=== PATIENT | female | born 1940 | race American Indian/Alaskan Native ===

== ENCOUNTER 2019-02-09 16:54 | Emergency (ER) | payer MEDICAID ==
--- NOTE | 2019-02-09 17:59 | Emergency Department Report ---
Blank Doc - Documentation Documentation: 78-year-old female that presents with SOB and vaginal bleeding. This initial assessment/diagnostic orders/clinical plan/treatment(s) is/are subject to change based on patient's health status, clinical progression and re- assessment by fellow clinical providers in the ED. Further treatment and workup at subsequent clinical providers discretion. Patient/guardians urged not to elope from the ED as their condition may be serious if not clinically assessed and managed. Initial orders include: 1- Patient sent to [facility] for further evaluation and treatment 2- labs 3- EKG 4- CXR
--- NOTE | 2019-02-09 18:27 | XRay Report ---
CHEST 2 VIEWS INDICATION / CLINICAL INFORMATION: Chest Pain. COMPARISON: None available. FINDINGS: SUPPORT DEVICES: None. HEART / MEDIASTINUM: No significant abnormality. LUNGS / PLEURA: No significant pulmonary or pleural abnormality. No pneumothorax. ADDITIONAL FINDINGS: No significant additional findings. IMPRESSION: 1. No acute findings. Signer Name: Julio Cesar Yuan MD Signed: 02/09/2019 6:23 PM Workstation Name: [id number]
[2019-02-09 19:01] LABS: Bilirubin,Urine NEG (Negative); Blood,Urine NEG (Negative); Color,Urine Straw (Yellow); Protein,Urine <15 mg/dL mg/dL (Negative); Urobilinogen,Urine < 2.0 mg/dL (<2.0)
[2019-02-09 19:26] LABS: Basophils % (Auto) 0.6 % (0.0-1.8); Eosinophils # (Auto) 0.2 K/mm3 (0.0-0.4); Eosinophils % (Auto) 3.2 % (0.0-4.3); Hematocrit 39.1 % (30.3-42.9); Hemoglobin 13.5 gm/dl (10.1-14.3); Lymphocytes % (Auto) 31.2 % (13.4-35.0); Mean Corpuscular HGB Conc 34 % (30-34); Mean Corpuscular Volume 92 fl (79-97); Monocytes # (Auto) 0.4 K/mm3 (0.0-0.8); Monocytes % (Auto) 7.1 % (0.0-7.3); Platelet Count 182 K/mm3 (140-440); Red Blood Count 4.25 M/mm3 (3.65-5.03); Red Cell Distribution Width 14.6 % (13.2-15.2)
[2019-02-09 19:40] LABS: INR 0.9 (0.87-1.13)
[2019-02-09 19:41] LABS: Partial Thromboplastin Time 34.3 Sec. (24.2-36.6)
[2019-02-09 19:47] LABS: BUN/Creatinine Ratio 23; Blood Urea Nitrogen 14 mg/dL (7-17); Calcium 9.7 mg/dL (8.4-10.2); Hemolysis Index 19
[2019-02-09] MEDS ORDERED: DUONEB *Not for PRN Use IH ONE (21:56)
--- NOTE | 2019-02-09 22:22 | Emergency Department Report ---
HPI - General Chief Complaint: Vaginal Bleeding Time Seen by Provider: 02/09/19 17:58 - HPI HPI: 78-year-old female presents to the emergency department with 2 complaints. First, the patient has been having some shortness of breath and c oughing going on for the past few weeks but worsened recently. The patient has some tenants who are smokers and initially they followed her rules aboutindoors but more recently they have been smoking inside of the house and she feels there is not much that she is able to do at this time regarding any infection. She thinks this is the reason for the shortness of breath. She has not a smoker herself. She denies any chest pain, fever and the cough is dry. Secondly, the patient complains of some vaginal bleeding over the past 2 days. Yesterday it was spotting but today it is a moderate amount of bright red vaginal bleeding. She denies any abdominal or pelvic pain. ED Past Medical Hx - Past Medical History Previous Medical History?: No Hx Hypertension: No Hx CVA: No Hx Heart Attack/AMI: No Hx Congestive Heart Failure: No Hx Diabetes: No Hx Deep Vein Thrombosis: No Hx Pulmonary Embolism: No Hx GERD: No Hx Liver Disease: No Hx Renal Disease: No Hx of Cancer: No Hx Sickle Cell Disease: No Hx Arthritis: No Hx Headaches / Migraines: No Hx Seizures: No Hx Kidney Stones: No Hx Psychiatric Treatment: No Hx Asthma: No Hx COPD: No Hx Tuberculosis: No Hx Dementia: No Hx HIV: No Additional medical history: myomectomy - Surgical History Past Surgical History?: No Hx Coronary Stent: No Hx Open Heart Surgery: No Hx Pacemaker: No Hx Internal Defibrillator: No Hx Cholecystectomy: No Hx Appendectomy: No Hx Breast Surgery: No - Social History Smoking Status: Never Smoker Substance Use Type: None ED Review of Systems ROS: Stated complaint: VAGINAL BLEEDING/SOB Other details as noted in HPI Comment: All other systems reviewed and negative Constitutional: denies: chills, fever Eyes: denies: eye pain, vision change ENT: denies: ear pain, throat pain Respiratory: cough, shortness of breath Cardiovascular: denies: chest pain, palpitations Gastrointestinal: denies: abdominal pain, nausea, vomiting Genitourinary: other (abnormal vaginal bleeding). denies: dysuria, discharge Musculoskeletal: denies: back pain, arthralgia Skin: denies: rash, lesions Neurological: denies: headache, weakness Physical Exam - Physical Exam Vital Signs: Vital Signs 02/09/19 17:57 Temperature 98.0 F Pulse Rate 78 Respiratory 16 Rate Blood Pressure 183/93 Blood Pressure 183/93 [Right] O2 Sat by Pulse 100 Oximetry Physical Exam: GENERAL: The patient is well-developed well-nourished. HENT: Normocephalic. Atraumatic. Patient has moist mucous membranes. EYES: Extraocular motions are intact. Pupils equal reactive to light bilate rally. NECK: Supple. Trachea is midline. CHEST/LUNGS: Clear to auscultation. No tachypnea or accessory muscle use. There is no respiratory distress noted. HEART/CARDIOVASCULAR: Regular. There is no tachycardia. There is no murmur. ABDOMEN: Abdomen is soft, nontender. Patient has normal bowel sounds. There is no abdominal distention. SKIN: Skin is warm and dry. NEURO: The patient is awake, alert, and oriented. The patient is cooperative. The patient has no focal neurologic deficits. Normal speech. Cranial nerves II through XII grossly intact. MUSCULOSKELETAL: There is no tenderness or deformity. There is no evidence of acute injury. +2 over 4 dorsalis pedis pulses bilaterally. Capillary refill less than 2 seconds. ED Course Vital Signs 02/09/19 17:57 Temperature 98.0 F Pulse Rate 78 Respiratory 16 Rate Blood Pressure 183/93 Blood Pressure 183/93 [Right] O2 Sat by Pulse 100 Oximetry ED Medical Decision Making - Lab Data Result diagrams: 02/09/19 19:15 02/09/19 19:15 - Radiology Data Radiology results: report reviewed, image reviewed interpreted by me: Chest x-ray does not show any acute process. There are no pleural effusions, obvious pneumonia and there is no pneumothorax. Transvaginal ultrasound. 02/09/2019. HISTORY: Vaginal bleeding. FINDINGS: The uterus measures 4.9 x 2 x 4.6 cm. The appearance is mildly heterogeneous. Endometrial stripe measures 1.4 mm. The ovaries cannot be identified. IMPRESSION: 1. Mild uterine heterogeneity without suspicious 2 ovaries nonvisualized. Negative for adnexal mass or fluid. - Medical Decision Making This patient presents with 2 complaints. Regarding her shortness of breath, chest x-ray does not show any pneumonia, pleural effusions, pneumothorax or focal consolidation, or any other acute process. Lungs are clear to auscultation. She does not have any signs of any respiratory distress including any tachypnea, accessory muscle use. Patient may have some irritation to her lungs secondary to the recent smoking that is going on inside of her home. I discussed with her that she needs to try and remove herself from the smoke. The patient barely had the DuoNeb treatment started and she says that she could not tolerate it. There is no significant bronchospasm or signs of respiratory distress, it will be discontinued. Regarding the patient's abnormal vaginal bleeding, she has a stable hemoglobin. Ultrasound shows a slightly heterogenous uterus but otherwise no mass, or signs of any acute process. Patient has been instructed to follow-up with her primary care physician and an [facility]ANT. She will return to the ER with any worsening of her symptoms or any acute distress. - Differential Diagnosis pneumonia, asthma, bronchitis, uterine fibroids, malignancy Critical Care Time: No Critical care attestation.: If time is entered above; I have spent that time in minutes in the direct care of this critically ill patient, excluding procedure time. ED Disposition Clinical Impression: Vaginal bleeding, Post-menopause bleeding, Exposure to tobacco smoke, Shortness of breath Hypertension Qualifiers: Hypertension type: essential hypertension Qualified Code(s): I10 - Essential (primary) hypertension Disposition: - TO HOME OR SELFCARE Is pt being admited?: No Condition: Stable Instructions: Dyspnea (ED), Hypertension (ED) Additional Instructions: Please follow-up with your primary care physician in the next few days. Return to the emergency Department with any worsening of your symptoms or any acute distress. Try and stay away from foods that are high in salt and caffeinated products to help with your blood pressure. Keep a blood pressure log. Referrals: Primary Care Provider, Your [Other] - 2-3 Days Time of Disposition: 01:18
--- NOTE | 2019-02-09 23:07 | Ultrasound Report ---
Transvaginal ultrasound. 02/09/2019. HISTORY: Vaginal bleeding. FINDINGS: The uterus measures 4.9 x 2 x 4.6 cm. The appearance is mildly heterogeneous. Endometrial s tripe measures 1.4 mm. The ovaries cannot be identified. IMPRESSION: 1. Mild uterine heterogeneity without suspicious 2 ovaries nonvisualized. Negative for adnexal mass o r fluid. Signer Name: Juan Diaz MD Signed: 02/09/2019 11:02 PM Workstation Name: [id number]
[2019-02-09 23:32] VITALS: BP 181/90
== END 2019-02-10 01:22 | disposition home or self-care (01) ==
LOC: ED 16:54
DX: N95.0 Postmenopausal bleeding (principal); R06.02 Shortness of breath; Z88.5 Allergy status to narcotic agent
CPT/HCPCS: 36415; 71046; 76830; 80048; 81001; 84484; 85025; 85610; 85730; 93005; 93010

== ENCOUNTER 2020-01-22 12:20 | Emergency (ER) | payer MEDICARE ==
[2020-01-22 12:25] VITALS: BP 181/101
[2020-01-22 13:40] LABS: Basophils # (Auto) 0.1 K/mm3 (0.0-0.1); Basophils % (Auto) 0.8 % (0.0-1.8); Eosinophils # (Auto) 0.3 K/mm3 (0.0-0.4); Eosinophils % (Auto) 4.3 % (0.0-4.3); Hematocrit 38.6 % (30.3-42.9); Hemoglobin 13.2 gm/dl (10.1-14.3); Lymphocytes # (Auto) 2.1 K/mm3 (1.2-5.4); Lymphocytes % (Auto) 32.1 % (13.4-35.0); Mean Corpuscular HGB Conc 34 % (30-34); Mean Corpuscular Volume 92 fl (79-97); Monocytes # (Auto) 0.5 K/mm3 (0.0-0.8); Monocytes % (Auto) 8.2 % (0.0-7.3); Platelet Count 217 K/mm3 (140-440); Red Blood Count 4.21 M/mm3 (3.65-5.03); Red Cell Distribution Width 14.7 % (13.2-15.2)
[2020-01-22 14:39] LABS: BUN/Creatinine Ratio 19; Blood Urea Nitrogen 13 mg/dL (7-17); Calcium 10.2 mg/dL (8.4-10.2); Hemolysis Index 9
--- NOTE | 2020-01-22 15:22 | Emergency Department Report ---
ED General Adult HPI - General Chief complaint: Altered Mental Status Stated complaint: DIZZY Time Seen by Provider: 01/22/20 15:05 Source: patient Mode of arrival: Ambulatory Limitations: Altered Mental Status - History of Present Illness Initial comments: The patient presents to the emergency department via uber in attempt to get directions to her doctor's office. The patient states she is getting frustrated because she has been here all morning and she had a doctor's appointment this morning was trying to get there. Patient is able to tell me her name, date of , the last 3 presidents, her address, and her doctors address. The patient is well-groomed and is very patient when answering questions. Discussed with the patient she had dementia and she states that she is heard that term before and she states earlier today she might of been slightly confused but now she feels completely better. -: unknown Severity scale (0 -10): 0 Improves with: none Worsens with: none Associated Symptoms: denies other symptoms Treatments Prior to Arrival: none - Related Data Previous Rx's Medication Instructions Recorded Last Taken Type Aspirin EC [Halfprin EC] 81 mg PO QDAY #30 tablet. 10/20/19 Unknown Rx AtorvaSTATin [Lipitor] 40 mg PO QHS #30 tablet 10/20/19 Unknown Rx Calcium Carbonate/Vitamin D3 1 each PO DAILY #30 tablet 10/20/19 Unknown Rx [Calcium 500 mg-Vit D3 600 Unit] amLODIPine 10 mg PO QDAY #30 tablet 10/20/19 Unknown Rx Allergies Allergy/AdvReac Type Severity Reaction Status Date / Time codeine AdvReac Intermediate Swelling Unverified 05/24/15 09:09 ED Review of Systems ROS: Stated complaint: DIZZY Other details as noted in HPI Comment: All other systems reviewed and negative Constitutional: denies: chills, fever Eyes: denies: eye pain, eye discharge, vision change ENT: denies: ear pain, throat pain Respiratory: denies: cough, shortness of breath, wheezing Cardiovascular: denies: chest pain, palpitations Endocrine: no symptoms reported Gastrointestinal: denies: abdominal pain, nausea, diarrhea Genitourinary: denies: urgency, dysuria, discharge Musculoskeletal: denies: back pain, joint swelling, arthralgia Skin: denies: rash, lesions Neurological: denies: headache, weakness, paresthesias Psychiatric: denies: anxiety, depression Hematological/Lymphatic: denies: easy bleeding, easy bruising ED Past Medical Hx - Past Medical History Previous Medical History?: Yes Hx Hypertension: No Hx CVA: No Hx Heart Attack/AMI: No Hx Congestive Heart Failure: No Hx Diabetes: Yes Hx Deep Vein Thrombosis: No Hx Pulmonary Embolism: No Hx GERD: No Hx Liver Disease: No Hx Renal Disease: No Hx Sickle Cell Disease: No Hx Arthritis: No Hx Headaches / Migraines: No Hx Seizures: No Hx Kidney Stones: No Hx Psychiatric Treatment: No Hx Asthma: No Hx COPD: No Hx Tuberculosis: No Hx Dementia: No Hx HIV: No Additional medical history: myomectomy - Surgical History Hx Coronary Stent: No Hx Open Heart Surgery: No Hx Pacemaker: No Hx Internal Defibrillator: No Hx Cholecystectomy: No Hx Appendectomy: No Hx Breast Surgery: No - Social History Smoking Status: Never Smoker Substance Use Type: None - Medications Home Medications: Home Medications Medication Instructions Recorded Confirmed Last Taken Type Aspirin EC [Halfprin EC] 81 mg PO QDAY #30 tablet. 10/20/19 Unknown Rx AtorvaSTATin [Lipitor] 40 mg PO QHS #30 tablet 10/20/19 Unknown Rx Calcium Carbonate/Vitamin D3 1 each PO DAILY #30 tablet 10/20/19 Unknown Rx [Calcium 500 mg-Vit D3 600 Unit] amLODIPine 10 mg PO QDAY #30 tablet 10/20/19 Unknown Rx ED Physical Exam - General Limitations: Altered Mental Status General appearance: alert, in no apparent distress - Head Head exam: Present: atraumatic, normocephalic - Eye Eye exam: Present: normal appearance, PERRL, EOMI - ENT ENT exam: Present: mucous membranes moist - Neck Neck exam: Present: normal inspection - Respiratory Respiratory exam: Present: normal lung sounds bilaterally. Absent: respiratory distress - Cardiovascular Cardiovascular Exam: Present: regular rate, normal rhythm. Absent: systolic murmur, diastolic murmur, rubs, gallop - GI/Abdominal GI/Abdominal exam: Present: soft, normal bowel sounds. Absent: distended, tenderness - Extremities Exam Extremities exam: Present: normal inspection - Back Exam Back exam: Present: normal inspection - Neurological Exam Neurological exam: Present: alert, oriented X3, CN II-XII intact. Absent: motor sensory deficit - Psychiatric Psychiatric exam: Present: normal affect, normal mood - Skin Skin exam: Present: warm, dry, intact, normal color. Absent: rash ED Course Vital Signs 01/22/20 12:23 Temperature 97.6 F Pulse Rate 79 Respiratory 16 Rate Blood Pressure 181/101 O2 Sat by Pulse 100 Oximetry ED Medical Decision Making - Lab Data Result diagrams: 01/22/20 12:37 01/22/20 12:37 Lab Results 01/22/20 01/22/20 01/22/20 Range/Units 12:37 12:37 12:44 WBC 6.4 (4.5-11.0) K/mm3 RBC 4.21 (3.65-5.03) M/mm3 Hgb 13.2 (10.1-14.3) gm/dl Hct 38.6 (30.3-42.9) % MCV 92 (79-97) fl MCH 31 (28-32) pg MCHC 34 (30-34) % RDW 14.7 (13.2-15.2) % Plt Count 217 (140-440) K/mm3 Lymph % (Auto) 32.1 (13.4-35.0) % Barron % (Auto) 8.2 H (0.0-7.3) % Eos % (Auto) 4.3 (0.0-4.3) % Baso % (Auto) 0.8 (0.0-1.8) % Lymph # 2.1 (1.2-5.4) K/mm3 Barron # 0.5 (0.0-0.8) K/mm3 Eos # 0.3 (0.0-0.4) K/mm3 Baso # 0.1 (0.0-0.1) K/mm3 Seg Neutrophils % 54.6 (40.0-70.0) % Seg Neutrophils # 3.5 (1.8-7.7) K/mm3 Sodium 138 (137-145) mmol/L Potassium 4.2 (3.6-5.0) mmol/L Chloride 98.9 (98-107) mmol/L Carbon Dioxide 25 (22-30) mmol/L Anion Gap 18 mmol/L BUN 13 (7-17) mg/dL Creatinine 0.7 (0.6-1.2) mg/dL Estimated GFR > 60 ml/min BUN/Creatinine Ratio 19 % Glucose 109 H (65-100) mg/dL POC Glucose 128 H (70-105) Calcium 10.2 (8.4-10.2) mg/dL - Medical Decision Making Mini MSE exam was done and the patient passed Critical care attestation.: If time is entered above; I have spent that time in minutes in the direct care of this critically ill patient, excluding procedure time. ED Disposition Clinical Impression: Well adult exam Disposition: DC-01 TO HOME OR SELFCARE Is pt being admited?: No Does the pt Need Aspirin: No Condition: Stable Additional Instructions: Return if you have any chest pain, shortness breath, or headache. Referrals: PRIMARY CARE, [Primary Care Provider] - 3-5 Days LUCY MORA MD [Referring] - 3-5 Days Forms: AMA Form Time of Disposition: 15:23
== END 2020-01-22 16:00 | disposition home or self-care (01) ==
LOC: ED 12:20
DX: R42 Dizziness and giddiness (principal); E11.9 Type 2 diabetes mellitus without complications; Z79.82 Long term (current) use of aspirin; Z79.899 Other long term (current) drug therapy; Z88.6 Allergy status to analgesic agent; Z00.00 Encounter for general adult medical examination without abnormal findings
CPT/HCPCS: 36415; 80048; 82962; 85025

== ENCOUNTER 2021-08-04 18:20 | Emergency (ER) | payer MEDICARE ==
[2021-08-04 19:46] LABS: Basophils % (Auto) 0.6 % (0.0-1.8); Eosinophils # (Auto) 0.2 K/mm3 (0.0-0.4); Eosinophils % (Auto) 3.4 % (0.0-4.3); Hematocrit 36.9 % (30.3-42.9); Lymphocytes # (Auto) 1.9 K/mm3 (1.2-5.4); Lymphocytes % (Auto) 33.1 % (13.4-35.0); Mean Corpuscular HGB Conc 32 % (30-34); Mean Corpuscular Volume 92 fl (79-97); Monocytes # (Auto) 0.5 K/mm3 (0.0-0.8); Monocytes % (Auto) 8.3 % (0.0-7.3); Platelet Count 176 K/mm3 (140-440); Red Blood Count 4.03 M/mm3 (3.65-5.03); Red Cell Distribution Width 15.3 % (13.2-15.2)
[2021-08-04 19:59] LABS: Alanine Aminotransferase 15 units/L (7-56); Albumin 4.5 g/dL (3.9-5); Blood Urea Nitrogen 27 mg/dL (7-17); Calcium 9.7 mg/dL (8.4-10.2); Hemolysis Index 5
[2021-08-04 20:14] LABS: BUN/Creatinine Ratio 45; Bilirubin,Direct < 0.2 mg/dL (0-0.2)
[2021-08-04 20:17] LABS: INR 0.85 (0.87-1.13)
[2021-08-04 21:54] LABS: Bilirubin,Urine NEG (Negative); Blood,Urine SM (Negative); Color,Urine Yellow (Yellow); Mucus,Urine 1+ /HPF; Protein,Urine <15 mg/dL mg/dL (Negative); Urobilinogen,Urine < 2.0 mg/dL (<2.0); WBC,Urine < 1.0 /HPF (0.0-6.0)
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
[2021-08-05] MEDS ORDERED: amLODIPine 10 MG TAB PO SCH (10:00)
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
[2021-08-05] MEDS ORDERED: ARIPiprazole 5 MG TAB PO SCH (12:00)
[2021-08-05 20:13] VITALS: BP 140/84
[2021-08-05] MEDS ORDERED: traZODone 50 MG TAB PO SCH (22:00)
== END 2021-08-05 21:41 ==
LOC: ED 18:20
DX: R42 Dizziness and giddiness (principal); E11.9 Type 2 diabetes mellitus without complications; R79.1 Abnormal coagulation profile; Z20.822 Contact with and (suspected) exposure to COVID-19; Z88.5 Allergy status to narcotic agent; Z79.899 Other long term (current) drug therapy
CPT/HCPCS: 36415; 80048; 80076; 81001; 82150; 82962; 83690; 84443; 85025; 85610; 99284; U0003; 80320; G0480

== ENCOUNTER 2021-08-05 18:56 | Inpatient (IN) | payer MEDICARE ==
[2021-08-05] MEDS: traZODone 50 MG TAB PO SCH (23:50)
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
[2021-08-06] MEDS ORDERED: [UNRECOGNIZED DRUG - OTHER] PO SCH (10:00)
[2021-08-06] MEDS ORDERED: ARIPiprazole 5 MG TAB PO SCH (10:00)
[2021-08-06] MEDS ORDERED: VITAMIN D3 PO SCH (10:00)
[2021-08-06] MEDS ORDERED: CALCIUM CARBONATE PO SCH (10:00)
--- NOTE | 2021-08-06 10:49 | Consultation ---
History of Present Illness - Reason for Consult Consult date: 08/06/21 Medical Management Requesting physician: MORIAH SANCHEZ - History of Present Illness 81 YO Female with Vascular Dementia with Behavioral Disturbance, Cerebral Atherosclerosis, HTN, DM, Malnitrition, MDD, EDWIN admitted to [facility] for psychiatric stabilization. Consult placed by Dr. Sanchez for medical management. Pt seen and evaluated in her room. Pt resting comfortably in bed. Pt has dimi nished cognition and is unable to provide detailed history at the time of my evaluation. Patient appears to be at baseline level of cognition and function. No reports of fever, chills, chest pain, palpitation or productive cough, skin rash, recent contact, known exposure to COVID-19. Past History Past Medical History: diabetes, hypertension Past Surgical History: Other (Myomectomy) Social history: , Lives alone Family history: diabetes, hypertension Medications and Allergies Allergies Allergy/AdvReac Type Severity Reaction Status Date / Time codeine AdvReac Intermediate Swelling Verified 08/04/21 18:27 Home Medications Medication Instructions Recorded Confirmed Last Taken Type Aspirin EC [Halfprin EC] 81 mg PO QDAY #30 tablet. 10/20/19 08/06/21 Unknown Rx AtorvaSTATin [Lipitor] 40 mg PO QHS #30 tablet 10/20/19 08/06/21 Unknown Rx Calcium Carbonate/Vitamin D3 1 each PO DAILY #30 tablet 10/20/19 08/06/21 Unknown Rx [Calcium 500 mg-Vit D3 600 Unit] amLODIPine 10 mg PO QDAY #30 tablet 10/20/19 08/06/21 Unknown Rx Active Meds: Active Medications Amlodipine Besylate (Amlodipine 10 Mg Tab) 10 mg PO QDAY [facility] Aripiprazole (Aripiprazole 5 Mg Tab) 5 mg PO QDAY [facility] Aspirin (Aspirin Ec 81 Mg Tab) 81 mg PO QDAY [facility] Atorvastatin Calcium (Atorvastatin 40 Mg Tab) 40 mg PO QHS [facility] Multivitamins/Minerals (Calcium Carb/Vit D3/Minerals 600 Mg/800 Units Tab) 1 each PO DAILY [facility] Trazodone HCl (Trazodone 50 Mg Tab) 50 mg PO QHS [facility] Last Admin: 08/05/21 23:50 Dose: Not Given Review of Systems ROS unobtainable: due to mental status Exam - Constitutional Vitals: Temp Pulse Resp BP Pulse Ox 98.4 F 79 18 116/59 97 08/06/21 09:05 08/06/21 09:05 08/06/21 09:05 08/06/21 09:05 08/06/21 09:05 General appearance: Present: no acute distress, cachectic - EENT Eyes: Present: PERRL ENT: clear oral mucosa, hearing decreased - Respiratory Respiratory effort: normal Respiratory: bilateral: CTA - Cardiovascular Rhythm: regular Heart Sounds: Present: S1 & S2 - Extremities Extremities: pulses symmetrical, No edema Peripheral Pulses: within normal limits - Abdominal General gastrointestinal: Present: soft, non-tender, non-distended, normal bowel sounds Female genitourinary: Present: normal - Integumentary Integumentary: Present: clear, warm, dry - Musculoskeletal Musculoskeletal: generalized weakness - Psychiatric Psychiatric: no appropriate mood/affect, no intact judgment & insight, no memory intact - Neurologic Neurologic: CNII-XII intact, no focal deficits, moves all extremities Assessment and Plan - Patient Problems (1) Vascular dementia with behavioral disturbance Current Visit: Yes Status: Acute Plan to address problem: Verbal prompting, verbal redirection, benzodiazepine therapy as clinically indicated (2) Cerebral atherosclerosis Current Visit: Yes Status: Acute Plan to address problem: Risk factor reduction, antiplatelet therapy as clinically indicated. (3) Hypertension Current Visit: Yes Status: Acute Qualifiers: Hypertension type: primary hypertension Qualified Code(s): I10 - Essential (primary) hypertension Plan to address problem: Monitor blood pressure every shift, continue medical management. (4) Hyperlipidemia Current Visit: Yes Status: Acute Plan to address problem: Low-cholesterol diet, statin therapy, supportive care. (5) Diabetes Current Visit: Yes Status: Acute Plan to address problem: Consistent carbohydrate diet, Accu-Chek, insulin protocol, hypoglycemia protocol. (6) Malnutrition Current Visit: Yes Status: Acute Qualifiers: Protein-calorie malnutrition severity: moderate Plan to address problem: Dietary intake varies based on cognition. Dietary supplementation when awake and alert only, increase protein intake. (7) Psychosis Current Visit: Yes Status: Acute Qualifiers: Schizophrenia type: unspecified Plan to address problem: Continue medical management as per mental health team (8) Debility Current Visit: Yes Status: Acute Plan to address problem: Bed alarm, fall precautions. (9) Advance care planning Current Visit: Yes Status: Acute Plan to address problem: Disease education conducted, care plan discussed, diagnoses discussed, prognosis discussed, patient is full code. Discussed patient diagnoses, prognosis and care plan with patient granddaughter Felicia Nuñez [phone]. Patient is currently unable to live independently and will require placement. Discussed all likely options. Recommend discharge with hospice care to care home facility, personal-jail, or assisted living facility depending on availability and acceptance. 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 +30 minutes.
[2021-08-06] MEDS: ASPIRIN EC 81 MG TAB PO SCH (11:09)
[2021-08-06] MEDS: amLODIPine 10 MG TAB PO SCH (11:10)
[2021-08-06] MEDS: CALCIUM CARB/VIT D3/MINERALS 600 MG/800 UNITS TAB PO SCH (11:10)
[2021-08-06] MEDS: traZODone 50 MG TAB PO SCH (21:25)
--- NOTE | 2021-08-07 08:46 | Progress Note ---
Subjective Date of service: 08/07/21 Subjective Comment: The patient was seen this morning. She is calm. When asking how she is doing, she states " I don't know yet." She reports sleep as restful. She denies depression and denies any current suicidal/homicidal ideation and denies hallucinations. REVIEW OF SYSTEMS Constitutional: Negative for weight loss ENT: Negative for stridor Respiratory: Negative for cough or hemoptysis All other systems reviewed and are negative MENTAL STATUS EXAMINATION General Appearance and Behavior: Age appropriate, good hygiene, wearing appropriate clothes, good eye contact, calm, cooperative Cooperation: Participating/engaged, but Guarded Psychomotor Behavior: Psychomotor normal Mood: calm Affect and affective range: congruent with stated mood Thought Process: Goal directed Thought Content: Reality oriented Speech: normal tone and pace Suicidal Ideation: Denies Homicidal Ideation: Denies Hallucinations: Denies Delusions: None Impulse Control: Limited Insight and Judgment: Poor insight and judgment Memory: Poor Attention: Divided Orientation: Alert, oriented Assessment and Plan Delusional Disorder Treatment Plan Patient admitted for inpatient psychiatric evaluation, medication adjustment and close monitoring The patient's behavior, mood, sleep and appetite will be closely monitored. Patient enrolled in individual and group therapeutic sessions and encouraged to attend. Patient provided with a safe and structured environment. Patient's physical health needs will be addressed by the Hospitalist. Hospitalist Consulted Labs including CBC, CMP, Lipid profile and Hemoglobin A1C levels ordered for baseline reference Social Assessment will be completed and the Therapeutic Recreation Specialist will work with patient and family to ensure a suitable and safe disposition Medication adjustment will be made as clinically indicated Start Abilify 5mg po daily Usual Wellness Anabaptism/Preservation: - Start Trazodone 50 mg po QHS & 50 mg po QHS PRN between 10 PM & 2 AM for insomnia - Start Melatonin 5 mg po QHS to promote circadian rhythm The patient agreed on the treatment plan, understood the risk, benefit, alternative treatment, potential consequence of no treatment, and gave informed consent. Estimated days: Post hospital care: primary care provider, psychiatric provider Case staffed with Dr. Fuentes Legal Status: Voluntary Reaction to Hospitalization: Accepting Medications and Allergies Medications and Allergies Allergies Allergy/AdvReac Type Severity Reaction Status Date / Time codeine AdvReac Intermediate Swelling Verified 08/04/21 18:27 Home Medications Medication Instructions Recorded Confirmed Last Taken Type Aspirin EC [Halfprin EC] 81 mg PO QDAY #30 tablet. 10/20/19 08/06/21 Unknown Rx AtorvaSTATin [Lipitor] 40 mg PO QHS #30 tablet 10/20/19 08/06/21 Unknown Rx Calcium Carbonate/Vitamin D3 1 each PO DAILY #30 tablet 10/20/19 08/06/21 Unknown Rx [Calcium 500 mg-Vit D3 600 Unit] amLODIPine 10 mg PO QDAY #30 tablet 10/20/19 08/06/21 Unknown Rx Active Meds: Active Medications Amlodipine Besylate (Amlodipine 10 Mg Tab) 10 mg PO QDAY [facility] Last Admin: 08/06/21 11:10 Dose: Not Given Aripiprazole (Aripiprazole 5 Mg Tab) 5 mg PO QDAY [facility] Last Admin: 08/06/21 11:09 Dose: 5 mg Aspirin (Aspirin Ec 81 Mg Tab) 81 mg PO QDAY [facility] Last Admin: 08/06/21 11:09 Dose: 81 mg Atorvastatin Calcium (Atorvastatin 40 Mg Tab) 40 mg PO QHS [facility] Last Admin: 08/06/21 21:25 Dose: 40 mg Multivitamins/Minerals (Calcium Carb/Vit D3/Minerals 600 Mg/800 Units Tab) 1 each PO DAILY [facility] Last Admin: 08/06/21 11:10 Dose: 1 each Trazodone HCl (Trazodone 50 Mg Tab) 50 mg PO QHS [facility] Last Admin: 08/06/21 21:25 Dose: 50 mg Results - Results Labs/Vitals: Laboratory Last Values POC Glucose 142 mg/dL (70-105) H 08/06/21 19:45 Last Vital Signs Temp 98.8 F 08/06/21 19:24 Pulse 84 08/06/21 19:24 Resp 18 08/06/21 19:24 BP 96/49 08/06/21 19:24 Pulse Ox 99 08/06/21 19:24
[2021-08-07] MEDS ORDERED: ZIPRASIDONE MESYLATE 20 MG VIAL IM PRN (10:00)
[2021-08-07] MEDS: CALCIUM CARB/VIT D3/MINERALS 600 MG/800 UNITS TAB PO SCH (11:34)
[2021-08-07] MEDS: ASPIRIN EC 81 MG TAB PO SCH (11:35)
[2021-08-07] MEDS: amLODIPine 10 MG TAB PO SCH (11:37)
[2021-08-07] MEDS: ARIPiprazole 10 MG TAB PO SCH (11:50)
[2021-08-07] MEDS: traZODone 50 MG TAB PO SCH (21:01)
[2021-08-08] MEDS: ARIPiprazole 10 MG TAB PO SCH (09:03)
[2021-08-08] MEDS: amLODIPine 10 MG TAB PO SCH (09:03)
[2021-08-08] MEDS: CALCIUM CARB/VIT D3/MINERALS 600 MG/800 UNITS TAB PO SCH (09:03)
[2021-08-08] MEDS: ASPIRIN EC 81 MG TAB PO SCH (09:03)
--- NOTE | 2021-08-08 09:27 | Progress Note ---
Subjective Date of service: 08/08/21 Subjective Comment: 08/08/21: The patient was seen eating breakfast. she reports doing well " I would have liked to sleep better, so much interruptions." She denies depression and denies any current suicidal/homicidal ideation and denies hallucinations. 08/07/21:The patient was seen this morning. She is calm. When asking how she is doing, she states " I don't know yet." She reports sleep as restful. She denies depression and denies any current suicidal/homicidal ideation and denies hallucinations. REVIEW OF SYSTEMS Constitutional: Negative for weight loss ENT: Negative for stridor Respiratory: Negative for cough or hemoptysis All other systems reviewed and are negative MENTAL STATUS EXAMINATION General Appearance and Behavior: Age appropriate, good hygiene, wearing appropriate clothes, good eye contact, calm, cooperative Cooperation: Participating/engaged, but Guarded Psychomotor Behavior: Psychomotor normal Mood: calm Affect and affective range: congruent with stated mood Thought Process: Goal directed Thought Content: Reality oriented Speech: normal tone and pace Suicidal Ideation: Denies Homicidal Ideation: Denies Hallucinations: Denies Delusions: None Impulse Control: Limited Insight and Judgment: Poor insight and judgment Memory: Poor Attention: Divided Orientation: Alert, oriented Assessment and Plan Delusional Disorder Treatment Plan Patient admitted for inpatient psychiatric evaluation, medication adjustment and close monitoring The patient's behavior, mood, sleep and appetite will be closely monitored. Patient enrolled in individual and group therapeutic sessions and encouraged to attend. Patient provided with a safe and structured environment. Patient's physical health needs will be addressed by the Hospitalist. Hospitalist Consulted Labs including CBC, CMP, Lipid profile and Hemoglobin A1C levels ordered for baseline reference Social Assessment will be completed and the Magnetic Locater will work with patient and family to ensure a suitable and safe disposition Medication adjustment will be made as clinically indicated Continue Abilify 5mg po daily Usual Wellness Advent/Preservation: - Start Trazodone 50 mg po QHS & 50 mg po QHS PRN between 10 PM & 2 AM for insomnia - Start Melatonin 5 mg po QHS to promote circadian rhythm The patient agreed on the treatment plan, understood the risk, benefit, alternative treatment, potential consequence of no treatment, and gave informed consent. Estimated days: Post hospital care: primary care provider, psychiatric provider Case staffed with Dr. Fuentes Legal Status: Voluntary Reaction to Hospitalization: Accepting Medications and Allergies Medications and Allergies Allergies Allergy/AdvReac Type Severity Reaction Status Date / Time codeine AdvReac Intermediate Swelling Verified 08/04/21 18:27 Home Medications Medication Instructions Recorded Confirmed Last Taken Type Aspirin EC [Halfprin EC] 81 mg PO QDAY #30 tablet.dr 10/20/19 08/06/21 Unknown Rx AtorvaSTATin [Lipitor] 40 mg PO QHS #30 tablet 10/20/19 08/06/21 Unknown Rx Calcium Carbonate/Vitamin D3 1 each PO DAILY #30 tablet 10/20/19 08/06/21 Unknown Rx [Calcium 500 mg-Vit D3 600 Unit] amLODIPine 10 mg PO QDAY #30 tablet 10/20/19 08/06/21 Unknown Rx Active Meds: Active Medications Amlodipine Besylate (Amlodipine 10 Mg Tab) 10 mg PO QDAY [facility] Last Admin: 08/08/21 09:03 Dose: 10 mg Aripiprazole (Aripiprazole 10 Mg Tab) 10 mg PO QDAY [facility] Last Admin: 08/08/21 09:03 Dose: 10 mg Aspirin (Aspirin Ec 81 Mg Tab) 81 mg PO QDAY [facility] Last Admin: 08/08/21 09:03 Dose: 81 mg Atorvastatin Calcium (Atorvastatin 40 Mg Tab) 40 mg PO QHS [facility] Last Admin: 08/07/21 21:01 Dose: 40 mg Multivitamins/Minerals (Calcium Carb/Vit D3/Minerals 600 Mg/800 Units Tab) 1 each PO DAILY [facility] Last Admin: 08/08/21 09:03 Dose: 1 each Trazodone HCl (Trazodone 50 Mg Tab) 50 mg PO QHS [facility] Last Admin: 08/07/21 21:01 Dose: 50 mg Results - Results Labs/Vitals: Laboratory Last Values POC Glucose 72 mg/dL (70-105) 08/08/21 06:04 Last Vital Signs Temp 98.5 F 08/08/21 07:55 Pulse 79 08/08/21 07:55 Resp 18 08/08/21 07:55 BP 150/125 08/08/21 07:55 Pulse Ox 95 08/08/21 07:55
[2021-08-08 22:00] LABS: Basophils % (Auto) 0.5 % (0.0-1.8); Eosinophils # (Auto) 0.2 K/mm3 (0.0-0.4); Eosinophils % (Auto) 3.3 % (0.0-4.3); Hematocrit 36.3 % (30.3-42.9); Hemoglobin 11.8 gm/dl (10.1-14.3); Lymphocytes % (Auto) 32.9 % (13.4-35.0); Mean Corpuscular HGB Conc 33 % (30-34); Mean Corpuscular Volume 92 fl (79-97); Monocytes # (Auto) 0.5 K/mm3 (0.0-0.8); Monocytes % (Auto) 8.7 % (0.0-7.3); Platelet Count 181 K/mm3 (140-440); Red Blood Count 3.97 M/mm3 (3.65-5.03); Red Cell Distribution Width 15.2 % (13.2-15.2)
[2021-08-08] MEDS: traZODone 50 MG TAB PO SCH (22:00)
[2021-08-08 22:19] LABS: Alanine Aminotransferase 17 units/L (7-56); Albumin 4.3 g/dL (3.9-5); BUN/Creatinine Ratio 33; Blood Urea Nitrogen 26 mg/dL (7-17); Calcium 9.7 mg/dL (8.4-10.2); Chol/HDL Ratio 3.44 %; HDL Cholesterol 81 mg/dL (40-59); Hemolysis Index 25; LDL Cholesterol,Direct 180 mg/dL (50-130)
--- NOTE | 2021-08-09 09:31 | Progress Note ---
Subjective Date of service: 08/09/21 Subjective Comment: 08/09/21: The patient was seen at breakfast. She presents in good spirits and reports doing well. She reports sleep as fair. She denies depression and denies any current suicidal/homicidal ideation and denies hallucinations. 08/08/21: The patient was seen eating breakfast. she reports doing well " I would have liked to sleep better, so much interruptions." She denies depression and denies any current suicidal/homicidal ideation and denies hallucinations. 08/07/21:The patient was seen this morning. She is calm. When asking how she is doing, she states " I don't know yet." She reports sleep as restful. She denies depression and denies any current suicidal/homicidal ideation and denies hallucinations. REVIEW OF SYSTEMS Constitutional: Negative for weight loss ENT: Negative for stridor Respiratory: Negative for cough or hemoptysis All other systems reviewed and are negative MENTAL STATUS EXAMINATION General Appearance and Behavior: Age appropriate, good hygiene, wearing appropriate clothes, good eye contact, calm, cooperative Cooperation: Participating/engaged, but Guarded Psychomotor Behavior: Psychomotor normal Mood: "good" Affect and affective range: congruent with stated mood Thought Process: Goal directed Thought Content: Reality oriented Speech: normal tone and pace Suicidal Ideation: Denies Homicidal Ideation: Denies Hallucinations: Denies Delusions: None Impulse Control: Limited Insight and Judgment: Poor insight and judgment Memory: Poor Attention: Divided Orientation: Alert, oriented Assessment and Plan Delusional Disorder Treatment Plan Patient admitted for inpatient psychiatric evaluation, medication adjustment and close monitoring The patient's behavior, mood, sleep and appetite will be closely monitored. Patient enrolled in individual and group therapeutic sessions and encouraged to attend. Patient provided with a safe and structured environment. Patient's physical health needs will be addressed by the Hospitalist. Hospitalist Consulted Labs including CBC, CMP, Lipid profile and Hemoglobin A1C levels ordered for baseline reference Social Assessment will be completed and the [employer]ch will work with patient and family to ensure a suitable and safe disposition Medication adjustment will be made as clinically indicated Continue Abilify 5mg po daily Usual Wellness Rastafarian/Preservation: - Start Trazodone 50 mg po QHS & 50 mg po QHS PRN between 10 PM & 2 AM for insomnia - Start Melatonin 5 mg po QHS to promote circadian rhythm The patient agreed on the treatment plan, understood the risk, benefit, alternative treatment, potential consequence of no treatment, and gave informed consent. Estimated days: 4 Post hospital care: primary care provider, psychiatric provider Case staffed with Dr. Fuentes Legal Status: Voluntary Reaction to Hospitalization: Accepting Medications and Allergies Medications and Allergies Allergies Allergy/AdvReac Type Severity Reaction Status Date / Time codeine AdvReac Intermediate Swelling Verified 08/04/21 18:27 Home Medications Medication Instructions Recorded Confirmed Last Taken Type Aspirin EC [Halfprin EC] 81 mg PO QDAY #30 tablet. 10/20/19 08/06/21 Unknown Rx AtorvaSTATin [Lipitor] 40 mg PO QHS #30 tablet 10/20/19 08/06/21 Unknown Rx Calcium Carbonate/Vitamin D3 1 each PO DAILY #30 tablet 10/20/19 08/06/21 Unknown Rx [Calcium 500 mg-Vit D3 600 Unit] amLODIPine 10 mg PO QDAY #30 tablet 10/20/19 08/06/21 Unknown Rx Active Meds: Active Medications Amlodipine Besylate (Amlodipine 10 Mg Tab) 10 mg PO QDAY [facility] Last Admin: 08/08/21 09:03 Dose: 10 mg Aripiprazole (Aripiprazole 10 Mg Tab) 10 mg PO QDAY [facility] Last Admin: 08/08/21 09:03 Dose: 10 mg Aspirin (Aspirin Ec 81 Mg Tab) 81 mg PO QDAY [facility] Last Admin: 08/08/21 09:03 Dose: 81 mg Atorvastatin Calcium (Atorvastatin 40 Mg Tab) 40 mg PO QHS [facility] Last Admin: 08/08/21 22:00 Dose: 40 mg Multivitamins/Minerals (Calcium Carb/Vit D3/Minerals 600 Mg/800 Units Tab) 1 each PO DAILY [facility] Last Admin: 08/08/21 09:03 Dose: 1 each Trazodone HCl (Trazodone 50 Mg Tab) 50 mg PO QHS [facility] Last Admin: 08/08/21 22:00 Dose: 50 mg Results - Results Labs/Vitals: Laboratory Last Values WBC 6.0 K/mm3 (4.5-11.0) 08/08/21 21:18 RBC 3.97 M/mm3 (3.65-5.03) 08/08/21 21:18 Hgb 11.8 gm/dl (10.1-14.3) 08/08/21 21:18 Hct 36.3 % (30.3-42.9) 08/08/21 21:18 MCV 92 fl (79-97) 08/08/21 21:18 MCH 30 pg (28-32) 08/08/21 21:18 MCHC 33 % (30-34) 08/08/21 21:18 RDW 15.2 % (13.2-15.2) 08/08/21 21:18 Plt Count 181 K/mm3 (140-440) 08/08/21 21:18 Lymph % (Auto) 32.9 % (13.4-35.0) 08/08/21 21:18 [place] % (Auto) 8.7 % (0.0-7.3) H 08/08/21 21:18 Eos % (Auto) 3.3 % (0.0-4.3) 08/08/21 21:18 Baso % (Auto) 0.5 % (0.0-1.8) 08/08/21 21:18 Lymph # (Auto) 2.0 K/mm3 (1.2-5.4) 08/08/21 21:18 [place] # (Auto) 0.5 K/mm3 (0.0-0.8) 08/08/21 21:18 Eos # (Auto) 0.2 K/mm3 (0.0-0.4) 08/08/21 21:18 Baso # (Auto) 0.0 K/mm3 (0.0-0.1) 08/08/21 21:18 Seg Neutrophils % 54.6 % (40.0-70.0) 08/08/21 21:18 Seg Neutrophils # 3.3 K/mm3 (1.8-7.7) 08/08/21 21:18 Sodium 140 mmol/L (137-145) 08/08/21 21:18 Potassium 3.8 mmol/L (3.6-5.0) 08/08/21 21:18 Chloride 101.9 mmol/L (98-107) 08/08/21 21:18 Carbon Dioxide 27 mmol/L (22-30) 08/08/21 21:18 Anion Gap 15 mmol/L 08/08/21 21:18 BUN 26 mg/dL (7-17) H 08/08/21 21:18 Creatinine 0.8 mg/dL (0.6-1.2) 08/08/21 21:18 Estimated GFR > 60 ml/min 08/08/21 21:18 BUN/Creatinine Ratio 33 % 08/08/21 21:18 Glucose 115 mg/dL (65-100) H 08/08/21 21:18 POC Glucose 87 mg/dL (70-105) 08/09/21 07:50 Hemoglobin A1c 5.9 % (4-6) 08/08/21 21:18 Calcium 9.7 mg/dL (8.4-10.2) 08/08/21 21:18 Total Bilirubin 0.20 mg/dL (0.1-1.2) 08/08/21 21:18 AST 22 units/L (5-40) 08/08/21 21:18 ALT 17 units/L (7-56) 08/08/21 21:18 Alkaline Phosphatase 70 units/L (35-129) 08/08/21 21:18 Total Protein 6.9 g/dL (6.3-8.2) 08/08/21 21:18 Albumin 4.3 g/dL (3.9-5) 08/08/21 21:18 Albumin/Globulin Ratio 1.7 % 08/08/21 21:18 Triglycerides 126 mg/dL (2-149) 08/08/21 21:18 Cholesterol 279 mg/dL (50-199) H 08/08/21 21:18 LDL Cholesterol Direct 180 mg/dL (50-130) H 08/08/21 21:18 HDL Cholesterol 81 mg/dL (40-59) H 08/08/21 21:18 Cholesterol/HDL Ratio 3.44 % 08/08/21 21:18 TSH 1.720 mlU/mL (0.270-4.200) 08/08/21 21:18 Last Vital Signs Temp 98.5 F 08/08/21 07:55 Pulse 79 08/08/21 07:55 Resp 18 08/08/21 07:55 BP 150/125 08/08/21 07:55 Pulse Ox 95 08/08/21 07:55
[2021-08-09] MEDS: ASPIRIN EC 81 MG TAB PO SCH (10:03)
[2021-08-09] MEDS: amLODIPine 10 MG TAB PO SCH (10:03)
[2021-08-09] MEDS: ARIPiprazole 10 MG TAB PO SCH (10:03)
[2021-08-09] MEDS: CALCIUM CARB/VIT D3/MINERALS 600 MG/800 UNITS TAB PO SCH (10:03)
[2021-08-09] MEDS: traZODone 50 MG TAB PO SCH (21:14)
[2021-08-10] MEDS: ASPIRIN EC 81 MG TAB PO SCH (09:24)
[2021-08-10] MEDS: amLODIPine 10 MG TAB PO SCH (09:24)
[2021-08-10] MEDS: CALCIUM CARB/VIT D3/MINERALS 600 MG/800 UNITS TAB PO SCH (09:26)
--- NOTE | 2021-08-10 09:34 | Progress Note ---
Subjective Date of service: 08/10/21 Subjective Comment: 08/10/21: The patient was seen this morning. She states she is doing well. She denies being depressed and no delusions noted. The patient denies any current suicidal/homicidal ideation and denies hallucinations. 08/09/21: The patient was seen at breakfast. She presents in good spirits and reports doing well. She reports sleep as fair. She denies depression and denies any current suicidal/homicidal ideation and denies hallucinations. 08/08/21: The patient was seen eating breakfast. she reports doing well " I would have liked to sleep better, so much interruptions." She denies depression and denies any current suicidal/homicidal ideation and denies hallucinations. 08/07/21:The patient was seen this morning. She is calm. When asking how she is doing, she states " I don't know yet." She reports sleep as restful. She denies depression and denies any current suicidal/homicidal ideation and denies hallucinations. REVIEW OF SYSTEMS Constitutional: Negative for weight loss ENT: Negative for stridor Respiratory: Negative for cough or hemoptysis All other systems reviewed and are negative MENTAL STATUS EXAMINATION General Appearance and Behavior: Age appropriate, good hygiene, wearing appropriate clothes, good eye contact, calm, cooperative Cooperation: Participating/engaged, but Guarded Psychomotor Behavior: Psychomotor normal Mood: "good" Affect and affective range: congruent with stated mood Thought Process: Goal directed Thought Content: Reality oriented Speech: normal tone and pace Suicidal Ideation: Denies Homicidal Ideation: Denies Hallucinations: Denies Delusions: None Impulse Control: Limited Insight and Judgment: Poor insight and judgment Memory: Poor Attention: Divided Orientation: Alert, oriented Assessment and Plan Delusional Disorder Treatment Plan Patient admitted for inpatient psychiatric evaluation, medication adjustment and close monitoring The patient's behavior, mood, sleep and appetite will be closely monitored. Patient enrolled in individual and group therapeutic sessions and encouraged to attend. Patient provided with a safe and structured environment. Patient's physical health needs will be addressed by the Hospitalist. Hospitalist Consulted Labs including CBC, CMP, Lipid profile and Hemoglobin A1C levels ordered for baseline reference Social Assessment will be completed and the Repairer will work with patient and family to ensure a suitable and safe disposition Medication adjustment will be made as clinically indicated Continue home meds Usual Wellness Holiness/Preservation: - Start Trazodone 50 mg po QHS & 50 mg po QHS PRN between 10 PM & 2 AM for insomnia - Start Melatonin 5 mg po QHS to promote circadian rhythm The patient agreed on the treatment plan, understood the risk, benefit, alternative treatment, potential consequence of no treatment, and gave informed consent. Estimated days: 4 Post hospital care: primary care provider, psychiatric provider Case staffed with Dr. Fuentes Legal Status: Voluntary Reaction to Hospitalization: Accepting Medications and Allergies Medications and Allergies Allergies Allergy/AdvReac Type Severity Reaction Status Date / Time codeine AdvReac Intermediate Swelling Verified 08/04/21 18:27 Home Medications Medication Instructions Recorded Confirmed Last Taken Type Aspirin EC [Halfprin EC] 81 mg PO QDAY #30 tablet. 10/20/19 08/06/21 Unknown Rx AtorvaSTATin [Lipitor] 40 mg PO QHS #30 tablet 10/20/19 08/06/21 Unknown Rx Calcium Carbonate/Vitamin D3 1 each PO DAILY #30 tablet 10/20/19 08/06/21 Unknown Rx [Calcium 500 mg-Vit D3 600 Unit] amLODIPine 10 mg PO QDAY #30 tablet 10/20/19 08/06/21 Unknown Rx Active Meds: Active Medications Amlodipine Besylate (Amlodipine 10 Mg Tab) 10 mg PO QDAY [facility] Last Admin: 08/10/21 09:24 Dose: Not Given Aspirin (Aspirin Ec 81 Mg Tab) 81 mg PO QDAY [facility] Last Admin: 08/10/21 09:24 Dose: 81 mg Atorvastatin Calcium (Atorvastatin 40 Mg Tab) 40 mg PO QHS [facility] Last Admin: 08/09/21 21:17 Dose: Not Given Multivitamins/Minerals (Calcium Carb/Vit D3/Minerals 600 Mg/800 Units Tab) 1 each PO DAILY [facility] Last Admin: 08/10/21 09:26 Dose: Not Given Trazodone HCl (Trazodone 50 Mg Tab) 50 mg PO QHS [facility] Last Admin: 08/09/21 21:14 Dose: 50 mg Results - Results Labs/Vitals: Laboratory Last Values WBC 6.0 K/mm3 (4.5-11.0) 08/08/21 21:18 RBC 3.97 M/mm3 (3.65-5.03) 08/08/21 21:18 Hgb 11.8 gm/dl (10.1-14.3) 08/08/21 21:18 Hct 36.3 % (30.3-42.9) 08/08/21 21:18 MCV 92 fl (79-97) 08/08/21 21:18 MCH 30 pg (28-32) 08/08/21 21:18 MCHC 33 % (30-34) 08/08/21 21:18 RDW 15.2 % (13.2-15.2) 08/08/21 21:18 Plt Count 181 K/mm3 (140-440) 08/08/21 21:18 Lymph % (Auto) 32.9 % (13.4-35.0) 08/08/21 21:18 [place] % (Auto) 8.7 % (0.0-7.3) H 08/08/21 21:18 Eos % (Auto) 3.3 % (0.0-4.3) 08/08/21 21:18 Baso % (Auto) 0.5 % (0.0-1.8) 08/08/21 21:18 Lymph # (Auto) 2.0 K/mm3 (1.2-5.4) 08/08/21 21:18 [place] # (Auto) 0.5 K/mm3 (0.0-0.8) 08/08/21 21:18 Eos # (Auto) 0.2 K/mm3 (0.0-0.4) 08/08/21 21:18 Baso # (Auto) 0.0 K/mm3 (0.0-0.1) 08/08/21 21:18 Seg Neutrophils % 54.6 % (40.0-70.0) 08/08/21 21:18 Seg Neutrophils # 3.3 K/mm3 (1.8-7.7) 08/08/21 21:18 Sodium 140 mmol/L (137-145) 08/08/21 21:18 Potassium 3.8 mmol/L (3.6-5.0) 08/08/21 21:18 Chloride 101.9 mmol/L (98-107) 08/08/21 21:18 Carbon Dioxide 27 mmol/L (22-30) 08/08/21 21:18 Anion Gap 15 mmol/L 08/08/21 21:18 BUN 26 mg/dL (7-17) H 08/08/21 21:18 Creatinine 0.8 mg/dL (0.6-1.2) 08/08/21 21:18 Estimated GFR > 60 ml/min 08/08/21 21:18 BUN/Creatinine Ratio 33 % 08/08/21 21:18 Glucose 115 mg/dL (65-100) H 08/08/21 21:18 POC Glucose 87 mg/dL (70-105) 08/09/21 07:50 Hemoglobin A1c 5.9 % (4-6) 08/08/21 21:18 Calcium 9.7 mg/dL (8.4-10.2) 08/08/21 21:18 Total Bilirubin 0.20 mg/dL (0.1-1.2) 08/08/21 21:18 AST 22 units/L (5-40) 08/08/21 21:18 ALT 17 units/L (7-56) 08/08/21 21:18 Alkaline Phosphatase 70 units/L (35-129) 08/08/21 21:18 Total Protein 6.9 g/dL (6.3-8.2) 08/08/21 21:18 Albumin 4.3 g/dL (3.9-5) 08/08/21 21:18 Albumin/Globulin Ratio 1.7 % 08/08/21 21:18 Triglycerides 126 mg/dL (2-149) 08/08/21 21:18 Cholesterol 279 mg/dL (50-199) H 08/08/21 21:18 LDL Cholesterol Direct 180 mg/dL (50-130) H 08/08/21 21:18 HDL Cholesterol 81 mg/dL (40-59) H 08/08/21 21:18 Cholesterol/HDL Ratio 3.44 % 08/08/21 21:18 TSH 1.720 mlU/mL (0.270-4.200) 08/08/21 21:18 Last Vital Signs Temp 98.3 F 08/10/21 08:20 Pulse 90 08/10/21 08:20 Resp 16 08/10/21 08:20 BP 110/52 08/10/21 09:24 Pulse Ox 97 08/10/21 08:20
[2021-08-10] MEDS: traZODone 50 MG TAB PO SCH (21:14)
[2021-08-11] MEDS: ASPIRIN EC 81 MG TAB PO SCH (09:23)
[2021-08-11] MEDS: amLODIPine 10 MG TAB PO SCH (09:24)
[2021-08-11] MEDS: CALCIUM CARB/VIT D3/MINERALS 600 MG/800 UNITS TAB PO SCH (09:24)
--- NOTE | 2021-08-11 10:37 | Progress Note ---
Subjective Date of service: 08/11/21 Principal diagnosis: Delusional Disorder Subjective Comment: The patient was seen today. She is calm, cooperative and pleasant. She says she feels okay. She denies SI/HI. She also denies hallucinations. She says she did not sleep well. The patient says she kept waking up throughout the night. 08/10/21: The patient was seen this morning. She states she is doing well. She denies being depressed and no delusions noted. The patient denies any current suicidal/homicidal ideation and denies hallucinations. 08/09/21: The patient was seen at breakfast. She presents in good spirits and reports doing well. She reports sleep as fair. She denies depression and denies any current suicidal/homicidal ideation and denies hallucinations. 08/08/21: The patient was seen eating breakfast. she reports doing well " I would have liked to sleep better, so much interruptions." She denies depression and denies any current suicidal/homicidal ideation and denies hallucinations. 08/07/21:The patient was seen this morning. She is calm. When asking how she is doing, she states " I don't know yet." She reports sleep as restful. She denies depression and denies any current suicidal/homicidal ideation and denies hallucinations. REVIEW OF SYSTEMS Constitutional: Negative for weight loss ENT: Negative for stridor Respiratory: Negative for cough or hemoptysis All other systems reviewed and are negative MENTAL STATUS EXAMINATION General Appearance and Behavior: Age appropriate, good hygiene, wearing appropriate clothes, good eye contact, calm, cooperative Cooperation: Participating/engaged, but Guarded Psychomotor Behavior: Psychomotor normal Mood: "okay" Affect and affective range: congruent with stated mood Thought Process: Goal directed Thought Content: Reality oriented Speech: normal tone and pace Suicidal Ideation: Denies Homicidal Ideation: Denies Hallucinations: Denies Delusions: None Impulse Control: Limited Insight and Judgment: Poor insight and judgment Memory: Poor Attention: Divided Orientation: Alert, oriented Assessment and Plan Delusional Disorder Treatment Plan Patient admitted for inpatient psychiatric evaluation, medication adjustment and close monitoring The patient's behavior, mood, sleep and appetite will be closely monitored. Patient enrolled in individual and group therapeutic sessions and encouraged to attend. Patient provided with a safe and structured environment. Patient's physical health needs will be addressed by the Hospitalist. Hospitalist Consulted Labs including CBC, CMP, Lipid profile and Hemoglobin A1C levels ordered for baseline reference Social Assessment will be completed and the Career And Transition Teacher will work with patient and family to ensure a suitable and safe disposition Medication adjustment will be made as clinically indicated Increase Trazodone 75mg po qhs Start Melatonin 5mg po qhs prn Usual Wellness [employer]/Preservation: - Start Trazodone 50 mg po QHS & 50 mg po QHS PRN between 10 PM & 2 AM for insomnia - Start Melatonin 5 mg po QHS to promote circadian rhythm The patient agreed on the treatment plan, understood the risk, benefit, alternative treatment, potential consequence of no treatment, and gave informed consent. Estimated days: 4 Post hospital care: primary care provider, psychiatric provider Case staffed with Dr. Fuentes Medications and Allergies Allergies Allergy/AdvReac Type Severity Reaction Status Date / Time codeine AdvReac Intermediate Swelling Verified 08/04/21 18:27 Home Medications Medication Instructions Recorded Confirmed Last Taken Type Aspirin EC [Halfprin EC] 81 mg PO QDAY #30 tablet. 10/20/19 08/06/21 Unknown Rx AtorvaSTATin [Lipitor] 40 mg PO QHS #30 tablet 10/20/19 08/06/21 Unknown Rx Calcium Carbonate/Vitamin D3 1 each PO DAILY #30 tablet 10/20/19 08/06/21 Unknown Rx [Calcium 500 mg-Vit D3 600 Unit] amLODIPine 10 mg PO QDAY #30 tablet 10/20/19 08/06/21 Unknown Rx Active Meds: Active Medications Amlodipine Besylate (Amlodipine 10 Mg Tab) 10 mg PO QDAY [facility] Last Admin: 08/11/21 09:24 Dose: Not Given Aspirin (Aspirin Ec 81 Mg Tab) 81 mg PO QDAY [facility] Last Admin: 08/11/21 09:23 Dose: 81 mg Atorvastatin Calcium (Atorvastatin 40 Mg Tab) 40 mg PO QHS [facility] Last Admin: 08/10/21 21:14 Dose: 40 mg Multivitamins/Minerals (Calcium Carb/Vit D3/Minerals 600 Mg/800 Units Tab) 1 each PO DAILY [facility] Last Admin: 08/11/21 09:24 Dose: Not Given Trazodone HCl (Trazodone 50 Mg Tab) 50 mg PO QHS [facility] Last Admin: 08/10/21 21:14 Dose: 50 mg Results - Results Labs/Vitals: Laboratory Last Values WBC 6.0 K/mm3 (4.5-11.0) 08/08/21 21:18 RBC 3.97 M/mm3 (3.65-5.03) 08/08/21 21:18 Hgb 11.8 gm/dl (10.1-14.3) 08/08/21 21:18 Hct 36.3 % (30.3-42.9) 08/08/21 21:18 MCV 92 fl (79-97) 08/08/21 21:18 MCH 30 pg (28-32) 08/08/21 21:18 MCHC 33 % (30-34) 08/08/21 21:18 RDW 15.2 % (13.2-15.2) 08/08/21:18 Plt Count 181 K/mm3 (140-440) 08/08/21 21:18 Lymph % (Auto) 32.9 % (13.4-35.0) 08/08/21 21:18 [place] % (Auto) 8.7 % (0.0-7.3) H 08/08/21 21:18 Eos % (Auto) 3.3 % (0.0-4.3) 08/08/21 21:18 Baso % (Auto) 0.5 % (0.0-1.8) 08/08/21 21:18 Lymph # (Auto) 2.0 K/mm3 (1.2-5.4) 08/08/21 21:18 [place] # (Auto) 0.5 K/mm3 (0.0-0.8) 08/08/21:18 Eos # (Auto) 0.2 K/mm3 (0.0-0.4) 08/08/21 21:18 Baso # (Auto) 0.0 K/mm3 (0.0-0.1) 08/08/21 21:18 Seg Neutrophils % 54.6 % (40.0-70.0) 08/08/21: Seg Neutrophils # 3.3 K/mm3 (1.8-7.7) 08/08/21 21:18 Sodium 140 mmol/L (137-145) 08/08/21 21:18 Potassium 3.8 mmol/L (3.6-5.0) 08/08/21:18 Chloride 101.9 mmol/L (98-107) 08/08/21 21:18 Carbon Dioxide 27 mmol/L (22-30) 08/08/21 21:18 Anion Gap 15 mmol/L 08/08/21 21:18 BUN 26 mg/dL (7-17) H 08/08/21 21:18 Creatinine 0.8 mg/dL (0.6-1.2) 08/08/21 21:18 Estimated GFR > 60 ml/min 08/08/21 21:18 BUN/Creatinine Ratio 33 % 08/08/21 21:18 Glucose 115 mg/dL (65-100) H 08/08/21 21:18 POC Glucose 86 mg/dL (70-105) 08/11/21 06:38 Hemoglobin A1c 5.9 % (4-6) 08/08/21 21:18 Calcium 9.7 mg/dL (8.4-10.2) 08/08/21 21:18 Total Bilirubin 0.20 mg/dL (0.1-1.2) 08/08/21 21:18 AST 22 units/L (5-40) 08/08/21 21:18 ALT 17 units/L (7-56) 08/08/21 21:18 Alkaline Phosphatase 70 units/L (35-129) 08/08/21 21:18 Total Protein 6.9 g/dL (6.3-8.2) 08/08/21 21:18 Albumin 4.3 g/dL (3.9-5) 08/08/21 21:18 Albumin/Globulin Ratio 1.7 % 08/08/21 21:18 Triglycerides 126 mg/dL (2-149) 08/08/21 21:18 Cholesterol 279 mg/dL (50-199) H 08/08/21 21:18 LDL Cholesterol Direct 180 mg/dL (50-130) H 08/08/21 21:18 HDL Cholesterol 81 mg/dL (40-59) H 08/08/21 21:18 Cholesterol/HDL Ratio 3.44 % 08/08/21 21:18 TSH 1.720 mlU/mL (0.270-4.200) 08/08/21 21:18 Last Vital Signs Temp 98.6 F 08/11/21 09:02 Pulse 85 08/11/21 09:02 Resp 16 08/11/21 09:02 BP 101/52 08/11/21 09:24 Pulse Ox 96 08/11/21 09:02
[2021-08-11] MEDS: traZODone 50 MG TAB PO SCH (21:26)
[2021-08-11] MEDS ORDERED: MELATONIN 5 MG TAB PO PRN (22:00)
--- NOTE | 2021-08-12 08:58 | Progress Note ---
Subjective Date of service: 08/12/21 Principal diagnosis: Delusional Disorder Subjective Comment: The patient was seen today. She is calm, and cooperative. She is pleasant. The patient says she slept a little better but didn't feel like she rested well. She denies SI/HI or hallucinations of any kind. The patient says she doesn't know if she wants to take any meds because they make her feel sluggish. I advised the patient that if she wanted to continue to progress and go home, she had to comp ly with the treatment. She was in agreement, and states she would continue to take them. . 08/11 The patient was seen today. She is calm, cooperative and pleasant. She says she feels okay. She denies SI/HI. She also denies hallucinations. She says she did not sleep well. The patient says she kept waking up throughout the night. 08/10/21: The patient was seen this morning. She states she is doing well. She denies being depressed and no delusions noted. The patient denies any current suicidal/homicidal ideation and denies hallucinations. 08/09/21: The patient was seen at breakfast. She presents in good spirits and reports doing well. She reports sleep as fair. She denies depression and denies any current suicidal/homicidal ideation and denies hallucinations. 08/08/21: The patient was seen eating breakfast. she reports doing well " I would have liked to sleep better, so much interruptions." She denies depression and denies any current suicidal/homicidal ideation and denies hallucinations. 08/07/21:The patient was seen this morning. She is calm. When asking how she is doing, she states " I don't know yet." She reports sleep as restful. She denies depression and denies any current suicidal/homicidal ideation and denies hallu cinations. REVIEW OF SYSTEMS Constitutional: Negative for weight loss ENT: Negative for stridor Respiratory: Negative for cough or hemoptysis All other systems reviewed and are negative MENTAL STATUS EXAMINATION General Appearance and Behavior: Age appropriate, good hygiene, wearing appropriate clothes, good eye contact, calm, cooperative Cooperation: Participating/engaged, but Guarded Psychomotor Behavior: Psychomotor normal Mood: "okay" Affect and affective range: congruent with stated mood Thought Process: Goal directed Thought Content: Reality oriented Speech: normal tone and pace Suicidal Ideation: Denies Homicidal Ideation: Denies Hallucinations: Denies Delusions: None Impulse Control: Limited Insight and Judgment: Poor insight and judgment Memory: Poor Attention: Divided Orientation: Alert, oriented Assessment and Plan Delusional Disorder Treatment Plan Patient admitted for inpatient psychiatric evaluation, medication adjustment and close monitoring The patient's behavior, mood, sleep and appetite will be closely monitored. Patient enrolled in individual and group therapeutic sessions and encouraged to attend. Patient provided with a safe and structured environment. Patient's physical health needs will be addressed by the Hospitalist. Hospitalist Consulted Labs including CBC, CMP, Lipid profile and Hemoglobin A1C levels ordered for baseline reference Social Assessment will be completed and the Solar Project Coordination Specialist will work with patient and family to ensure a suitable and safe disposition Medication adjustment will be made as clinically indicated Increase Trazodone 75mg po qhs yesterday Start Melatonin 5mg po qhs prn yesterday No changes made today Usual Wellness L[employer]/Preservation: - Start Trazodone 50 mg po QHS & 50 mg po QHS PRN between 10 PM & 2 AM for insomnia - Start Melatonin 5 mg po QHS to promote circadian rhythm The patient agreed on the treatment plan, understood the risk, benefit, alternative treatment, potential consequence of no treatment, and gave informed consent. Estimated days: 4 Post hospital care: primary care provider, psychiatric provider Case staffed with Dr. Fuentes Medications and Allergies Allergies Allergy/AdvReac Type Severity Reaction Status Date / Time codeine AdvReac Intermediate Swelling Verified 08/04/21 18:27 Home Medications Medication Instructions Recorded Confirmed Last Taken Type Aspirin EC [Halfprin EC] 81 mg PO QDAY #30 tablet. 10/20/19 08/06/21 Unknown Rx AtorvaSTATin [Lipitor] 40 mg PO QHS #30 tablet 10/20/19 08/06/21 Unknown Rx Calcium Carbonate/Vitamin D3 1 each PO DAILY #30 tablet 10/20/19 08/06/21 Unknown Rx [Calcium 500 mg-Vit D3 600 Unit] amLODIPine 10 mg PO QDAY #30 tablet 10/20/19 08/06/21 Unknown Rx Active Meds: Active Medications Amlodipine Besylate (Amlodipine 10 Mg Tab) 10 mg PO QDAY [facility] BEDS AT [facility] Last Admin: 08/11/21 09:24 Dose: Not Given Aspirin (Aspirin Ec 81 Mg Tab) 81 mg PO QDAY [facility]S [facility]CLUDE 234 BEDS AT [facility] Last Admin: 08/11/21 09:23 Dose: 81 mg Atorvastatin Calcium (Atorvastatin 40 Mg Tab) 40 mg PO QHS [facility]S [facility]CLUDE 234 BEDS AT [facility] Last Admin: 08/11/21 21:26 Dose: 40 mg Melatonin (Melatonin 5 Mg Tab) 5 mg PO QHS PRN PRN Reason: Sleep Multivitamins/Minerals (Calcium Carb/Vit D3/Minerals 600 Mg/800 Units Tab) 1 each PO DAILY [facility] 234 BEDS AT [facility] Last Admin: 08/11/21 09:24 Dose: Not Given Trazodone HCl (Trazodone 50 Mg Tab) 75 mg PO QHS [facility]CLUDE 234 BEDS AT [facility] Last Admin: 08/11/21 21:26 Dose: 75 mg Results - Results Labs/Vitals: Laboratory Last Values WBC 6.0 K/mm3 (4.5-11.0) 08/08/21 21:18 RBC 3.97 M/mm3 (3.65-5.03) 08/08/21 21:18 Hgb 11.8 gm/dl (10.1-14.3) 08/08/21 21:18 Hct 36.3 % (30.3-42.9) 08/08/21 21:18 MCV 92 fl (79-97) 08/08/21 21:18 MCH 30 pg (28-32) 08/08/21 21:18 MCHC 33 % (30-34) 08/08/21 21:18 RDW 15.2 % (13.2-15.2) 08/08/21 21:18 Plt Count 181 K/mm3 (140-440) 08/08/21 21:18 Lymph % (Auto) 32.9 % (13.4-35.0) 08/08/21 21:18 [place] % (Auto) 8.7 % (0.0-7.3) H 08/08/21 21:18 Eos % (Auto) 3.3 % (0.0-4.3) 08/08/21 21:18 Baso % (Auto) 0.5 % (0.0-1.8) 08/08/21 21:18 Lymph # (Auto) 2.0 K/mm3 (1.2-5.4) 08/08/21 21:18 [place] # (Auto) 0.5 K/mm3 (0.0-0.8) 08/08/21 21:18 Eos # (Auto) 0.2 K/mm3 (0.0-0.4) 08/08/21 21:18 Baso # (Auto) 0.0 K/mm3 (0.0-0.1) 08/08/21 21:18 Seg Neutrophils % 54.6 % (40.0-70.0) 08/08/21 21:18 Seg Neutrophils # 3.3 K/mm3 (1.8-7.7) 08/08/21 21:18 Sodium 140 mmol/L (137-145) 08/08/21 21:18 Potassium 3.8 mmol/L (3.6-5.0) 08/08/21 21:18 Chloride 101.9 mmol/L (98-107) 08/08/21 21:18 Carbon Dioxide 27 mmol/L (22-30) 08/08/21 21:18 Anion Gap 15 mmol/L 08/08/21 21:18 BUN 26 mg/dL (7-17) H 08/08/21 21:18 Creatinine 0.8 mg/dL (0.6-1.2) 08/08/21 21:18 Estimated GFR > 60 ml/min 08/08/21 21:18 BUN/Creatinine Ratio 33 % 08/08/21 21:18 Glucose 115 mg/dL (65-100) H 08/08/21 21:18 POC Glucose 78 mg/dL (70-105) 08/12/21 07:57 Hemoglobin A1c 5.9 % (4-6) 08/08/21 21:18 Calcium 9.7 mg/dL (8.4-10.2) 08/08/21 21:18 Total Bilirubin 0.20 mg/dL (0.1-1.2) 08/08/21 21:18 AST 22 units/L (5-40) 08/08/21 21:18 ALT 17 units/L (7-56) 08/08/21 21:18 Alkaline Phosphatase 70 units/L (35-129) 08/08/21 21:18 Total Protein 6.9 g/dL (6.3-8.2) 08/08/21 21:18 Albumin 4.3 g/dL (3.9-5) 08/08/21 21:18 Albumin/Globulin Ratio 1.7 % 08/08/21 21:18 Triglycerides 126 mg/dL (2-149) 08/08/21 21:18 Cholesterol 279 mg/dL (50-199) H 08/08/21 21:18 LDL Cholesterol Direct 180 mg/dL (50-130) H 08/08/21 21:18 HDL Cholesterol 81 mg/dL (40-59) H 08/08/21 21:18 Cholesterol/HDL Ratio 3.44 % 08/08/21 21:18 TSH 1.720 mlU/mL (0.270-4.200) 08/08/21 21:18 Last Vital Signs Temp 98.6 F 08/11/21 19:07 Pulse 86 08/11/21 19:07 Resp 18 08/11/21 19:07 BP 129/63 08/11/21 19:07 Pulse Ox 97 08/11/21 19:07
[2021-08-12] MEDS: amLODIPine 10 MG TAB PO SCH (09:18)
[2021-08-12] MEDS: ASPIRIN EC 81 MG TAB PO SCH (09:19)
[2021-08-12] MEDS: CALCIUM CARB/VIT D3/MINERALS 600 MG/800 UNITS TAB PO SCH (09:19)
[2021-08-12] MEDS: traZODone 50 MG TAB PO SCH (21:49)
[2021-08-13] MEDS: amLODIPine 10 MG TAB PO SCH (10:00)
[2021-08-13] MEDS: ASPIRIN EC 81 MG TAB PO SCH (10:00)
[2021-08-13] MEDS: CALCIUM CARB/VIT D3/MINERALS 600 MG/800 UNITS TAB PO SCH (10:00)
--- NOTE | 2021-08-13 10:14 | Progress Note ---
Subjective Date of service: 08/13/21 Principal diagnosis: Delusional Disorder Subjective Comment: The patient was seen today. She is calm and cooperative. She denies SI/HI or hallucinations of any kind. She says she slept much better last night. 08/12 The patient was seen today. She is calm, and cooperative. She is pleasant. The patient says she slept a little better but didn't feel like she rested well. She denies SI/HI or hallucinations of any kind. The patient says she doesn't know if she wants to take any meds because they make her feel sluggish. I advised the patient that if she wanted to continue to progress and go home, she had to comply with the treatment. She was in agreement, and states she would continue to take them. . 08/11 The patient was seen today. She is calm, cooperative and pleasant. She says she feels okay. She denies SI/HI. She also denies hallucinations. She says she did not sleep well. The patient says she kept waking up throughout the night. 08/10/21: The patient was seen this morning. She states she is doing well. She denies being depressed and no delusions noted. The patient denies any current suicidal/homicidal ideation and denies hallucinations. 08/09/21: The patient was seen at breakfast. She presents in good spirits and reports doing well. She reports sleep as fair. She denies depression and denies any current suicidal/homicidal ideation and denies hallucinations. 08/08/21: The patient was seen eating breakfast. she reports doing well " I would have liked to sleep better, so much interruptions." She denies depression and denies any current suicidal/homicidal ideation and denies hallucinations. 08/07/21:The patient was seen this morning. She is calm. When asking how she is doing, she states " I don't know yet." She reports sleep as restful. She denies depression and denies any current suicidal/homicidal ideation and denies hallucinations. REVIEW OF SYSTEMS Constitutional: Negative for weight loss ENT: Negative for stridor Respiratory: Negative for cough or hemoptysis All other systems reviewed and are negative MENTAL STATUS EXAMINATION General Appearance and Behavior: Age appropriate, good hygiene, wearing appropriate clothes, good eye contact, calm, cooperative Cooperation: Participating/engaged, but Guarded Psychomotor Behavior: Psychomotor normal Mood: "okay" Affect and affective range: congruent with stated mood Thought Process: Goal directed Thought Content: Reality oriented Speech: normal tone and pace Suicidal Ideation: Denies Homicidal Ideation: Denies Hallucinations: Denies Delusions: None Impulse Control: Limited Insight and Judgment: Poor insight and judgment Memory: Poor Attention: Divided Orientation: Alert, oriented Assessment and Plan Delusional Disorder Treatment Plan Patient admitted for inpatient psychiatric evaluation, medication adjustment and close monitoring The patient's behavior, mood, sleep and appetite will be closely monitored. Patient enrolled in individual and group therapeutic sessions and encouraged to attend. Patient provided with a safe and structured environment. Patient's physical health needs will be addressed by the Hospitalist. Hospitalist Consulted Labs including CBC, CMP, Lipid profile and Hemoglobin A1C levels ordered for baseline reference Social Assessment will be completed and the Disbursing Agent will work with patient and family to ensure a suitable and safe disposition Medication adjustment will be made as clinically indicated No changes made today Usual Wellness [employer]/Preservation: - Start Trazodone 50 mg po QHS & 50 mg po QHS PRN between 10 PM & 2 AM for insomnia - Start Melatonin 5 mg po QHS to promote circadian rhythm The patient agreed on the treatment plan, understood the risk, benefit, alternative treatment, potential consequence of no treatment, and gave informed consent. Estimated days: 4 Post hospital care: primary care provider, psychiatric provider Case staffed with Dr. Fuentes Medications and Allergies Allergies Allergy/AdvReac Type Severity Reaction Status Date / Time codeine AdvReac Intermediate Swelling Verified 08/04/21 18:27 Home Medications Medication Instructions Recorded Confirmed Last Taken Type Aspirin EC [Halfprin EC] 81 mg PO QDAY #30 tablet. 10/20/19 08/06/21 Unknown Rx AtorvaSTATin [Lipitor] 40 mg PO QHS #30 tablet 10/20/19 08/06/21 Unknown Rx Calcium Carbonate/Vitamin D3 1 each PO DAILY #30 tablet 10/20/19 08/06/21 Unknown Rx [Calcium 500 mg-Vit D3 600 Unit] amLODIPine 10 mg PO QDAY #30 tablet 10/20/19 08/06/21 Unknown Rx Active Meds: Active Medications Amlodipine Besylate (Amlodipine 10 Mg Tab) 10 mg PO QDAY [facility] Last Admin: 08/12/21 09:18 Dose: 10 mg Aspirin (Aspirin Ec 81 Mg Tab) 81 mg PO QDAY [facility] Last Admin: 08/13/21 10:00 Dose: 81 mg Atorvastatin Calcium (Atorvastatin 40 Mg Tab) 40 mg PO QHS [facility] [place] Last Admin: 08/12/21 21:49 Dose: 40 mg Melatonin (Melatonin 5 Mg Tab) 5 mg PO QHS PRN PRN Reason: Sleep Multivitamins/Minerals (Calcium Carb/Vit D3/Minerals 600 Mg/800 Units Tab) 1 each PO DAILY [facility] [place] Last Admin: 08/13/21 10:00 Dose: 1 each Trazodone HCl (Trazodone 50 Mg Tab) 75 mg PO QHS [facility] [place] Last Admin: 08/12/21 21:49 Dose: 75 mg Results - Results Labs/Vitals: Laboratory Last Values WBC 6.0 K/mm3 (4.5-11.0) 08/08/21 21:18 RBC 3.97 M/mm3 (3.65-5.03) 08/08/21 21:18 Hgb 11.8 gm/dl (10.1-14.3) 08/08/21 21:18 Hct 36.3 % (30.3-42.9) 08/08/21 21:18 MCV 92 fl (79-97) 08/08/21 21:18 MCH 30 pg (28-32) 08/08/21 21:18 MCHC 33 % (30-34) 08/08/21 21:18 RDW 15.2 % (13.2-15.2) 08/08/21 21:18 Plt Count 181 K/mm3 (140-440) 08/08/21 21:18 Lymph % (Auto) 32.9 % (13.4-35.0) 08/08/21 21:18 [place] % (Auto) 8.7 % (0.0-7.3) H 08/08/21 21:18 Eos % (Auto) 3.3 % (0.0-4.3) 08/08/21 21:18 Baso % (Auto) 0.5 % (0.0-1.8) 08/08/21 21:18 Lymph # (Auto) 2.0 K/mm3 (1.2-5.4) 08/08/21 21:18 [place] # (Auto) 0.5 K/mm3 (0.0-0.8) 08/08/21 21:18 Eos # (Auto) 0.2 K/mm3 (0.0-0.4) 08/08/21 21:18 Baso # (Auto) 0.0 K/mm3 (0.0-0.1) 08/08/21 21:18 Seg Neutrophils % 54.6 % (40.0-70.0) 08/08/21 21:18 Seg Neutrophils # 3.3 K/mm3 (1.8-7.7) 08/08/21 21:18 Sodium 140 mmol/L (137-145) 08/08/21 21:18 Potassium 3.8 mmol/L (3.6-5.0) 08/08/21 21:18 Chloride 101.9 mmol/L (98-107) 08/08/21 21:18 Carbon Dioxide 27 mmol/L (22-30) 08/08/21 21:18 Anion Gap 15 mmol/L 08/08/21 21:18 BUN 26 mg/dL (7-17) H 08/08/21 21:18 Creatinine 0.8 mg/dL (0.6-1.2) 08/08/21 21:18 Estimated GFR > 60 ml/min 08/08/21 21:18 BUN/Creatinine Ratio 33 % 08/08/21 21:18 Glucose 115 mg/dL (65-100) H 08/08/21 21:18 POC Glucose 72 mg/dL (70-105) 08/13/21 07:14 Hemoglobin A1c 5.9 % (4-6) 08/08/21 21:18 Calcium 9.7 mg/dL (8.4-10.2) 08/08/21 21:18 Total Bilirubin 0.20 mg/dL (0.1-1.2) 08/08/21 21:18 AST 22 units/L (5-40) 08/08/21 21:18 ALT 17 units/L (7-56) 08/08/21 21:18 Alkaline Phosphatase 70 units/L (35-129) 08/08/21 21:18 Total Protein 6.9 g/dL (6.3-8.2) 08/08/21 21:18 Albumin 4.3 g/dL (3.9-5) 08/08/21 21:18 Albumin/Globulin Ratio 1.7 % 08/08/21 21:18 Triglycerides 126 mg/dL (2-149) 08/08/21 21:18 Cholesterol 279 mg/dL (50-199) H 08/08/21 21:18 LDL Cholesterol Direct 180 mg/dL (50-130) H 08/08/21 21:18 HDL Cholesterol 81 mg/dL (40-59) H 08/08/21 21:18 Cholesterol/HDL Ratio 3.44 % 08/08/21 21:18 TSH 1.720 mlU/mL (0.270-4.200) 08/08/21 21:18 Last Vital Signs Temp 98.7 F 08/12/21 19:13 Pulse 79 08/12/21 19:13 Resp 17 08/12/21 19:13 BP 146/75 08/12/21 19:13 Pulse Ox 97 08/12/21 19:13
[2021-08-13] MEDS: traZODone 50 MG TAB PO SCH (21:01)
[2021-08-14] MEDS: amLODIPine 10 MG TAB PO SCH (09:52)
[2021-08-14] MEDS: CALCIUM CARB/VIT D3/MINERALS 600 MG/800 UNITS TAB PO SCH (09:52)
[2021-08-14] MEDS: ASPIRIN EC 81 MG TAB PO SCH (09:52)
--- NOTE | 2021-08-14 11:26 | Progress Note ---
Subjective Date of service: 08/14/21 Principal diagnosis: Delusional Disorder Subjective Comment: The patient was seen today. She is lying in bed. She is awake, and pleasant. She is calm and cooperative. She denies SI/HI or hallucinations of any kind. She is awaiting placement. 08/13 The patient was seen today. She is calm and cooperative. She denies SI/HI or hallucinations of any kind. She says she slept much better last night. 08/12 The patient was seen today. She is calm, and cooperative. She is pleasant. The patient says she slept a little better but didn't feel like she rested well. She denies SI/HI or hallucinations of any kind. The patient says she doesn't know if she wants to take any meds because they make her feel sluggish. I advised the patient that if she wanted to continue to progress and go home, she had to comply with the treatment. She was in agreement, and states she would continue to take them. . 08/11 The patient was seen today. She is calm, cooperative and pleasant. She says she feels okay. She denies SI/HI. She also denies hallucinations. She says she did not sleep well. The patient says she kept waking up throughout the night. 08/10/21: The patient was seen this morning. She states she is doing well. She denies being depressed and no delusions noted. The patient denies any current suicidal/homicidal ideation and denies hallucinations. 08/09/21: The patient was seen at breakfast. She presents in good spirits and reports doing well. She reports sleep as fair. She denies depression and denies any current suicidal/homicidal ideation and denies hallucinations. 08/08/21: The patient was seen eating breakfast. she reports doing well " I would have liked to sleep better, so much interruptions." She denies depression and denies any current suicidal/homicidal ideation and denies hallucinations. 08/07/21:The patient was seen this morning. She is calm. When asking how she is doing, she states " I don't know yet." She reports sleep as restful. She denies depression and denies any current suicidal/homicidal ideation and denies hallucinations. REVIEW OF SYSTEMS Constitutional: Negative for weight loss ENT: Negative for stridor Respiratory: Negative for cough or hemoptysis All other systems reviewed and are negative MENTAL STATUS EXAMINATION General Appearance and Behavior: Age appropriate, good hygiene, wearing appropriate clothes, good eye contact, calm, cooperative Cooperation: Participating/engaged, but Guarded Psychomotor Behavior: Psychomotor normal Mood: "okay" Affect and affective range: congruent with stated mood Thought Process: Goal directed Thought Content: Reality oriented Speech: normal tone and pace Suicidal Ideation: Denies Homicidal Ideation: Denies Hallucinations: Denies Delusions: None Impulse Control: Limited Insight and Judgment: Poor insight and judgment Memory: Poor Attention: Divided Orientation: Alert, oriented Assessment and Plan Delusional Disorder Treatment Plan Patient admitted for inpatient psychiatric evaluation, medication adjustment and close monitoring The patient's behavior, mood, sleep and appetite will be closely monitored. Patient enrolled in individual and group therapeutic sessions and encouraged to attend. Patient provided with a safe and structured environment. Patient's physical health needs will be addressed by the Hospitalist. Hospitalist Consulted Labs including CBC, CMP, Lipid profile and Hemoglobin A1C levels ordered for baseline reference Social Assessment will be completed and the Universal Banker will work with patient and family to ensure a suitable and safe disposition Medication adjustment will be made as clinically indicated No changes made today Usual Wellness Baptism/Preservation: - Start Trazodone 50 mg po QHS & 50 mg po QHS PRN between 10 PM & 2 AM for insomnia - Start Melatonin 5 mg po QHS to promote circadian rhythm The patient agreed on the treatment plan, understood the risk, benefit, alterna tive treatment, potential consequence of no treatment, and gave informed consent. Estimated days: 4 Post hospital care: primary care provider, psychiatric provider Case staffed with Dr. Fuentes Medications and Allergies Allergies Allergy/AdvReac Type Severity Reaction Status Date / Time codeine AdvReac Intermediate Swelling Verified 08/04/21 18:27 Home Medications Medication Instructions Recorded Confirmed Last Taken Type Aspirin EC [Halfprin EC] 81 mg PO QDAY #30 tablet. 10/20/19 08/06/21 Unknown Rx AtorvaSTATin [Lipitor] 40 mg PO QHS #30 tablet 10/20/19 08/06/21 Unknown Rx Calcium Carbonate/Vitamin D3 1 each PO DAILY #30 tablet 10/20/19 08/06/21 Unknown Rx [Calcium 500 mg-Vit D3 600 Unit] amLODIPine 10 mg PO QDAY #30 tablet 10/20/19 08/06/21 Unknown Rx Active Meds: Active Medications Amlodipine Besylate (Amlodipine 10 Mg Tab) 10 mg PO QDAY [facility] Last Admin: 08/14/21 09:52 Dose: Not Given Aspirin (Aspirin Ec 81 Mg Tab) 81 mg PO QDAY [facility] Last Admin: 08/14/21 09:52 Dose: Not Given Atorvastatin Calcium (Atorvastatin 40 Mg Tab) 40 mg PO QHS [facility] Last Admin: 08/13/21 21:01 Dose: 40 mg Melatonin (Melatonin 5 Mg Tab) 5 mg PO QHS PRN PRN Reason: Sleep Multivitamins/Minerals (Calcium Carb/Vit D3/Minerals 600 Mg/800 Units Tab) 1 each PO DAILY [facility] Last Admin: 08/14/21 09:52 Dose: Not Given Trazodone HCl (Trazodone 50 Mg Tab) 75 mg PO QHS [facility] Last Admin: 08/13/21 21:01 Dose: 75 mg Results - Results Labs/Vitals: Laboratory Last Values WBC 6.0 K/mm3 (4.5-11.0) 08/08/21 21:18 RBC 3.97 M/mm3 (3.65-5.03) 08/08/21 21:18 Hgb 11.8 gm/dl (10.1-14.3) 08/08/21 21:18 Hct 36.3 % (30.3-42.9) 08/08/21 21:18 MCV 92 fl (79-97) 08/08/21 21:18 MCH 30 pg (28-32) 08/08/21 21:18 MCHC 33 % (30-34) 08/08/21 21:18 RDW 15.2 % (13.2-15.2) 08/08/21 21:18 Plt Count 181 K/mm3 (140-440) 08/08/21 21:18 Lymph % (Auto) 32.9 % (13.4-35.0) 08/08/21 21:18 [place] % (Auto) 8.7 % (0.0-7.3) H 08/08/21 21:18 Eos % (Auto) 3.3 % (0.0-4.3) 08/08/21 21:18 Baso % (Auto) 0.5 % (0.0-1.8) 08/08/21 21:18 Lymph # (Auto) 2.0 K/mm3 (1.2-5.4) 08/08/21 21:18 [place] # (Auto) 0.5 K/mm3 (0.0-0.8) 08/08/21 21:18 Eos # (Auto) 0.2 K/mm3 (0.0-0.4) 08/08/21 21:18 Baso # (Auto) 0.0 K/mm3 (0.0-0.1) 08/08/21 21:18 Seg Neutrophils % 54.6 % (40.0-70.0) 08/08/21 21:18 Seg Neutrophils # 3.3 K/mm3 (1.8-7.7) 08/08/21 21:18 Sodium 140 mmol/L (137-145) 08/08/21 21:18 Potassium 3.8 mmol/L (3.6-5.0) 08/08/21 21:18 Chloride 101.9 mmol/L (98-107) 08/08/21 21:18 Carbon Dioxide 27 mmol/L (22-30) 08/08/21 21:18 Anion Gap 15 mmol/L 08/08/21 21:18 BUN 26 mg/dL (7-17) H 08/08/21 21:18 Creatinine 0.8 mg/dL (0.6-1.2) 08/08/21 21:18 Estimated GFR > 60 ml/min 08/08/21 21:18 BUN/Creatinine Ratio 33 % 08/08/21 21:18 Glucose 115 mg/dL (65-100) H 08/08/21 21:18 POC Glucose 72 mg/dL (70-105) 08/13/21 07:14 Hemoglobin A1c 5.9 % (4-6) 08/08/21 21:18 Calcium 9.7 mg/dL (8.4-10.2) 08/08/21 21:18 Total Bilirubin 0.20 mg/dL (0.1-1.2) 08/08/21 21:18 AST 22 units/L (5-40) 08/08/21 21:18 ALT 17 units/L (7-56) 08/08/21 21:18 Alkaline Phosphatase 70 units/L (35-129) 08/08/21 21:18 Total Protein 6.9 g/dL (6.3-8.2) 08/08/21 21:18 Albumin 4.3 g/dL (3.9-5) 08/08/21 21:18 Albumin/Globulin Ratio 1.7 % 08/08/21 21:18 Triglycerides 126 mg/dL (2-149) 08/08/21 21:18 Cholesterol 279 mg/dL (50-199) H 08/08/21 21:18 LDL Cholesterol Direct 180 mg/dL (50-130) H 08/08/21 21:18 HDL Cholesterol 81 mg/dL (40-59) H 08/08/21 21:18 Cholesterol/HDL Ratio 3.44 % 08/08/21 21:18 TSH 1.720 mlU/mL (0.270-4.200) 08/08/21 21:18 Last Vital Signs Temp 98.5 F 08/14/21 09:34 Pulse 82 08/14/21 09:52 Resp 18 08/14/21 09:34 BP 117/67 08/14/21 09:52 Pulse Ox 97 08/14/21 09:34
--- NOTE | 2021-08-14 13:22 | Progress Note ---
Assessment and Plan - Patient Problems (1) Vascular dementia with behavioral disturbance Current Visit: Yes Status: Acute Plan to address problem: Verbal prompting, verbal redirection, benzodiazepine therapy as clinically indicated (2) Cerebral atherosclerosis Current Visit: Yes Status: Acute Plan to address problem: Risk factor reduction, antiplatelet therapy as clinically indicated. (3) Hypertension Current Visit: Yes Status: Acute Qualifiers: Hypertension type: primary hypertension Qualified Code(s): I10 - Essential (primary) hypertension Plan to address problem: Monitor blood pressure every shift, continue medical management. (4) Hyperlipidemia Current Visit: Yes Status: Acute Plan to address problem: Low-cholesterol diet, statin therapy, supportive care. (5) Diabetes Current Visit: Yes Status: Acute Plan to address problem: Consistent carbohydrate diet, Accu-Chek, insulin protocol, hypoglycemia protocol. (6) Malnutrition Current Visit: Yes Status: Acute Qualifiers: Protein-calorie malnutrition severity: moderate Plan to address problem: Dietary intake varies based on cognition. Dietary supplementation when awake and alert only, increase protein intake. (7) Psychosis Current Visit: Yes Status: Acute Qualifiers: Schizophrenia type: unspecified Plan to address problem: Continue medical management as per mental health team (8) Debility Current Visit: Yes Status: Acute Plan to address problem: Bed alarm, fall precautions. (9) Advance care planning Current Visit: Yes Status: Acute Plan to address problem: Disease education conducted, care plan discussed, diagnoses discussed, prognosis discussed, patient is full code. Discussed patient diagnoses, prognosis and care plan with patient granddaughter Felicia Nuñez [phone]. Patient is currently unable to live independently and will require placement. Discussed all likely options. Recommend discharge with hospice care to halfway facility, [facility] [facility], or assisted living facility depending on availability and acceptance. 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 +30 minutes. History Interval history: 81 YO Female with Vascular Dementia with Behavioral Disturbance, Cerebral Atherosclerosis, HTN, DM, Malnitrition, MDD, EDWIN admitted to [facility] for psychiatric stabilization. Consult placed by Dr. Hernandez for medical management. Pt seen and evaluated in the recreation room. Pt has diminished cognition and is unable to provide detailed history at the time of my evaluation but appears to be at baseline level of cognition and function. No reported nursing events. Hospitalist Physical - Constitutional Vitals: Temp Pulse Resp BP Pulse Ox 98.5 F 82 18 117/67 97 08/14/21 09:34 08/14/21 09:52 08/14/21 09:34 08/14/21 09:52 08/14/21 09:34 General appearance: Present: no acute distress, cachectic - EENT Eyes: Present: PERRL ENT: hearing decreased - Neck Neck: Present: supple - Respiratory Respiratory effort: normal Respiratory: bilateral: CTA - Cardiovascular Rhythm: regular Heart Sounds: Present: S1 & S2 - Extremities Extremities: no ischemia Peripheral Pulses: within normal limits - Abdominal General gastrointestinal: soft, non-tender, non-distended - Integumentary Integumentary: Present: clear, dry - Psychiatric Psychiatric: cooperative - Neurologic Neurologic: CNII-XII intact Results - Labs CBC & Chem 7: 08/08/21 21:18 08/08/21 21:18 Labs: Laboratory Last Values WBC 6.0 K/mm3 (4.5-11.0) 08/08/21 21:18 RBC 3.97 M/mm3 (3.65-5.03) 08/08/21 21:18 Hgb 11.8 gm/dl (10.1-14.3) 08/08/21 21:18 Hct 36.3 % (30.3-42.9) 08/08/21 21:18 MCV 92 fl (79-97) 08/08/21 21:18 MCH 30 pg (28-32) 08/08/21 21:18 MCHC 33 % (30-34) 08/08/21 21:18 RDW 15.2 % (13.2-15.2) 08/08/21 21:18 Plt Count 181 K/mm3 (140-440) 08/08/21 21:18 Lymph % (Auto) 32.9 % (13.4-35.0) 08/08/21 21:18 [place] % (Auto) 8.7 % (0.0-7.3) H 08/08/21 21:18 Eos % (Auto) 3.3 % (0.0-4.3) 08/08/21 21:18 Baso % (Auto) 0.5 % (0.0-1.8) 08/08/21 21:18 Lymph # (Auto) 2.0 K/mm3 (1.2-5.4) 08/08/21 21:18 [place] # (Auto) 0.5 K/mm3 (0.0-0.8) 08/08/21 21:18 Eos # (Auto) 0.2 K/mm3 (0.0-0.4) 08/08/21 21:18 Baso # (Auto) 0.0 K/mm3 (0.0-0.1) 08/08/21 21:18 Seg Neutrophils % 54.6 % (40.0-70.0) 08/08/21 21:18 Seg Neutrophils # 3.3 K/mm3 (1.8-7.7) 08/08/21 21:18 Sodium 140 mmol/L (137-145) 08/08/21 21:18 Potassium 3.8 mmol/L (3.6-5.0) 08/08/21 21:18 Chloride 101.9 mmol/L (98-107) 08/08/21 21:18 Carbon Dioxide 27 mmol/L (22-30) 08/08/21 21:18 Anion Gap 15 mmol/L 08/08/21 21:18 BUN 26 mg/dL (7-17) H 08/08/21 21:18 Creatinine 0.8 mg/dL (0.6-1.2) 08/08/21 21:18 Estimated GFR > 60 ml/min 08/08/21 21:18 BUN/Creatinine Ratio 33 % 08/08/21 21:18 Glucose 115 mg/dL (65-100) H 08/08/21 21:18 POC Glucose 72 mg/dL (70-105) 08/13/21 07:14 Hemoglobin A1c 5.9 % (4-6) 08/08/21 21:18 Calcium 9.7 mg/dL (8.4-10.2) 08/08/21 21:18 Total Bilirubin 0.20 mg/dL (0.1-1.2) 08/08/21 21:18 AST 22 units/L (5-40) 08/08/21 21:18 ALT 17 units/L (7-56) 08/08/21 21:18 Alkaline Phosphatase 70 units/L (35-129) 08/08/21 21:18 Total Protein 6.9 g/dL (6.3-8.2) 08/08/21 21:18 Albumin 4.3 g/dL (3.9-5) 08/08/21 21:18 Albumin/Globulin Ratio 1.7 % 08/08/21 21:18 Triglycerides 126 mg/dL (2-149) 08/08/21 21:18 Cholesterol 279 mg/dL (50-199) H 08/08/21 21:18 LDL Cholesterol Direct 180 mg/dL (50-130) H 08/08/21 21:18 HDL Cholesterol 81 mg/dL (40-59) H 08/08/21 21:18 Cholesterol/HDL Ratio 3.44 % 08/08/21 21:18 TSH 1.720 mlU/mL (0.270-4.200) 08/08/21 21:18 [place]/IV: Voiding Method Incontinent Active Medications - Current Medications Current Medications: Generic Name Dose Route Start Last Admin Trade Name Freq PRN Reason Stop Dose Admin Amlodipine Besylate 10 mg 08/06/21 10:00 08/14/21 09:52 Amlodipine 10 Mg Tab PO Not Given QDAY [facility] Aspirin 81 mg 08/06/21 10:00 08/14/21 09:52 Aspirin Ec 81 Mg Tab PO Not Given QDAY [facility] Atorvastatin Calcium 40 mg 08/06/21 22:00 08/13/21 21:01 Atorvastatin 40 Mg Tab PO 40 mg QHS [facility] Administration Melatonin 5 mg 08/11/21 22:00 Melatonin 5 Mg Tab PO QHS PRN Sleep Multivitamins/Minerals 1 each 08/06/21 10:00 08/14/21 09:52 Calcium Carb/Vit D3/Minerals 600 Mg/800 Units Tab PO Not Given DAILY [facility] Trazodone HCl 75 mg 08/11/21 22:00 08/13/21 21:01 Trazodone 50 Mg Tab PO 75 mg QHS N[facility] Administration Nutrition/Malnutrition Assess - Dietary Evaluation Nutrition/Malnutrition Findings: Nutrition Notes Start: 08/11/21 12:38 Freq: Status: Active Protocol: Document 08/11/21 12:38 CADENCE (Rec: 08/11/21 12:40 CADENCE [email or web address]) Nutrition Notes Need for Assessment generated from: LOS Initial or Follow up Brief Note Current Diet Consistent CHO Height 5 ft 2 in Weight 52 kg [employer] Body Weight (kg) 50.00 BMI 20.9 Weight Status Underweight Subjective/Other Information Pt screened for LOS. She has consumed 83% of meals since admission. Percent of energy/protein needs met: 100% energy and pro Burn Absent Trauma Absent Current % PO Good (75-100%) Minimum of two criteria No Is patient on ventilator? No Is Patient Ambulatory and/or Out of Bed Yes REE-(Ruffin-St. Jeor-ambulatory/OOB) [ 1219.725 NUTR.[id number]] Kcal/Kg value to use for calculation 30 Approximate Energy Requirements Using 1560 kcal/Kg Calculation Used for Recommendations Kcal/kg Additional Notes Pro needs 1.2-1.5g/k-78g/ day Fluid needs 1ml/kcal Nutrition Intervention Revisit per MD consult or patient Sign Off request:
[2021-08-14] MEDS: traZODone 50 MG TAB PO SCH (21:51)
[2021-08-15] MEDS: amLODIPine 10 MG TAB PO SCH (09:21)
[2021-08-15] MEDS: ASPIRIN EC 81 MG TAB PO SCH (09:21)
[2021-08-15] MEDS: CALCIUM CARB/VIT D3/MINERALS 600 MG/800 UNITS TAB PO SCH (09:21)
--- NOTE | 2021-08-15 09:40 | Progress Note ---
Subjective Date of service: 08/15/21 Principal diagnosis: Delusional Disorder Subjective Comment: The patient was seem today. She is calm and cooperative. She denies SI/HI. She also denies hallucinations. The patient does appear to be a little delusional. She tells me something is going on with her eyes. I ask her what was going on. She says "I don't know. Look at them." There is nothing obviously wrong with her eyes. 08/14 The patient was seen today. She is lying in bed. She is awake, and pleasant. She is calm and cooperative. She denies SI/HI or hallucinations of any kind. She is awaiting placement. 08/13 The patient was seen today. She is calm and cooperative. She denies SI/HI or hallucinations of any kind. She says she slept much better last night. 08/12 The patient was seen today. She is calm, and cooperative. She is pleasant. The patient says she slept a little better but didn't feel like she rested well. She denies SI/HI or hallucinations of any kind. The patient says she doesn't know if she wants to take any meds because they make her feel sluggish. I advised the patient that if she wanted to continue to progress and go home, she had to comply with the treatment. She was in agreement, and states she would continue to take them. . 08/11 The patient was seen today. She is calm, cooperative and pleasant. She says she feels okay. She denies SI/HI. She also denies hallucinations. She says she did not sleep well. The patient says she kept waking up throughout the night. 08/10/21: The patient was seen this morning. She states she is doing well. She denies being depressed and no delusions noted. The patient denies any current suicidal/homicidal ideation and denies hallucinations. 08/09/21: The patient was seen at breakfast. She presents in good spirits and reports doing well. She reports sleep as fair. She denies depression and denies any current suicidal/homicidal ideation and denies hallucinations. 08/08/21: The patient was seen eating breakfast. she reports doing well " I would have liked to sleep better, so much interruptions." She denies depression and denies any current suicidal/homicidal ideation and denies hallucinations. 08/07/21:The patient was seen this morning. She is calm. When asking how she is doing, she states " I don't know yet." She reports sleep as restful. She denies depression and denies any current suicidal/homicidal ideation and denies hallucinations. REVIEW OF SYSTEMS Constitutional: Negative for weight loss ENT: Negative for stridor Respiratory: Negative for cough or hemoptysis All other systems reviewed and are negative MENTAL STATUS EXAMINATION General Appearance and Behavior: Age appropriate, good hygiene, wearing appropriate clothes, good eye contact, calm, cooperative Cooperation: Participating/engaged, but Guarded Psychomotor Behavior: Psychomotor normal Mood: "okay" Affect and affective range: congruent with stated mood Thought Process: Goal directed Thought Content: Reality oriented Speech: normal tone and pace Suicidal Ideation: Denies Homicidal Ideation: Denies Hallucinations: Denies Delusions: None Impulse Control: Limited Insight and Judgment: Poor insight and judgment Memory: Poor Attention: Divided Orientation: Alert, oriented Assessment and Plan Delusional Disorder Treatment Plan Patient admitted for inpatient psychiatric evaluation, medication adjustment and close monitoring The patient's behavior, mood, sleep and appetite will be closely monitored. Patient enrolled in individual and group therapeutic sessions and encouraged to attend. Patient provided with a safe and structured environment. Patient's physical health needs will be addressed by the Hospitalist. Hospitalist Consulted Labs including CBC, CMP, Lipid profile and Hemoglobin A1C levels ordered for baseline reference Social Assessment will be completed and the Regional Commercial Sales Manager will work with patient and family to ensure a suitable and safe disposition Medication adjustment will be made as clinically indicated No changes made today Usual Wellness Hindu/Preservation: - Start Trazodone 50 mg po QHS & 50 mg po QHS PRN between 10 PM & 2 AM for insomnia - Start Melatonin 5 mg po QHS to promote circadian rhythm The patient agreed on the treatment plan, understood the risk, benefit, alternative treatment, potential consequence of no treatment, and gave informed consent. Estimated days: 4 Post hospital care: primary care provider, psychiatric provider Case staffed with Dr. Fuentes Medications and Allergies Allergies Allergy/AdvReac Type Severity Reaction Status Date / Time codeine AdvReac Intermediate Swelling Verified 08/04/21 18:27 Home Medications Medication Instructions Recorded Confirmed Last Taken Type Aspirin EC [Halfprin EC] 81 mg PO QDAY #30 tablet. 10/20/19 08/06/21 Unknown Rx AtorvaSTATin [Lipitor] 40 mg PO QHS #30 tablet 10/20/19 08/06/21 Unknown Rx Calcium Carbonate/Vitamin D3 1 each PO DAILY #30 tablet 10/20/19 08/06/21 Unknown Rx [Calcium 500 mg-Vit D3 600 Unit] amLODIPine 10 mg PO QDAY #30 tablet 10/20/19 08/06/21 Unknown Rx Active Meds: Active Medications Amlodipine Besylate (Amlodipine 10 Mg Tab) 10 mg PO QDAY [facility] Last Admin: 08/15/21 09:21 Dose: Not Given Aspirin (Aspirin Ec 81 Mg Tab) 81 mg PO QDAY [facility] Last Admin: 08/15/21 09:21 Dose: Not Given Atorvastatin Calcium (Atorvastatin 40 Mg Tab) 40 mg PO QHS [facility] Last Admin: 08/14/21 21:51 Dose: 40 mg Melatonin (Melatonin 5 Mg Tab) 5 mg PO QHS PRN PRN Reason: Sleep Multivitamins/Minerals (Calcium Carb/Vit D3/Minerals 600 Mg/800 Units Tab) 1 each PO DAILY [facility] Last Admin: 08/15/21 09:21 Dose: Not Given Trazodone HCl (Trazodone 50 Mg Tab) 75 mg PO QHS [facility] Last Admin: 08/14/21 21:51 Dose: 75 mg Results - Results Labs/Vitals: Laboratory Last Values WBC 6.0 K/mm3 (4.5-11.0) 08/08/21 21:18 RBC 3.97 M/mm3 (3.65-5.03) 08/08/21 21:18 Hgb 11.8 gm/dl (10.1-14.3) 08/08/21 21:18 Hct 36.3 % (30.3-42.9) 08/08/21 21:18 MCV 92 fl (79-97) 08/08/21 21:18 MCH 30 pg (28-32) 08/08/21 21:18 MCHC 33 % (30-34) 08/08/21 21:18 RDW 15.2 % (13.2-15.2) 08/08/21 21:18 Plt Count 181 K/mm3 (140-440) 08/08/21 21:18 Lymph % (Auto) 32.9 % (13.4-35.0) 08/08/21 21:18 [place] % (Auto) 8.7 % (0.0-7.3) H 08/08/21 21:18 Eos % (Auto) 3.3 % (0.0-4.3) 08/08/21 21:18 Baso % (Auto) 0.5 % (0.0-1.8) 08/08/21 21:18 Lymph # (Auto) 2.0 K/mm3 (1.2-5.4) 08/08/21 21:18 [place] # (Auto) 0.5 K/mm3 (0.0-0.8) 08/08/21 21:18 Eos # (Auto) 0.2 K/mm3 (0.0-0.4) 08/08/21 21:18 Baso # (Auto) 0.0 K/mm3 (0.0-0.1) 08/08/21 21:18 Seg Neutrophils % 54.6 % (40.0-70.0) 08/08/21 21:18 Seg Neutrophils # 3.3 K/mm3 (1.8-7.7) 08/08/21 21:18 Sodium 140 mmol/L (137-145) 08/08/21 21:18 Potassium 3.8 mmol/L (3.6-5.0) 08/08/21 21:18 Chloride 101.9 mmol/L (98-107) 08/08/21 21:18 Carbon Dioxide 27 mmol/L (22-30) 08/08/21 21:18 Anion Gap 15 mmol/L 08/08/21 21:18 BUN 26 mg/dL (7-17) H 08/08/21 21:18 Creatinine 0.8 mg/dL (0.6-1.2) 08/08/21 21:18 Estimated GFR > 60 ml/min 08/08/21 21:18 BUN/Creatinine Ratio 33 % 08/08/21 21:18 Glucose 115 mg/dL (65-100) H 08/08/21 21:18 POC Glucose 83 mg/dL (70-105) 08/15/21 07:38 Hemoglobin A1c 5.9 % (4-6) 08/08/21 21:18 Calcium 9.7 mg/dL (8.4-10.2) 08/08/21 21:18 Total Bilirubin 0.20 mg/dL (0.1-1.2) 08/08/21 21:18 AST 22 units/L (5-40) 08/08/21 21:18 ALT 17 units/L (7-56) 08/08/21 21:18 Alkaline Phosphatase 70 units/L (35-129) 08/08/21 21:18 Total Protein 6.9 g/dL (6.3-8.2) 08/08/21 21:18 Albumin 4.3 g/dL (3.9-5) 08/08/21 21:18 Albumin/Globulin Ratio 1.7 % 08/08/21 21:18 Triglycerides 126 mg/dL (2-149) 08/08/21 21:18 Cholesterol 279 mg/dL (50-199) H 08/08/21 21:18 LDL Cholesterol Direct 180 mg/dL (50-130) H 08/08/21 21:18 HDL Cholesterol 81 mg/dL (40-59) H 08/08/21 21:18 Cholesterol/HDL Ratio 3.44 % 08/08/21 21:18 TSH 1.720 mlU/mL (0.270-4.200) 08/08/21 21:18 Last Vital Signs Temp 98.8 F 08/14/21 18:53 Pulse 81 08/14/21 18:53 Resp 18 08/14/21 18:53 BP 125/61 08/14/21 18:53 Pulse Ox 96 08/14/21 18:53
[2021-08-15] MEDS: traZODone 50 MG TAB PO SCH (21:13)
--- NOTE | 2021-08-16 09:03 | Progress Note ---
Subjective Date of service: 08/16/21 Principal diagnosis: Delusional Disorder Subjective Comment: The patient was seen today. She is calm, and cooperative. She denies hallucinations of any kind. She also denies SI/HI. The patient appears to be at her baseline. Will plan with the delinquency prevention social worker to discharge the patient to a safe place. 08/15 The patient was seem today. She is calm and cooperative. She denies SI/HI. She also denies hallucinations. The patient does appear to be a little delusional. She tells me something is going on with her eyes. I ask her what was going on. She says "I don't know. Look at them." There is nothing obviously wrong with her eyes. 08/14 The patient was seen today. She is lying in bed. She is awake, and pleasant. She is calm and cooperative. She denies SI/HI or hallucinations of any kind. She is awaiting placement. 08/13 The patient was seen today. She is calm and cooperative. She denies SI/HI or hallucinations of any kind. She says she slept much better last night. 08/12 The patient was seen today. She is calm, and cooperative. She is pleasant. The patient says she slept a little better but didn't feel like she rested well. She denies SI/HI or hallucinations of any kind. The patient says she doesn't know if she wants to take any meds because they make her feel sluggish. I advised the patient that if she wanted to continue to progress and go home, she had to comply with the treatment. She was in agreement, and states she would continue to take them. . 08/11 The patient was seen today. She is calm, cooperative and pleasant. She says she feels okay. She denies SI/HI. She also denies hallucinations. She says she did not sleep well. The patient says she kept waking up throughout the night. 08/10/21: The patient was seen this morning. She states she is doing well. She denies being depressed and no delusions noted. The patient denies any current suicidal/homicidal ideation and denies hallucinations. 08/09/21: The patient was seen at breakfast. She presents in good spirits and reports doing well. She reports sleep as fair. She denies depression and denies any current suicidal/homicidal ideation and denies hallucinations. 08/08/21: The patient was seen eating breakfast. she reports doing well " I w ould have liked to sleep better, so much interruptions." She denies depression and denies any current suicidal/homicidal ideation and denies hallucinations. 08/07/21:The patient was seen this morning. She is calm. When asking how she is doing, she states " I don't know yet." She reports sleep as restful. She denies depression and denies any current suicidal/homicidal ideation and denies hallucinations. REVIEW OF SYSTEMS Constitutional: Negative for weight loss ENT: Negative for stridor Respiratory: Negative for cough or hemoptysis All other systems reviewed and are negative MENTAL STATUS EXAMINATION General Appearance and Behavior: Age appropriate, good hygiene, wearing appropriate clothes, good eye contact, calm, cooperative Cooperation: Participating/engaged, but Guarded Psychomotor Behavior: Psychomotor normal Mood: "okay" Affect and affective range: congruent with stated mood Thought Process: Goal directed Thought Content: Reality oriented Speech: normal tone and pace Suicidal Ideation: Denies Homicidal Ideation: Denies Hallucinations: Denies Delusions: None Impulse Control: Limited Insight and Judgment: Poor insight and judgment Memory: Poor Attention: Divided Orientation: Alert, oriented Assessment and Plan Delusional Disorder Treatment Plan Patient admitted for inpatient psychiatric evaluation, medication adjustment and close monitoring The patient's behavior, mood, sleep and appetite will be closely monitored. Patient enrolled in individual and group therapeutic sessions and encouraged to attend. Patient provided with a safe and structured environment. Patient's physical health needs will be addressed by the Hospitalist. H ospitalist Consulted Labs including CBC, CMP, Lipid profile and Hemoglobin A1C levels ordered for baseline reference Social Assessment will be completed and the Airbrush Artist Photography will work with patient and family to ensure a suitable and safe disposition Medication adjustment will be made as clinically indicated No changes made today Usual Wellness Quaker/Preservation: - Start Trazodone 50 mg po QHS & 50 mg po QHS PRN between 10 PM & 2 AM for insomnia - Start Melatonin 5 mg po QHS to promote circadian rhythm The patient agreed on the treatment plan, understood the risk, benefit, alternative treatment, potential consequence of no treatment, and gave informed consent. Estimated days: 4 Post hospital care: primary care provider, psychiatric provider Case staffed with Dr. Alfredo Medications and Allergies Allergies Allergy/AdvReac Type Severity Reaction Status Date / Time codeine AdvReac Intermediate Swelling Verified 08/04/21 18:27 Home Medications Medication Instructions Recorded Confirmed Last Taken Type Aspirin EC [Halfprin EC] 81 mg PO QDAY #30 tablet. 10/20/19 08/06/21 Unknown Rx AtorvaSTATin [Lipitor] 40 mg PO QHS #30 tablet 10/20/19 08/06/21 Unknown Rx Calcium Carbonate/Vitamin D3 1 each PO DAILY #30 tablet 10/20/19 08/06/21 Unknown Rx [Calcium 500 mg-Vit D3 600 Unit] amLODIPine 10 mg PO QDAY #30 tablet 10/20/19 08/06/21 Unknown Rx Active Meds: Active Medications Amlodipine Besylate (Amlodipine 10 Mg Tab) 10 mg PO QDAY [facility] Last Admin: 08/15/21 09:21 Dose: Not Given Aspirin (Aspirin Ec 81 Mg Tab) 81 mg PO QDAY [facility] Last Admin: 08/15/21 09:21 Dose: Not Given Atorvastatin Calcium (Atorvastatin 40 Mg Tab) 40 mg PO QHS [facility] Last Admin: 08/15/21 21:13 Dose: 40 mg Melatonin (Melatonin 5 Mg Tab) 5 mg PO QHS PRN PRN Reason: Sleep Multivitamins/Minerals (Calcium Carb/Vit D3/Minerals 600 Mg/800 Units Tab) 1 each PO DAILY [facility] Last Admin: 08/15/21 09:21 Dose: Not Given Trazodone HCl (Trazodone 50 Mg Tab) 75 mg PO QHS [facility] Last Admin: 08/15/21 21:13 Dose: 75 mg Results - Results Labs/Vitals: Laboratory Last Values WBC 6.0 K/mm3 (4.5-11.0) 08/08/21 21:18 RBC 3.97 M/mm3 (3.65-5.03) 08/08/21 21:18 Hgb 11.8 gm/dl (10.1-14.3) 08/08/21 21:18 Hct 36.3 % (30.3-42.9) 08/08/21 21:18 MCV 92 fl (79-97) 08/08/21 21:18 MCH 30 pg (28-32) 08/08/21 21:18 MCHC 33 % (30-34) 08/08/21 21:18 RDW 15.2 % (13.2-15.2) 08/08/21 21:18 Plt Count 181 K/mm3 (140-440) 08/08/21 21:18 Lymph % (Auto) 32.9 % (13.4-35.0) 08/08/21 21:18 [place] % (Auto) 8.7 % (0.0-7.3) H 08/08/21 21:18 Eos % (Auto) 3.3 % (0.0-4.3) 08/08/21 21:18 Baso % (Auto) 0.5 % (0.0-1.8) 08/08/21 21:18 Lymph # (Auto) 2.0 K/mm3 (1.2-5.4) 08/08/21 21:18 [place] # (Auto) 0.5 K/mm3 (0.0-0.8) 08/08/21 21:18 Eos # (Auto) 0.2 K/mm3 (0.0-0.4) 08/08/21 21:18 Baso # (Auto) 0.0 K/mm3 (0.0-0.1) 08/08/21 21:18 Seg Neutrophils % 54.6 % (40.0-70.0) 08/08/21 21:18 Seg Neutrophils # 3.3 K/mm3 (1.8-7.7) 08/08/21 21:18 Sodium 140 mmol/L (137-145) 08/08/21 21:18 Potassium 3.8 mmol/L (3.6-5.0) 08/08/21 21:18 Chloride 101.9 mmol/L (98-107) 08/08/21 21:18 Carbon Dioxide 27 mmol/L (22-30) 08/08/21 21:18 Anion Gap 15 mmol/L 08/08/21 21:18 BUN 26 mg/dL (7-17) H 08/08/21 21:18 Creatinine 0.8 mg/dL (0.6-1.2) 08/08/21 21:18 Estimated GFR > 60 ml/min 08/08/21 21:18 BUN/Creatinine Ratio 33 % 08/08/21 21:18 Glucose 115 mg/dL (65-100) H 08/08/21 21:18 POC Glucose 83 mg/dL (70-105) 08/15/21 07:38 Hemoglobin A1c 5.9 % (4-6) 08/08/21 21:18 Calcium 9.7 mg/dL (8.4-10.2) 08/08/21 21:18 Total Bilirubin 0.20 mg/dL (0.1-1.2) 08/08/21 21:18 AST 22 units/L (5-40) 08/08/21 21:18 ALT 17 units/L (7-56) 08/08/21 21:18 Alkaline Phosphatase 70 units/L (35-129) 08/08/21 21:18 Total Protein 6.9 g/dL (6.3-8.2) 08/08/21 21:18 Albumin 4.3 g/dL (3.9-5) 08/08/21 21:18 Albumin/Globulin Ratio 1.7 % 08/08/21 21:18 Triglycerides 126 mg/dL (2-149) 08/08/21 21:18 Cholesterol 279 mg/dL (50-199) H 08/08/21 21:18 LDL Cholesterol Direct 180 mg/dL (50-130) H 08/08/21 21:18 HDL Cholesterol 81 mg/dL (40-59) H 08/08/21 21:18 Cholesterol/HDL Ratio 3.44 % 08/08/21 21:18 TSH 1.720 mlU/mL (0.270-4.200) 08/08/21 21:18 Last Vital Signs Temp 98.7 F 08/15/21 21:38 Pulse 83 08/15/21 21:38 Resp 16 08/15/21 21:38 BP 106/64 08/15/21 21:38 Pulse Ox 95 08/15/21 21:38
[2021-08-16] MEDS: ASPIRIN EC 81 MG TAB PO SCH (10:28)
[2021-08-16] MEDS: amLODIPine 10 MG TAB PO SCH (10:28)
[2021-08-16] MEDS: CALCIUM CARB/VIT D3/MINERALS 600 MG/800 UNITS TAB PO SCH (10:28)
[2021-08-16] MEDS: risperiDONE 0.25 MG TAB PO SCH ×2 (16:10→22:24)
[2021-08-16] MEDS: traZODone 50 MG TAB PO SCH (22:24)
[2021-08-17] MEDS: risperiDONE 0.25 MG TAB PO SCH ×3 (05:06→21:01)
[2021-08-17] MEDS: traZODone 50 MG TAB PO SCH ×2 (05:07→21:00)
[2021-08-17] MEDS: CALCIUM CARB/VIT D3/MINERALS 600 MG/800 UNITS TAB PO SCH (09:41)
[2021-08-17] MEDS: amLODIPine 10 MG TAB PO SCH (09:42)
[2021-08-17] MEDS: ASPIRIN EC 81 MG TAB PO SCH (12:42)
--- NOTE | 2021-08-17 13:10 | Progress Note ---
Subjective Date of service: 08/17/21 Principal diagnosis: Delusional Disorder Subjective Comment: The patient was seen today. She is calm, and cooperative. Her daughter is on the phone. The patient's progress and treatment plan were explained. The patient was explained the importance of complying with her medical regimen. She agrees to take the medication. The SW and nurse are involved as well. The patient denies SI/HI or hallucinations of any kind. 08/16 The patient was seen today. She is calm, and cooperative. She denies hallucinations of any kind. She also denies SI/HI. The patient appears to be at her baseline. Will plan with the social services technician to discharge the patient to a safe place. 08/15 The patient was seem today. She is calm and cooperative. She denies SI/HI. She also denies hallucinations. The patient does appear to be a little delusional. She tells me something is going on with her eyes. I ask her what was going on. She says "I don't know. Look at them." There is nothing obviously wrong with her eyes. 08/14 The patient was seen today. She is lying in bed. She is awake, and pleasant. She is calm and cooperative. She denies SI/HI or hallucinations of any kind. She is awaiting placement. 08/13 The patient was seen today. She is calm and cooperative. She denies SI/HI or hallucinations of any kind. She says she slept much better last night. 08/12 The patient was seen today. She is calm, and cooperative. She is pleasant. The patient says she slept a little better but didn't feel like she rested well. She denies SI/HI or hallucinations of any kind. The patient says she doesn't know if she wants to take any meds because they make her feel sluggish. I advised the patient that if she wanted to continue to progress and go home, she had to comply with the treatment. She was in agreement, and states she would continue to take them. . 08/11 The patient was seen today. She is calm, cooperative and pleasant. She says she feels okay. She denies SI/HI. She also denies hallucinations. She says she did not sleep well. The patient says she kept waking up throughout the night. 08/10/21: The patient was seen this morning. She states she is doing well. She denies being depressed and no delusions noted. The patient denies any current suicidal/homicidal ideation and denies hallucinations. 08/09/21: The patient was seen at breakfast. She presents in good spirits and reports doing well. She reports sleep as fair. She denies depression and denies any current suicidal/homicidal ideation and denies hallucinations. 08/08/21: The patient was seen eating breakfast. she reports doing well " I would have liked to sleep better, so much interruptions." She denies depression and denies any current suicidal/homicidal ideation and denies hallucinations. 08/07/21:The patient was seen this morning. She is calm. When asking how she is doing, she states " I don't know yet." She reports sleep as restful. She denies depression and denies any current suicidal/homicidal ideation and denies hallucinations. REVIEW OF SYSTEMS Constitutional: Negative for weight loss ENT: Negative for stridor Respiratory: Negative for cough or hemoptysis All other systems reviewed and are negative MENTAL STATUS EXAMINATION General Appearance and Behavior: Age appropriate, good hygiene, wearing appropriate clothes, good eye contact, calm, cooperative Cooperation: Participating/engaged, but Guarded Psychomotor Behavior: Psychomotor normal Mood: good Affect and affective range: congruent with stated mood Thought Process: Goal directed Thought Content: Reality oriented Speech: normal tone and pace Suicidal Ideation: Denies Homicidal Ideation: Denies Hallucinations: Denies Delusions: None Impulse Control: Limited Insight and Judgment: Poor insight and judgment Memory: Poor Attention: Divided Orientation: Alert, oriented Assessment and Plan Delusional Disorder Treatment Plan Patient admitted for inpatient psychiatric evaluation, medication adjustment and close monitoring The patient's behavior, mood, sleep and appetite will be closely monitored. Patient enrolled in individual and group therapeutic sessions and encouraged to attend. Patient provided with a safe and structured environment. Patient's physical health needs will be addressed by the Hospitalist. Hospitalist Consulted Labs including CBC, CMP, Lipid profile and Hemoglobin A1C levels ordered for baseline reference Social Assessment will be completed and the Net Programmer Analyst will work with patient and family to ensure a suitable and safe disposition Medication adjustment will be made as clinically indicated No changes made today Usual Wellness Hinduism/Preservation: - Start Trazodone 50 mg po QHS & 50 mg po QHS PRN between 10 PM & 2 AM for insomnia - Start Melatonin 5 mg po QHS to promote circadian rhythm The patient agreed on the treatment plan, understood the risk, benefit, alternative treatment, potential consequence of no treatment, and gave informed consent. Estimated days: 4 Post hospital care: primary care provider, psychiatric provider Case staffed with Dr. Fuentes Medications and Allergies Allergies Allergy/AdvReac Type Severity Reaction Status Date / Time codeine AdvReac Intermediate Swelling Verified 08/04/21 18:27 Home Medications Medication Instructions Recorded Confirmed Last Taken Type Aspirin EC [Halfprin EC] 81 mg PO QDAY #30 tablet. 10/20/19 08/06/21 Unknown Rx AtorvaSTATin [Lipitor] 40 mg PO QHS #30 tablet 10/20/19 08/06/21 Unknown Rx Calcium Carbonate/Vitamin D3 1 each PO DAILY #30 tablet 10/20/19 08/06/21 Unknown Rx [Calcium 500 mg-Vit D3 600 Unit] amLODIPine 10 mg PO QDAY #30 tablet 10/20/19 08/06/21 Unknown Rx Active Meds: Active Medications Amlodipine Besylate (Amlodipine 10 Mg Tab) 10 mg PO QDAY [facility] Last Admin: 08/17/21 09:42 Dose: Not Given Aspirin (Aspirin Ec 81 Mg Tab) 81 mg PO QDAY [facility] Stop: 08/17/21 18:00 Last Admin: 08/17/21 12:42 Dose: 81 mg Aspirin (Aspirin 81 Mg Tab Chew) 81 mg PO QDAY [facility] Atorvastatin Calcium (Atorvastatin 40 Mg Tab) 40 mg PO QHS [facility] Last Admin: 08/17/21 05:08 Dose: Not Given Melatonin (Melatonin 5 Mg Tab) 5 mg PO QHS PRN PRN Reason: Sleep Multivitamins/Minerals (Calcium Carb/Vit D3/Minerals 600 Mg/800 Units Tab) 1 each PO DAILY [facility] Last Admin: 08/17/21 09:41 Dose: 1 each Risperidone (Risperidone 0.25 Mg Tab) 0.25 mg PO BID [facility] Last Admin: 08/17/21 09:42 Dose: 0.25 mg Trazodone HCl (Trazodone 50 Mg Tab) 75 mg PO QHS [facility] Last Admin: 08/17/21 05:07 Dose: Not Given Results - Results Labs/Vitals: Laboratory Last Values WBC 6.0 K/mm3 (4.5-11.0) 08/08/21 21:18 RBC 3.97 M/mm3 (3.65-5.03) 08/08/21 21:18 Hgb 11.8 gm/dl (10.1-14.3) 08/08/21 21:18 Hct 36.3 % (30.3-42.9) 08/08/21 21:18 MCV 92 fl (79-97) 08/08/21 21:18 MCH 30 pg (28-32) 08/08/21 21:18 MCHC 33 % (30-34) 08/08/21 21:18 RDW 15.2 % (13.2-15.2) 08/08/21 21:18 Plt Count 181 K/mm3 (140-440) 08/08/21 21:18 Lymph % (Auto) 32.9 % (13.4-35.0) 08/08/21 21:18 [place] % (Auto) 8.7 % (0.0-7.3) H 08/08/21 21:18 Eos % (Auto) 3.3 % (0.0-4.3) 08/08/21 21:18 Baso % (Auto) 0.5 % (0.0-1.8) 08/08/21 21:18 Lymph # (Auto) 2.0 K/mm3 (1.2-5.4) 08/08/21 21:18 [place] # (Auto) 0.5 K/mm3 (0.0-0.8) 08/08/21 21:18 Eos # (Auto) 0.2 K/mm3 (0.0-0.4) 08/08/21 21:18 Baso # (Auto) 0.0 K/mm3 (0.0-0.1) 08/08/21 21:18 Seg Neutrophils % 54.6 % (40.0-70.0) 08/08/21 21:18 Seg Neutrophils # 3.3 K/mm3 (1.8-7.7) 08/08/21 21:18 Sodium 140 mmol/L (137-145) 08/08/21 21:18 Potassium 3.8 mmol/L (3.6-5.0) 08/08/21 21:18 Chloride 101.9 mmol/L (98-107) 08/08/21 21:18 Carbon Dioxide 27 mmol/L (22-30) 08/08/21 21:18 Anion Gap 15 mmol/L 08/08/21 21:18 BUN 26 mg/dL (7-17) H 08/08/21 21:18 Creatinine 0.8 mg/dL (0.6-1.2) 08/08/21 21:18 Estimated GFR > 60 ml/min 08/08/21 21:18 BUN/Creatinine Ratio 33 % 08/08/21 21:18 Glucose 115 mg/dL (65-100) H 08/08/21 21:18 POC Glucose 74 mg/dL (70-105) 08/17/21 11:10 Hemoglobin A1c 5.9 % (4-6) 08/08/21 21:18 Calcium 9.7 mg/dL (8.4-10.2) 08/08/21 21:18 Total Bilirubin 0.20 mg/dL (0.1-1.2) 08/08/21 21:18 AST 22 units/L (5-40) 08/08/21 21:18 ALT 17 units/L (7-56) 08/08/21 21:18 Alkaline Phosphatase 70 units/L (35-129) 08/08/21 21:18 Total Protein 6.9 g/dL (6.3-8.2) 08/08/21 21:18 Albumin 4.3 g/dL (3.9-5) 08/08/21 21:18 Albumin/Globulin Ratio 1.7 % 08/08/21 21:18 Triglycerides 126 mg/dL (2-149) 08/08/21 21:18 Cholesterol 279 mg/dL (50-199) H 08/08/21 21:18 LDL Cholesterol Direct 180 mg/dL (50-130) H 08/08/21 21:18 HDL Cholesterol 81 mg/dL (40-59) H 08/08/21 21:18 Cholesterol/HDL Ratio 3.44 % 08/08/21 21:18 TSH 1.720 mlU/mL (0.270-4.200) 08/08/21 21:18 Last Vital Signs Temp 97.5 F L 08/17/21 08:30 Pulse 81 08/17/21 08:30 Resp 16 08/17/21 08:30 BP 117/39 08/17/21 09:42 Pulse Ox 97 08/17/21 08:30
[2021-08-18] MEDS: amLODIPine 10 MG TAB PO SCH (09:22)
[2021-08-18] MEDS: CALCIUM CARB/VIT D3/MINERALS 600 MG/800 UNITS TAB PO SCH (09:22)
[2021-08-18] MEDS: ASPIRIN 81 MG TAB CHEW PO SCH (09:22)
[2021-08-18] MEDS: risperiDONE 0.25 MG TAB PO SCH ×2 (09:22→22:01)
--- NOTE | 2021-08-18 10:30 | Progress Note ---
Subjective Date of service: 08/18/21 Principal diagnosis: Delusional Disorder Subjective Comment: 08/18/21: The patient was seen at breakfast. She is calm, cooperative and reports doing well. She states sleep and appetite as good. The patient denies suicidal/homicidal ideation and denies hallucinations. 08/17/21:The patient was seen today. She is calm, and cooperative. Her daughter is on the phone. The patient's progress and treatment plan were explained. The patient was explained the importance of complying with her medical regimen. She agrees to take the medication. The SW and nurse are involved as well. The patient denies SI/HI or hallucinations of any kind. 08/16 The patient was seen today. She is calm, and cooperative. She denies hallucinations of any kind. She also denies SI/HI. The patient appears to be at her baseline. Will plan with the social insurance analyst to discharge the patient to a safe place. 08/15 The patient was seem today. She is calm and cooperative. She denies SI/HI. She also denies hallucinations. The patient does appear to be a little delusional. She tells me something is going on with her eyes. I ask her what was going on. She says "I don't know. Look at them." There is nothing obviously wrong with her eyes. 08/14 The patient was seen today. She is lying in bed. She is awake, and pleasant. She is calm and cooperative. She denies SI/HI or hallucinations of any kind. She is awaiting placement. 08/13 The patient was seen today. She is calm and cooperative. She denies SI/HI or hallucinations of any kind. She says she slept much better last night. 08/12 The patient was seen today. She is calm, and cooperative. She is pleasant. The patient says she slept a little better but didn't feel like she rested well. She denies SI/HI or hallucinations of any kind. The patient says she doesn't know if she wants to take any meds because they make her feel sluggish. I advised the patient that if she wanted to continue to progress and go home, she had to comply with the treatment. She was in agreement, and states she would continue to take them. . 08/11 The patient was seen today. She is calm, cooperative and pleasant. She says she feels okay. She denies SI/HI. She also denies hallucinations. She says she did not sleep well. The patient says she kept waking up throughout the night. 08/10/21: The patient was seen this morning. She states she is doing well. She denies being depressed and no delusions noted. The patient denies any current suicidal/homicidal ideation and denies hallucinations. 08/09/21: The patient was seen at breakfast. She presents in good spirits and reports doing well. She reports sleep as fair. She denies depression and denies any current suicidal/homicidal ideation and denies hallucinations. 08/08/21: The patient was seen eating breakfast. she reports doing well " I would have liked to sleep better, so much interruptions." She denies depression and denies any current suicidal/homicidal ideation and denies hallucinations. 08/07/21:The patient was seen this morning. She is calm. When asking how she is doing, she states " I don't know yet." She reports sleep as restful. She denies depression and denies any current suicidal/homicidal ideation and denies hallucinations. REVIEW OF SYSTEMS Constitutional: Negative for weight loss ENT: Negative for stridor Respiratory: Negative for cough or hemoptysis All other systems reviewed and are negative MENTAL STATUS EXAMINATION General Appearance and Behavior: Age appropriate, good hygiene, wearing appropri ate clothes, good eye contact, calm, cooperative Cooperation: Participating/engaged, but Guarded Psychomotor Behavior: Psychomotor normal Mood: good Affect and affective range: congruent with stated mood Thought Process: Goal directed Thought Content: Reality oriented Speech: normal tone and pace Suicidal Ideation: Denies Homicidal Ideation: Denies Hallucinations: Denies Delusions: None Impulse Control: Limited Insight and Judgment: Poor insight and judgment Memory: Poor Attention: Divided Orientation: Alert, oriented Assessment and Plan Delusional Disorder Treatment Plan Patient admitted for inpatient psychiatric evaluation, medication adjustment and close monitoring The patient's behavior, mood, sleep and appetite will be closely monitored. Patient enrolled in individual and group therapeutic sessions and encouraged to attend. Patient provided with a safe and structured environment. Patient's physical health needs will be addressed by the Hospitalist. Hospitalist Consulted Labs including CBC, CMP, Lipid profile and Hemoglobin A1C levels ordered for baseline reference Social Assessment will be completed and the Application Support Engineer will work with patient and family to ensure a suitable and safe disposition Medication adjustment will be made as clinically indicated No changes made today Usual Wellness Gnosticist/Preservation: - Start Trazodone 50 mg po QHS & 50 mg po QHS PRN between 10 PM & 2 AM for insomnia - Start Melatonin 5 mg po QHS to promote circadian rhythm The patient agreed on the treatment plan, understood the risk, benefit, alternative treatment, potential consequence of no treatment, and gave informed consent. Estimated days: 4 Post hospital care: primary care provider, psychiatric provider Case staffed with Dr. Fuentes Medications and Allergies Allergies Allergy/AdvReac Type Severity Reaction Status Date / Time codeine AdvReac Intermediate Swelling Verified 08/04/21 18:27 Home Medications Medication Instructions Recorded Confirmed Last Taken Type Aspirin EC [Halfprin EC] 81 mg PO QDAY #30 tablet. 10/20/19 08/06/21 Unknown Rx AtorvaSTATin [Lipitor] 40 mg PO QHS #30 tablet 10/20/19 08/06/21 Unknown Rx Calcium Carbonate/Vitamin D3 1 each PO DAILY #30 tablet 10/20/19 08/06/21 Unknown Rx [Calcium 500 mg-Vit D3 600 Unit] amLODIPine 10 mg PO QDAY #30 tablet 10/20/19 08/06/21 Unknown Rx Active Meds: Active Medications Amlodipine Besylate (Amlodipine 10 Mg Tab) 10 mg PO QDAY [facility] Last Admin: 08/18/21 09:22 Dose: 10 mg Aspirin (Aspirin 81 Mg Tab Chew) 81 mg PO QDAY [facility] Last Admin: 08/18/21 09:22 Dose: 81 mg Atorvastatin Calcium (Atorvastatin 40 Mg Tab) 40 mg PO QHS [facility] Last Admin: 08/17/21 21:01 Dose: 40 mg Melatonin (Melatonin 5 Mg Tab) 5 mg PO QHS PRN PRN Reason: Sleep Multivitamins/Minerals (Calcium Carb/Vit D3/Minerals 600 Mg/800 Units Tab) 1 each PO DAILY [facility] Last Admin: 08/18/21 09:22 Dose: 1 each Risperidone (Risperidone 0.25 Mg Tab) 0.25 mg PO BID [facility] Last Admin: 08/18/21 09:22 Dose: 0.25 mg Trazodone HCl (Trazodone 50 Mg Tab) 75 mg PO QHS [facility] Last Admin: 08/17/21 21:00 Dose: 75 mg Results - Results Labs/Vitals: Laboratory Last Values WBC 6.0 K/mm3 (4.5-11.0) 08/08/21 21:18 RBC 3.97 M/mm3 (3.65-5.03) 08/08/21 21:18 Hgb 11.8 gm/dl (10.1-14.3) 08/08/21 21:18 Hct 36.3 % (30.3-42.9) 08/08/21 21:18 MCV 92 fl (79-97) 08/08/21 21:18 MCH 30 pg (28-32) 08/08/21 21:18 MCHC 33 % (30-34) 08/08/21 21:18 RDW 15.2 % (13.2-15.2) 08/08/21 21:18 Plt Count 181 K/mm3 (140-440) 08/08/21 21:18 Lymph % (Auto) 32.9 % (13.4-35.0) 08/08/21 21:18 [place] % (Auto) 8.7 % (0.0-7.3) H 08/08/21 21:18 Eos % (Auto) 3.3 % (0.0-4.3) 08/08/21 21:18 Baso % (Auto) 0.5 % (0.0-1.8) 08/08/21 21:18 Lymph # (Auto) 2.0 K/mm3 (1.2-5.4) 08/08/21 21:18 [place] # (Auto) 0.5 K/mm3 (0.0-0.8) 08/08/21 21:18 Eos # (Auto) 0.2 K/mm3 (0.0-0.4) 08/08/21 21:18 Baso # (Auto) 0.0 K/mm3 (0.0-0.1) 08/08/21 21:18 Seg Neutrophils % 54.6 % (40.0-70.0) 08/08/21 21:18 Seg Neutrophils # 3.3 K/mm3 (1.8-7.7) 08/08/21 21:18 Sodium 140 mmol/L (137-145) 08/08/21 21:18 Potassium 3.8 mmol/L (3.6-5.0) 08/08/21 21:18 Chloride 101.9 mmol/L (98-107) 08/08/21 21:18 Carbon Dioxide 27 mmol/L (22-30) 08/08/21 21:18 Anion Gap 15 mmol/L 08/08/21 21:18 BUN 26 mg/dL (7-17) H 08/08/21 21:18 Creatinine 0.8 mg/dL (0.6-1.2) 08/08/21 21:18 Estimated GFR > 60 ml/min 08/08/21 21:18 BUN/Creatinine Ratio 33 % 08/08/21 21:18 Glucose 115 mg/dL (65-100) H 08/08/21 21:18 POC Glucose 74 mg/dL (70-105) 08/17/21 11:10 Hemoglobin A1c 5.9 % (4-6) 08/08/21 21:18 Calcium 9.7 mg/dL (8.4-10.2) 08/08/21 21:18 Total Bilirubin 0.20 mg/dL (0.1-1.2) 08/08/21 21:18 AST 22 units/L (5-40) 08/08/21 21:18 ALT 17 units/L (7-56) 08/08/21 21:18 Alkaline Phosphatase 70 units/L (35-129) 08/08/21 21:18 Total Protein 6.9 g/dL (6.3-8.2) 08/08/21 21:18 Albumin 4.3 g/dL (3.9-5) 08/08/21 21:18 Albumin/Globulin Ratio 1.7 % 08/08/21 21:18 Triglycerides 126 mg/dL (2-149) 08/08/21 21:18 Cholesterol 279 mg/dL (50-199) H 08/08/21 21:18 LDL Cholesterol Direct 180 mg/dL (50-130) H 08/08/21 21:18 HDL Cholesterol 81 mg/dL (40-59) H 08/08/21 21:18 Cholesterol/HDL Ratio 3.44 % 08/08/21 21:18 TSH 1.720 mlU/mL (0.270-4.200) 08/08/21 21:18 Last Vital Signs Temp 98.4 F 08/17/21 19:33 Pulse 80 08/17/21 19:33 Resp 18 08/17/21 19:33 BP 129/69 08/17/21 19:33 Pulse Ox 95 08/17/21 19:33
--- NOTE | 2021-08-18 20:18 | Progress Note ---
Assessment and Plan - Patient Problems (1) Vascular dementia with behavioral disturbance Current Visit: Yes Status: Acute Plan to address problem: Verbal prompting, verbal redirection, benzodiazepine therapy as clinically indicated (2) Cerebral atherosclerosis Current Visit: Yes Status: Acute Plan to address problem: Risk factor reduction, antiplatelet therapy as clinically indicated. (3) Hypertension Current Visit: Yes Status: Acute Qualifiers: Hypertension type: primary hypertension Qualified Code(s): I10 - Essential (primary) hypertension Plan to address problem: Monitor blood pressure every shift, continue medical management. (4) Hyperlipidemia Current Visit: Yes Status: Acute Plan to address problem: Low-cholesterol diet, statin therapy, supportive care. (5) Diabetes Current Visit: Yes Status: Acute Plan to address problem: Consistent carbohydrate diet, Accu-Chek, insulin protocol, hypoglycemia protocol. (6) Malnutrition Current Visit: Yes Status: Acute Qualifiers: Protein-calorie malnutrition severity: moderate Plan to address problem: Dietary intake varies based on cognition. Dietary supplementation when awake and alert only, increase protein intake. (7) Psychosis Current Visit: Yes Status: Acute Qualifiers: Schizophrenia type: unspecified Plan to address problem: Continue medical management as per mental health team (8) Debility Current Visit: Yes Status: Acute Plan to address problem: Bed alarm, fall precautions. (9) Advance care planning Current Visit: Yes Status: Acute Plan to address problem: Disease education conducted, care plan discussed, diagnoses discussed, prognosis discussed, patient is full code. Discussed patient diagnoses, prognosis and care plan with patient granddaughter Felicia Nuñez [phone]. Patient is currently unable to live independently and will require placement. Discussed all likely options. Recommend discharge with hospice care to [facility], [facility], or assisted living facility depending on availability and acceptance. 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 +30 minutes. History Interval history: 81 YO Female with Vascular Dementia with Behavioral Disturbance, Cerebral Atherosclerosis, HTN, DM, Malnitrition, MDD, EDWIN admitted to [facility] for psychiatric stabilization. Consult placed by Dr. Hernandez for medical management. Pt seen and evaluated in the recreation room. Pt has diminished cognition and is unable to provide detailed history at the time of my evaluation but appears to be at baseline level of cognition and function. No reported nursing events. Hospitalist Physical - Constitutional Vitals: Temp Pulse Resp BP Pulse Ox 98.3 F 79 16 122/52 97 08/18/21 09:00 08/18/21 09:00 08/18/21 09:00 08/18/21 09:00 08/18/21 09:00 General appearance: Present: no acute distress, cachectic - EENT Eyes: Present: PERRL ENT: hearing intact - Neck Neck: Present: supple - Respiratory Respiratory effort: normal Respiratory: bilateral: CTA - Cardiovascular Rhythm: regular Heart Sounds: Present: S1 & S2 - Extremities Extremities: no ischemia Peripheral Pulses: within normal limits - Abdominal General gastrointestinal: soft, non-tender, non-distended - Integumentary Integumentary: Present: clear, dry - Psychiatric Psychiatric: cooperative - Neurologic Neurologic: CNII-XII intact Results - Labs CBC & Chem 7: 08/08/21 21:18 08/08/21 21:18 Labs: Laboratory Last Values WBC 6.0 K/mm3 (4.5-11.0) 08/08/21 21:18 RBC 3.97 M/mm3 (3.65-5.03) 08/08/21 21:18 Hgb 11.8 gm/dl (10.1-14.3) 08/08/21 21:18 Hct 36.3 % (30.3-42.9) 08/08/21 21:18 MCV 92 fl (79-97) 08/08/21 21:18 MCH 30 pg (28-32) 08/08/21 21:18 MCHC 33 % (30-34) 08/08/21 21:18 RDW 15.2 % (13.2-15.2) 08/08/21 21:18 Plt Count 181 K/mm3 (140-440) 08/08/21 21:18 Lymph % (Auto) 32.9 % (13.4-35.0) 08/08/21 21:18 [place] % (Auto) 8.7 % (0.0-7.3) H 08/08/21 21:18 Eos % (Auto) 3.3 % (0.0-4.3) 08/08/21 21:18 Baso % (Auto) 0.5 % (0.0-1.8) 08/08/21 21:18 Lymph # (Auto) 2.0 K/mm3 (1.2-5.4) 08/08/21 21:18 [place] # (Auto) 0.5 K/mm3 (0.0-0.8) 08/08/21 21:18 Eos # (Auto) 0.2 K/mm3 (0.0-0.4) 08/08/21 21:18 Baso # (Auto) 0.0 K/mm3 (0.0-0.1) 08/08/21 21:18 Seg Neutrophils % 54.6 % (40.0-70.0) 08/08/21 21:18 Seg Neutrophils # 3.3 K/mm3 (1.8-7.7) 08/08/21 21:18 Sodium 140 mmol/L (137-145) 08/08/21 21:18 Potassium 3.8 mmol/L (3.6-5.0) 08/08/21 21:18 Chloride 101.9 mmol/L (98-107) 08/08/21 21:18 Carbon Dioxide 27 mmol/L (22-30) 08/08/21 21:18 Anion Gap 15 mmol/L 08/08/21 21:18 BUN 26 mg/dL (7-17) H 08/08/21 21:18 Creatinine 0.8 mg/dL (0.6-1.2) 08/08/21 21:18 Estimated GFR > 60 ml/min 08/08/21 21:18 BUN/Creatinine Ratio 33 % 08/08/21 21:18 Glucose 115 mg/dL (65-100) H 08/08/21 21:18 POC Glucose 74 mg/dL (70-105) 08/17/21 11:10 Hemoglobin A1c 5.9 % (4-6) 08/08/21 21:18 Calcium 9.7 mg/dL (8.4-10.2) 08/08/21 21:18 Total Bilirubin 0.20 mg/dL (0.1-1.2) 08/08/21 21:18 AST 22 units/L (5-40) 08/08/21 21:18 ALT 17 units/L (7-56) 08/08/21 21:18 Alkaline Phosphatase 70 units/L (35-129) 08/08/21 21:18 Total Protein 6.9 g/dL (6.3-8.2) 03/08/22 21:18 Albumin 4.3 g/dL (3.9-5) 08/08/21 21:18 Albumin/Globulin Ratio 1.7 % 08/08/21 21:18 Triglycerides 126 mg/dL (2-149) 08/08/21 21:18 Cholesterol 279 mg/dL (50-199) H 08/08/21 21:18 LDL Cholesterol Direct 180 mg/dL (50-130) H 08/08/21 21:18 HDL Cholesterol 81 mg/dL (40-59) H 08/08/21 21:18 Cholesterol/HDL Ratio 3.44 % 08/08/21 21:18 TSH 1.720 mlU/mL (0.270-4.200) 08/08/21 21:18 [place]/IV: Voiding Method Diaper Active Medications - Current Medications Current Medications: Generic Name Dose Route Start Last Admin Trade Name Freq PRN Reason Stop Dose Admin Amlodipine Besylate 10 mg 08/06/21 10:00 08/18/21 09:22 Amlodipine 10 Mg Tab PO 10 mg QDAY NISH Administration Aspirin 81 mg 08/18/21 10:00 08/18/21 09:22 Aspirin 81 Mg Tab Chew PO 81 mg QDAY NISH Administration Atorvastatin Calcium 40 mg 08/06/21 22:00 08/17/21 21:01 Atorvastatin 40 Mg Tab PO 40 mg QHS NISH Administration Melatonin 5 mg 08/11/21 22:00 Melatonin 5 Mg Tab PO QHS PRN Sleep Multivitamins/Minerals 1 each 08/06/21 10:00 08/18/21 09:22 Calcium Carb/Vit D3/Minerals 600 Mg/800 Units Tab PO 1 each DAILY NISH Administration Risperidone 0.25 mg 08/16/21 10:00 08/18/21 09:22 Risperidone 0.25 Mg Tab PO 0.25 mg BID NISH Administration Trazodone HCl 75 mg 08/11/21 22:00 08/17/21 21:00 Trazodone 50 Mg Tab PO 75 mg QHS NISH Administration Nutrition/Malnutrition Assess - Dietary Evaluation Nutrition/Malnutrition Findings: Nutrition Notes Start: 08/11/21 12:38 Freq: Status: Active Protocol: Document 08/11/21 12:38 NHALL (Rec: 08/11/21 12:40 NHALL [id number]) Nutrition Notes Need for Assessment generated from: LOS Initial or Follow up Brief Note Current Diet Consistent CHO Height 5 ft 2 in Weight 52 kg [place] Body Weight (kg) 50.00 BMI 20.9 Weight Status Underweight Subjective/Other Information Pt screened for LOS. She has consumed 83% of meals since admission. Percent of energy/protein needs met: 100% energy and pro Burn Absent Trauma Absent Current % PO Good (75-100%) Minimum of two criteria No Is patient on ventilator? No Is Patient Ambulatory and/or Out of Bed Yes REE-([place]-St. Jeor-ambulatory/OOB) [ 1219.725 NUTR.MSJOOB] Kcal/Kg value to use for calculation 30 Approximate Energy Requirements Using 1560 kcal/Kg Calculation Used for Recommendations Kcal/kg Additional Notes Pro needs 1.2-1.5g/k-78g/ day Fluid needs 1ml/kcal Nutrition Intervention Revisit per MD consult or patient Sign Off request:
--- NOTE | 2021-08-18 20:18 | Progress Note ---
Assessment and Plan - Patient Problems (1) Vascular dementia with behavioral disturbance Current Visit: Yes Status: Acute Plan to address problem: Verbal prompting, verbal redirection, benzodiazepine therapy as clinically indicated (2) Cerebral atherosclerosis Current Visit: Yes Status: Acute Plan to address problem: Risk factor reduction, antiplatelet therapy as clinically indicated. (3) Hypertension Current Visit: Yes Status: Acute Qualifiers: Hypertension type: primary hypertension Qualified Code(s): I10 - Essential (primary) hypertension Plan to address problem: Monitor blood pressure every shift, continue medical management. (4) Hyperlipidemia Current Visit: Yes Status: Acute Plan to address problem: Low-cholesterol diet, statin therapy, supportive care. (5) Diabetes Current Visit: Yes Status: Acute Plan to address problem: Consistent carbohydrate diet, Accu-Chek, insulin protocol, hypoglycemia protocol. (6) Malnutrition Current Visit: Yes Status: Acute Qualifiers: Protein-calorie malnutrition severity: moderate Plan to address problem: Dietary intake varies based on cognition. Dietary supplementation when awake and alert only, increase protein intake. (7) Psychosis Current Visit: Yes Status: Acute Qualifiers: Schizophrenia type: unspecified Plan to address problem: Continue medical management as per mental health team (8) Debility Current Visit: Yes Status: Acute Plan to address problem: Bed alarm, fall precautions. (9) Advance care planning Current Visit: Yes Status: Acute Plan to address problem: Disease education conducted, care plan discussed, diagnoses discussed, prognosis discussed, patient is full code. Discussed patient diagnoses, prognosis and care plan with patient granddaughter Felicia Nuñez [phone]. Patient is currently unable to live independently and will require placement. Discussed all likely options. Recommend discharge with hospice care to retirement facility, personal-senior living, or assisted living facility depending on availability and acceptance. 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 +30 minutes. History Interval history: 81 YO Female with Vascular Dementia with Behavioral Disturbance, Cerebral Atherosclerosis, HTN, DM, Malnitrition, MDD, EDWIN admitted to [facility] for psychiatric stabilization. Consult placed by Dr. Hernandez for medical management. Pt seen and evaluated in the recreation room. Pt has diminished cognition and is unable to provide detailed history at the time of my evaluation but appears to be at baseline level of cognition and function. No reported nursing events. Hospitalist Physical - Constitutional Vitals: Temp Pulse Resp BP Pulse Ox 98.3 F 79 16 122/52 97 08/18/21 09:00 08/18/21 09:00 08/18/21 09:00 08/18/21 09:00 08/18/21 09:00 General appearance: Present: no acute distress, cachectic - EENT Eyes: Present: PERRL ENT: hearing decreased - Neck Neck: Present: supple - Respiratory Respiratory effort: normal Respiratory: bilateral: CTA - Cardiovascular Rhythm: regular Heart Sounds: Present: S1 & S2 - Extremities Extremities: no ischemia Peripheral Pulses: within normal limits - Abdominal General gastrointestinal: soft, non-tender, non-distended - Integumentary Integumentary: Present: clear, dry - Psychiatric Psychiatric: cooperative - Neurologic Neurologic: CNII-XII intact Results - Labs CBC & Chem 7: 08/08/21 21:18 08/08/21 21:18 Labs: Laboratory Last Values WBC 6.0 K/mm3 (4.5-11.0) 08/08/21 21:18 RBC 3.97 M/mm3 (3.65-5.03) 08/08/21 21:18 Hgb 11.8 gm/dl (10.1-14.3) 08/08/21 21:18 Hct 36.3 % (30.3-42.9) 08/08/21 21:18 MCV 92 fl (79-97) 08/08/21 21:18 MCH 30 pg (28-32) 08/08/21 21:18 MCHC 33 % (30-34) 08/08/21 21:18 RDW 15.2 % (13.2-15.2) 08/08/21 21:18 Plt Count 181 K/mm3 (140-440) 08/08/21 21:18 Lymph % (Auto) 32.9 % (13.4-35.0) 08/08/21 21:18 [place] % (Auto) 8.7 % (0.0-7.3) H 08/08/21 21:18 Eos % (Auto) 3.3 % (0.0-4.3) 08/08/21 21:18 Baso % (Auto) 0.5 % (0.0-1.8) 08/08/21 21:18 Lymph # (Auto) 2.0 K/mm3 (1.2-5.4) 08/08/21 21:18 [place] # (Auto) 0.5 K/mm3 (0.0-0.8) 08/08/21 21:18 Eos # (Auto) 0.2 K/mm3 (0.0-0.4) 08/08/21 21:18 Baso # (Auto) 0.0 K/mm3 (0.0-0.1) 08/08/21 21:18 Seg Neutrophils % 54.6 % (40.0-70.0) 08/08/21 21:18 Seg Neutrophils # 3.3 K/mm3 (1.8-7.7) 08/08/21 21:18 Sodium 140 mmol/L (137-145) 08/08/21 21:18 Potassium 3.8 mmol/L (3.6-5.0) 08/08/21 21:18 Chloride 101.9 mmol/L (98-107) 08/08/21 21:18 Carbon Dioxide 27 mmol/L (22-30) 08/08/21 21:18 Anion Gap 15 mmol/L 08/08/21 21:18 BUN 26 mg/dL (7-17) H 08/08/21 21:18 Creatinine 0.8 mg/dL (0.6-1.2) 08/08/21 21:18 Estimated GFR > 60 ml/min 08/08/21 21:18 BUN/Creatinine Ratio 33 % 08/08/21 21:18 Glucose 115 mg/dL (65-100) H 08/08/21 21:18 POC Glucose 74 mg/dL (70-105) 08/17/21 11:10 Hemoglobin A1c 5.9 % (4-6) 08/08/21 21:18 Calcium 9.7 mg/dL (8.4-10.2) 08/08/21 21:18 Total Bilirubin 0.20 mg/dL (0.1-1.2) 08/08/21 21:18 AST 22 units/L (5-40) 08/08/21 21:18 ALT 17 units/L (7-56) 08/08/21 21:18 Alkaline Phosphatase 70 units/L (35-129) 08/08/21 21:18 Total Protein 6.9 g/dL (6.3-8.2) 03/08/22 21:18 Albumin 4.3 g/dL (3.9-5) 08/08/21 21:18 Albumin/Globulin Ratio 1.7 % 08/08/21 21:18 Triglycerides 126 mg/dL (2-149) 08/08/21 21:18 Cholesterol 279 mg/dL (50-199) H 08/08/21 21:18 LDL Cholesterol Direct 180 mg/dL (50-130) H 08/08/21 21:18 HDL Cholesterol 81 mg/dL (40-59) H 08/08/21 21:18 Cholesterol/HDL Ratio 3.44 % 08/08/21 21:18 TSH 1.720 mlU/mL (0.270-4.200) 08/08/21 21:18 [place]/IV: Voiding Method Diaper Active Medications - Current Medications Current Medications: Generic Name Dose Route Start Last Admin Trade Name Freq PRN Reason Stop Dose Admin Amlodipine Besylate 10 mg 08/06/21 10:00 08/18/21 09:22 Amlodipine 10 Mg Tab PO 10 mg QDAY NISH Administration Aspirin 81 mg 08/18/21 10:00 08/18/21 09:22 Aspirin 81 Mg Tab Chew PO 81 mg QDAY NISH Administration Atorvastatin Calcium 40 mg 08/06/21 22:00 08/17/21 21:01 Atorvastatin 40 Mg Tab PO 40 mg QHS NISH Administration Melatonin 5 mg 08/11/21 22:00 Melatonin 5 Mg Tab PO QHS PRN Sleep Multivitamins/Minerals 1 each 08/06/21 10:00 08/18/21 09:22 Calcium Carb/Vit D3/Minerals 600 Mg/800 Units Tab PO 1 each DAILY NISH Administration Risperidone 0.25 mg 08/16/21 10:00 08/18/21 09:22 Risperidone 0.25 Mg Tab PO 0.25 mg BID NISH Administration Trazodone HCl 75 mg 08/11/21 22:00 08/17/21 21:00 Trazodone 50 Mg Tab PO 75 mg QHS NISH Administration Nutrition/Malnutrition Assess - Dietary Evaluation Nutrition/Malnutrition Findings: Nutrition Notes Start: 08/11/21 12:38 Freq: Status: Active Protocol: Document 08/11/21 12:38 NHALL (Rec: 08/11/21 12:40 NHALL [email or web address]) Nutrition Notes Need for Assessment generated from: LOS Initial or Follow up Brief Note Current Diet Consistent CHO Height 5 ft 2 in Weight 52 kg [place] Body Weight (kg) 50.00 BMI 20.9 Weight Status Underweight Subjective/Other Information Pt screened for LOS. She has consumed 83% of meals since admission. Percent of energy/protein needs met: 100% energy and pro Burn Absent Trauma Absent Current % PO Good (75-100%) Minimum of two criteria No Is patient on ventilator? No Is Patient Ambulatory and/or Out of Bed Yes REE-([place]-St. Jeor-ambulatory/OOB) [ 1219.725 NUTR.MSJOOB] Kcal/Kg value to use for calculation 30 Approximate Energy Requirements Using 1560 kcal/Kg Calculation Used for Recommendations Kcal/kg Additional Notes Pro needs 1.2-1.5g/k-78g/ day Fluid needs 1ml/kcal Nutrition Intervention Revisit per MD consult or patient Sign Off request:
--- NOTE | 2021-08-18 20:21 | Progress Note ---
Assessment and Plan - Patient Problems (1) Vascular dementia with behavioral disturbance Current Visit: Yes Status: Acute Plan to address problem: Verbal prompting, verbal redirection, benzodiazepine therapy as clinically indicated (2) Cerebral atherosclerosis Current Visit: Yes Status: Acute Plan to address problem: Risk factor reduction, antiplatelet therapy as clinically indicated. (3) Hypertension Current Visit: Yes Status: Acute Qualifiers: Hypertension type: primary hypertension Qualified Code(s): I10 - Essential (primary) hypertension Plan to address problem: Monitor blood pressure every shift, continue medical management. (4) Hyperlipidemia Current Visit: Yes Status: Acute Plan to address problem: Low-cholesterol diet, statin therapy, supportive care. (5) Diabetes Current Visit: Yes Status: Acute Plan to address problem: Consistent carbohydrate diet, Accu-Chek, insulin protocol, hypoglycemia protocol. (6) Malnutrition Current Visit: Yes Status: Acute Qualifiers: Protein-calorie malnutrition severity: moderate Plan to address problem: Dietary intake varies based on cognition. Dietary supplementation when awake and alert only, increase protein intake. (7) Psychosis Current Visit: Yes Status: Acute Qualifiers: Schizophrenia type: unspecified Plan to address problem: Continue medical management as per mental health team (8) Debility Current Visit: Yes Status: Acute Plan to address problem: Bed alarm, fall precautions. (9) Advance care planning Current Visit: Yes Status: Acute Plan to address problem: Disease education conducted, care plan discussed, diagnoses discussed, prognosis discussed, patient is full code. Discussed patient diagnoses, prognosis and care plan with patient granddaughter Felicia Nuñez [phone]. Patient is currently unable to live independently and will require placement. Discussed all likely options. Recommend discharge with hosp[facility] care to [facility], personal-correction, or assisted living facility depending on availability and acceptance. 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 +30 minutes. History Interval history: 81 YO Female with Vascular Dementia with Behavioral Disturbance, Cerebral Atherosclerosis, HTN, DM, Malnitrition, MDD, EDWIN admitted to [facility] for psychiatric stabilization. Consult placed by Dr. Hernandez for medical management. Pt seen and evaluated in the recreation room. Pt has diminished cognition and is unable to provide detailed history. Pt is at baseline level of cognition and function. No reported nursing events. Hospitalist Physical - Constitutional Vitals: Temp Pulse Resp BP Pulse Ox 98.3 F 79 16 122/52 97 08/18/21 09:00 08/18/21 09:00 08/18/21 09:00 08/18/21 09:00 08/18/21 09:00 General appearance: Present: no acute distress, cachectic - EENT Eyes: Present: PERRL ENT: hearing decreased - Neck Neck: Present: supple - Respiratory Respiratory effort: normal Respiratory: bilateral: CTA - Cardiovascular Rhythm: regular Heart Sounds: Present: S1 & S2 - Extremities Extremities: no ischemia Peripheral Pulses: within normal limits - Abdominal General gastrointestinal: soft, non-tender, non-distended - Integumentary Integumentary: Present: clear, dry - Psychiatric Psychiatric: cooperative - Neurologic Neurologic: CNII-XII intact Results - Labs CBC & Chem 7: 08/08/21 21:18 08/08/21 21:18 Labs: Laboratory Last Values WBC 6.0 K/mm3 (4.5-11.0) 08/08/21 21:18 RBC 3.97 M/mm3 (3.65-5.03) 08/08/21 21:18 Hgb 11.8 gm/dl (10.1-14.3) 08/08/21 21:18 Hct 36.3 % (30.3-42.9) 08/08/21 21:18 MCV 92 fl (79-97) 08/08/21 21:18 MCH 30 pg (28-32) 08/08/21 21:18 MCHC 33 % (30-34) 08/08/21 21:18 RDW 15.2 % (13.2-15.2) 08/08/21 21:18 Plt Count 181 K/mm3 (140-440) 08/08/21 21:18 Lymph % (Auto) 32.9 % (13.4-35.0) 08/08/21 21:18 [place] % (Auto) 8.7 % (0.0-7.3) H 08/08/21 21:18 Eos % (Auto) 3.3 % (0.0-4.3) 08/08/21 21:18 Baso % (Auto) 0.5 % (0.0-1.8) 08/08/21 21:18 Lymph # (Auto) 2.0 K/mm3 (1.2-5.4) 08/08/21 21:18 [place] # (Auto) 0.5 K/mm3 (0.0-0.8) 08/08/21 21:18 Eos # (Auto) 0.2 K/mm3 (0.0-0.4) 08/08/21 21:18 Baso # (Auto) 0.0 K/mm3 (0.0-0.1) 08/08/21 21:18 Seg Neutrophils % 54.6 % (40.0-70.0) 08/08/21 21:18 Seg Neutrophils # 3.3 K/mm3 (1.8-7.7) 08/08/21 21:18 Sodium 140 mmol/L (137-145) 08/08/21 21:18 Potassium 3.8 mmol/L (3.6-5.0) 08/08/21 21:18 Chloride 101.9 mmol/L (98-107) 08/08/21 21:18 Carbon Dioxide 27 mmol/L (22-30) 08/08/21 21:18 Anion Gap 15 mmol/L 08/08/21 21:18 BUN 26 mg/dL (7-17) H 08/08/21 21:18 Creatinine 0.8 mg/dL (0.6-1.2) 08/08/21 21:18 Estimated GFR > 60 ml/min 08/08/21 21:18 BUN/Creatinine Ratio 33 % 08/08/21 21:18 Glucose 115 mg/dL (65-100) H 08/08/21 21:18 POC Glucose 74 mg/dL (70-105) 08/17/21 11:10 Hemoglobin A1c 5.9 % (4-6) 08/08/21 21:18 Calcium 9.7 mg/dL (8.4-10.2) 08/08/21 21:18 Total Bilirubin 0.20 mg/dL (0.1-1.2) 08/08/21 21:18 AST 22 units/L (5-40) 08/08/21 21:18 ALT 17 units/L (7-56) 08/08/21 21:18 Alkaline Phosphatase 70 units/L (35-129) 08/08/21 21:18 Total Protein 6.9 g/dL (6.3-8.2) 08/08/21 21:18 Albumin 4.3 g/dL (3.9-5) 08/08/21 21:18 Albumin/Globulin Ratio 1.7 % 08/08/21 21:18 Triglycerides 126 mg/dL (2-149) 08/08/21 21:18 Cholesterol 279 mg/dL (50-199) H 08/08/21 21:18 LDL Cholesterol Direct 180 mg/dL (50-130) H 08/08/21 21:18 HDL Cholesterol 81 mg/dL (40-59) H 08/08/21 21:18 Cholesterol/HDL Ratio 3.44 % 08/08/21 21:18 TSH 1.720 mlU/mL (0.270-4.200) 08/08/21 21:18 Olea/IV: Voiding Method Diaper Active Medications - Current Medications Current Medications: Generic Name Dose Route Start Last Admin Trade Name Freq PRN Reason Stop Dose Admin Amlodipine Besylate 10 mg 08/06/21 10:00 08/18/21 09:22 Amlodipine 10 Mg Tab PO 10 mg QDAY NISH Administration Aspirin 81 mg 08/18/21 10:00 08/18/21 09:22 Aspirin 81 Mg Tab Chew PO 81 mg QDAY NISH Administration Atorvastatin Calcium 40 mg 08/06/21 22:00 08/17/21 21:01 Atorvastatin 40 Mg Tab PO 40 mg QHS NISH Administration Melatonin 5 mg 08/11/21 22:00 Melatonin 5 Mg Tab PO QHS PRN Sleep Multivitamins/Minerals 1 each 08/06/21 10:00 08/18/21 09:22 Calcium Carb/Vit D3/Minerals 600 Mg/800 Units Tab PO 1 each DAILY NISH Administration Risperidone 0.25 mg 08/16/21 10:00 08/18/21 09:22 Risperidone 0.25 Mg Tab PO 0.25 mg BID NISH Administration Trazodone HCl 75 mg 08/11/21 22:00 08/17/21 21:00 Trazodone 50 Mg Tab PO 75 mg QHS NISH Administration Nutrition/Malnutrition Assess - Dietary Evaluation Nutrition/Malnutrition Findings: Nutrition Notes Start: 08/11/21 12:38 Freq: Status: Active Protocol: Document 08/11/21 12:38 NHALL (Rec: 08/11/21 12:40 NHALL [id number]) Nutrition Notes Need for Assessment generated from: LOS Initial or Follow up Brief Note Current Diet Consistent CHO Height 5 ft 2 in Weight 52 kg [place] Body Weight (kg) 50.00 BMI 20.9 Weight Status Underweight Subjective/Other Information Pt screened for LOS. She has consumed 83% of meals since admission. Percent of energy/protein needs met: 100% energy and pro Burn Absent Trauma Absent Current % PO Good (75-100%) Minimum of two criteria No Is patient on ventilator? No Is Patient Ambulatory and/or Out of Bed Yes REE-([place]-St. Jeor-ambulatory/OOB) [ 1219.725 NUTR.[id number]] Kcal/Kg value to use for calculation 30 Approximate Energy Requirements Using 1560 kcal/Kg Calculation Used for Recommendations Kcal/kg Additional Notes Pro needs 1.2-1.5g/k-78g/ day Fluid needs 1ml/kcal Nutrition Intervention Revisit per MD consult or patient Sign Off request:
[2021-08-18] MEDS: traZODone 50 MG TAB PO SCH (22:00)
--- NOTE | 2021-08-19 08:49 | Progress Note ---
Subjective Date of service: 08/19/21 Principal diagnosis: Delusional Disorder Subjective Comment: 08/19/21: The patient was seen this morning. She is calm, cooperative and reports doing well. She states sleep and appetite as good. The patient denies suicidal/homicidal ideation and denies hallucinations. 08/18/21: The patient was seen at breakfast. She is calm, cooperative and reports doing well. She states sleep and appetite as good. The patient denies suicidal/homicidal ideation and denies hallucinations. 08/17/21:The patient was seen today. She is calm, and cooperative. Her daughter is on the phone. The patient's progress and treatment plan were explained. The patient was explained the importance of complying with her medical regimen. She agrees to take the medication. The SW and nurse are involved as well. The patient denies SI/HI or hallucinations of any kind. 08/16 The patient was seen today. She is calm, and cooperative. She denies hallucinations of any kind. She also denies SI/HI. The patient appears to be at her baseline. Will plan with the community mental health social worker to discharge the patient to a safe place. 08/15 The patient was seem today. She is calm and cooperative. She denies SI/HI. She also denies hallucinations. The patient does appear to be a little delusional. She tells me something is going on with her eyes. I ask her what was going on. She says "I don't know. Look at them." There is nothing obviously wrong with her eyes. 08/14 The patient was seen today. She is lying in bed. She is awake, and pleasant. She is calm and cooperative. She denies SI/HI or hallucinations of any kind. She is awaiting placement. 08/13 The patient was seen today. She is calm and cooperative. She denies SI/HI or hallucinations of any kind. She says she slept much better last night. 08/12 The patient was seen today. She is calm, and cooperative. She is pleasant. The patient says she slept a little better but didn't feel like she rested well. She denies SI/HI or hallucinations of any kind. The patient says she doesn't know if she wants to take any meds because they make her feel sluggish. I advised the patient that if she wanted to continue to progress and go home, she had to comply with the treatment. She was in agreement, and states she would continue to take them. . 08/11 The patient was seen today. She is calm, cooperative and pleasant. She says she feels okay. She denies SI/HI. She also denies hallucinations. She says she did not sleep well. The patient says she kept waking up throughout the night. 08/10/21: The patient was seen this morning. She states she is doing well. She denies being depressed and no delusions noted. The patient denies any current suicidal/homicidal ideation and denies hallucinations. 08/09/21: The patient was seen at breakfast. She presents in good spirits and reports doing well. She reports sleep as fair. She denies depression and denies any current suicidal/homicidal ideation and denies hallucinations. 08/08/21: The patient was seen eating breakfast. she reports doing well " I would have liked to sleep better, so much interruptions." She denies depression and denies any current suicidal/homicidal ideation and denies hallucinations. 08/07/21:The patient was seen this morning. She is calm. When asking how she is doing, she states " I don't know yet." She reports sleep as restful. She denies depression and denies any current suicidal/homicidal ideation and denies hallucinations. REVIEW OF SYSTEMS Constitutional: Negative for weight loss ENT: Negative for stridor Respiratory: Negative for cough or hemoptysis All other systems reviewed and are negative MENTAL STATUS EXAMINATION General Appearance and Behavior: Age appropriate, good hygiene, wearing appropriate clothes, good eye contact, calm, cooperative Cooperation: Participating/engaged, but Guarded Psychomotor Behavior: Psychomotor normal Mood: good Affect and affective range: congruent with stated mood Thought Process: Goal directed Thought Content: Reality oriented Speech: normal tone and pace Suicidal Ideation: Denies Homicidal Ideation: Denies Hallucinations: Denies Delusions: None Impulse Control: Limited Insight and Judgment: Poor insight and judgment Memory: Poor Attention: Divided Orientation: Alert, oriented Assessment and Plan Delusional Disorder Treatment Plan Patient admitted for inpatient psychiatric evaluation, medication adjustment and close monitoring The patient's behavior, mood, sleep and appetite will be closely monitored. Patient enrolled in individual and group therapeutic sessions and encouraged to attend. Patient provided with a safe and structured environment. Patient's physical health needs will be addressed by the Hospitalist. Hospitalist Consulted Labs including CBC, CMP, Lipid profile and Hemoglobin A1C levels ordered for baseline reference Social Assessment will be completed and the Child Caregiver will work with patient and family to ensure a suitable and safe disposition Medication adjustment will be made as clinically indicated No changes made today Usual Wellness Baptism/Preservation: - Start Trazodone 50 mg po QHS & 50 mg po QHS PRN between 10 PM & 2 AM for insomnia - Start Melatonin 5 mg po QHS to promote circadian rhythm The patient agreed on the treatment plan, understood the risk, benefit, alternative treatment, potential consequence of no treatment, and gave informed consent. Estimated days: 4 Post hospital care: primary care provider, psychiatric provider Case staffed with Dr. Fuentes Medications and Allergies Medications and Allergies Allergies Allergy/AdvReac Type Severity Reaction Status Date / Time codeine AdvReac Intermediate Swelling Verified 08/04/21 18:27 Home Medications Medication Instructions Recorded Confirmed Last Taken Type Aspirin EC [Halfprin EC] 81 mg PO QDAY #30 tablet. 10/20/19 08/06/21 Unknown Rx AtorvaSTATin [Lipitor] 40 mg PO QHS #30 tablet 10/20/19 08/06/21 Unknown Rx Calcium Carbonate/Vitamin D3 1 each PO DAILY #30 tablet 10/20/19 08/06/21 Unknown Rx [Calcium 500 mg-Vit D3 600 Unit] amLODIPine 10 mg PO QDAY #30 tablet 10/20/19 08/06/21 Unknown Rx Active Meds: Active Medications Amlodipine Besylate (Amlodipine 10 Mg Tab) 10 mg PO QDAY COUNTS INCLUDE 234 BEDS AT THE [facility] Last Admin: 08/18/21 09:22 Dose: 10 mg Aspirin (Aspirin 81 Mg Tab Chew) 81 mg PO QDAY COUNTS INCLUDE 234 BEDS AT THE [facility] Last Admin: 08/18/21 09:22 Dose: 81 mg Atorvastatin Calcium (Atorvastatin 40 Mg Tab) 40 mg PO QHS COUNTS INCLUDE 234 BEDS AT THE [facility] Last Admin: 08/18/21 22:00 Dose: 40 mg Melatonin (Melatonin 5 Mg Tab) 5 mg PO QHS PRN PRN Reason: Sleep Multivitamins/Minerals (Calcium Carb/Vit D3/Minerals 600 Mg/800 Units Tab) 1 each PO DAILY COUNTS INCLUDE 234 BEDS AT THE [facility] Last Admin: 08/18/21 09:22 Dose: 1 each Risperidone (Risperidone 0.25 Mg Tab) 0.25 mg PO BID COUNTS INCLUDE 234 BEDS AT THE [facility] Last Admin: 08/18/21 22:01 Dose: 0.25 mg Trazodone HCl (Trazodone 50 Mg Tab) 75 mg PO QHS NISH Last Admin: 08/18/21 22:00 Dose: 75 mg Results - Results Labs/Vitals: Laboratory Last Values WBC 6.0 K/mm3 (4.5-11.0) 08/08/21 21:18 RBC 3.97 M/mm3 (3.65-5.03) 08/08/21 21:18 Hgb 11.8 gm/dl (10.1-14.3) 08/08/21 21:18 Hct 36.3 % (30.3-42.9) 08/08/21 21:18 MCV 92 fl (79-97) 08/08/21 21:18 MCH 30 pg (28-32) 08/08/21 21:18 MCHC 33 % (30-34) 08/08/21 21:18 RDW 15.2 % (13.2-15.2) 08/08/21 21:18 Plt Count 181 K/mm3 (140-440) 08/08/21 21:18 Lymph % (Auto) 32.9 % (13.4-35.0) 08/08/21 21:18 [place] % (Auto) 8.7 % (0.0-7.3) H 08/08/21 21:18 Eos % (Auto) 3.3 % (0.0-4.3) 08/08/21 21:18 Baso % (Auto) 0.5 % (0.0-1.8) 08/08/21 21:18 Lymph # (Auto) 2.0 K/mm3 (1.2-5.4) 08/08/21 21:18 [place] # (Auto) 0.5 K/mm3 (0.0-0.8) 08/08/21 21:18 Eos # (Auto) 0.2 K/mm3 (0.0-0.4) 08/08/21 21:18 Baso # (Auto) 0.0 K/mm3 (0.0-0.1) 08/08/21 21:18 Seg Neutrophils % 54.6 % (40.0-70.0) 08/08/21 21:18 Seg Neutrophils # 3.3 K/mm3 (1.8-7.7) 08/08/21 21:18 Sodium 140 mmol/L (137-145) 08/08/21 21:18 Potassium 3.8 mmol/L (3.6-5.0) 08/08/21 21:18 Chloride 101.9 mmol/L (98-107) 08/08/21 21:18 Carbon Dioxide 27 mmol/L (22-30) 08/08/21 21:18 Anion Gap 15 mmol/L 08/08/21 21:18 BUN 26 mg/dL (7-17) H 08/08/21 21:18 Creatinine 0.8 mg/dL (0.6-1.2) 08/08/21 21:18 Estimated GFR > 60 ml/min 08/08/21 21:18 BUN/Creatinine Ratio 33 % 08/08/21 21:18 Glucose 115 mg/dL (65-100) H 08/08/21 21:18 POC Glucose 74 mg/dL (70-105) 08/17/21 11:10 Hemoglobin A1c 5.9 % (4-6) 08/08/21 21:18 Calcium 9.7 mg/dL (8.4-10.2) 08/08/21 21:18 Total Bilirubin 0.20 mg/dL (0.1-1.2) 08/08/21 21:18 AST 22 units/L (5-40) 08/08/21 21:18 ALT 17 units/L (7-56) 08/08/21 21:18 Alkaline Phosphatase 70 units/L (35-129) 08/08/21 21:18 Total Protein 6.9 g/dL (6.3-8.2) 08/08/21 21:18 Albumin 4.3 g/dL (3.9-5) 08/08/21 21:18 Albumin/Globulin Ratio 1.7 % 08/08/21 21:18 Triglycerides 126 mg/dL (2-149) 08/08/21 21:18 Cholesterol 279 mg/dL (50-199) H 08/08/21 21:18 LDL Cholesterol Direct 180 mg/dL (50-130) H 08/08/21 21:18 HDL Cholesterol 81 mg/dL (40-59) H 08/08/21 21:18 Cholesterol/HDL Ratio 3.44 % 08/08/21 21:18 TSH 1.720 mlU/mL (0.270-4.200) 08/08/21 21:18 Last Vital Signs Temp 98.6 F 08/18/21 19:35 Pulse 87 08/18/21 19:35 Resp 17 08/18/21 19:35 BP 114/58 08/18/21 19:35 Pulse Ox 95 08/18/21 19:35
[2021-08-19] MEDS: amLODIPine 10 MG TAB PO SCH (09:20)
[2021-08-19] MEDS: ASPIRIN 81 MG TAB CHEW PO SCH (09:20)
[2021-08-19] MEDS: CALCIUM CARB/VIT D3/MINERALS 600 MG/800 UNITS TAB PO SCH (09:21)
[2021-08-19] MEDS: risperiDONE 0.25 MG TAB PO SCH ×2 (09:21→21:20)
--- NOTE | 2021-08-19 20:46 | Progress Note ---
Assessment and Plan - Patient Problems (1) Vascular dementia with behavioral disturbance Current Visit: Yes Status: Acute Plan to address problem: Verbal prompting, verbal redirection, benzodiazepine therapy as clinically indicated (2) Cerebral atherosclerosis Current Visit: Yes Status: Acute Plan to address problem: Risk factor reduction, antiplatelet therapy as clinically indicated. (3) Hypertension Current Visit: Yes Status: Acute Qualifiers: Hypertension type: primary hypertension Qualified Code(s): I10 - Essential (primary) hypertension Plan to address problem: Monitor blood pressure every shift, continue medical management. (4) Hyperlipidemia Current Visit: Yes Status: Acute Plan to address problem: Low-cholesterol diet, statin therapy, supportive care. (5) Diabetes Current Visit: Yes Status: Acute Plan to address problem: Consistent carbohydrate diet, Accu-Chek, insulin protocol, hypoglycemia protocol. (6) Malnutrition Current Visit: Yes Status: Acute Qualifiers: Protein-calorie malnutrition severity: moderate Plan to address problem: Dietary intake varies based on cognition. Dietary supplementation when awake and alert only, increase protein intake. (7) Psychosis Current Visit: Yes Status: Acute Qualifiers: Schizophrenia type: unspecified Plan to address problem: Continue medical management as per mental health team (8) Debility Current Visit: Yes Status: Acute Plan to address problem: Bed alarm, fall precautions. (9) Advance care planning Current Visit: Yes Status: Acute Plan to address problem: Disease education conducted, care plan discussed, diagnoses discussed, prognosis discussed, patient is full code. Discussed patient diagnoses, prognosis and care plan with patient granddaughter Felicia Nuñez [phone]. Patient is currently unable to live independently and will require placement. Discussed all likely options. Recommend discharge with hospice care to long-term facility, personal-long term, or assisted living facility depending on availability and acceptance. 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 +30 minutes. History Interval history: 81 YO Female with Vascular Dementia with Behavioral Disturbance, Cerebral Atherosclerosis, HTN, DM, Malnitrition, MDD, EDWIN admitted to [facility] for psychiatric stabilization. Consult placed by Dr. Hernandez for medical management. Pt seen and evaluated in the recreation room. Pt has diminished cognition and is unable to provide detailed history. Pt is at baseline level of cognition and function. No reported nursing events. Hospitalist Physical - Constitutional Vitals: Temp Pulse Resp BP Pulse Ox 98.3 F 80 16 119/63 96 08/19/21 20:01 08/19/21 20:01 08/19/21 20:01 08/19/21 20:01 08/19/21 20:01 General appearance: Present: no acute distress, cachectic - EENT Eyes: Present: PERRL ENT: hearing decreased - Neck Neck: Present: supple - Respiratory Respiratory effort: normal Respiratory: bilateral: diminished - Cardiovascular Rhythm: regular Heart Sounds: Present: S1 & S2 - Extremities Extremities: no ischemia Peripheral Pulses: within normal limits - Abdominal General gastrointestinal: soft, non-tender, non-distended - Integumentary Integumentary: Present: dry - Psychiatric Psychiatric: cooperative - Neurologic Neurologic: CNII-XII intact, no focal deficits, moves all extremities Results - Labs CBC & Chem 7: 08/08/21 21:18 08/08/21 21:18 Labs: Laboratory Last Values WBC 6.0 K/mm3 (4.5-11.0) 08/08/21 21:18 RBC 3.97 M/mm3 (3.65-5.03) 08/08/21 21:18 Hgb 11.8 gm/dl (10.1-14.3) 08/08/21 21:18 Hct 36.3 % (30.3-42.9) 08/08/21 21:18 MCV 92 fl (79-97) 08/08/21 21:18 MCH 30 pg (28-32) 08/08/21 21:18 MCHC 33 % (30-34) 08/08/21 21:18 RDW 15.2 % (13.2-15.2) 08/08/21 21:18 Plt Count 181 K/mm3 (140-440) 08/08/21 21:18 Lymph % (Auto) 32.9 % (13.4-35.0) 08/08/21 21:18 [place] % (Auto) 8.7 % (0.0-7.3) H 08/08/21 21:18 Eos % (Auto) 3.3 % (0.0-4.3) 08/08/21 21:18 Baso % (Auto) 0.5 % (0.0-1.8) 08/08/21 21:18 Lymph # (Auto) 2.0 K/mm3 (1.2-5.4) 08/08/21 21:18 [place] # (Auto) 0.5 K/mm3 (0.0-0.8) 08/08/21 21:18 Eos # (Auto) 0.2 K/mm3 (0.0-0.4) 08/08/21 21:18 Baso # (Auto) 0.0 K/mm3 (0.0-0.1) 08/08/21 21:18 Seg Neutrophils % 54.6 % (40.0-70.0) 08/08/21 21:18 Seg Neutrophils # 3.3 K/mm3 (1.8-7.7) 08/08/21 21:18 Sodium 140 mmol/L (137-145) 08/08/21 21:18 Potassium 3.8 mmol/L (3.6-5.0) 08/08/21 21:18 Chloride 101.9 mmol/L (98-107) 08/08/21 21:18 Carbon Dioxide 27 mmol/L (22-30) 08/08/21 21:18 Anion Gap 15 mmol/L 08/08/21 21:18 BUN 26 mg/dL (7-17) H 08/08/21 21:18 Creatinine 0.8 mg/dL (0.6-1.2) 08/08/21 21:18 Estimated GFR > 60 ml/min 08/08/21 21:18 BUN/Creatinine Ratio 33 % 08/08/21 21:18 Glucose 115 mg/dL (65-100) H 08/08/21 21:18 POC Glucose 74 mg/dL (70-105) 08/17/21 11:10 Hemoglobin A1c 5.9 % (4-6) 08/08/21 21:18 Calcium 9.7 mg/dL (8.4-10.2) 08/08/21 21:18 Total Bilirubin 0.20 mg/dL (0.1-1.2) 08/08/21 21:18 AST 22 units/L (5-40) 08/08/21 21:18 ALT 17 units/L (7-56) 08/08/21 21:18 Alkaline Phosphatase 70 units/L (35-129) 08/08/21 21:18 Total Protein 6.9 g/dL (6.3-8.2) 08/08/21 21:18 Albumin 4.3 g/dL (3.9-5) 08/08/21 21:18 Albumin/Globulin Ratio 1.7 % 08/08/21 21:18 Triglycerides 126 mg/dL (2-149) 08/08/21 21:18 Cholesterol 279 mg/dL (50-199) H 08/08/21 21:18 LDL Cholesterol Direct 180 mg/dL (50-130) H 08/08/21 21:18 HDL Cholesterol 81 mg/dL (40-59) H 08/08/21 21:18 Cholesterol/HDL Ratio 3.44 % 08/08/21 21:18 TSH 1.720 mlU/mL (0.270-4.200) 08/08/21 21:18 [place]/IV: Voiding Method Toilet Active Medications - Current Medications Current Medications: Generic Name Dose Route Start Last Admin Trade Name Freq PRN Reason Stop Dose Admin Amlodipine Besylate 10 mg 08/06/21 10:00 08/19/21 09:20 Amlodipine 10 Mg Tab PO Not Given QDAY NISH Aspirin 81 mg 08/18/21 10:00 08/19/21 09:20 Aspirin 81 Mg Tab Chew PO 81 mg QDAY NISH Administration Atorvastatin Calcium 40 mg 08/06/21 22:00 08/18/21 22:00 Atorvastatin 40 Mg Tab PO 40 mg QHS NISH Administration Melatonin 5 mg 08/11/21 22:00 Melatonin 5 Mg Tab PO QHS PRN Sleep Multivitamins/Minerals 1 each 08/06/21 10:00 08/19/21 09:21 Calcium Carb/Vit D3/Minerals 600 Mg/800 Units Tab PO 1 each DAILY NISH Administration Risperidone 0.25 mg 08/16/21 10:00 08/19/21 09:21 Risperidone 0.25 Mg Tab PO 0.25 mg BID NISH Administration Trazodone HCl 75 mg 08/11/21 22:00 08/18/21 22:00 Trazodone 50 Mg Tab PO 75 mg QHS NISH Administration Nutrition/Malnutrition Assess - Dietary Evaluation Nutrition/Malnutrition Findings: Nutrition Notes Start: 08/11/21 12:38 Freq: Status: Active Protocol: Document 08/11/21 12:38 NHALL (Rec: 08/11/21 12:40 NHALL [id number]) Nutrition Notes Need for Assessment generated from: LOS Initial or Follow up Brief Note Current Diet Consistent CHO Height 5 ft 2 in Weight 52 kg [place] Body Weight (kg) 50.00 BMI 20.9 Weight Status Underweight Subjective/Other Information Pt screened for LOS. She has consumed 83% of meals since admission. Percent of energy/protein needs met: 100% energy and pro Burn Absent Trauma Absent Current % PO Good (75-100%) Minimum of two criteria No Is patient on ventilator? No Is Patient Ambulatory and/or Out of Bed Yes REE-([place]-St. Jeor-ambulatory/OOB) [ 1219.725 NUTR.MSJOOB] Kcal/Kg value to use for calculation 30 Approximate Energy Requirements Using 1560 kcal/Kg Calculation Used for Recommendations Kcal/kg Additional Notes Pro needs 1.2-1.5g/k-78g/ day Fluid needs 1ml/kcal Nutrition Intervention Revisit per MD consult or patient Sign Off request:
[2021-08-19] MEDS: traZODone 50 MG TAB PO SCH (21:20)
--- NOTE | 2021-08-20 09:16 | Progress Note ---
Subjective Date of service: 08/20/21 Principal diagnosis: Delusional Disorder Subjective Comment: 08/20/21: The patient was seen in her room this morning. She reports doing well. She states sleep and appetite as good. The patient denies suicidal/homicidal ideation and denies hallucinations. The patient is clear from psych point of view. 08/19/21: The patient was seen this morning. She is calm, cooperative and reports doing well. She states sleep and appetite as good. The patient denies suicidal/homicidal ideation and denies hallucinations. 08/18/21: The patient was seen at breakfast. She is calm, cooperative and reports doing well. She states sleep and appetite as good. The patient denies suicidal/homicidal ideation and denies hallucinations. 08/17/21:The patient was seen today. She is calm, and cooperative. Her daughter is on the phone. The patient's progress and treatment plan were explained. The patient was explained the importance of complying with her medical regimen. She agrees to take the medication. The SW and nurse are involved as well. The patient denies SI/HI or hallucinations of any kind. 08/16 The patient was seen today. She is calm, and cooperative. She denies hallucinations of any kind. She also denies SI/HI. The patient appears to be at her baseline. Will plan with the social media analyst to discharge the patient to a safe place. 08/15 The patient was seem today. She is calm and cooperative. She denies SI/HI. She also denies hallucinations. The patient does appear to be a little delusional. She tells me something is going on with her eyes. I ask her what was going on. She says "I don't know. Look at them." There is nothing obviously wrong with her eyes. 08/14 The patient was seen today. She is lying in bed. She is awake, and pleasant. She is calm and cooperative. She denies SI/HI or hallucinations of any kind. She is awaiting placement. 08/13 The patient was seen today. She is calm and cooperative. She denies SI/HI or hallucinations of any kind. She says she slept much better last night. 08/12 The patient was seen today. She is calm, and cooperative. She is pleasant. The patient says she slept a little better but didn't feel like she rested well. She denies SI/HI or hallucinations of any kind. The patient says she doesn't know if she wants to take any meds because they make her feel sluggish. I advised the patient that if she wanted to continue to progress and go home, she had to comply with the treatment. She was in agreement, and states she would continue to take them. . 08/11 The patient was seen today. She is calm, cooperative and pleasant. She says she feels okay. She denies SI/HI. She also denies hallucinations. She says she did not sleep well. The patient says she kept waking up throughout the night. 08/10/21: The patient was seen this morning. She states she is doing well. She denies being depressed and no delusions noted. The patient denies any current suicidal/homicidal ideation and denies hallucinations. 08/09/21: The patient was seen at breakfast. She presents in good spirits and reports doing well. She reports sleep as fair. She denies depression and denies any current suicidal/homicidal ideation and denies hallucinations. 08/08/21: The patient was seen eating breakfast. she reports doing well " I would have liked to sleep better, so much interruptions." She denies depression and denies any current suicidal/homicidal ideation and denies hallucinations. 08/07/21:The patient was seen this morning. She is calm. When asking how she is doing, she states " I don't know yet." She reports sleep as restful. She denies depression and denies any current suicidal/homicidal ideation and denies hallucinations. REVIEW OF SYSTEMS Constitutional: Negative for weight loss ENT: Negative for stridor Respiratory: Negative for cough or hemoptysis All other systems reviewed and are negative MENTAL STATUS EXAMINATION General Appearance and Behavior: Age appropriate, good hygiene, wearing appropriate clothes, good eye contact, calm, cooperative Cooperation: Participating/engaged, but Guarded Psychomotor Behavior: Psychomotor normal Mood: good Affect and affective range: congruent with stated mood Thought Process: Goal directed Thought Content: Reality oriented Speech: normal tone and pace Suicidal Ideation: Denies Homicidal Ideation: Denies Hallucinations: Denies Delusions: None Impulse Control: Limited Insight and Judgment: Poor insight and judgment Memory: Poor Attention: Divided Orientation: Alert, oriented Assessment and Plan Delusional Disorder Treatment Plan Patient admitted for inpatient psychiatric evaluation, medication adjustment and close monitoring The patient's behavior, mood, sleep and appetite will be closely monitored. Patient enrolled in individual and group therapeutic sessions and encouraged to attend. Patient provided with a safe and structured environment. Patient's physical health needs will be addressed by the Hospitalist. Hospitalist Consulted Labs including CBC, CMP, Lipid profile and Hemoglobin A1C levels ordered for baseline reference Social Assessment will be completed and the Diesel Plant Operator will work with patient and family to ensure a suitable and safe disposition Medication adjustment will be made as clinically indicated No changes made today Usual Wellness Scientology/Preservation: - Start Trazodone 50 mg po QHS & 50 mg po QHS PRN between 10 PM & 2 AM for insomnia - Start Melatonin 5 mg po QHS to promote circadian rhythm The patient agreed on the treatment plan, understood the risk, benefit, alternative treatment, potential consequence of no treatment, and gave informed consent. Estimated days: 4 Post hospital care: primary care provider, psychiatric provider Case staffed with Dr. Fuentes Medications and Allergies Medications and Allergies Allergies Allergy/AdvReac Type Severity Reaction Status Date / Time codeine AdvReac Intermediate Swelling Verified 08/04/21 18:27 Home Medications Medication Instructions Recorded Confirmed Last Taken Type Aspirin EC [Halfprin EC] 81 mg PO QDAY #30 tablet. 10/20/19 08/06/21 Unknown Rx AtorvaSTATin [Lipitor] 40 mg PO QHS #30 tablet 10/20/19 08/06/21 Unknown Rx Calcium Carbonate/Vitamin D3 1 each PO DAILY #30 tablet 10/20/19 08/06/21 Unknown Rx [Calcium 500 mg-Vit D3 600 Unit] amLODIPine 10 mg PO QDAY #30 tablet 10/20/19 08/06/21 Unknown Rx Active Meds: Active Medications Amlodipine Besylate (Amlodipine 10 Mg Tab) 10 mg PO QDAY [facility] Last Admin: 08/19/21 09:20 Dose: Not Given Aspirin (Aspirin 81 Mg Tab Chew) 81 mg PO QDAY [facility] Last Admin: 08/19/21 09:20 Dose: 81 mg Atorvastatin Calcium (Atorvastatin 40 Mg Tab) 40 mg PO QHS [facility] Last Admin: 08/19/21 21:20 Dose: 40 mg Melatonin (Melatonin 5 Mg Tab) 5 mg PO QHS PRN PRN Reason: Sleep Multivitamins/Minerals (Calcium Carb/Vit D3/Minerals 600 Mg/800 Units Tab) 1 each PO DAILY [facility] Last Admin: 08/19/21 09:21 Dose: 1 each Risperidone (Risperidone 0.25 Mg Tab) 0.25 mg PO BID [facility] Last Admin: 08/19/21 21:20 Dose: 0.25 mg Trazodone HCl (Trazodone 50 Mg Tab) 75 mg PO QHS [facility] Last Admin: 08/19/21 21:20 Dose: 75 mg Results - Results Labs/Vitals: Laboratory Last Values WBC 6.0 K/mm3 (4.5-11.0) 08/08/21 21:18 RBC 3.97 M/mm3 (3.65-5.03) 08/08/21 21:18 Hgb 11.8 gm/dl (10.1-14.3) 08/08/21 21:18 Hct 36.3 % (30.3-42.9) 08/08/21 21:18 MCV 92 fl (79-97) 08/08/21 21:18 MCH 30 pg (28-32) 08/08/21 21:18 MCHC 33 % (30-34) 08/08/21 21:18 RDW 15.2 % (13.2-15.2) 08/08/21 21:18 Plt Count 181 K/mm3 (140-440) 08/08/21 21:18 Lymph % (Auto) 32.9 % (13.4-35.0) 08/08/21 21:18 [place] % (Auto) 8.7 % (0.0-7.3) H 08/08/21 21:18 Eos % (Auto) 3.3 % (0.0-4.3) 08/08/21 21:18 Baso % (Auto) 0.5 % (0.0-1.8) 08/08/21 21:18 Lymph # (Auto) 2.0 K/mm3 (1.2-5.4) 08/08/21 21:18 [place] # (Auto) 0.5 K/mm3 (0.0-0.8) 08/08/21 21:18 Eos # (Auto) 0.2 K/mm3 (0.0-0.4) 08/08/21 21:18 Baso # (Auto) 0.0 K/mm3 (0.0-0.1) 03/08/22 21:18 Seg Neutrophils % 54.6 % (40.0-70.0) 08/08/21 21:18 Seg Neutrophils # 3.3 K/mm3 (1.8-7.7) 08/08/21 21:18 Sodium 140 mmol/L (137-145) 08/08/21 21:18 Potassium 3.8 mmol/L (3.6-5.0) 08/08/21 21:18 Chloride 101.9 mmol/L (98-107) 08/08/21 21:18 Carbon Dioxide 27 mmol/L (22-30) 08/08/21 21:18 Anion Gap 15 mmol/L 08/08/21 21:18 BUN 26 mg/dL (7-17) H 08/08/21 21:18 Creatinine 0.8 mg/dL (0.6-1.2) 08/08/21 21:18 Estimated GFR > 60 ml/min 08/08/21 21:18 BUN/Creatinine Ratio 33 % 08/08/21 21:18 Glucose 115 mg/dL (65-100) H 08/08/21 21:18 POC Glucose 74 mg/dL (70-105) 08/17/21 11:10 Hemoglobin A1c 5.9 % (4-6) 08/08/21 21:18 Calcium 9.7 mg/dL (8.4-10.2) 08/08/21 21:18 Total Bilirubin 0.20 mg/dL (0.1-1.2) 08/08/21 21:18 AST 22 units/L (5-40) 08/08/21 21:18 ALT 17 units/L (7-56) 08/08/21 21:18 Alkaline Phosphatase 70 units/L (35-129) 08/08/21 21:18 Total Protein 6.9 g/dL (6.3-8.2) 08/08/21 21:18 Albumin 4.3 g/dL (3.9-5) 08/08/21 21:18 Albumin/Globulin Ratio 1.7 % 08/08/21 21:18 Triglycerides 126 mg/dL (2-149) 08/08/21 21:18 Cholesterol 279 mg/dL (50-199) H 08/08/21 21:18 LDL Cholesterol Direct 180 mg/dL (50-130) H 08/08/21 21:18 HDL Cholesterol 81 mg/dL (40-59) H 08/08/21 21:18 Cholesterol/HDL Ratio 3.44 % 08/08/21 21:18 TSH 1.720 mlU/mL (0.270-4.200) 08/08/21 21:18 Last Vital Signs Temp 98.3 F 08/19/21 20:01 Pulse 80 08/19/21 20:01 Resp 16 08/19/21 20:01 BP 119/63 08/19/21 20:01 Pulse Ox 96 08/19/21 20:01
[2021-08-20] MEDS: ASPIRIN 81 MG TAB CHEW PO SCH (09:58)
[2021-08-20] MEDS: risperiDONE 0.25 MG TAB PO SCH ×2 (09:58→21:12)
[2021-08-20] MEDS: CALCIUM CARB/VIT D3/MINERALS 600 MG/800 UNITS TAB PO SCH (09:59)
[2021-08-20] MEDS: amLODIPine 10 MG TAB PO SCH (10:53)
--- NOTE | 2021-08-20 15:07 | Progress Note ---
Assessment and Plan - Patient Problems (1) Vascular dementia with behavioral disturbance Current Visit: Yes Status: Acute Plan to address problem: Verbal prompting, verbal redirection, benzodiazepine therapy as clinically indicated (2) Cerebral atherosclerosis Current Visit: Yes Status: Acute Plan to address problem: Risk factor reduction, antiplatelet therapy as clinically indicated. (3) Hypertension Current Visit: Yes Status: Acute Qualifiers: Hypertension type: primary hypertension Qualified Code(s): I10 - Essential (primary) hypertension Plan to address problem: Monitor blood pressure every shift, continue medical management. (4) Hyperlipidemia Current Visit: Yes Status: Acute Plan to address problem: Low-cholesterol diet, statin therapy, supportive care. (5) Diabetes Current Visit: Yes Status: Acute Plan to address problem: Consistent carbohydrate diet, Accu-Chek, insulin protocol, hypoglycemia protocol. (6) Malnutrition Current Visit: Yes Status: Acute Qualifiers: Protein-calorie malnutrition severity: moderate Plan to address problem: Dietary intake varies based on cognition. Dietary supplementation when awake and alert only, increase protein intake. (7) Psychosis Current Visit: Yes Status: Acute Qualifiers: Schizophrenia type: unspecified Plan to address problem: Continue medical management as per mental health team (8) Debility Current Visit: Yes Status: Acute Plan to address problem: Bed alarm, fall precautions. (9) Advance care planning Current Visit: Yes Status: Acute Plan to address problem: Disease education conducted, care plan discussed, diagnoses discussed, prognosis discussed, patient is full code. Discussed patient diagnoses, prognosis and care plan with patient granddaughter Felicia Nuñez [phone]. Patient is currently unable to live independently and will require placement. Discussed all likely options. Recommend discharge with hospice care to longterm facility, personal-correction, or assisted living facility depending on availability and acceptance. 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 +30 minutes. History Interval history: 81 YO Female with Vascular Dementia with Behavioral Disturbance, Cerebral Atherosclerosis, HTN, DM, Malnitrition, MDD, EDWIN admitted to [facility] for psychiatric stabilization. Consult placed by Dr. Hernandez for medical management. Pt seen and evaluated in the recreation room. Pt has diminished cognition and is unable to provide detailed history. Pt is at baseline level of cognition and function. No reported nursing events. Hospitalist Physical - Constitutional Vitals: Temp Pulse Resp BP Pulse Ox 99.0 F 83 18 128/58 98 08/20/21 10:37 08/20/21 10:53 08/20/21 10:37 08/20/21 10:53 08/20/21 10:37 General appearance: Present: no acute distress, cachectic - EENT Eyes: Present: PERRL ENT: hearing decreased - Neck Neck: Present: supple - Respiratory Respiratory effort: normal Respiratory: bilateral: diminished - Cardiovascular Rhythm: regular Heart Sounds: Present: S1 & S2 - Extremities Extremities: no ischemia Peripheral Pulses: within normal limits - Abdominal General gastrointestinal: soft, non-tender, non-distended - Integumentary Integumentary: Present: clear, dry - Psychiatric Psychiatric: cooperative - Neurologic Neurologic: CNII-XII intact, no focal deficits, moves all extremities Results - Labs CBC & Chem 7: 08/08/21 21:18 08/08/21 21:18 Labs: Laboratory Last Values WBC 6.0 K/mm3 (4.5-11.0) 08/08/21 21:18 RBC 3.97 M/mm3 (3.65-5.03) 08/08/21 21:18 Hgb 11.8 gm/dl (10.1-14.3) 08/08/21 21:18 Hct 36.3 % (30.3-42.9) 08/08/21 21:18 MCV 92 fl (79-97) 08/08/21 21:18 MCH 30 pg (28-32) 08/08/21 21:18 MCHC 33 % (30-34) 08/08/21 21:18 RDW 15.2 % (13.2-15.2) 08/08/21 21:18 Plt Count 181 K/mm3 (140-440) 08/08/21 21:18 Lymph % (Auto) 32.9 % (13.4-35.0) 08/08/21 21:18 [place] % (Auto) 8.7 % (0.0-7.3) H 08/08/21 21:18 Eos % (Auto) 3.3 % (0.0-4.3) 08/08/21 21:18 Baso % (Auto) 0.5 % (0.0-1.8) 08/08/21 21:18 Lymph # (Auto) 2.0 K/mm3 (1.2-5.4) 08/08/21 21:18 [place] # (Auto) 0.5 K/mm3 (0.0-0.8) 08/08/21 21:18 Eos # (Auto) 0.2 K/mm3 (0.0-0.4) 08/08/21 21:18 Baso # (Auto) 0.0 K/mm3 (0.0-0.1) 08/08/21 21:18 Seg Neutrophils % 54.6 % (40.0-70.0) 08/08/21 21:18 Seg Neutrophils # 3.3 K/mm3 (1.8-7.7) 08/08/21 21:18 Sodium 140 mmol/L (137-145) 08/08/21 21:18 Potassium 3.8 mmol/L (3.6-5.0) 08/08/21 21:18 Chloride 101.9 mmol/L (98-107) 08/08/21 21:18 Carbon Dioxide 27 mmol/L (22-30) 08/08/21 21:18 Anion Gap 15 mmol/L 08/08/21 21:18 BUN 26 mg/dL (7-17) H 08/08/21 21:18 Creatinine 0.8 mg/dL (0.6-1.2) 08/08/21 21:18 Estimated GFR > 60 ml/min 08/08/21 21:18 BUN/Creatinine Ratio 33 % 08/08/21 21:18 Glucose 115 mg/dL (65-100) H 08/08/21 21:18 POC Glucose 74 mg/dL (70-105) 08/17/21 11:10 Hemoglobin A1c 5.9 % (4-6) 08/08/21 21:18 Calcium 9.7 mg/dL (8.4-10.2) 08/08/21 21:18 Total Bilirubin 0.20 mg/dL (0.1-1.2) 08/08/21 21:18 AST 22 units/L (5-40) 08/08/21 21:18 ALT 17 units/L (7-56) 08/08/21 21:18 Alkaline Phosphatase 70 units/L (35-129) 08/08/21 21:18 Total Protein 6.9 g/dL (6.3-8.2) 08/08/21 21:18 Albumin 4.3 g/dL (3.9-5) 08/08/21 21:18 Albumin/Globulin Ratio 1.7 % 08/08/21 21:18 Triglycerides 126 mg/dL (2-149) 08/08/21 21:18 Cholesterol 279 mg/dL (50-199) H 08/08/21 21:18 LDL Cholesterol Direct 180 mg/dL (50-130) H 08/08/21 21:18 HDL Cholesterol 81 mg/dL (40-59) H 08/08/21 21:18 Cholesterol/HDL Ratio 3.44 % 08/08/21 21:18 TSH 1.720 mlU/mL (0.270-4.200) 08/08/21 21:18 [place]a/IV: Voiding Method Diaper Active Medications - Current Medications Current Medications: Generic Name Dose Route Start Last Admin Trade Name Freq PRN Reason Stop Dose Admin Amlodipine Besylate 10 mg 08/06/21 10:00 08/20/21 10:53 Amlodipine 10 Mg Tab PO 10 mg QDAY NISH Administration Aspirin 81 mg 08/18/21 10:00 08/20/21 09:58 Aspirin 81 Mg Tab Chew PO 81 mg QDAY NISH Administration Atorvastatin Calcium 40 mg 08/06/21 22:00 08/19/21 21:20 Atorvastatin 40 Mg Tab PO 40 mg QHS NISH Administration Melatonin 5 mg 08/11/21 22:00 Melatonin 5 Mg Tab PO QHS PRN Sleep Multivitamins/Minerals 1 each 08/06/21 10:00 08/20/21 09:59 Calcium Carb/Vit D3/Minerals 600 Mg/800 Units Tab PO 1 each DAILY NISH Administration Risperidone 0.25 mg 08/16/21 10:00 08/20/21 09:58 Risperidone 0.25 Mg Tab PO 0.25 mg BID NISH Administration Trazodone HCl 75 mg 08/11/21 22:00 08/19/21 21:20 Trazodone 50 Mg Tab PO 75 mg QHS NISH Administration Nutrition/Malnutrition Assess - Dietary Evaluation Nutrition/Malnutrition Findings: Nutrition Notes Start: 08/11/21 12:38 Freq: Status: Active Protocol: Document 08/11/21 12:38 NHALL (Rec: 08/11/21 12:40 NHALL [id number]) Nutrition Notes Need for Assessment generated from: LOS Initial or Follow up Brief Note Current Diet Consistent CHO Height 5 ft 2 in Weight 52 kg [place] Body Weight (kg) 50.00 BMI 20.9 Weight Status Underweight Subjective/Other Information Pt screened for LOS. She has consumed 83% of meals since admission. Percent of energy/protein needs met: 100% energy and pro Burn Absent Trauma Absent Current % PO Good (75-100%) Minimum of two criteria No Is patient on ventilator? No Is Patient Ambulatory and/or Out of Bed Yes REE-(Fletcher-St. Jeor-ambulatory/OOB) [ 1219.725 NUTR.MSJOOB] Kcal/Kg value to use for calculation 30 Approximate Energy Requirements Using 1560 kcal/Kg Calculation Used for Recommendations Kcal/kg Additional Notes Pro needs 1.2-1.5g/k-78g/ day Fluid needs 1ml/kcal Nutrition Intervention Revisit per MD consult or patient Sign Off request:
[2021-08-20] MEDS: traZODone 50 MG TAB PO SCH (21:12)
--- NOTE | 2021-08-21 08:38 | Progress Note ---
Subjective Date of service: 08/21/21 Principal diagnosis: Delusional Disorder Subjective Comment: 08/21/21: The patient was seen at breakfast. She reports doing well. She states sleep and appetite as good. The patient denies suicidal/homicidal ideation and denies hallucinations. The patient is clear from psych point of view. 08/20/21: The patient was seen in her room this morning. She reports doing well. She states sleep and appetite as good. The patient denies suicidal/homicidal ideation and denies hallucinations. The patient is clear from psych point of view. 08/19/21: The patient was seen this morning. She is calm, cooperative and reports doing well. She states sleep and appetite as good. The patient denies suicidal/homicidal ideation and denies hallucinations. 08/18/21: The patient was seen at breakfast. She is calm, cooperative and reports doing well. She states sleep and appetite as good. The patient denies suicidal/homicidal ideation and denies hallucinations. 08/17/21:The patient was seen today. She is calm, and cooperative. Her daughter is on the phone. The patient's progress and treatment plan were explained. The patient was explained the importance of complying with her medical regimen. She agrees to take the medication. The SW and nurse are involved as well. The patient denies SI/HI or hallucinations of any kind. 08/16 The patient was seen today. She is calm, and cooperative. She denies hallucinations of any kind. She also denies SI/HI. The patient appears to be at her baseline. Will plan with the vp digital marketing social media and crm to discharge the patient to a safe place. 08/15 The patient was seem today. She is calm and cooperative. She denies SI/HI. She also denies hallucinations. The patient does appear to be a little delusional. She tells me something is going on with her eyes. I ask her what was going on. She says "I don't know. Look at them." There is nothing obviously wrong with her eyes. 08/14 The patient was seen today. She is lying in bed. She is awake, and pleasant. She is calm and cooperative. She denies SI/HI or hallucinations of any kind. She is awaiting placement. 08/13 The patient was seen today. She is calm and cooperative. She denies SI/HI or hallucinations of any kind. She says she slept much better last night. 08/12 The patient was seen today. She is calm, and cooperative. She is pleasant. The patient says she slept a little better but didn't feel like she rested well. She denies SI/HI or hallucinations of any kind. The patient says she doesn't know if she wants to take any meds because they make her feel sluggish. I advised the patient that if she wanted to continue to progress and go home, she had to comply with the treatment. She was in agreement, and states she would continue to take them. . 08/11 The patient was seen today. She is calm, cooperative and pleasant. She says she feels okay. She denies SI/HI. She also denies hallucinations. She says she did not sleep well. The patient says she kept waking up throughout the night. 08/10/21: The patient was seen this morning. She states she is doing well. She denies being depressed and no delusions noted. The patient denies any current suicidal/homicidal ideation and denies hallucinations. 08/09/21: The patient was seen at breakfast. She presents in good spirits and reports doing well. She reports sleep as fair. She denies depression and denies any current suicidal/homicidal ideation and denies hallucinations. 08/08/21: The patient was seen eating breakfast. she reports doing well " I would have liked to sleep better, so much interruptions." She denies depression and denies any current suicidal/homicidal ideation and denies hallucinations. 08/07/21:The patient was seen this morning. She is calm. When asking how she is doing, she states " I don't know yet." She reports sleep as restful. She denies depression and denies any current suicidal/homicidal ideation and denies hallucinations. REVIEW OF SYSTEMS Constitutional: Negative for weight loss ENT: Negative for stridor Respiratory: Negative for cough or hemoptysis All other systems reviewed and are negative MENTAL STATUS EXAMINATION General Appearance and Behavior: Age appropriate, good hygiene, wearing appropriate clothes, good eye contact, calm, cooperative Cooperation: Participating/engaged, but Guarded Psychomotor Behavior: Psychomotor normal Mood: good Affect and affective range: congruent with stated mood Thought Process: Goal directed Thought Content: Reality oriented Speech: normal tone and pace Suicidal Ideation: Denies Homicidal Ideation: Denies Hallucinations: Denies Delusions: None Impulse Control: Limited Insight and Judgment: Poor insight and judgment Memory: Poor Attention: Divided Orientation: Alert, oriented Assessment and Plan Delusional Disorder Treatment Plan Patient admitted for inpatient psychiatric evaluation, medication adjustment and close monitoring The patient's behavior, mood, sleep and appetite will be closely monitored. Patient enrolled in individual and group therapeutic sessions and encouraged to attend. Patient provided with a safe and structured environment. Patient's physical health needs will be addressed by the Hospitalist. Hospitalist Consulted Labs including CBC, CMP, Lipid profile and Hemoglobin A1C levels ordered for baseline reference Social Assessment will be completed and the Print Developer will work with patient and family to ensure a suitable and safe disposition Medication adjustment will be made as clinically indicated No changes made today Usual Wellness Sikh/Preservation: - Start Trazodone 50 mg po QHS & 50 mg po QHS PRN between 10 PM & 2 AM for insomnia - Start Melatonin 5 mg po QHS to promote circadian rhythm The patient agreed on the treatment plan, understood the risk, benefit, alternative treatment, potential consequence of no treatment, and gave informed consent. Estimated days: 4 Post hospital care: primary care provider, psychiatric provider Case staffed with Dr. Fuentes Medications and Allergies Medications and Allergies Allergies Allergy/AdvReac Type Severity Reaction Status Date / Time codeine AdvReac Intermediate Swelling Verified 08/04/21 18:27 Home Medications Medication Instructions Recorded Confirmed Last Taken Type Aspirin EC [Halfprin EC] 81 mg PO QDAY #30 tablet. 10/20/19 08/06/21 Unknown Rx AtorvaSTATin [Lipitor] 40 mg PO QHS #30 tablet 10/20/19 08/06/21 Unknown Rx Calcium Carbonate/Vitamin D3 1 each PO DAILY #30 tablet 10/20/19 08/06/21 Unknown Rx [Calcium 500 mg-Vit D3 600 Unit] amLODIPine 10 mg PO QDAY #30 tablet 10/20/19 08/06/21 Unknown Rx Active Meds: Active Medications Amlodipine Besylate (Amlodipine 10 Mg Tab) 10 mg PO QDAY [facility] Last Admin: 08/20/21 10:53 Dose: 10 mg Aspirin (Aspirin 81 Mg Tab Chew) 81 mg PO QDAY [facility] Last Admin: 08/20/21 09:58 Dose: 81 mg Atorvastatin Calcium (Atorvastatin 40 Mg Tab) 40 mg PO QHS [facility] Last Admin: 08/20/21 21:12 Dose: 40 mg Melatonin (Melatonin 5 Mg Tab) 5 mg PO QHS PRN PRN Reason: Sleep Multivitamins/Minerals (Calcium Carb/Vit D3/Minerals 600 Mg/800 Units Tab) 1 each PO DAILY [facility] Last Admin: 08/20/21 09:59 Dose: 1 each Risperidone (Risperidone 0.25 Mg Tab) 0.25 mg PO BID [facility] Last Admin: 08/20/21 21:12 Dose: 0.25 mg Trazodone HCl (Trazodone 50 Mg Tab) 75 mg PO QHS [facility] Last Admin: 08/20/21 21:12 Dose: 75 mg Results - Results Labs/Vitals: Laboratory Last Values WBC 6.0 K/mm3 (4.5-11.0) 08/08/21 21:18 RBC 3.97 M/mm3 (3.65-5.03) 08/08/21 21:18 Hgb 11.8 gm/dl (10.1-14.3) 08/08/21 21:18 Hct 36.3 % (30.3-42.9) 08/08/21 21:18 MCV 92 fl (79-97) 08/08/21 21:18 MCH 30 pg (28-32) 08/08/21 21:18 MCHC 33 % (30-34) 08/08/21 21:18 RDW 15.2 % (13.2-15.2) 08/08/21 21:18 Plt Count 181 K/mm3 (140-440) 08/08/21 21:18 Lymph % (Auto) 32.9 % (13.4-35.0) 08/08/21 21:18 [place] % (Auto) 8.7 % (0.0-7.3) H 08/08/21 21:18 Eos % (Auto) 3.3 % (0.0-4.3) 08/08/21 21:18 Baso % (Auto) 0.5 % (0.0-1.8) 08/08/21 21:18 Lymph # (Auto) 2.0 K/mm3 (1.2-5.4) 08/08/21 21:18 [place] # (Auto) 0.5 K/mm3 (0.0-0.8) 08/08/21 21:18 Eos # (Auto) 0.2 K/mm3 (0.0-0.4) 08/08/21 21:18 Baso # (Auto) 0.0 K/mm3 (0.0-0.1) 08/08/21 21:18 Seg Neutrophils % 54.6 % (40.0-70.0) 08/08/21 21:18 Seg Neutrophils # 3.3 K/mm3 (1.8-7.7) 08/08/21 21:18 Sodium 140 mmol/L (137-145) 08/08/21 21:18 Potassium 3.8 mmol/L (3.6-5.0) 08/08/21 21:18 Chloride 101.9 mmol/L (98-107) 08/08/21 21:18 Carbon Dioxide 27 mmol/L (22-30) 08/08/21 21:18 Anion Gap 15 mmol/L 08/08/21 21:18 BUN 26 mg/dL (7-17) H 08/08/21 21:18 Creatinine 0.8 mg/dL (0.6-1.2) 08/08/21 21:18 Estimated GFR > 60 ml/min 08/08/21 21:18 BUN/Creatinine Ratio 33 % 08/08/21 21:18 Glucose 115 mg/dL (65-100) H 08/08/21 21:18 POC Glucose 74 mg/dL (70-105) 08/17/21 11:10 Hemoglobin A1c 5.9 % (4-6) 08/08/21 21:18 Calcium 9.7 mg/dL (8.4-10.2) 08/08/21 21:18 Total Bilirubin 0.20 mg/dL (0.1-1.2) 08/08/21 21:18 AST 22 units/L (5-40) 08/08/21 21:18 ALT 17 units/L (7-56) 08/08/21 21:18 Alkaline Phosphatase 70 units/L (35-129) 08/08/21 21:18 Total Protein 6.9 g/dL (6.3-8.2) 08/08/21 21:18 Albumin 4.3 g/dL (3.9-5) 08/08/21 21:18 Albumin/Globulin Ratio 1.7 % 08/08/21 21:18 Triglycerides 126 mg/dL (2-149) 08/08/21 21:18 Cholesterol 279 mg/dL (50-199) H 08/08/21 21:18 LDL Cholesterol Direct 180 mg/dL (50-130) H 08/08/21 21:18 HDL Cholesterol 81 mg/dL (40-59) H 08/08/21 21:18 Cholesterol/HDL Ratio 3.44 % 08/08/21 21:18 TSH 1.720 mlU/mL (0.270-4.200) 08/08/21 21:18 Last Vital Signs Temp 98.1 F 08/20/21 19:35 Pulse 85 08/20/21 19:35 Resp 16 08/20/21 19:35 BP 121/59 08/20/21 19:35 Pulse Ox 99 08/20/21 19:35
[2021-08-21] MEDS: CALCIUM CARB/VIT D3/MINERALS 600 MG/800 UNITS TAB PO SCH (09:24)
[2021-08-21] MEDS: risperiDONE 0.25 MG TAB PO SCH ×2 (09:24→22:25)
[2021-08-21] MEDS: ASPIRIN 81 MG TAB CHEW PO SCH (09:24)
[2021-08-21] MEDS: amLODIPine 10 MG TAB PO SCH (09:27)
[2021-08-21] MEDS: traZODone 50 MG TAB PO SCH (22:26)
--- NOTE | 2021-08-22 08:38 | Progress Note ---
Subjective Date of service: 08/22/21 Principal diagnosis: Delusional Disorder Subjective Comment: 08/22/21: The patient was seen at breakfast. She reports doing well. She states sleep and appetite as good. The patient was heard calling a peer disgusting stating he pulls his pants when he walked behind him. She patient denies suicidal/homicidal ideation and denies hallucinations. The patient is clear from psych point of view. 08/21/21: The patient was seen at breakfast. She reports doing well. She states sleep and appetite as good. The patient denies suicidal/homicidal ideation and denies hallucinations. The patient is clear from psych point of view. 08/20/21: The patient was seen in her room this morning. She reports doing well. She states sleep and appetite as good. The patient denies suicidal/homicidal ideation and denies hallucinations. The patient is clear from psych point of view. 08/19/21: The patient was seen this morning. She is calm, cooperative and reports doing well. She states sleep and appetite as good. The patient denies suicidal/homicidal ideation and denies hallucinations. 08/18/21: The patient was seen at breakfast. She is calm, cooperative and reports doing well. She states sleep and appetite as good. The patient denies suicidal/homicidal ideation and denies hallucinations. 08/17/21:The patient was seen today. She is calm, and cooperative. Her daughter is on the phone. The patient's progress and treatment plan were explained. The patient was explained the importance of complying with her medical regimen. She agrees to take the medication. The SW and nurse are involved as well. The patient denies SI/HI or hallucinations of any kind. 08/16 The patient was seen today. She is calm, and cooperative. She denies hallucinations of any kind. She also denies SI/HI. The patient appears to be at her baseline. Will plan with the social work assistant to discharge the patient to a safe place. 08/15 The patient was seem today. She is calm and cooperative. She denies SI/HI. She also denies hallucinations. The patient does appear to be a little delusional. She tells me something is going on with her eyes. I ask her what was going on. She says "I don't know. Look at them." There is nothing obviously wrong with her eyes. 08/14 The patient was seen today. She is lying in bed. She is awake, and pleasant. She is calm and cooperative. She denies SI/HI or hallucinations of any kind. She is awaiting placement. 08/13 The patient was seen today. She is calm and cooperative. She denies SI/HI or hallucinations of any kind. She says she slept much better last night. 08/12 The patient was seen today. She is calm, and cooperative. She is pleasant. The patient says she slept a little better but didn't feel like she rested well. She denies SI/HI or hallucinations of any kind. The patient says she doesn't know if she wants to take any meds because they make her feel sluggish. I advised the patient that if she wanted to continue to progress and go home, she had to comply with the treatment. She was in agreement, and states she would continue to take them. . 08/11 The patient was seen today. She is calm, cooperative and pleasant. She says she feels okay. She denies SI/HI. She also denies hallucinations. She says she did not sleep well. The patient says she kept waking up throughout the night. 08/10/21: The patient was seen this morning. She states she is doing well. She denies being depressed and no delusions noted. The patient denies any current suicidal/homicidal ideation and denies hallucinations. 08/09/21: The patient was seen at breakfast. She presents in good spirits and reports doing well. She reports sleep as fair. She denies depression and denies any current suicidal/homicidal ideation and denies hallucinations. 08/08/21: The patient was seen eating breakfast. she reports doing well " I would have liked to sleep better, so much interruptions." She denies depression and denies any current suicidal/homicidal ideation and denies hallucinations. 08/07/21:The patient was seen this morning. She is calm. When asking how she is doing, she states " I don't know yet." She reports sleep as restful. She denies depression and denies any current suicidal/homicidal ideation and denies hallucinations. REVIEW OF SYSTEMS Constitutional: Negative for weight loss ENT: Negative for stridor Respiratory: Negative for cough or hemoptysis All other systems reviewed and are negative MENTAL STATUS EXAMINATION General Appearance and Behavior: Age appropriate, good hygiene, wearing appropriate clothes, good eye contact, calm, cooperative Cooperation: Participating/engaged, but Guarded Psychomotor Behavior: Psychomotor normal Mood: good Affect and affective range: congruent with stated mood Thought Process: Goal directed Thought Content: Reality oriented Speech: normal tone and pace Suicidal Ideation: Denies Homicidal Ideation: Denies Hallucinations: Denies Delusions: None Impulse Control: Limited Insight and Judgment: Poor insight and judgment Memory: Poor Attention: Divided Orientation: Alert, oriented Assessment and Plan Delusional Disorder Treatment Plan Patient admitted for inpatient psychiatric evaluation, medication adjustment and close monitoring The patient's behavior, mood, sleep and appetite will be closely monitored. Patient enrolled in individual and group therapeutic sessions and encouraged to attend. Patient provided with a safe and structured environment. Patient's physical health needs will be addressed by the Hospitalist. Hospitalist Consulted Labs including CBC, CMP, Lipid profile and Hemoglobin A1C levels ordered for baseline reference Social Assessment will be completed and the Lieutenant Shift Supervisor will work with patient and family to ensure a suitable and safe disposition Medication adjustment will be made as clinically indicated No changes made today Usual Wellness Judaism/Preservation: - Start Trazodone 50 mg po QHS & 50 mg po QHS PRN between 10 PM & 2 AM for insomnia - Start Melatonin 5 mg po QHS to promote circadian rhythm The patient agreed on the treatment plan, understood the risk, benefit, alternative treatment, potential consequence of no treatment, and gave informed consent. Estimated days: 4 Post hospital care: primary care provider, psychiatric provider Case staffed with Dr. Fuentes Medications and Allergies Medications and Allergies Allergies Allergy/AdvReac Type Severity Reaction Status Date / Time codeine AdvReac Intermediate Swelling Verified 08/04/21 18:27 Home Medications Medication Instructions Recorded Confirmed Last Taken Type Aspirin EC [Halfprin EC] 81 mg PO QDAY #30 tablet. 10/20/19 08/06/21 Unknown Rx AtorvaSTATin [Lipitor] 40 mg PO QHS #30 tablet 10/20/19 08/06/21 Unknown Rx Calcium Carbonate/Vitamin D3 1 each PO DAILY #30 tablet 10/20/19 08/06/21 Unknown Rx [Calcium 500 mg-Vit D3 600 Unit] amLODIPine 10 mg PO QDAY #30 tablet 10/20/19 08/06/21 Unknown Rx Active Meds: Active Medications Amlodipine Besylate (Amlodipine 10 Mg Tab) 10 mg PO QDAY [facility] Last Admin: 08/21/21 09:27 Dose: Not Given Aspirin (Aspirin 81 Mg Tab Chew) 81 mg PO QDAY [facility] Last Admin: 08/21/21 09:24 Dose: 81 mg Atorvastatin Calcium (Atorvastatin 40 Mg Tab) 40 mg PO QHS [facility] Last Admin: 08/21/21 22:25 Dose: 40 mg Melatonin (Melatonin 5 Mg Tab) 5 mg PO QHS PRN PRN Reason: Sleep Multivitamins/Minerals (Calcium Carb/Vit D3/Minerals 600 Mg/800 Units Tab) 1 each PO DAILY [facility] Last Admin: 08/21/21 09:24 Dose: 1 each Risperidone (Risperidone 0.25 Mg Tab) 0.25 mg PO BID [facility] Last Admin: 08/21/21 22:25 Dose: 0.25 mg Trazodone HCl (Trazodone 50 Mg Tab) 75 mg PO QHS [facility] Last Admin: 08/21/21 22:26 Dose: 75 mg Results - Results Labs/Vitals: Laboratory Last Values WBC 6.0 K/mm3 (4.5-11.0) 08/08/21 21:18 RBC 3.97 M/mm3 (3.65-5.03) 08/08/21 21:18 Hgb 11.8 gm/dl (10.1-14.3) 08/08/21 21:18 Hct 36.3 % (30.3-42.9) 08/08/21 21:18 MCV 92 fl (79-97) 08/08/21 21:18 MCH 30 pg (28-32) 08/08/21 21:18 MCHC 33 % (30-34) 08/08/21 21:18 RDW 15.2 % (13.2-15.2) 08/08/21 21:18 Plt Count 181 K/mm3 (140-440) 08/08/21 21:18 Lymph % (Auto) 32.9 % (13.4-35.0) 08/08/21 21:18 [place] % (Auto) 8.7 % (0.0-7.3) H 08/08/21 21:18 Eos % (Auto) 3.3 % (0.0-4.3) 08/08/21 21:18 Baso % (Auto) 0.5 % (0.0-1.8) 08/08/21 21:18 Lymph # (Auto) 2.0 K/mm3 (1.2-5.4) 08/08/21 21:18 [place] # (Auto) 0.5 K/mm3 (0.0-0.8) 08/08/21 21:18 Eos # (Auto) 0.2 K/mm3 (0.0-0.4) 08/08/21 21:18 Baso # (Auto) 0.0 K/mm3 (0.0-0.1) 08/08/21 21:18 Seg Neutrophils % 54.6 % (40.0-70.0) 08/08/21 21:18 Seg Neutrophils # 3.3 K/mm3 (1.8-7.7) 08/08/21 21:18 Sodium 140 mmol/L (137-145) 08/08/21 21:18 Potassium 3.8 mmol/L (3.6-5.0) 08/08/21 21:18 Chloride 101.9 mmol/L (98-107) 08/08/21 21:18 Carbon Dioxide 27 mmol/L (22-30) 08/08/21 21:18 Anion Gap 15 mmol/L 08/08/21 21:18 BUN 26 mg/dL (7-17) H 08/08/21 21:18 Creatinine 0.8 mg/dL (0.6-1.2) 08/08/21 21:18 Estimated GFR > 60 ml/min 08/08/21 21:18 BUN/Creatinine Ratio 33 % 08/08/21 21:18 Glucose 115 mg/dL (65-100) H 08/08/21 21:18 POC Glucose 88 mg/dL (70-105) 08/21/21 19:46 Hemoglobin A1c 5.9 % (4-6) 08/08/21 21:18 Calcium 9.7 mg/dL (8.4-10.2) 08/08/21 21:18 Total Bilirubin 0.20 mg/dL (0.1-1.2) 08/08/21 21:18 AST 22 units/L (5-40) 08/08/21 21:18 ALT 17 units/L (7-56) 08/08/21 21:18 Alkaline Phosphatase 70 units/L (35-129) 08/08/21 21:18 Total Protein 6.9 g/dL (6.3-8.2) 08/08/21 21:18 Albumin 4.3 g/dL (3.9-5) 08/08/21 21:18 Albumin/Globulin Ratio 1.7 % 08/08/21 21:18 Triglycerides 126 mg/dL (2-149) 08/08/21 21:18 Cholesterol 279 mg/dL (50-199) H 08/08/21 21:18 LDL Cholesterol Direct 180 mg/dL (50-130) H 08/08/21 21:18 HDL Cholesterol 81 mg/dL (40-59) H 08/08/21 21:18 Cholesterol/HDL Ratio 3.44 % 08/08/21 21:18 TSH 1.720 mlU/mL (0.270-4.200) 08/08/21 21:18 Last Vital Signs Temp 98.8 F 08/22/21 07:12 Pulse 79 08/22/21 07:12 Resp 18 08/22/21 07:12 BP 137/66 08/22/21 07:12 Pulse Ox 93 08/22/21 07:12
[2021-08-22] MEDS: risperiDONE 0.25 MG TAB PO SCH ×2 (09:24→21:28)
[2021-08-22] MEDS: amLODIPine 10 MG TAB PO SCH (09:24)
[2021-08-22] MEDS: CALCIUM CARB/VIT D3/MINERALS 600 MG/800 UNITS TAB PO SCH (09:24)
[2021-08-22] MEDS: ASPIRIN 81 MG TAB CHEW PO SCH (09:24)
--- NOTE | 2021-08-22 21:11 | Progress Note ---
Assessment and Plan - Patient Problems (1) Vascular dementia with behavioral disturbance Current Visit: Yes Status: Acute Plan to address problem: Verbal prompting, verbal redirection, benzodiazepine therapy as clinically indicated (2) Cerebral atherosclerosis Current Visit: Yes Status: Acute Plan to address problem: Risk factor reduction, antiplatelet therapy as clinically indicated. (3) Hypertension Current Visit: Yes Status: Acute Qualifiers: Hypertension type: primary hypertension Qualified Code(s): I10 - Essential (primary) hypertension Plan to address problem: Monitor blood pressure every shift, continue medical management. (4) Hyperlipidemia Current Visit: Yes Status: Acute Plan to address problem: Low-cholesterol diet, statin therapy, supportive care. (5) Diabetes Current Visit: Yes Status: Acute Plan to address problem: Consistent carbohydrate diet, Accu-Chek, insulin protocol, hypoglycemia protocol. (6) Malnutrition Current Visit: Yes Status: Acute Qualifiers: Protein-calorie malnutrition severity: moderate Plan to address problem: Dietary intake varies based on cognition. Dietary supplementation when awake and alert only, increase protein intake. (7) Psychosis Current Visit: Yes Status: Acute Qualifiers: Schizophrenia type: unspecified Plan to address problem: Continue medical management as per mental health team (8) Debility Current Visit: Yes Status: Acute Plan to address problem: Bed alarm, fall precautions. (9) Advance care planning Current Visit: Yes Status: Acute Plan to address problem: Disease education conducted, care plan discussed, diagnoses discussed, prognosis discussed, patient is full code. Discussed patient diagnoses, prognosis and care plan with patient granddaughter Felicia Nuñez [phone]. Patient is currently unable to live independently and will require placement. Discussed all likely options. Recommend discharge with hospice care to care home facility, personal-residential, or assisted living facility depending on availability and acceptance. 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 +30 minutes. History Interval history: 81 YO Female with Vascular Dementia with Behavioral Disturbance, Cerebral Atherosclerosis, HTN, DM, Malnitrition, MDD, EDWIN admitted to [facility] for psychiatric stabilization. Consult placed by Dr. Hernandez for medical management. Pt seen and evaluated in the recreation room. Pt has diminished cognition and is unable to provide detailed history. Pt is at baseline level of cognition and function. No reported nursing events. Hospitalist Physical - Constitutional Vitals: Temp Pulse Resp BP Pulse Ox 98.8 F 79 18 137/66 93 08/22/21 07:12 08/22/21 07:12 08/22/21 07:12 08/22/21 07:12 08/22/21 07:12 General appearance: Present: no acute distress, cachectic - EENT Eyes: Present: PERRL ENT: hearing decreased - Neck Neck: Present: supple - Respiratory Respiratory effort: normal Respiratory: bilateral: diminished - Cardiovascular Rhythm: regular Heart Sounds: Present: S1 & S2 - Extremities Extremities: no ischemia Peripheral Pulses: within normal limits - Abdominal General gastrointestinal: soft, non-tender, non-distended - Integumentary Integumentary: Present: clear, dry - Psychiatric Psychiatric: cooperative - Neurologic Neurologic: CNII-XII intact Results - Labs CBC & Chem 7: 08/08/21 21:18 08/08/21 21:18 Labs: Laboratory Last Values WBC 6.0 K/mm3 (4.5-11.0) 08/08/21 21:18 RBC 3.97 M/mm3 (3.65-5.03) 08/08/21 21:18 Hgb 11.8 gm/dl (10.1-14.3) 08/08/21 21:18 Hct 36.3 % (30.3-42.9) 08/08/21 21:18 MCV 92 fl (79-97) 08/08/21 21:18 MCH 30 pg (28-32) 08/08/21 21:18 MCHC 33 % (30-34) 08/08/21 21:18 RDW 15.2 % (13.2-15.2) 08/08/21 21:18 Plt Count 181 K/mm3 (140-440) 08/08/21 21:18 Lymph % (Auto) 32.9 % (13.4-35.0) 08/08/21 21:18 [place] % (Auto) 8.7 % (0.0-7.3) H 08/08/21 21:18 Eos % (Auto) 3.3 % (0.0-4.3) 08/08/21 21:18 Baso % (Auto) 0.5 % (0.0-1.8) 08/08/21 21:18 Lymph # (Auto) 2.0 K/mm3 (1.2-5.4) 08/08/21 21:18 [place] # (Auto) 0.5 K/mm3 (0.0-0.8) 08/08/21 21:18 Eos # (Auto) 0.2 K/mm3 (0.0-0.4) 08/08/21 21:18 Baso # (Auto) 0.0 K/mm3 (0.0-0.1) 08/08/21 21:18 Seg Neutrophils % 54.6 % (40.0-70.0) 08/08/21 21:18 Seg Neutrophils # 3.3 K/mm3 (1.8-7.7) 08/08/21 21:18 Sodium 140 mmol/L (137-145) 08/08/21 21:18 Potassium 3.8 mmol/L (3.6-5.0) 08/08/21 21:18 Chloride 101.9 mmol/L (98-107) 08/08/21 21:18 Carbon Dioxide 27 mmol/L (22-30) 08/08/21 21:18 Anion Gap 15 mmol/L 08/08/21 21:18 BUN 26 mg/dL (7-17) H 08/08/21 21:18 Creatinine 0.8 mg/dL (0.6-1.2) 08/08/21 21:18 Estimated GFR > 60 ml/min 08/08/21 21:18 BUN/Creatinine Ratio 33 % 08/08/21 21:18 Glucose 115 mg/dL (65-100) H 08/08/21 21:18 POC Glucose 88 mg/dL (70-105) 08/21/21 19:46 Hemoglobin A1c 5.9 % (4-6) 08/08/21 21:18 Calcium 9.7 mg/dL (8.4-10.2) 08/08/21 21:18 Total Bilirubin 0.20 mg/dL (0.1-1.2) 08/08/21 21:18 AST 22 units/L (5-40) 08/08/21 21:18 ALT 17 units/L (7-56) 08/08/21 21:18 Alkaline Phosphatase 70 units/L (35-129) 08/08/21 21:18 Total Protein 6.9 g/dL (6.3-8.2) 08/08/21 21:18 Albumin 4.3 g/dL (3.9-5) 08/08/21 21:18 Albumin/Globulin Ratio 1.7 % 08/08/21 21:18 Triglycerides 126 mg/dL (2-149) 08/08/21 21:18 Cholesterol 279 mg/dL (50-199) H 08/08/21 21:18 LDL Cholesterol Direct 180 mg/dL (50-130) H 08/08/21 21:18 HDL Cholesterol 81 mg/dL (40-59) H 08/08/21 21:18 Cholesterol/HDL Ratio 3.44 % 08/08/21 21:18 TSH 1.720 mlU/mL (0.270-4.200) 08/08/21 21:18 Olea/IV: Voiding Method Toilet Active Medications - Current Medications Current Medications: Generic Name Dose Route Start Last Admin Trade Name Freq PRN Reason Stop Dose Admin Amlodipine Besylate 10 mg 08/06/21 10:00 08/22/21 09:24 Amlodipine 10 Mg Tab PO 10 mg QDAY NISH Administration Aspirin 81 mg 08/18/21 10:00 08/22/21 09:24 Aspirin 81 Mg Tab Chew PO 81 mg QDAY NISH Administration Atorvastatin Calcium 40 mg 08/06/21 22:00 08/21/21 22:25 Atorvastatin 40 Mg Tab PO 40 mg QHS NISH Administration Melatonin 5 mg 08/11/21 22:00 Melatonin 5 Mg Tab PO QHS PRN Sleep Multivitamins/Minerals 1 each 08/06/21 10:00 08/22/21 09:24 Calcium Carb/Vit D3/Minerals 600 Mg/800 Units Tab PO 1 each DAILY NISH Administration Risperidone 0.25 mg 08/16/21 10:00 08/22/21 09:24 Risperidone 0.25 Mg Tab PO 0.25 mg BID NISH Administration Trazodone HCl 75 mg 08/11/21 22:00 08/21/21 22:26 Trazodone 50 Mg Tab PO 75 mg QHS NISH Administration Nutrition/Malnutrition Assess - Dietary Evaluation Nutrition/Malnutrition Findings: Nutrition Notes Start: 08/11/21 12:38 Freq: Status: Active Protocol: Document 08/11/21 12:38 NHALL (Rec: 08/11/21 12:40 NHALL [id number]) Nutrition Notes Need for Assessment generated from: LOS Initial or Follow up Brief Note Current Diet Consistent CHO Height 5 ft 2 in Weight 52 kg [place] Body Weight (kg) 50.00 BMI 20.9 Weight Status Underweight Subjective/Other Information Pt screened for LOS. She has consumed 83% of meals since admission. Percent of energy/protein needs met: 100% energy and pro Burn Absent Trauma Absent Current % PO Good (75-100%) Minimum of two criteria No Is patient on ventilator? No Is Patient Ambulatory and/or Out of Bed Yes REE-([place]-St. Jeor-ambulatory/OOB) [ 1219.725 [id number]] Kcal/Kg value to use for calculation 30 Approximate Energy Requirements Using 1560 kcal/Kg Calculation Used for Recommendations Kcal/kg Additional Notes Pro needs 1.2-1.5g/k-78g/ day Fluid needs 1ml/kcal Nutrition Intervention Revisit per MD consult or patient Sign Off request:
--- NOTE | 2021-08-22 21:12 | Progress Note ---
Assessment and Plan - Patient Problems (1) Vascular dementia with behavioral disturbance Current Visit: Yes Status: Acute Plan to address problem: Verbal prompting, verbal redirection, benzodiazepine therapy as clinically indicated (2) Cerebral atherosclerosis Current Visit: Yes Status: Acute Plan to address problem: Risk factor reduction, antiplatelet therapy as clinically indicated. (3) Hypertension Current Visit: Yes Status: Acute Qualifiers: Hypertension type: primary hypertension Qualified Code(s): I10 - Essential (primary) hypertension Plan to address problem: Monitor blood pressure every shift, continue medical management. (4) Hyperlipidemia Current Visit: Yes Status: Acute Plan to address problem: Low-cholesterol diet, statin therapy, supportive care. (5) Diabetes Current Visit: Yes Status: Acute Plan to address problem: Consistent carbohydrate diet, Accu-Chek, insulin protocol, hypoglycemia protocol. (6) Malnutrition Current Visit: Yes Status: Acute Qualifiers: Protein-calorie malnutrition severity: moderate Plan to address problem: Dietary intake varies based on cognition. Dietary supplementation when awake and alert only, increase protein intake. (7) Psychosis Current Visit: Yes Status: Acute Qualifiers: Schizophrenia type: unspecified Plan to address problem: Continue medical management as per mental health team (8) Debility Current Visit: Yes Status: Acute Plan to address problem: Bed alarm, fall precautions. (9) Advance care planning Current Visit: Yes Status: Acute Plan to address problem: Disease education conducted, care plan discussed, diagnoses discussed, prognosis discussed, patient is full code. Discussed patient diagnoses, prognosis and care plan with patient granddaughter Felicia Nuñez [phone]. Patient is currently unable to live independently and will require placement. Discussed all likely options. Recommend discharge with hospice care to long-term facility, personal-retirement, or assisted living facility depending on availability and acceptance. 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 +30 minutes. History Interval history: 81 YO Female with Vascular Dementia with Behavioral Disturbance, Cerebral Atherosclerosis, HTN, DM, Malnitrition, MDD, EDWIN admitted to [facility] for psychiatric stabilization. Consult placed by Dr. Hernandez for medical management. Pt seen and evaluated in the recreation room. Pt has diminished cognition and is unable to provide detailed history. Pt is at baseline level of cognition and function. No reported nursing events. Hospitalist Physical - Constitutional Vitals: Temp Pulse Resp BP Pulse Ox 98.8 F 79 18 137/66 93 08/22/21 07:12 08/22/21 07:12 08/22/21 07:12 08/22/21 07:12 08/22/21 07:12 General appearance: Present: no acute distress, cachectic - EENT Eyes: Present: PERRL ENT: hearing decreased - Neck Neck: Present: supple - Respiratory Respiratory effort: normal Respiratory: bilateral: diminished - Cardiovascular Rhythm: regular Heart Sounds: Present: S1 & S2 - Extremities Extremities: no ischemia Peripheral Pulses: within normal limits - Abdominal General gastrointestinal: soft, non-tender, non-distended - Integumentary Integumentary: Present: clear, erythema - Psychiatric Psychiatric: cooperative - Neurologic Neurologic: CNII-XII intact Results - Labs CBC & Chem 7: 08/08/21 21:18 08/08/21 21:18 Labs: Laboratory Last Values WBC 6.0 K/mm3 (4.5-11.0) 08/08/21 21:18 RBC 3.97 M/mm3 (3.65-5.03) 08/08/21 21:18 Hgb 11.8 gm/dl (10.1-14.3) 08/08/21 21:18 Hct 36.3 % (30.3-42.9) 08/08/21 21:18 MCV 92 fl (79-97) 08/08/21 21:18 MCH 30 pg (28-32) 08/08/21 21:18 MCHC 33 % (30-34) 08/08/21 21:18 RDW 15.2 % (13.2-15.2) 08/08/21 21:18 Plt Count 181 K/mm3 (140-440) 08/08/21 21:18 Lymph % (Auto) 32.9 % (13.4-35.0) 08/08/21 21:18 [place] % (Auto) 8.7 % (0.0-7.3) H 08/08/21 21:18 Eos % (Auto) 3.3 % (0.0-4.3) 08/08/21 21:18 Baso % (Auto) 0.5 % (0.0-1.8) 08/08/21 21:18 Lymph # (Auto) 2.0 K/mm3 (1.2-5.4) 08/08/21 21:18 [place] # (Auto) 0.5 K/mm3 (0.0-0.8) 08/08/21 21:18 Eos # (Auto) 0.2 K/mm3 (0.0-0.4) 08/08/21 21:18 Baso # (Auto) 0.0 K/mm3 (0.0-0.1) 08/08/21 21:18 Seg Neutrophils % 54.6 % (40.0-70.0) 08/08/21 21:18 Seg Neutrophils # 3.3 K/mm3 (1.8-7.7) 08/08/21 21:18 Sodium 140 mmol/L (137-145) 08/08/21 21:18 Potassium 3.8 mmol/L (3.6-5.0) 08/08/21 21:18 Chloride 101.9 mmol/L (98-107) 08/08/21 21:18 Carbon Dioxide 27 mmol/L (22-30) 08/08/21 21:18 Anion Gap 15 mmol/L 08/08/21 21:18 BUN 26 mg/dL (7-17) H 08/08/21 21:18 Creatinine 0.8 mg/dL (0.6-1.2) 08/08/21 21:18 Estimated GFR > 60 ml/min 08/08/21 21:18 BUN/Creatinine Ratio 33 % 08/08/21 21:18 Glucose 115 mg/dL (65-100) H 08/08/21 21:18 POC Glucose 88 mg/dL (70-105) 08/21/21 19:46 Hemoglobin A1c 5.9 % (4-6) 08/08/21 21:18 Calcium 9.7 mg/dL (8.4-10.2) 08/08/21 21:18 Total Bilirubin 0.20 mg/dL (0.1-1.2) 08/08/21 21:18 AST 22 units/L (5-40) 08/08/21 21:18 ALT 17 units/L (7-56) 08/08/21 21:18 Alkaline Phosphatase 70 units/L (35-129) 08/08/21 21:18 Total Protein 6.9 g/dL (6.3-8.2) 08/08/21 21:18 Albumin 4.3 g/dL (3.9-5) 08/08/21 21:18 Albumin/Globulin Ratio 1.7 % 08/08/21 21:18 Triglycerides 126 mg/dL (2-149) 08/08/21 21:18 Cholesterol 279 mg/dL (50-199) H 08/08/21 21:18 LDL Cholesterol Direct 180 mg/dL (50-130) H 08/08/21 21:18 HDL Cholesterol 81 mg/dL (40-59) H 08/08/21 21:18 Cholesterol/HDL Ratio 3.44 % 08/08/21 21:18 TSH 1.720 mlU/mL (0.270-4.200) 08/08/21 21:18 Olea/IV: Voiding Method Toilet Active Medications - Current Medications Current Medications: Generic Name Dose Route Start Last Admin Trade Name Freq PRN Reason Stop Dose Admin Amlodipine Besylate 10 mg 08/06/21 10:00 08/22/21 09:24 Amlodipine 10 Mg Tab PO 10 mg QDAY NISH Administration Aspirin 81 mg 08/18/21 10:00 08/22/21 09:24 Aspirin 81 Mg Tab Chew PO 81 mg QDAY NISH Administration Atorvastatin Calcium 40 mg 08/06/21 22:00 08/21/21 22:25 Atorvastatin 40 Mg Tab PO 40 mg QHS NISH Administration Melatonin 5 mg 08/11/21 22:00 Melatonin 5 Mg Tab PO QHS PRN Sleep Multivitamins/Minerals 1 each 08/06/21 10:00 08/22/21 09:24 Calcium Carb/Vit D3/Minerals 600 Mg/800 Units Tab PO 1 each DAILY NISH Administration Risperidone 0.25 mg 08/16/21 10:00 08/22/21 09:24 Risperidone 0.25 Mg Tab PO 0.25 mg BID NISH Administration Trazodone HCl 75 mg 08/11/21 22:00 08/21/21 22:26 Trazodone 50 Mg Tab PO 75 mg QHS NISH Administration Nutrition/Malnutrition Assess - Dietary Evaluation Nutrition/Malnutrition Findings: Nutrition Notes Start: 08/11/21 12:3 8 Freq: Status: Active Protocol: Document 08/11/21 12:38 NHALL (Rec: 08/11/21 12:40 NHALL [id number]) Nutrition Notes Need for Assessment generated from: LOS Initial or Follow up Brief Note Current Diet Consistent CHO Height 5 ft 2 in Weight 52 kg [place] Body Weight (kg) 50.00 BMI 20.9 Weight Status Underweight Subjective/Other Information Pt screened for LOS. She has consumed 83% of meals since admission. Percent of energy/protein needs met: 100% energy and pro Burn Absent Trauma Absent Current % PO Good (75-100%) Minimum of two criteria No Is patient on ventilator? No Is Patient Ambulatory and/or Out of Bed Yes REE-(Dupuyer-St. Jeor-ambulatory/OOB) [ 1219.725 NUTR.[id number]] Kcal/Kg value to use for calculation 30 Approximate Energy Requirements Using 1560 kcal/Kg Calculation Used for Recommendations Kcal/kg Additional Notes Pro needs 1.2-1.5g/k-78g/ day Fluid needs 1ml/kcal Nutrition Intervention Revisit per MD consult or patient Sign Off request:
[2021-08-22] MEDS: traZODone 50 MG TAB PO SCH (21:28)
[2021-08-23] MEDS: ASPIRIN 81 MG TAB CHEW PO SCH (09:04)
[2021-08-23] MEDS: amLODIPine 10 MG TAB PO SCH (09:04)
[2021-08-23] MEDS: CALCIUM CARB/VIT D3/MINERALS 600 MG/800 UNITS TAB PO SCH (09:04)
[2021-08-23] MEDS: risperiDONE 0.25 MG TAB PO SCH ×2 (09:04→21:13)
--- NOTE | 2021-08-23 10:04 | Progress Note ---
Subjective Date of service: 08/23/21 Principal diagnosis: Delusional Disorder Subjective Comment: 08/23/21:The patient was seen at breakfast. She states she is just waking up " not there yet." She patient denies suicidal/homicidal ideation and denies hallucinations. The patient is clear from psych point of view. 08/22/21: The patient was seen at breakfast. She reports doing well. She states sleep and appetite as good. The patient was heard calling a peer disgusting stating he pulls his pants when he walked behind him. She patient denies suicidal/homicidal ideation and denies hallucinations. The patient is clear from psych point of view. 08/21/21: The patient was seen at breakfast. She reports doing well. She states sleep and appetite as good. The patient denies suicidal/homicidal ideation and denies hallucinations. The patient is clear from psych point of view. 08/20/21: The patient was seen in her room this morning. She reports doing well. She states sleep and appetite as good. The patient denies suicidal/homicidal ideation and denies hallucinations. The patient is clear from psych point of view. 08/19/21: The patient was seen this morning. She is calm, cooperative and reports doing well. She states sleep and appetite as good. The patient denies suicidal/homicidal ideation and denies hallucinations. 08/18/21: The patient was seen at breakfast. She is calm, cooperative and reports doing well. She states sleep and appetite as good. The patient denies suicidal/homicidal ideation and denies hallucinations. 08/17/21:The patient was seen today. She is calm, and cooperative. Her daughter is on the phone. The patient's progress and treatment plan were explained. The patient was explained the importance of complying with her medical regimen. She agrees to take the medication. The SW and nurse are involved as well. The patient denies SI/HI or hallucinations of any kind. 08/16 The patient was seen today. She is calm, and cooperative. She denies hallucinations of any kind. She also denies SI/HI. The patient appears to be at her baseline. Will plan with the social services coordinator to discharge the patient to a safe place. 08/15 The patient was seem today. She is calm and cooperative. She denies SI/HI. She also denies hallucinations. The patient does appear to be a little delusional. She tells me something is going on with her eyes. I ask her what was going on. She says "I don't know. Look at them." There is nothing obviously wrong with her eyes. 08/14 The patient was seen today. She is lying in bed. She is awake, and pleasant. She is calm and cooperative. She denies SI/HI or hallucinations of any kind. She is awaiting placement. 08/13 The patient was seen today. She is calm and cooperative. She denies SI/HI or hallucinations of any kind. She says she slept much better last night. 08/12 The patient was seen today. She is calm, and cooperative. She is pleasant. The patient says she slept a little better but didn't feel like she rested well. She denies SI/HI or hallucinations of any kind. The patient says she doesn't know if she wants to take any meds because they make her feel sluggish. I advised the patient that if she wanted to continue to progress and go home, she had to comply with the treatment. She was in agreement, and states she would continue to take them. . 08/11 The patient was seen today. She is calm, cooperative and pleasant. She says she feels okay. She denies SI/HI. She also denies hallucinations. She says she did not sleep well. The patient says she kept waking up throughout the night. 08/10/21: The patient was seen this morning. She states she is doing well. She denies being depressed and no delusions noted. The patient denies any current suicidal/homicidal ideation and denies hallucinations. 08/09/21: The patient was seen at breakfast. She presents in good spirits and reports doing well. She reports sleep as fair. She denies depression and denies any current suicidal/homicidal ideation and denies hallucinations. 08/08/21: The patient was seen eating breakfast. she reports doing well " I would have liked to sleep better, so much interruptions." She denies depression and denies any current suicidal/homicidal ideation and denies hallucinations. 08/07/21:The patient was seen this morning. She is calm. When asking how she is doing, she states " I don't know yet." She reports sleep as restful. She denies depression and denies any current suicidal/homicidal ideation and denies hallucinations. REVIEW OF SYSTEMS Constitutional: Negative for weight loss ENT: Negative for stridor Respiratory: Negative for cough or hemoptysis All other systems reviewed and are negative MENTAL STATUS EXAMINATION General Appearance and Behavior: Age appropriate, good hygiene, wearing appropriate clothes, good eye contact, calm, cooperative Cooperation: Participating/engaged, but Guarded Psychomotor Behavior: Psychomotor normal Mood: good Affect and affective range: congruent with stated mood Thought Process: Goal directed Thought Content: Reality oriented Speech: normal tone and pace Suicidal Ideation: Denies Homicidal Ideation: Denies Hallucinations: Denies Delusions: None Impulse Control: Limited Insight and Judgment: Poor insight and judgment Memory: Poor Attention: Divided Orientation: Alert, oriented Assessment and Plan Delusional Disorder Treatment Plan Patient admitted for inpatient psychiatric evaluation, medication adjustment and close monitoring The patient's behavior, mood, sleep and appetite will be closely monitored. Patient enrolled in individual and group therapeutic sessions and encouraged to attend. Patient provided with a safe and structured environment. Patient's physical health needs will be addressed by the Hospitalist. Hospitalist Consulted Labs including CBC, CMP, Lipid profile and Hemoglobin A1C levels ordered for baseline reference Social Assessment will be completed and the Horticulture/Floriculture Teacher will work with patient and family to ensure a suitable and safe disposition Medication adjustment will be made as clinically indicated No changes made today Usual Wellness Hinduism/Preservation: - Start Trazodone 50 mg po QHS & 50 mg po QHS PRN between 10 PM & 2 AM for insomnia - Start Melatonin 5 mg po QHS to promote circadian rhythm The patient agreed on the treatment plan, understood the risk, benefit, alternative treatment, potential consequence of no treatment, and gave informed consent. Estimated days: 4 Post hospital care: primary care provider, psychiatric provider Case staffed with Dr. Fuentes Medications and Allergies Medications and Allergies Allergies Allergy/AdvReac Type Severity Reaction Status Date / Time codeine AdvReac Intermediate Swelling Verified 08/04/21 18:27 Home Medications Medication Instructions Recorded Confirmed Last Taken Type Aspirin EC [Halfprin EC] 81 mg PO QDAY #30 tablet. 10/20/19 08/06/21 Unknown Rx AtorvaSTATin [Lipitor] 40 mg PO QHS #30 tablet 10/20/19 08/06/21 Unknown Rx Calcium Carbonate/Vitamin D3 1 each PO DAILY #30 tablet 10/20/19 08/06/21 Unknown Rx [Calcium 500 mg-Vit D3 600 Unit] amLODIPine 10 mg PO QDAY #30 tablet 10/20/19 08/06/21 Unknown Rx Active Meds: Active Medications Amlodipine Besylate (Amlodipine 10 Mg Tab) 10 mg PO QDAY [facility] Last Admin: 08/23/21 09:04 Dose: 10 mg Aspirin (Aspirin 81 Mg Tab Chew) 81 mg PO QDAY [facility] Last Admin: 08/23/21 09:04 Dose: 81 mg Atorvastatin Calcium (Atorvastatin 40 Mg Tab) 40 mg PO QHS [facility] Last Admin: 08/22/21 21:28 Dose: 40 mg Melatonin (Melatonin 5 Mg Tab) 5 mg PO QHS PRN PRN Reason: Sleep Multivitamins/Minerals (Calcium Carb/Vit D3/Minerals 600 Mg/800 Units Tab) 1 each PO DAILY [facility] Last Admin: 08/23/21 09:04 Dose: 1 each Risperidone (Risperidone 0.25 Mg Tab) 0.25 mg PO BID [facility] Last Admin: 08/23/21 09:04 Dose: 0.25 mg Trazodone HCl (Trazodone 50 Mg Tab) 75 mg PO QHS [facility] Last Admin: 08/22/21 21:28 Dose: 75 mg Results - Results Labs/Vitals: Laboratory Last Values WBC 6.0 K/mm3 (4.5-11.0) 08/08/21 21:18 RBC 3.97 M/mm3 (3.65-5.03) 08/08/21 21:18 Hgb 11.8 gm/dl (10.1-14.3) 08/08/21 21:18 Hct 36.3 % (30.3-42.9) 08/08/21 21:18 MCV 92 fl (79-97) 08/08/21 21:18 MCH 30 pg (28-32) 08/08/21 21:18 MCHC 33 % (30-34) 08/08/21 21:18 RDW 15.2 % (13.2-15.2) 08/08/21 21:18 Plt Count 181 K/mm3 (140-440) 08/08/21 21:18 Lymph % (Auto) 32.9 % (13.4-35.0) 08/08/21 21:18 [place] % (Auto) 8.7 % (0.0-7.3) H 08/08/21 21:18 Eos % (Auto) 3.3 % (0.0-4.3) 08/08/21 21:18 Baso % (Auto) 0.5 % (0.0-1.8) 08/08/21 21:18 Lymph # (Auto) 2.0 K/mm3 (1.2-5.4) 08/08/21 21:18 [place] # (Auto) 0.5 K/mm3 (0.0-0.8) 08/08/21 21:18 Eos # (Auto) 0.2 K/mm3 (0.0-0.4) 08/08/21 21:18 Baso # (Auto) 0.0 K/mm3 (0.0-0.1) 08/08/21 21:18 Seg Neutrophils % 54.6 % (40.0-70.0) 08/08/21 21:18 Seg Neutrophils # 3.3 K/mm3 (1.8-7.7) 08/08/21 21:18 Sodium 140 mmol/L (137-145) 08/08/21 21:18 Potassium 3.8 mmol/L (3.6-5.0) 08/08/21 21:18 Chloride 101.9 mmol/L (98-107) 08/08/21 21:18 Carbon Dioxide 27 mmol/L (22-30) 08/08/21 21:18 Anion Gap 15 mmol/L 08/08/21 21:18 BUN 26 mg/dL (7-17) H 08/08/21 21:18 Creatinine 0.8 mg/dL (0.6-1.2) 08/08/21 21:18 Estimated GFR > 60 ml/min 08/08/21 21:18 BUN/Creatinine Ratio 33 % 08/08/21 21:18 Glucose 115 mg/dL (65-100) H 08/08/21 21:18 POC Glucose 88 mg/dL (70-105) 08/21/21 19:46 Hemoglobin A1c 5.9 % (4-6) 08/08/21 21:18 Calcium 9.7 mg/dL (8.4-10.2) 08/08/21 21:18 Total Bilirubin 0.20 mg/dL (0.1-1.2) 08/08/21 21:18 AST 22 units/L (5-40) 08/08/21 21:18 ALT 17 units/L (7-56) 08/08/21 21:18 Alkaline Phosphatase 70 units/L (35-129) 08/08/21 21:18 Total Protein 6.9 g/dL (6.3-8.2) 08/08/21 21:18 Albumin 4.3 g/dL (3.9-5) 08/08/21 21:18 Albumin/Globulin Ratio 1.7 % 08/08/21 21:18 Triglycerides 126 mg/dL (2-149) 08/08/21 21:18 Cholesterol 279 mg/dL (50-199) H 08/08/21 21:18 LDL Cholesterol Direct 180 mg/dL (50-130) H 08/08/21 21:18 HDL Cholesterol 81 mg/dL (40-59) H 08/08/21 21:18 Cholesterol/HDL Ratio 3.44 % 08/08/21 21:18 TSH 1.720 mlU/mL (0.270-4.200) 08/08/21 21:18 Last Vital Signs Temp 99.2 F 08/23/21 09:00 Pulse 78 08/23/21 09:04 Resp 16 08/23/21 09:00 BP 124/69 08/23/21 09:04 Pulse Ox 94 08/22/21 19:53
[2021-08-23] MEDS: traZODone 50 MG TAB PO SCH (21:13)
--- NOTE | 2021-08-24 09:39 | Progress Note ---
Subjective Date of service: 08/24/21 Principal diagnosis: Delusional Disorder Subjective Comment: 08/24/21:The patient was seen at breakfast. She states she is she is doing well. She patient denies suicidal/homicidal ideation and denies hallucinations. The patient is clear from psych point of view. 08/23/21:The patient was seen at breakfast. She states she is just waking up " not there yet." She patient denies suicidal/homicidal ideation and denies hallucinations. The patient is clear from psych point of view. 08/22/21: The patient was seen at breakfast. She reports doing well. She states sleep and appetite as good. The patient was heard calling a peer disgusting stating he pulls his pants when he walked behind him. She patient denies suicidal/homicidal ideation and denies hallucinations. The patient is clear from psych point of view. 08/21/21: The patient was seen at breakfast. She reports doing well. She states sleep and appetite as good. The patient denies suicidal/homicidal ideation and denies hallucinations. The patient is clear from psych point of view. 08/20/21: The patient was seen in her room this morning. She reports doing well. She states sleep and appetite as good. The patient denies suicidal/homicidal ideation and denies hallucinations. The patient is clear from psych point of view. 08/19/21: The patient was seen this morning. She is calm, cooperative and reports doing well. She states sleep and appetite as good. The patient denies suicidal/homicidal ideation and denies hallucinations. 08/18/21: The patient was seen at breakfast. She is calm, cooperative and reports doing well. She states sleep and appetite as good. The patient denies suicidal/homicidal ideation and denies hallucinations. 08/17/21:The patient was seen today. She is calm, and cooperative. Her daughter is on the phone. The patient's progress and treatment plan were explained. The patient was explained the importance of complying with her medical regimen. She agrees to take the medication. The SW and nurse are involved as well. The patient denies SI/HI or hallucinations of any kind. 08/16 The patient was seen today. She is calm, and cooperative. She denies hallucinations of any kind. She also denies SI/HI. The patient appears to be at her baseline. Will plan with the social work lecturer to discharge the patient to a safe place. 08/15 The patient was seem today. She is calm and cooperative. She denies SI/HI. She also denies hallucinations. The patient does appear to be a little delusional. She tells me something is going on with her eyes. I ask her what was going on. She says "I don't know. Look at them." There is nothing obviously wrong with her eyes. 08/14 The patient was seen today. She is lying in bed. She is awake, and pleasant. She is calm and cooperative. She denies SI/HI or hallucinations of any kind. She is awaiting placement. 08/13 The patient was seen today. She is calm and cooperative. She denies SI/HI or hallucinations of any kind. She says she slept much better last night. 08/12 The patient was seen today. She is calm, and cooperative. She is pleasant. The patient says she slept a little better but didn't feel like she rested well. She denies SI/HI or hallucinations of any kind. The patient says she doesn't know if she wants to take any meds because they make her feel sluggish. I advised the patient that if she wanted to continue to progress and go home, she had to comply with the treatment. She was in agreement, and states she would continue to take them. . 08/11 The patient was seen today. She is calm, cooperative and pleasant. She says she feels okay. She denies SI/HI. She also denies hallucinations. She says she did not sleep well. The patient says she kept waking up throughout the night. 08/10/21: The patient was seen this morning. She states she is doing well. She denies being depressed and no delusions noted. The patient denies any current suicidal/homicidal ideation and denies hallucinations. 08/09/21: The patient was seen at breakfast. She presents in good spirits and reports doing well. She reports sleep as fair. She denies depression and denies any current suicidal/homicidal ideation and denies hallucinations. 08/08/21: The patient was seen eating breakfast. she reports doing well " I would have liked to sleep better, so much interruptions." She denies depression and denies any current suicidal/homicidal ideation and denies hallucinations. 08/07/21:The patient was seen this morning. She is calm. When asking how she is doing, she states " I don't know yet." She reports sleep as restful. She denies depression and denies any current suicidal/homicidal ideation and denies hallucinations. REVIEW OF SYSTEMS Constitutional: Negative for weight loss ENT: Negative for stridor Respiratory: Negative for cough or hemoptysis All other systems reviewed and are negative MENTAL STATUS EXAMINATION General Appearance and Behavior: Age appropriate, good hygiene, wearing appropriate clothes, good eye contact, calm, cooperative Cooperation: Participating/engaged, but Guarded Psychomotor Behavior: Psychomotor normal Mood: good Affect and affective range: congruent with stated mood Thought Process: Goal directed Thought Content: Reality oriented Speech: normal tone and pace Suicidal Ideation: Denies Homicidal Ideation: Denies Hallucinations: Denies Delusions: None Impulse Control: Limited Insight and Judgment: Poor insight and judgment Memory: Poor Attention: Divided Orientation: Alert, oriented Assessment and Plan Delusional Disorder Treatment Plan Patient admitted for inpatient psychiatric evaluation, medication adjustment and close monitoring The patient's behavior, mood, sleep and appetite will be closely monitored. Patient enrolled in individual and group therapeutic sessions and encouraged to attend. Patient provided with a safe and structured environment. Patient's physical health needs will be addressed by the Hospitalist. Hospitalist Consulted Labs including CBC, CMP, Lipid profile and Hemoglobin A1C levels ordered for baseline reference Social Assessment will be completed and the Book Coverer will work with patient and family to ensure a suitable and safe disposition Medication adjustment will be made as clinically indicated No changes made today Usual Wellness Yarsani/Preservation: - Start Trazodone 50 mg po QHS & 50 mg po QHS PRN between 10 PM & 2 AM for ins omnia - Start Melatonin 5 mg po QHS to promote circadian rhythm The patient agreed on the treatment plan, understood the risk, benefit, alternative treatment, potential consequence of no treatment, and gave informed consent. Estimated days: 4 Post hospital care: primary care provider, psychiatric provider Case staffed with Dr. Fuentes Medications and Allergies Medications and Allergies Allergies Allergy/AdvReac Type Severity Reaction Status Date / Time codeine AdvReac Intermediate Swelling Verified 08/04/21 18:27 Home Medications Medication Instructions Recorded Confirmed Last Taken Type Aspirin EC [Halfprin EC] 81 mg PO QDAY #30 tablet. 10/20/19 08/06/21 Unknown Rx AtorvaSTATin [Lipitor] 40 mg PO QHS #30 tablet 10/20/19 08/06/21 Unknown Rx Calcium Carbonate/Vitamin D3 1 each PO DAILY #30 tablet 10/20/19 08/06/21 Unknown Rx [Calcium 500 mg-Vit D3 600 Unit] amLODIPine 10 mg PO QDAY #30 tablet 10/20/19 08/06/21 Unknown Rx Active Meds: Active Medications Amlodipine Besylate (Amlodipine 10 Mg Tab) 10 mg PO QDAY [facility] Last Admin: 08/23/21 09:04 Dose: 10 mg Aspirin (Aspirin 81 Mg Tab Chew) 81 mg PO QDAY [facility] Last Admin: 08/23/21 09:04 Dose: 81 mg Atorvastatin Calcium (Atorvastatin 40 Mg Tab) 40 mg PO QHS [facility] Last Admin: 08/23/21 21:13 Dose: 40 mg Melatonin (Melatonin 5 Mg Tab) 5 mg PO QHS PRN PRN Reason: Sleep Multivitamins/Minerals (Calcium Carb/Vit D3/Minerals 600 Mg/800 Units Tab) 1 each PO DAILY [facility] Last Admin: 08/23/21 09:04 Dose: 1 each Risperidone (Risperidone 0.25 Mg Tab) 0.25 mg PO BID [facility] Last Admin: 08/23/21 21:13 Dose: 0.25 mg Trazodone HCl (Trazodone 50 Mg Tab) 75 mg PO QHS [facility] Last Admin: 08/23/21 21:13 Dose: 75 mg Results - Results Labs/Vitals: Laboratory Last Values WBC 6.0 K/mm3 (4.5-11.0) 08/08/21 21:18 RBC 3.97 M/mm3 (3.65-5.03) 08/08/21 21:18 Hgb 11.8 gm/dl (10.1-14.3) 08/08/21 21:18 Hct 36.3 % (30.3-42.9) 08/08/21 21:18 MCV 92 fl (79-97) 08/08/21 21:18 MCH 30 pg (28-32) 08/08/21 21:18 MCHC 33 % (30-34) 08/08/21 21:18 RDW 15.2 % (13.2-15.2) 08/08/21 21:18 Plt Count 181 K/mm3 (140-440) 08/08/21 21:18 Lymph % (Auto) 32.9 % (13.4-35.0) 08/08/21 21:18 Clinch % (Auto) 8.7 % (0.0-7.3) H 08/08/21 21:18 Eos % (Auto) 3.3 % (0.0-4.3) 08/08/21 21:18 Baso % (Auto) 0.5 % (0.0-1.8) 08/08/21 21:18 Lymph # (Auto) 2.0 K/mm3 (1.2-5.4) 08/08/21 21:18 Clinch # (Auto) 0.5 K/mm3 (0.0-0.8) 08/08/21 21:18 Eos # (Auto) 0.2 K/mm3 (0.0-0.4) 08/08/21 21:18 Baso # (Auto) 0.0 K/mm3 (0.0-0.1) 08/08/21 21:18 Seg Neutrophils % 54.6 % (40.0-70.0) 08/08/21 21:18 Seg Neutrophils # 3.3 K/mm3 (1.8-7.7) 08/08/21 21:18 Sodium 140 mmol/L (137-145) 08/08/21 21:18 Potassium 3.8 mmol/L (3.6-5.0) 08/08/21 21:18 Chloride 101.9 mmol/L (98-107) 08/08/21 21:18 Carbon Dioxide 27 mmol/L (22-30) 08/08/21 21:18 Anion Gap 15 mmol/L 08/08/21 21:18 BUN 26 mg/dL (7-17) H 08/08/21 21:18 Creatinine 0.8 mg/dL (0.6-1.2) 08/08/21 21:18 Estimated GFR > 60 ml/min 08/08/21 21:18 BUN/Creatinine Ratio 33 % 08/08/21 21:18 Glucose 115 mg/dL (65-100) H 08/08/21 21:18 POC Glucose 88 mg/dL (70-105) 08/21/21 19:46 Hemoglobin A1c 5.9 % (4-6) 08/08/21 21:18 Calcium 9.7 mg/dL (8.4-10.2) 08/08/21 21:18 Total Bilirubin 0.20 mg/dL (0.1-1.2) 08/08/21 21:18 AST 22 units/L (5-40) 08/08/21 21:18 ALT 17 units/L (7-56) 08/08/21 21:18 Alkaline Phosphatase 70 units/L (35-129) 08/08/21 21:18 Total Protein 6.9 g/dL (6.3-8.2) 08/08/21 21:18 Albumin 4.3 g/dL (3.9-5) 08/08/21 21:18 Albumin/Globulin Ratio 1.7 % 08/08/21 21:18 Triglycerides 126 mg/dL (2-149) 08/08/21 21:18 Cholesterol 279 mg/dL (50-199) H 08/08/21 21:18 LDL Cholesterol Direct 180 mg/dL (50-130) H 08/08/21 21:18 HDL Cholesterol 81 mg/dL (40-59) H 08/08/21 21:18 Cholesterol/HDL Ratio 3.44 % 08/08/21 21:18 TSH 1.720 mlU/mL (0.270-4.200) 08/08/21 21:18 Last Vital Signs Temp 98.2 F 08/23/21 19:50 Pulse 83 08/23/21 19:50 Resp 17 08/23/21 19:50 BP 125/54 08/23/21 19:50 Pulse Ox 96 08/23/21 19:50
[2021-08-24] MEDS: CALCIUM CARB/VIT D3/MINERALS 600 MG/800 UNITS TAB PO SCH (09:42)
[2021-08-24] MEDS: amLODIPine 10 MG TAB PO SCH (09:42)
[2021-08-24] MEDS: risperiDONE 0.25 MG TAB PO SCH ×2 (09:42→22:24)
[2021-08-24] MEDS: ASPIRIN 81 MG TAB CHEW PO SCH (09:42)
[2021-08-24] MEDS: traZODone 50 MG TAB PO SCH (22:23)
--- NOTE | 2021-08-25 09:31 | Progress Note ---
Subjective Date of service: 08/25/21 Principal diagnosis: Delusional Disorder Subjective Comment: 08/25/21:The patient was seen at breakfast. She states she is she is doing well. She patient denies suicidal/homicidal ideation and denies hallucinations. The patient is clear from psych point of view. 08/24/21:The patient was seen at breakfast. She states she is she is doing well. She patient denies suicidal/homicidal ideation and denies hallucinations. The patient is clear from psych point of view. 08/23/21:The patient was seen at breakfast. She states she is just waking up " not there yet." She patient denies suicidal/homicidal ideation and denies hallucinations. The patient is clear from psych point of view. 08/22/21: The patient was seen at breakfast. She reports doing well. She states sleep and appetite as good. The patient was heard calling a peer disgusting stating he pulls his pants when he walked behind him. She patient denies suicidal/homicidal ideation and denies hallucinations. The patient is clear from psych point of view. 08/21/21: The patient was seen at breakfast. She reports doing well. She states sleep and appetite as good. The patient denies suicidal/homicidal ideation and denies hallucinations. The patient is clear from psych point of view. 08/20/21: The patient was seen in her room this morning. She reports doing well. She states sleep and appetite as good. The patient denies suicidal/homicidal ideation and denies hallucinations. The patient is clear from psych point of view. 08/19/21: The patient was seen this morning. She is calm, cooperative and reports doing well. She states sleep and appetite as good. The patient denies suicidal/homicidal ideation and denies hallucinations. 08/18/21: The patient was seen at breakfast. She is calm, cooperative and reports doing well. She states sleep and appetite as good. The patient denies suicidal/homicidal ideation and denies hallucinations. 08/17/21:The patient was seen today. She is calm, and cooperative. Her daughter is on the phone. The patient's progress and treatment plan were explained. The patient was explained the importance of complying with her medical regimen. She agrees to take the medication. The SW and nurse are involved as well. The patient denies SI/HI or hallucinations of any kind. 08/16 The patient was seen today. She is calm, and cooperative. She denies hallucinations of any kind. She also denies SI/HI. The patient appears to be at her baseline. Will plan with the social psychologist to discharge the patient to a safe place. 08/15 The patient was seem today. She is calm and cooperative. She denies SI/HI. She also denies hallucinations. The patient does appear to be a little delusional. She tells me something is going on with her eyes. I ask her what was going on. She says "I don't know. Look at them." There is nothing obviously wrong with her eyes. 08/14 The patient was seen today. She is lying in bed. She is awake, and pleasant. She is calm and cooperative. She denies SI/HI or hallucinations of any kind. She is awaiting placement. 08/13 The patient was seen today. She is calm and cooperative. She denies SI/HI or hallucinations of any kind. She says she slept much better last night. 08/12 The patient was seen today. She is calm, and cooperative. She is pleasant. The patient says she slept a little better but didn't feel like she rested well. She denies SI/HI or hallucinations of any kind. The patient says she doesn't know if she wants to take any meds because they make her feel sluggish. I advised the patient that if she wanted to continue to progress and go home, she had to comply with the treatment. She was in agreement, and states she would continue to take them. . 08/11 The patient was seen today. She is calm, cooperative and pleasant. She says she feels okay. She denies SI/HI. She also denies hallucinations. She says she did not sleep well. The patient says she kept waking up throughout the night. 08/10/21: The patient was seen this morning. She states she is doing well. She denies being depressed and no delusions noted. The patient denies any current suicidal/homicidal ideation and denies hallucinations. 08/09/21: The patient was seen at breakfast. She presents in good spirits and reports doing well. She reports sleep as fair. She denies depression and denies any current suicidal/homicidal ideation and denies hallucinations. 08/08/21: The patient was seen eating breakfast. she reports doing well " I would have liked to sleep better, so much interruptions." She denies depression and denies any current suicidal/homicidal ideation and denies hallucinations. 08/07/21:The patient was seen this morning. She is calm. When asking how she is doing, she states " I don't know yet." She reports sleep as restful. She denies depression and denies any current suicidal/homicidal ideation and denies hallucinations. REVIEW OF SYSTEMS Constitutional: Negative for weight loss ENT: Negative for stridor Respiratory: Negative for cough or hemoptysis All other systems reviewed and are negative MENTAL STATUS EXAMINATION General Appearance and Behavior: Age appropriate, good hygiene, wearing appropriate clothes, good eye contact, calm, cooperative Cooperation: Participating/engaged, but Guarded Psychomotor Behavior: Psychomotor normal Mood: good Affect and affective range: congruent with stated mood Thought Process: Goal directed Thought Content: Reality oriented Speech: normal tone and pace Suicidal Ideation: Denies Homicidal Ideation: Denies Hallucinations: Denies Delusions: None Impulse Control: Limited Insight and Judgment: Poor insight and judgment Memory: Poor Attention: Divided Orientation: Alert, oriented Assessment and Plan Delusional Disorder Treatment Plan Patient admitted for inpatient psychiatric evaluation, medication adjustment and close monitoring The patient's behavior, mood, sleep and appetite will be closely monitored. Patient enrolled in individual and group therapeutic sessions and encouraged to attend. Patient provided with a safe and structured environment. Patient's physical health needs will be addressed by the Hospitalist. Hospitalist Consulted Labs including CBC, CMP, Lipid profile and Hemoglobin A1C levels ordered for baseline reference Social Assessment will be completed and the Clinical Project Leader will work with patient and family to ensure a suitable and safe disposition Medication adjustment will be made as clinically indicated No changes made today Usual Wellness Holiness/Preservation: - Start Trazodone 50 mg po QHS & 50 mg po QHS PRN between 10 PM & 2 AM for insomnia - Start Melatonin 5 mg po QHS to promote circadian rhythm The patient agreed on the treatment plan, understood the risk, benefit, alternative treatment, potential consequence of no treatment, and gave informed consent. Estimated days: 4 Post hospital care: primary care provider, psychiatric provider Case staffed with Dr. Fuentes Medications and Allergies Medications and Allergies Allergies Allergy/AdvReac Type Severity Reaction Status Date / Time codeine AdvReac Intermediate Swelling Verified 08/04/21 18:27 Home Medications Medication Instructions Recorded Confirmed Last Taken Type Aspirin EC [Halfprin EC] 81 mg PO QDAY #30 tablet. 10/20/19 08/06/21 Unknown Rx AtorvaSTATin [Lipitor] 40 mg PO QHS #30 tablet 10/20/19 08/06/21 Unknown Rx Calcium Carbonate/Vitamin D3 1 each PO DAILY #30 tablet 10/20/19 08/06/21 Unknown Rx [Calcium 500 mg-Vit D3 600 Unit] amLODIPine 10 mg PO QDAY #30 tablet 10/20/19 08/06/21 Unknown Rx Active Meds: Active Medications Amlodipine Besylate (Amlodipine 10 Mg Tab) 10 mg PO QDAY [facility] Last Admin: 08/24/21 09:42 Dose: 10 mg Aspirin (Aspirin 81 Mg Tab Chew) 81 mg PO QDAY [facility] Last Admin: 08/24/21 09:42 Dose: 81 mg Atorvastatin Calcium (Atorvastatin 40 Mg Tab) 40 mg PO QHS [facility] Last Admin: 08/24/21 22:23 Dose: 40 mg Melatonin (Melatonin 5 Mg Tab) 5 mg PO QHS PRN PRN Reason: Sleep Multivitamins/Minerals (Calcium Carb/Vit D3/Minerals 600 Mg/800 Units Tab) 1 each PO DAILY [facility] Last Admin: 08/24/21 09:42 Dose: 1 each Risperidone (Risperidone 0.25 Mg Tab) 0.25 mg PO BID [facility] Last Admin: 08/24/21 22:24 Dose: 0.25 mg Trazodone HCl (Trazodone 50 Mg Tab) 75 mg PO QHS [facility] Last Admin: 08/24/21 22:23 Dose: 75 mg Results - Results Labs/Vitals: Laboratory Last Values WBC 6.0 K/mm3 (4.5-11.0) 08/08/21 21:18 RBC 3.97 M/mm3 (3.65-5.03) 08/08/21 21:18 Hgb 11.8 gm/dl (10.1-14.3) 08/08/21 21:18 Hct 36.3 % (30.3-42.9) 08/08/21 21:18 MCV 92 fl (79-97) 08/08/21 21:18 MCH 30 pg (28-32) 08/08/21 21:18 MCHC 33 % (30-34) 08/08/21 21:18 RDW 15.2 % (13.2-15.2) 08/08/21 21:18 Plt Count 181 K/mm3 (140-440) 08/08/21 21:18 Lymph % (Auto) 32.9 % (13.4-35.0) 08/08/21 21:18 [place] % (Auto) 8.7 % (0.0-7.3) H 08/08/21 21:18 Eos % (Auto) 3.3 % (0.0-4.3) 08/08/21 21:18 Baso % (Auto) 0.5 % (0.0-1.8) 08/08/21 21:18 Lymph # (Auto) 2.0 K/mm3 (1.2-5.4) 08/08/21 21:18 Trinity # (Auto) 0.5 K/mm3 (0.0-0.8) 08/08/21 21:18 Eos # (Auto) 0.2 K/mm3 (0.0-0.4) 08/08/21 21:18 Baso # (Auto) 0.0 K/mm3 (0.0-0.1) 08/08/21 21:18 Seg Neutrophils % 54.6 % (40.0-70.0) 08/08/21 21:18 Seg Neutrophils # 3.3 K/mm3 (1.8-7.7) 08/08/21 21:18 Sodium 140 mmol/L (137-145) 08/08/21 21:18 Potassium 3.8 mmol/L (3.6-5.0) 08/08/21 21:18 Chloride 101.9 mmol/L (98-107) 08/08/21 21:18 Carbon Dioxide 27 mmol/L (22-30) 08/08/21 21:18 Anion Gap 15 mmol/L 08/08/21 21:18 BUN 26 mg/dL (7-17) H 08/08/21 21:18 Creatinine 0.8 mg/dL (0.6-1.2) 08/08/21 21:18 Estimated GFR > 60 ml/min 08/08/21 21:18 BUN/Creatinine Ratio 33 % 08/08/21 21:18 Glucose 115 mg/dL (65-100) H 08/08/21 21:18 POC Glucose 88 mg/dL (70-105) 08/21/21 19:46 Hemoglobin A1c 5.9 % (4-6) 08/08/21 21:18 Calcium 9.7 mg/dL (8.4-10.2) 08/08/21 21:18 Total Bilirubin 0.20 mg/dL (0.1-1.2) 08/08/21 21:18 AST 22 units/L (5-40) 08/08/21 21:18 ALT 17 units/L (7-56) 08/08/21 21:18 Alkaline Phosphatase 70 units/L (35-129) 08/08/21 21:18 Total Protein 6.9 g/dL (6.3-8.2) 08/08/21 21:18 Albumin 4.3 g/dL (3.9-5) 08/08/21 21:18 Albumin/Globulin Ratio 1.7 % 08/08/21 21:18 Triglycerides 126 mg/dL (2-149) 08/08/21 21:18 Cholesterol 279 mg/dL (50-199) H 08/08/21 21:18 LDL Cholesterol Direct 180 mg/dL (50-130) H 08/08/21 21:18 HDL Cholesterol 81 mg/dL (40-59) H 08/08/21 21:18 Cholesterol/HDL Ratio 3.44 % 08/08/21 21:18 TSH 1.720 mlU/mL (0.270-4.200) 08/08/21 21:18 Last Vital Signs Temp 98.5 F 08/24/21 19:36 Pulse 85 08/24/21 19:36 Resp 16 08/24/21 19:36 BP 133/68 08/24/21 19:36 Pulse Ox 96 08/24/21 19:36
[2021-08-25] MEDS: amLODIPine 10 MG TAB PO SCH (10:59)
[2021-08-25] MEDS: ASPIRIN 81 MG TAB CHEW PO SCH (11:00)
[2021-08-25] MEDS: risperiDONE 0.25 MG TAB PO SCH ×2 (11:00→21:29)
[2021-08-25] MEDS: CALCIUM CARB/VIT D3/MINERALS 600 MG/800 UNITS TAB PO SCH (11:01)
[2021-08-25] MEDS: traZODone 50 MG TAB PO SCH (21:30)
[2021-08-26] MEDS: ASPIRIN 81 MG TAB CHEW PO SCH (09:17)
[2021-08-26] MEDS: CALCIUM CARB/VIT D3/MINERALS 600 MG/800 UNITS TAB PO SCH (09:17)
[2021-08-26] MEDS: risperiDONE 0.25 MG TAB PO SCH ×2 (09:17→21:09)
[2021-08-26] MEDS: amLODIPine 10 MG TAB PO SCH (09:17)
--- NOTE | 2021-08-26 09:18 | Progress Note ---
Subjective Date of service: 08/26/21 Principal diagnosis: Delusional Disorder Subjective Comment: 08/26/21: The patient was seen this morning. She is irritable and refusing to answer questions. 08/25/21:The patient was seen at breakfast. She states she is she is doing well. She patient denies suicidal/homicidal ideation and denies hallucinations. The patient is clear from psych point of view. 08/24/21:The patient was seen at breakfast. She states she is she is doing well. She patient denies suicidal/homicidal ideation and denies hallucinations. The patient is clear from psych point of view. 08/23/21:The patient was seen at breakfast. She states she is just waking up " not there yet." She patient denies suicidal/homicidal ideation and denies hallucinations. The patient is clear from psych point of view. 08/22/21: The patient was seen at breakfast. She reports doing well. She states sleep and appetite as good. The patient was heard calling a peer disgusting stating he pulls his pants when he walked behind him. She patient denies suicidal/homicidal ideation and denies hallucinations. The patient is clear from psych point of view. 08/21/21: The patient was seen at breakfast. She reports doing well. She states sleep and appetite as good. The patient denies suicidal/homicidal ideation and denies hallucinations. The patient is clear from psych point of view. 08/20/21: The patient was seen in her room this morning. She reports doing well. She states sleep and appetite as good. The patient denies suicidal/homicidal ideation and denies hallucinations. The patient is clear from psych point of view. 08/19/21: The patient was seen this morning. She is calm, cooperative and reports doing well. She states sleep and appetite as good. The patient denies suicidal/homicidal ideation and denies hallucinations. 08/18/21: The patient was seen at breakfast. She is calm, cooperative and reports doing well. She states sleep and appetite as good. The patient denies suicidal/homicidal ideation and denies hallucinations. 08/17/21:The patient was seen today. She is calm, and cooperative. Her daughter is on the phone. The patient's progress and treatment plan were explained. The patient was explained the importance of complying with her medical regimen. She agrees to take the medication. The SW and nurse are involved as well. The patient denies SI/HI or hallucinations of any kind. 08/16 The patient was seen today. She is calm, and cooperative. She denies hallucinations of any kind. She also denies SI/HI. The patient appears to be at her baseline. Will plan with the social work therapist to discharge the patient to a safe place. 08/15 The patient was seem today. She is calm and cooperative. She denies SI/HI. She also denies hallucinations. The patient does appear to be a little delusional. She tells me something is going on with her eyes. I ask her what was going on. She says "I don't know. Look at them." There is nothing obviously wrong with her eyes. 08/14 The patient was seen today. She is lying in bed. She is awake, and pleasant. She is calm and cooperative. She denies SI/HI or hallucinations of any kind. She is awaiting placement. 08/13 The patient was seen today. She is calm and cooperative. She denies SI/HI or hallucinations of any kind. She says she slept much better last night. 08/12 The patient was seen today. She is calm, and cooperative. She is pleasant. The patient says she slept a little better but didn't feel like she rested well. She denies SI/HI or hallucinations of any kind. The patient says she doesn't know if she wants to take any meds because they make her feel sluggish. I advised the patient that if she wanted to continue to progress and go home, she had to comply with the treatment. She was in agreement, and states she would continue to take them. . 08/11 The patient was seen today. She is calm, cooperative and pleasant. She says she feels okay. She denies SI/HI. She also denies hallucinations. She says she did not sleep well. The patient says she kept waking up throughout the night. 08/10/21: The patient was seen this morning. She states she is doing well. She denies being depressed and no delusions noted. The patient denies any current suicidal/homicidal ideation and denies hallucinations. 08/09/21: The patient was seen at breakfast. She presents in good spirits and reports doing well. She reports sleep as fair. She denies depression and denies any current suicidal/homicidal ideation and denies hallucinations. 08/08/21: The patient was seen eating breakfast. she reports doing well " I would have liked to sleep better, so much interruptions." She denies depression and denies any current suicidal/homicidal ideation and denies hallucinations. 08/07/21:The patient was seen this morning. She is calm. When asking how she is doing, she states " I don't know yet." She reports sleep as restful. She denies depression and denies any current suicidal/homicidal ideation and denies hallucinations. REVIEW OF SYSTEMS Constitutional: Negative for weight loss ENT: Negative for stridor Respiratory: Negative for cough or hemoptysis All other systems reviewed and are negative MENTAL STATUS EXAMINATION General Appearance and Behavior: Age appropriate, good hygiene, wearing appropriate clothes, good eye contact, calm, cooperative Cooperation: Participating/engaged, but Guarded Psychomotor Behavior: Psychomotor normal Mood: good Affect and affective range: congruent with stated mood Thought Process: Goal directed Thought Content: Reality oriented Speech: normal tone and pace Suicidal Ideation: Denies Homicidal Ideation: Denies Hallucinations: Denies Delusions: None Impulse Control: Limited Insight and Judgment: Poor insight and judgment Memory: Poor Attention: Divided Orientation: Alert, oriented Assessment and Plan Delusional Disorder Treatment Plan Patient admitted for inpatient psychiatric evaluation, medication adjustment and close monitoring The patient's behavior, mood, sleep and appetite will be closely monitored. Patient enrolled in individual and group therapeutic sessions and encouraged to attend. Patient provided with a safe and structured environment. Patient's physical health needs will be addressed by the Hospitalist. Hospitalist Consulted Labs including CBC, CMP, Lipid profile and Hemoglobin A1C levels ordered for baseline reference Social Assessment will be completed and the [employer] Specialist will work with patient and family to ensure a suitable and safe disposition Medication adjustment will be made as clinically indicated No changes made today Usual Wellness Synagogue/Preservation: - Start Trazodone 50 mg po QHS & 50 mg po QHS PRN between 10 PM & 2 AM for insomnia - Start Melatonin 5 mg po QHS to promote circadian rhythm The patient agreed on the treatment plan, understood the risk, benefit, alternative treatment, potential consequence of no treatment, and gave informed consent. Estimated days: 4 Post hospital care: primary care provider, psychiatric provider Case staffed with Dr. Fuentes Medications and Allergies Medications and Allergies Allergies Allergy/AdvReac Type Severity Reaction Status Date / Time codeine AdvReac Intermediate Swelling Verified 08/04/21 18:27 Home Medications Medication Instructions Recorded Confirmed Last Taken Type Aspirin EC [Halfprin EC] 81 mg PO QDAY #30 tablet. 10/20/19 08/06/21 Unknown Rx AtorvaSTATin [Lipitor] 40 mg PO QHS #30 tablet 10/20/19 08/06/21 Unknown Rx Calcium Carbonate/Vitamin D3 1 each PO DAILY #30 tablet 10/20/19 08/06/21 Unknown Rx [Calcium 500 mg-Vit D3 600 Unit] amLODIPine 10 mg PO QDAY #30 tablet 10/20/19 08/06/21 Unknown Rx Active Meds: Active Medications Amlodipine Besylate (Amlodipine 10 Mg Tab) 10 mg PO QDAY [facility] Last Admin: 08/25/21 10:59 Dose: 10 mg Aspirin (Aspirin 81 Mg Tab Chew) 81 mg PO QDAY [facility] Last Admin: 08/25/21 11:00 Dose: 81 mg Atorvastatin Calcium (Atorvastatin 40 Mg Tab) 40 mg PO QHS [facility] Last Admin: 08/25/21 21:30 Dose: 40 mg Melatonin (Melatonin 5 Mg Tab) 5 mg PO QHS PRN PRN Reason: Sleep Multivitamins/Minerals (Calcium Carb/Vit D3/Minerals 600 Mg/800 Units Tab) 1 each PO DAILY [facility] Last Admin: 08/25/21 11:01 Dose: 1 each Risperidone (Risperidone 0.25 Mg Tab) 0.25 mg PO BID [facility] Last Admin: 08/25/21 21:29 Dose: 0.25 mg Trazodone HCl (Trazodone 50 Mg Tab) 75 mg PO QHS [facility] Last Admin: 08/25/21 21:30 Dose: 75 mg Results - Results Labs/Vitals: Laboratory Last Values WBC 6.0 K/mm3 (4.5-11.0) 08/08/21 21:18 RBC 3.97 M/mm3 (3.65-5.03) 08/08/21 21:18 Hgb 11.8 gm/dl (10.1-14.3) 08/08/21 21:18 Hct 36.3 % (30.3-42.9) 08/08/21 21:18 MCV 92 fl (79-97) 08/08/21 21:18 MCH 30 pg (28-32) 08/08/21 21:18 MCHC 33 % (30-34) 08/08/21 21:18 RDW 15.2 % (13.2-15.2) 08/08/21 21:18 Plt Count 181 K/mm3 (140-440) 08/08/21 21:18 Lymph % (Auto) 32.9 % (13.4-35.0) 08/08/21 21:18 [place] % (Auto) 8.7 % (0.0-7.3) H 08/08/21 21:18 Eos % (Auto) 3.3 % (0.0-4.3) 08/08/21 21:18 Baso % (Auto) 0.5 % (0.0-1.8) 08/08/21 21:18 Lymph # (Auto) 2.0 K/mm3 (1.2-5.4) 08/08/21 21:18 [place] # (Auto) 0.5 K/mm3 (0.0-0.8) 08/08/21 21:18 Eos # (Auto) 0.2 K/mm3 (0.0-0.4) 08/08/21 21:18 Baso # (Auto) 0.0 K/mm3 (0.0-0.1) 08/08/21 21:18 Seg Neutrophils % 54.6 % (40.0-70.0) 08/08/21 21:18 Seg Neutrophils # 3.3 K/mm3 (1.8-7.7) 08/08/21 21:18 Sodium 140 mmol/L (137-145) 08/08/21 21:18 Potassium 3.8 mmol/L (3.6-5.0) 08/08/21 21:18 Chloride 101.9 mmol/L (98-107) 08/08/21 21:18 Carbon Dioxide 27 mmol/L (22-30) 08/08/21 21:18 Anion Gap 15 mmol/L 08/08/21 21:18 BUN 26 mg/dL (7-17) H 08/08/21 21:18 Creatinine 0.8 mg/dL (0.6-1.2) 08/08/21 21:18 Estimated GFR > 60 ml/min 08/08/21 21:18 BUN/Creatinine Ratio 33 % 08/08/21 21:18 Glucose 115 mg/dL (65-100) H 08/08/21 21:18 POC Glucose 153 mg/dL (70-105) H 08/25/21 19:37 Hemoglobin A1c 5.9 % (4-6) 08/08/21 21:18 Calcium 9.7 mg/dL (8.4-10.2) 08/08/21 21:18 Total Bilirubin 0.20 mg/dL (0.1-1.2) 08/08/21 21:18 AST 22 units/L (5-40) 08/08/21 21:18 ALT 17 units/L (7-56) 08/08/21 21:18 Alkaline Phosphatase 70 units/L (35-129) 08/08/21 21:18 Total Protein 6.9 g/dL (6.3-8.2) 08/08/21 21:18 Albumin 4.3 g/dL (3.9-5) 08/08/21 21:18 Albumin/Globulin Ratio 1.7 % 08/08/21 21:18 Triglycerides 126 mg/dL (2-149) 08/08/21 21:18 Cholesterol 279 mg/dL (50-199) H 08/08/21 21:18 LDL Cholesterol Direct 180 mg/dL (50-130) H 08/08/21 21:18 HDL Cholesterol 81 mg/dL (40-59) H 08/08/21 21:18 Cholesterol/HDL Ratio 3.44 % 08/08/21 21:18 TSH 1.720 mlU/mL (0.270-4.200) 08/08/21 21:18 Last Vital Signs Temp 98.5 F 08/25/21 19:42 Pulse 85 08/25/21 19:42 Resp 18 08/25/21 19:42 BP 109/46 08/25/21 19:42 Pulse Ox 96 08/25/21 19:42
[2021-08-26] MEDS: traZODone 50 MG TAB PO SCH (21:09)
--- NOTE | 2021-08-27 09:31 | Progress Note ---
Subjective Date of service: 08/27/21 Principal diagnosis: Delusional Disorder Subjective Comment: 08/27/21: The patient was seen this morning. She is in a better mood. " God is blessing me as he does everyday, I'm in a good mood, spoke with my daughter she is uplifting and reassuring. " She patient denies suicidal/homicidal ideation and denies hallucinations. The patient is clear from psych point of view. 08/26/21: The patient was seen this morning. She is irritable and refusing to answer questions. 08/25/21:The patient was seen at breakfast. She states she is she is doing well. She patient denies suicidal/homicidal ideation and denies hallucinations. The patient is clear from psych point of view. 08/24/21:The patient was seen at breakfast. She states she is she is doing well. She patient denies suicidal/homicidal ideation and denies hallucinations. The patient is clear from psych point of view. 08/23/21:The patient was seen at breakfast. She states she is just waking up " not there yet." She patient denies suicidal/homicidal ideation and denies hallucinations. The patient is clear from psych point of view. 08/22/21: The patient was seen at breakfast. She reports doing well. She states sleep and appetite as good. The patient was heard calling a peer disgusting stating he pulls his pants when he walked behind him. She patient denies suicidal/homicidal ideation and denies hallucinations. The patient is clear from psych point of view. 08/21/21: The patient was seen at breakfast. She reports doing well. She states sleep and appetite as good. The patient denies suicidal/homicidal ideation and denies hallucinations. The patient is clear from psych point of view. 08/20/21: The patient was seen in her room this morning. She reports doing well. She states sleep and appetite as good. The patient denies suicidal/homicidal ideation and denies hallucinations. The patient is clear from psych point of view. 08/19/21: The patient was seen this morning. She is calm, cooperative and reports doing well. She states sleep and appetite as good. The patient denies suicidal/homicidal ideation and denies hallucinations. 08/18/21: The patient was seen at breakfast. She is calm, cooperative and reports doing well. She states sleep and appetite as good. The patient denies suicidal/homicidal ideation and denies hallucinations. 08/17/21:The patient was seen today. She is calm, and cooperative. Her daughter is on the phone. The patient's progress and treatment plan were explained. The patient was explained the importance of complying with her medical regimen. She agrees to take the medication. The SW and nurse are involved as well. The patient denies SI/HI or hallucinations of any kind. 08/16 The patient was seen today. She is calm, and cooperative. She denies hallucinations of any kind. She also denies SI/HI. The patient appears to be at her baseline. Will plan with the certified social workers in health care to discharge the patient to a safe place. 08/15 The patient was seem today. She is calm and cooperative. She denies SI/HI. She also denies hallucinations. The patient does appear to be a little delusional. She tells me something is going on with her eyes. I ask her what was going on. She says "I don't know. Look at them." There is nothing obviously wrong with her eyes. 08/14 The patient was seen today. She is lying in bed. She is awake, and pleasant. She is calm and cooperative. She denies SI/HI or hallucinations of any kind. She is awaiting placement. 08/13 The patient was seen today. She is calm and cooperative. She denies SI/HI or hallucinations of any kind. She says she slept much better last night. 08/12 The patient was seen today. She is calm, and cooperative. She is pleasant. The patient says she slept a little better but didn't feel like she rested well. She denies SI/HI or hallucinations of any kind. The patient says she doesn't know if she wants to take any meds because they make her feel sluggish. I advised the patient that if she wanted to continue to progress and go home, she had to comply with the treatment. She was in agreement, and states she would continue to take them. . 08/11 The patient was seen today. She is calm, cooperative and pleasant. She says she feels okay. She denies SI/HI. She also denies hallucinations. She says she did not sleep well. The patient says she kept waking up throughout the night. 08/10/21: The patient was seen this morning. She states she is doing well. She denies being depressed and no delusions noted. The patient denies any current suicidal/homicidal ideation and denies hallucinations. 08/09/21: The patient was seen at breakfast. She presents in good spirits and reports doing well. She reports sleep as fair. She denies depression and denies any current suicidal/homicidal ideation and denies hallucinations. 08/08/21: The patient was seen eating breakfast. she reports doing well " I would have liked to sleep better, so much interruptions." She denies depression and denies any current suicidal/homicidal ideation and denies hallucinations. 08/07/21:The patient was seen this morning. She is calm. When asking how she is doing, she states " I don't know yet." She reports sleep as restful. She denies depression and denies any current suicidal/homicidal ideation and denies hallucinations. REVIEW OF SYSTEMS Constitutional: Negative for weight loss ENT: Negative for stridor Respiratory: Negative for cough or hemoptysis All other systems reviewed and are negative MENTAL STATUS EXAMINATION General Appearance and Behavior: Age appropriate, good hygiene, wearing appropriate clothes, good eye contact, calm, cooperative Cooperation: Participating/engaged, but Guarded Psychomotor Behavior: Psychomotor normal Mood: good Affect and affective range: congruent with stated mood Thought Process: Goal directed Thought Content: Reality oriented Speech: normal tone and pace Suicidal Ideation: Denies Homicidal Ideation: Denies Hallucinations: Denies Delusions: None Impulse Control: Limited Insight and Judgment: Poor insight and judgment Memory: Poor Attention: Divided Orientation: Alert, oriented Assessment and Plan Delusional Disorder Treatment Plan Patient admitted for inpatient psychiatric evaluation, medication adjustment and close monitoring The patient's behavior, mood, sleep and appetite will be closely monitored. Patient enrolled in individual and group therapeutic sessions and encouraged to attend. Patient provided with a safe and structured environment. Patient's physical health needs will be addressed by the Hospitalist. Hospitalist Consulted Labs including CBC, CMP, Lipid profile and Hemoglobin A1C levels ordered for baseline reference Social Assessment will be completed and the Registrar Assistant will work with everett ent and family to ensure a suitable and safe disposition Medication adjustment will be made as clinically indicated No changes made today Usual Wellness Christianity/Preservation: - Start Trazodone 50 mg po QHS & 50 mg po QHS PRN between 10 PM & 2 AM for insomnia - Start Melatonin 5 mg po QHS to promote circadian rhythm The patient agreed on the treatment plan, understood the risk, benefit, alternative treatment, potential consequence of no treatment, and gave informed consent. Estimated days: 4 Post hospital care: primary care provider, psychiatric provider Case staffed with Dr. Fuentes Medications and Allergies Medications and Allergies Allergies Allergy/AdvReac Type Severity Reaction Status Date / Time codeine AdvReac Intermediate Swelling Verified 08/04/21 18:27 Home Medications Medication Instructions Recorded Confirmed Last Taken Type Aspirin EC [Halfprin EC] 81 mg PO QDAY #30 tablet. 10/20/19 08/06/21 Unknown Rx AtorvaSTATin [Lipitor] 40 mg PO QHS #30 tablet 10/20/19 08/06/21 Unknown Rx Calcium Carbonate/Vitamin D3 1 each PO DAILY #30 tablet 10/20/19 08/06/21 Unknown Rx [Calcium 500 mg-Vit D3 600 Unit] amLODIPine 10 mg PO QDAY #30 tablet 10/20/19 08/06/21 Unknown Rx Active Meds: Active Medications Amlodipine Besylate (Amlodipine 10 Mg Tab) 10 mg PO QDAY [facility] Last Admin: 08/26/21 09:17 Dose: 10 mg Aspirin (Aspirin 81 Mg Tab Chew) 81 mg PO QDAY [facility] Last Admin: 08/26/21 09:17 Dose: 81 mg Atorvastatin Calcium (Atorvastatin 40 Mg Tab) 40 mg PO QHS [facility] Last Admin: 08/26/21 21:09 Dose: 40 mg Melatonin (Melatonin 5 Mg Tab) 5 mg PO QHS PRN PRN Reason: Sleep Multivitamins/Minerals (Calcium Carb/Vit D3/Minerals 600 Mg/800 Units Tab) 1 each PO DAILY [facility] Last Admin: 08/26/21 09:17 Dose: 1 each Risperidone (Risperidone 0.25 Mg Tab) 0.25 mg PO BID [facility] Last Admin: 08/26/21 21:09 Dose: 0.25 mg Trazodone HCl (Trazodone 50 Mg Tab) 75 mg PO QHS [facility] Last Admin: 08/26/21 21:09 Dose: 75 mg Results - Results Labs/Vitals: Laboratory Last Values WBC 6.0 K/mm3 (4.5-11.0) 08/08/21 21:18 RBC 3.97 M/mm3 (3.65-5.03) 08/08/21 21:18 Hgb 11.8 gm/dl (10.1-14.3) 08/08/21 21:18 Hct 36.3 % (30.3-42.9) 08/08/21 21:18 MCV 92 fl (79-97) 08/08/21 21:18 MCH 30 pg (28-32) 08/08/21 21:18 MCHC 33 % (30-34) 08/08/21 21:18 RDW 15.2 % (13.2-15.2) 08/08/21 21:18 Plt Count 181 K/mm3 (140-440) 08/08/21 21:18 Lymph % (Auto) 32.9 % (13.4-35.0) 08/08/21 21:18 [place] % (Auto) 8.7 % (0.0-7.3) H 08/08/21 21:18 Eos % (Auto) 3.3 % (0.0-4.3) 08/08/21 21:18 Baso % (Auto) 0.5 % (0.0-1.8) 08/08/21 21:18 Lymph # (Auto) 2.0 K/mm3 (1.2-5.4) 08/08/21 21:18 [place] # (Auto) 0.5 K/mm3 (0.0-0.8) 08/08/21 21:18 Eos # (Auto) 0.2 K/mm3 (0.0-0.4) 08/08/21 21:18 Baso # (Auto) 0.0 K/mm3 (0.0-0.1) 08/08/21 21:18 Seg Neutrophils % 54.6 % (40.0-70.0) 08/08/21 21:18 Seg Neutrophils # 3.3 K/mm3 (1.8-7.7) 08/08/21 21:18 Sodium 140 mmol/L (137-145) 08/08/21 21:18 Potassium 3.8 mmol/L (3.6-5.0) 08/08/21 21:18 Chloride 101.9 mmol/L (98-107) 08/08/21 21:18 Carbon Dioxide 27 mmol/L (22-30) 08/08/21 21:18 Anion Gap 15 mmol/L 08/08/21 21:18 BUN 26 mg/dL (7-17) H 08/08/21 21:18 Creatinine 0.8 mg/dL (0.6-1.2) 08/08/21 21:18 Estimated GFR > 60 ml/min 08/08/21 21:18 BUN/Creatinine Ratio 33 % 08/08/21 21:18 Glucose 115 mg/dL (65-100) H 08/08/21 21:18 POC Glucose 153 mg/dL (70-105) H 08/25/21 19:37 Hemoglobin A1c 5.9 % (4-6) 08/08/21 21:18 Calcium 9.7 mg/dL (8.4-10.2) 08/08/21 21:18 Total Bilirubin 0.20 mg/dL (0.1-1.2) 08/08/21 21:18 AST 22 units/L (5-40) 08/08/21 21:18 ALT 17 units/L (7-56) 08/08/21 21:18 Alkaline Phosphatase 70 units/L (35-129) 08/08/21 21:18 Total Protein 6.9 g/dL (6.3-8.2) 08/08/21 21:18 Albumin 4.3 g/dL (3.9-5) 08/08/21 21:18 Albumin/Globulin Ratio 1.7 % 08/08/21 21:18 Triglycerides 126 mg/dL (2-149) 08/08/21 21:18 Cholesterol 279 mg/dL (50-199) H 08/08/21 21:18 LDL Cholesterol Direct 180 mg/dL (50-130) H 08/08/21 21:18 HDL Cholesterol 81 mg/dL (40-59) H 08/08/21 21:18 Cholesterol/HDL Ratio 3.44 % 08/08/21 21:18 TSH 1.720 mlU/mL (0.270-4.200) 08/08/21 21:18 Last Vital Signs Temp 98.6 F 08/26/21 19:38 Pulse 80 08/26/21 19:38 Resp 17 08/26/21 19:38 BP 126/64 08/26/21 19:38 Pulse Ox 97 08/26/21 19:38
[2021-08-27] MEDS: ASPIRIN 81 MG TAB CHEW PO SCH (09:35)
[2021-08-27] MEDS: risperiDONE 0.25 MG TAB PO SCH ×2 (09:35→21:40)
[2021-08-27] MEDS: CALCIUM CARB/VIT D3/MINERALS 600 MG/800 UNITS TAB PO SCH (09:35)
[2021-08-27] MEDS: amLODIPine 10 MG TAB PO SCH (09:35)
[2021-08-27] MEDS: traZODone 50 MG TAB PO SCH (23:39)
--- NOTE | 2021-08-28 10:11 | Progress Note ---
Subjective Date of service: 08/28/21 Principal diagnosis: Delusional Disorder Subjective Comment: The patient was seen today. She is standing at the sink in her room brushing her teeth. She is slightly irritable and states she is ready to get out of here. She denies SI/HI or hallucinations of any kind. The patient is awaiting placement. 08/27/21: The patient was seen this morning. She is in a better mood. " God is blessing me as he does everyday, I'm in a good mood, spoke with my daughter she is uplifting and reassuring. " She patient denies suicidal/homicidal ideation and denies hallucinations. The patient is clear from psych point of view. 08/26/21: The patient was seen this morning. She is irritable and refusing to answer questions. 08/25/21:The patient was seen at breakfast. She states she is she is doing well. She patient denies suicidal/homicidal ideation and denies hallucinations. The patient is clear from psych point of view. 08/24/21:The patient was seen at breakfast. She states she is she is doing well. She patient denies suicidal/homicidal ideation and denies hallucinations. The patient is clear from psych point of view. 08/23/21:The patient was seen at breakfast. She states she is just waking up " not there yet." She patient denies suicidal/homicidal ideation and denies hallucinations. The patient is clear from psych point of view. 08/22/21: The patient was seen at breakfast. She reports doing well. She states sleep and appetite as good. The patient was heard calling a peer disgusting stating he pulls his pants when he walked behind him. She patient denies suicidal/homicidal ideation and denies hallucinations. The patient is clear from psych point of view. 08/21/21: The patient was seen at breakfast. She reports doing well. She states sleep and appetite as good. The patient denies suicidal/homicidal ideation and denies hallucinations. The patient is clear from psych point of view. 08/20/21: The patient was seen in her room this morning. She reports doing well. She states sleep and appetite as good. The patient denies suicidal/homicidal ideation and denies hallucinations. The patient is clear from psych point of view. 08/19/21: The patient was seen this morning. She is calm, cooperative and reports doing well. She states sleep and appetite as good. The patient denies suicidal/homicidal ideation and denies hallucinations. 08/18/21: The patient was seen at breakfast. She is calm, cooperative and reports doing well. She states sleep and appetite as good. The patient denies suicidal/homicidal ideation and denies hallucinations. 08/17/21:The patient was seen today. She is calm, and cooperative. Her daughter is on the phone. The patient's progress and treatment plan were explained. The patient was explained the importance of complying with her medical regimen. She agrees to take the medication. The SW and nurse are involved as well. The patient denies SI/HI or hallucinations of any kind. 08/16 The patient was seen today. She is calm, and cooperative. She denies hallucinations of any kind. She also denies SI/HI. The patient appears to be at her baseline. Will plan with the aids social worker to discharge the patient to a safe place. 08/15 The patient was seem today. She is calm and cooperative. She denies SI/HI. She also denies hallucinations. The patient does appear to be a little delusional. She tells me something is going on with her eyes. I ask her what was going on. She says "I don't know. Look at them." There is nothing obviously wrong with her eyes. 08/14 The patient was seen today. She is lying in bed. She is awake, and pleasant. She is calm and cooperative. She denies SI/HI or hallucinations of any kind. She is awaiting placement. 08/13 The patient was seen today. She is calm and cooperative. She denies SI/HI or hallucinations of any kind. She says she slept much better last night. 08/12 The patient was seen today. She is calm, and cooperative. She is pleasant. The patient says she slept a little better but didn't feel like she rested well. She denies SI/HI or hallucinations of any kind. The patient says she doesn't know if she wants to take any meds because they make her feel sluggish. I advised the patient that if she wanted to continue to progress and go home, she had to comply with the treatment. She was in agreement, and states she would continue to take them. . 08/11 The patient was seen today. She is calm, cooperative and pleasant. She says she feels okay. She denies SI/HI. She also denies hallucinations. She says she did not sleep well. The patient says she kept waking up throughout the night. 08/10/21: The patient was seen this morning. She states she is doing well. She denies being depressed and no delusions noted. The patient denies any current suicidal/homicidal ideation and denies hallucinations. 08/09/21: The patient was seen at breakfast. She presents in good spirits and reports doing well. She reports sleep as fair. She denies depression and denies any current suicidal/homicidal ideation and denies hallucinations. 08/08/21: The patient was seen eating breakfast. she reports doing well " I would have liked to sleep better, so much interruptions." She denies depression and denies any current suicidal/homicidal ideation and denies hallucinations. 08/07/21:The patient was seen this morning. She is calm. When asking how she is doing, she states " I don't know yet." She reports sleep as restful. She denies depression and denies any current suicidal/homicidal ideation and denies hallucinations. REVIEW OF SYSTEMS Constitutional: Negative for weight loss ENT: Negative for stridor Respiratory: Negative for cough or hemoptysis All other systems reviewed and are negative MENTAL STATUS EXAMINATION General Appearance and Behavior: Age appropriate, good hygiene, wearing appropriate clothes, good eye contact, calm, cooperative Cooperation: Participating/engaged, but Guarded Psychomotor Behavior: Psychomotor normal Mood: good Affect and affective range: congruent with stated mood Thought Process: Goal directed Thought Content: Reality oriented Speech: normal tone and pace Suicidal Ideation: Denies Homicidal Ideation: Denies Hallucinations: Denies Delusions: None Impulse Control: Limited Insight and Judgment: Poor insight and judgment Memory: Poor Attention: Divided Orientation: Alert, oriented Assessment and Plan Delusional Disorder Treatment Plan Patient admitted for inpatient psychiatric evaluation, medication adjustment and close monitoring The patient's behavior, mood, sleep and appetite will be closely monitored. Patient enrolled in individual and group therapeutic sessions and encouraged to attend. Patient provided with a safe and structured environment. Patient's physical health needs will be addressed by the Hospitalist. Hospitalist Consulted Labs including CBC, CMP, Lipid profile and Hemoglobin A1C levels ordered for baseline reference Social Assessment will be completed and the Buzzsaw Operator Helper will work with patient and family to ensure a suitable and safe disposition Medication adjustment will be made as clinically indicated No changes made today Usual Wellness Judaism/Preservation: - Start Trazodone 50 mg po QHS & 50 mg po QHS PRN between 10 PM & 2 AM for insomnia - Start Melatonin 5 mg po QHS to promote circadian rhythm The patient agreed on the treatment plan, understood the risk, benefit, alternative treatment, potential consequence of no treatment, and gave informed consent. Estimated days: 4 Post hospital care: primary care provider, psychiatric provider Case staffed with Dr. Fuentes Medications and Allergies Allergies Allergy/AdvReac Type Severity Reaction Status Date / Time codeine AdvReac Intermediate Swelling Verified 08/04/21 18:27 Home Medications Medication Instructions Recorded Confirmed Last Taken Type Aspirin EC [Halfprin EC] 81 mg PO QDAY #30 tablet. 10/20/19 08/06/21 Unknown Rx AtorvaSTATin [Lipitor] 40 mg PO QHS #30 tablet 10/20/19 08/06/21 Unknown Rx Calcium Carbonate/Vitamin D3 1 each PO DAILY #30 tablet 10/20/19 08/06/21 Unknown Rx [Calcium 500 mg-Vit D3 600 Unit] amLODIPine 10 mg PO QDAY #30 tablet 10/20/19 08/06/21 Unknown Rx Active Meds: Active Medications Amlodipine Besylate (Amlodipine 10 Mg Tab) 10 mg PO QDAY [facility] Last Admin: 08/27/21 09:35 Dose: 10 mg Aspirin (Aspirin 81 Mg Tab Chew) 81 mg PO QDAY [facility] Last Admin: 08/27/21 09:35 Dose: 81 mg Atorvastatin Calcium (Atorvastatin 40 Mg Tab) 40 mg PO QHS [facility] Last Admin: 08/27/21 21:39 Dose: 40 mg Melatonin (Melatonin 5 Mg Tab) 5 mg PO QHS PRN PRN Reason: Sleep Multivitamins/Minerals (Calcium Carb/Vit D3/Minerals 600 Mg/800 Units Tab) 1 each PO DAILY [facility] Last Admin: 08/27/21 09:35 Dose: 1 each Risperidone (Risperidone 0.25 Mg Tab) 0.25 mg PO BID [facility] Last Admin: 08/27/21 21:40 Dose: 0.25 mg Trazodone HCl (Trazodone 50 Mg Tab) 75 mg PO QHS [facility] Last Admin: 08/27/21 23:39 Dose: Not Given Results - Results Labs/Vitals: Laboratory Last Values WBC 6.0 K/mm3 (4.5-11.0) 08/08/21 21:18 RBC 3.97 M/mm3 (3.65-5.03) 08/08/21 21:18 Hgb 11.8 gm/dl (10.1-14.3) 08/08/21 21:18 Hct 36.3 % (30.3-42.9) 08/08/21 21:18 MCV 92 fl (79-97) 08/08/21 21:18 MCH 30 pg (28-32) 08/08/21 21:18 MCHC 33 % (30-34) 08/08/21 21:18 RDW 15.2 % (13.2-15.2) 08/08/21 21:18 Plt Count 181 K/mm3 (140-440) 08/08/21 21:18 Lymph % (Auto) 32.9 % (13.4-35.0) 08/08/21 21:18 [place] % (Auto) 8.7 % (0.0-7.3) H 08/08/21 21:18 Eos % (Auto) 3.3 % (0.0-4.3) 08/08/21 21:18 Baso % (Auto) 0.5 % (0.0-1.8) 08/08/21 21:18 Lymph # (Auto) 2.0 K/mm3 (1.2-5.4) 08/08/21 21:18 [place] # (Auto) 0.5 K/mm3 (0.0-0.8) 08/08/21 21:18 Eos # (Auto) 0.2 K/mm3 (0.0-0.4) 08/08/21 21:18 Baso # (Auto) 0.0 K/mm3 (0.0-0.1) 08/08/21 21:18 Seg Neutrophils % 54.6 % (40.0-70.0) 08/08/21 21:18 Seg Neutrophils # 3.3 K/mm3 (1.8-7.7) 08/08/21 21:18 Sodium 140 mmol/L (137-145) 08/08/21 21:18 Potassium 3.8 mmol/L (3.6-5.0) 08/08/21 21:18 Chloride 101.9 mmol/L (98-107) 08/08/21 21:18 Carbon Dioxide 27 mmol/L (22-30) 08/08/21 21:18 Anion Gap 15 mmol/L 08/08/21 21:18 BUN 26 mg/dL (7-17) H 08/08/21 21:18 Creatinine 0.8 mg/dL (0.6-1.2) 08/08/21 21:18 Estimated GFR > 60 ml/min 08/08/21 21:18 BUN/Creatinine Ratio 33 % 08/08/21 21:18 Glucose 115 mg/dL (65-100) H 08/08/21 21:18 POC Glucose 153 mg/dL (70-105) H 08/25/21 19:37 Hemoglobin A1c 5.9 % (4-6) 08/08/21 21:18 Calcium 9.7 mg/dL (8.4-10.2) 08/08/21 21:18 Total Bilirubin 0.20 mg/dL (0.1-1.2) 08/08/21 21:18 AST 22 units/L (5-40) 08/08/21 21:18 ALT 17 units/L (7-56) 08/08/21 21:18 Alkaline Phosphatase 70 units/L (35-129) 08/08/21 21:18 Total Protein 6.9 g/dL (6.3-8.2) 08/08/21 21:18 Albumin 4.3 g/dL (3.9-5) 08/08/21 21:18 Albumin/Globulin Ratio 1.7 % 08/08/21 21:18 Triglycerides 126 mg/dL (2-149) 08/08/21 21:18 Cholesterol 279 mg/dL (50-199) H 08/08/21 21:18 LDL Cholesterol Direct 180 mg/dL (50-130) H 08/08/21 21:18 HDL Cholesterol 81 mg/dL (40-59) H 08/08/21 21:18 Cholesterol/HDL Ratio 3.44 % 08/08/21 21:18 TSH 1.720 mlU/mL (0.270-4.200) 08/08/21 21:18 Last Vital Signs Temp 98.7 F 08/27/21 19:14 Pulse 89 08/27/21 19:14 Resp 17 08/27/21 19:14 BP 108/52 08/27/21 19:14 Pulse Ox 97 08/27/21 19:14
[2021-08-28] MEDS: amLODIPine 10 MG TAB PO SCH (10:17)
[2021-08-28] MEDS: risperiDONE 0.25 MG TAB PO SCH ×2 (10:17→21:59)
[2021-08-28] MEDS: ASPIRIN 81 MG TAB CHEW PO SCH (10:17)
[2021-08-28] MEDS: CALCIUM CARB/VIT D3/MINERALS 600 MG/800 UNITS TAB PO SCH (10:17)
[2021-08-28] MEDS: traZODone 50 MG TAB PO SCH (23:39)
--- NOTE | 2021-08-29 09:01 | Progress Note ---
Subjective Date of service: 08/29/21 Principal diagnosis: Delusional Disorder Subjective Comment: The patient was seen today. She is lying in bed awake. She is calm and cooperative. She says she doesn't feel like herself this morning. The patient says "I'm just ready to leave here. I've been here too long." I assured the patient that she would discharge once the secures a safe place for her to go. She is understanding of this. The patient denies SI/HI or hallucinations of any kind. 08/28 The patient was seen today. She is standing at the sink in her room brushing her teeth. She is slightly irritable and states she is ready to get out of here. She denies SI/HI or hallucinations of any kind. The patient is awaiting placement. 08/27/21: The patient was seen this morning. She is in a better mood. " God is blessing me as he does everyday, I'm in a good mood, spoke with my daughter she is uplifting and reassuring. " She patient denies suicidal/homicidal ideation and denies hallucinations. The patient is clear from psych point of view. 08/26/21: The patient was seen this morning. She is irritable and refusing to answer questions. 08/25/21:The patient was seen at breakfast. She states she is she is doing well. She patient denies suicidal/homicidal ideation and denies hallucinations. The patient is clear from psych point of view. 08/24/21:The patient was seen at breakfast. She states she is she is doing well. She patient denies suicidal/homicidal ideation and denies hallucinations. The patient is clear from psych point of view. 08/23/21:The patient was seen at breakfast. She states she is just waking up " not there yet." She patient denies suicidal/homicidal ideation and denies hallucinations. The patient is clear from psych point of view. 08/22/21: The patient was seen at breakfast. She reports doing well. She states sleep and appetite as good. The patient was heard calling a peer disgusting stating he pulls his pants when he walked behind him. She patient denies suicidal/homicidal ideation and denies hallucinations. The patient is clear from psych point of view. 08/21/21: The patient was seen at breakfast. She reports doing well. She states sleep and appetite as good. The patient denies suicidal/homicidal ideation and denies hallucinations. The patient is clear from psych point of view. 08/20/21: The patient was seen in her room this morning. She reports doing well. She states sleep and appetite as good. The patient denies suicidal/homicidal ideation and denies hallucinations. The patient is clear from psych point of view. 08/19/21: The patient was seen this morning. She is calm, cooperative and reports doing well. She states sleep and appetite as good. The patient denies suicidal/homicidal ideation and denies hallucinations. 08/18/21: The patient was seen at breakfast. She is calm, cooperative and reports doing well. She states sleep and appetite as good. The patient denies suicidal/homicidal ideation and denies hallucinations. 08/17/21:The patient was seen today. She is calm, and cooperative. Her daughter is on the phone. The patient's progress and treatment plan were explained. The patient was explained the importance of complying with her medical regimen. She agrees to take the medication. The SW and nurse are involved as well. The patient denies SI/HI or hallucinations of any kind. 08/16 The patient was seen today. She is calm, and cooperative. She denies hallucinations of any kind. She also denies SI/HI. The patient appears to be at her baseline. Will plan with the psychotherapist social worker to discharge the patient to a safe place. 08/15 The patient was seem today. She is calm and cooperative. She denies SI/HI. She also denies hallucinations. The patient does appear to be a little delusional. She tells me something is going on with her eyes. I ask her what was going on. She says "I don't know. Look at them." There is nothing obviously wrong with her eyes. 08/14 The patient was seen today. She is lying in bed. She is awake, and plea sandra. She is calm and cooperative. She denies SI/HI or hallucinations of any kind. She is awaiting placement. 08/13 The patient was seen today. She is calm and cooperative. She denies SI/HI or hallucinations of any kind. She says she slept much better last night. 08/12 The patient was seen today. She is calm, and cooperative. She is pleasant. The patient says she slept a little better but didn't feel like she rested well. She denies SI/HI or hallucinations of any kind. The patient says she doesn't know if she wants to take any meds because they make her feel sluggish. I advised the patient that if she wanted to continue to progress and go home, she had to comply with the treatment. She was in agreement, and states she would continue to take them. . 08/11 The patient was seen today. She is calm, cooperative and pleasant. She says she feels okay. She denies SI/HI. She also denies hallucinations. She says she did not sleep well. The patient says she kept waking up throughout the night. 08/10/21: The patient was seen this morning. She states she is doing well. She denies being depressed and no delusions noted. The patient denies any current suicidal/homicidal ideation and denies hallucinations. 08/09/21: The patient was seen at breakfast. She presents in good spirits and reports doing well. She reports sleep as fair. She denies depression and denies any current suicidal/homicidal ideation and denies hallucinations. 08/08/21: The patient was seen eating breakfast. she reports doing well " I would have liked to sleep better, so much interruptions." She denies depression and denies any current suicidal/homicidal ideation and denies hallucinations. 08/07/21:The patient was seen this morning. She is calm. When asking how she is doing, she states " I don't know yet." She reports sleep as restful. She denies depression and denies any current suicidal/homicidal ideation and denies hallucinations. REVIEW OF SYSTEMS Constitutional: Negative for weight loss ENT: Negative for stridor Respiratory: Negative for cough or hemoptysis All other systems reviewed and are negative MENTAL STATUS EXAMINATION General Appearance and Behavior: Age appropriate, good hygiene, wearing appropriate clothes, good eye contact, calm, cooperative Cooperation: Participating/engaged, but Guarded Psychomotor Behavior: Psychomotor normal Mood: good Affect and affective range: congruent with stated mood Thought Process: Goal directed Thought Content: Reality oriented Speech: normal tone and pace Suicidal Ideation: Denies Homicidal Ideation: Denies Hallucinations: Denies Delusions: None Impulse Control: Limited Insight and Judgment: Poor insight and judgment Memory: Poor Attention: Divided Orientation: Alert, oriented Assessment and Plan Delusional Disorder Treatment Plan Patient admitted for inpatient psychiatric evaluation, medication adjustment and close monitoring The patient's behavior, mood, sleep and appetite will be closely monitored. Patient enrolled in individual and group therapeutic sessions and encouraged to attend. Patient provided with a safe and structured environment. Patient's physical health needs will be addressed by the Hospitalist. Hospitalist Consulted Labs including CBC, CMP, Lipid profile and Hemoglobin A1C levels ordered for baseline reference Social Assessment will be completed and the Catalyst Operator Gasoline will work with patient and family to ensure a suitable and safe disposition Medication adjustment will be made as clinically indicated No changes made today Usual Wellness Episcopalian/Preservation: - Start Trazodone 50 mg po QHS & 50 mg po QHS PRN between 10 PM & 2 AM for insomnia - Start Melatonin 5 mg po QHS to promote circadian rhythm The patient agreed on the treatment plan, understood the risk, benefit, alternative treatment, potential consequence of no treatment, and gave informed consent. Estimated days: 4 Post hospital care: primary care provider, psychiatric provider Case staffed with Dr. Fuentes Medications and Allergies Allergies Allergy/AdvReac Type Severity Reaction Status Date / Time codeine AdvReac Intermediate Swelling Verified 08/04/21 18:27 Home Medications Medication Instructions Recorded Confirmed Last Taken Type Aspirin EC [Halfprin EC] 81 mg PO QDAY #30 tablet. 10/20/19 08/06/21 Unknown Rx AtorvaSTATin [Lipitor] 40 mg PO QHS #30 tablet 10/20/19 08/06/21 Unknown Rx Calcium Carbonate/Vitamin D3 1 each PO DAILY #30 tablet 10/20/19 08/06/21 Unknown Rx [Calcium 500 mg-Vit D3 600 Unit] amLODIPine 10 mg PO QDAY #30 tablet 10/20/19 08/06/21 Unknown Rx Active Meds: Active Medications Amlodipine Besylate (Amlodipine 10 Mg Tab) 10 mg PO QDAY [facility] Last Admin: 08/28/21 10:17 Dose: 10 mg Aspirin (Aspirin 81 Mg Tab Chew) 81 mg PO QDAY [facility] Last Admin: 08/28/21 10:17 Dose: 81 mg Atorvastatin Calcium (Atorvastatin 40 Mg Tab) 40 mg PO QHS [facility] Last Admin: 08/28/21 21:59 Dose: 40 mg Melatonin (Melatonin 5 Mg Tab) 5 mg PO QHS PRN PRN Reason: Sleep Multivitamins/Minerals (Calcium Carb/Vit D3/Minerals 600 Mg/800 Units Tab) 1 each PO DAILY [facility] Last Admin: 08/28/21 10:17 Dose: 1 each Risperidone (Risperidone 0.25 Mg Tab) 0.25 mg PO BID [facility] Last Admin: 08/28/21 21:59 Dose: 0.25 mg Trazodone HCl (Trazodone 50 Mg Tab) 75 mg PO QHS [facility] Last Admin: 08/28/21 23:39 Dose: Not Given Results - Results Labs/Vitals: Laboratory Last Values WBC 6.0 K/mm3 (4.5-11.0) 08/08/21 21:18 RBC 3.97 M/mm3 (3.65-5.03) 08/08/21 21:18 Hgb 11.8 gm/dl (10.1-14.3) 08/08/21 21:18 Hct 36.3 % (30.3-42.9) 08/08/21 21:18 MCV 92 fl (79-97) 08/08/21 21:18 MCH 30 pg (28-32) 08/08/21 21:18 MCHC 33 % (30-34) 08/08/21 21:18 RDW 15.2 % (13.2-15.2) 08/08/21 21:18 Plt Count 181 K/mm3 (140-440) 08/08/21 21:18 Lymph % (Auto) 32.9 % (13.4-35.0) 08/08/21 21:18 [place] % (Auto) 8.7 % (0.0-7.3) H 08/08/21 21:18 Eos % (Auto) 3.3 % (0.0-4.3) 08/08/21 21:18 Baso % (Auto) 0.5 % (0.0-1.8) 08/08/21 21:18 Lymph # (Auto) 2.0 K/mm3 (1.2-5.4) 08/08/21 21:18 [place] # (Auto) 0.5 K/mm3 (0.0-0.8) 08/08/21 21:18 Eos # (Auto) 0.2 K/mm3 (0.0-0.4) 08/08/21 21:18 Baso # (Auto) 0.0 K/mm3 (0.0-0.1) 08/08/21 21:18 Seg Neutrophils % 54.6 % (40.0-70.0) 08/08/21 21:18 Seg Neutrophils # 3.3 K/mm3 (1.8-7.7) 08/08/21 21:18 Sodium 140 mmol/L (137-145) 08/08/21 21:18 Potassium 3.8 mmol/L (3.6-5.0) 08/08/21 21:18 Chloride 101.9 mmol/L (98-107) 08/08/21 21:18 Carbon Dioxide 27 mmol/L (22-30) 08/08/21 21:18 Anion Gap 15 mmol/L 08/08/21 21:18 BUN 26 mg/dL (7-17) H 08/08/21 21:18 Creatinine 0.8 mg/dL (0.6-1.2) 08/08/21 21:18 Estimated GFR > 60 ml/min 08/08/21 21:18 BUN/Creatinine Ratio 33 % 08/08/21 21:18 Glucose 115 mg/dL (65-100) H 08/08/21 21:18 POC Glucose 153 mg/dL (70-105) H 08/25/21 19:37 Hemoglobin A1c 5.9 % (4-6) 08/08/21 21:18 Calcium 9.7 mg/dL (8.4-10.2) 08/08/21 21:18 Total Bilirubin 0.20 mg/dL (0.1-1.2) 08/08/21 21:18 AST 22 units/L (5-40) 08/08/21 21:18 ALT 17 units/L (7-56) 08/08/21 21:18 Alkaline Phosphatase 70 units/L (35-129) 08/08/21 21:18 Total Protein 6.9 g/dL (6.3-8.2) 08/08/21 21:18 Albumin 4.3 g/dL (3.9-5) 08/08/21 21:18 Albumin/Globulin Ratio 1.7 % 08/08/21 21:18 Triglycerides 126 mg/dL (2-149) 08/08/21 21:18 Cholesterol 279 mg/dL (50-199) H 08/08/21 21:18 LDL Cholesterol Direct 180 mg/dL (50-130) H 08/08/21 21:18 HDL Cholesterol 81 mg/dL (40-59) H 08/08/21 21:18 Cholesterol/HDL Ratio 3.44 % 08/08/21 21:18 TSH 1.720 mlU/mL (0.270-4.200) 08/08/21 21:18 Last Vital Signs Temp 98.6 F 08/28/21 20:04 Pulse 83 08/28/21 20:04 Resp 16 08/28/21 20:04 BP 136/67 08/28/21 20:04 Pulse Ox 98 08/28/21 20:04
[2021-08-29] MEDS: ASPIRIN 81 MG TAB CHEW PO SCH (10:06)
[2021-08-29] MEDS: amLODIPine 10 MG TAB PO SCH (10:06)
[2021-08-29] MEDS: CALCIUM CARB/VIT D3/MINERALS 600 MG/800 UNITS TAB PO SCH (10:06)
[2021-08-29] MEDS: risperiDONE 0.25 MG TAB PO SCH ×3 (10:09→21:17)
[2021-08-29] MEDS: traZODone 50 MG TAB PO SCH ×2 (21:13→21:17)
--- NOTE | 2021-08-30 09:11 | Progress Note ---
Subjective Date of service: 08/30/21 Principal diagnosis: Delusional Disorder Subjective Comment: The patient was seen today. She is calm, cooperative and pleasant. She denies SI/HI or hallucinations of any kind. She says she slept okay. 08/29 The patient was seen today. She is lying in bed awake. She is calm and cooperative. She says she doesn't feel like herself this morning. The patient says "I'm just ready to leave here. I've been here too long." I assured the p atient that she would discharge once the SW secures a safe place for her to go. She is understanding of this. The patient denies SI/HI or hallucinations of any kind. 08/28 The patient was seen today. She is standing at the sink in her room brushing her teeth. She is slightly irritable and states she is ready to get out of here. She denies SI/HI or hallucinations of any kind. The patient is awaiting placement. 08/27/21: The patient was seen this morning. She is in a better mood. " God is blessing me as he does everyday, I'm in a good mood, spoke with my daughter she is uplifting and reassuring. " She patient denies suicidal/homicidal ideation and denies hallucinations. The patient is clear from psych point of view. 08/26/21: The patient was seen this morning. She is irritable and refusing to answer questions. 08/25/21:The patient was seen at breakfast. She states she is she is doing well. She patient denies suicidal/homicidal ideation and denies hallucinations. The patient is clear from psych point of view. 08/24/21:The patient was seen at breakfast. She states she is she is doing well. She patient denies suicidal/homicidal ideation and denies hallucinations. The patient is clear from psych point of view. 08/23/21:The patient was seen at breakfast. She states she is just waking up " not there yet." She patient denies suicidal/homicidal ideation and denies hallucinations. The patient is clear from psych point of view. 08/22/21: The patient was seen at breakfast. She reports doing well. She states sleep and appetite as good. The patient was heard calling a peer disgusting stating he pulls his pants when he walked behind him. She patient denies suicidal/homicidal ideation and denies hallucinations. The patient is clear from psych point of view. 08/21/21: The patient was seen at breakfast. She reports doing well. She states sleep and appetite as good. The patient denies suicidal/homicidal ideation and denies hallucinations. The patient is clear from psych point of view. 08/20/21: The patient was seen in her room this morning. She reports doing well. She states sleep and appetite as good. The patient denies suicidal/homicidal ideation and denies hallucinations. The patient is clear from psych point of view. 08/19/21: The patient was seen this morning. She is calm, cooperative and reports doing well. She states sleep and appetite as good. The patient denies suicidal/homicidal ideation and denies hallucinations. 08/18/21: The patient was seen at breakfast. She is calm, cooperative and reports doing well. She states sleep and appetite as good. The patient denies suicidal/homicidal ideation and denies hallucinations. 08/17/21:The patient was seen today. She is calm, and cooperative. Her daughter is on the phone. The patient's progress and treatment plan were explained. The patient was explained the importance of complying with her medical regimen. She agrees to take the medication. The SW and nurse are involved as well. The patient denies SI/HI or hallucinations of any kind. 08/16 The patient was seen today. She is calm, and cooperative. She denies hallucinations of any kind. She also denies SI/HI. The patient appears to be at her baseline. Will plan with the social worker assistant to discharge the patient to a safe place. 08/15 The patient was seem today. She is calm and cooperative. She denies SI/HI. She also denies hallucinations. The patient does appear to be a little delusional. She tells me something is going on with her eyes. I ask her what was going on. She says "I don't know. Look at them." There is nothing obviously wrong with her eyes. 08/14 The patient was seen today. She is lying in bed. She is awake, and pleasant. She is calm and cooperative. She denies SI/HI or hallucinations of any kind. She is awaiting placement. 08/13 The patient was seen today. She is calm and cooperative. She denies SI/HI or hallucinations of any kind. She says she slept much better last night. 08/12 The patient was seen today. She is calm, and cooperative. She is pleasant. The patient says she slept a little better but didn't feel like she rested well. She denies SI/HI or hallucinations of any kind. The patient says she doesn't know if she wants to take any meds because they make her feel sluggish. I advised the patient that if she wanted to continue to progress and go home, she had to comply with the treatment. She was in agreement, and states she would continue to take them. . 08/11 The patient was seen today. She is calm, cooperative and pleasant. She says she feels okay. She denies SI/HI. She also denies hallucinations. She says she did not sleep well. The patient says she kept waking up throughout the night. 08/10/21: The patient was seen this morning. She states she is doing well. She denies being depressed and no delusions noted. The patient denies any current suicidal/homicidal ideation and denies hallucinations. 08/09/21: The patient was seen at breakfast. She presents in good spirits and reports doing well. She reports sleep as fair. She denies depression and denies any current suicidal/homicidal ideation and denies hallucinations. 08/08/21: The patient was seen eating breakfast. she reports doing well " I would have liked to sleep better, so much interruptions." She denies depression and denies any current suicidal/homicidal ideation and denies hallucinations. 08/07/21:The patient was seen this morning. She is calm. When asking how she is doing, she states " I don't know yet." She reports sleep as restful. She denies depression and denies any current suicidal/homicidal ideation and denies hallucinations. REVIEW OF SYSTEMS Constitutional: Negative for weight loss ENT: Negative for stridor Respiratory: Negative for cough or hemoptysis All other systems reviewed and are negative MENTAL STATUS EXAMINATION General Appearance and Behavior: Age appropriate, good hygiene, wearing appropriate clothes, good eye contact, calm, cooperative Cooperation: Participating/engaged, but Guarded Psychomotor Behavior: Psychomotor normal Mood: good Affect and affective range: congruent with stated mood Thought Process: Goal directed Thought Content: Reality oriented Speech: normal tone and pace Suicidal Ideation: Denies Homicidal Ideation: Denies Hallucinations: Denies Delusions: None Impulse Control: Limited Insight and Judgment: Poor insight and judgment Memory: Poor Attention: Divided Orientation: Alert, oriented Assessment and Plan Delusional Disorder Treatment Plan Patient admitted for inpatient psychiatric evaluation, medication adjustment and close monitoring The patient's behavior, mood, sleep and appetite will be closely monitored. Patient enrolled in individual and group therapeutic sessions and encouraged to attend. Patient provided with a safe and structured environment. Patient's physical health needs will be addressed by the Hospitalist. Hospitalist Consulted Labs including CBC, CMP, Lipid profile and Hemoglobin A1C levels ordered for baseline reference Social Assessment will be completed and the Applications Packager will work with patient and family to ensure a suitable and safe disposition Medication adjustment will be made as clinically indicated No changes made today Usual Wellness [place]/Preservation: - Start Trazodone 50 mg po QHS & 50 mg po QHS PRN between 10 PM & 2 AM for insomnia - Start Melatonin 5 mg po QHS to promote circadian rhythm The patient agreed on the treatment plan, understood the risk, benefit, alternative treatment, potential consequence of no treatment, and gave informed consent. Estimated days: 4 Post hospital care: primary care provider, psychiatric provider Case staffed with Dr. Fuentes Medications and Allergies Allergies Allergy/AdvReac Type Severity Reaction Status Date / Time codeine AdvReac Intermediate Swelling Verified 08/04/21 18:27 Home Medications Medication Instructions Recorded Confirmed Last Taken Type Aspirin EC [Halfprin EC] 81 mg PO QDAY #30 tablet. 10/20/19 08/06/21 Unknown Rx AtorvaSTATin [Lipitor] 40 mg PO QHS #30 tablet 10/20/19 08/06/21 Unknown Rx Calcium Carbonate/Vitamin D3 1 each PO DAILY #30 tablet 10/20/19 08/06/21 Unknown Rx [Calcium 500 mg-Vit D3 600 Unit] amLODIPine 10 mg PO QDAY #30 tablet 10/20/19 08/06/21 Unknown Rx Active Meds: Active Medications Amlodipine Besylate (Amlodipine 10 Mg Tab) 10 mg PO QDAY [facility] Last Admin: 08/29/21 10:06 Dose: 10 mg Aspirin (Aspirin 81 Mg Tab Chew) 81 mg PO QDAY [facility] Last Admin: 08/29/21 10:06 Dose: 81 mg Atorvastatin Calcium (Atorvastatin 40 Mg Tab) 40 mg PO QHS [facility] Last Admin: 08/29/21 21:17 Dose: Not Given Melatonin (Melatonin 5 Mg Tab) 5 mg PO QHS PRN PRN Reason: Sleep Multivitamins/Minerals (Calcium Carb/Vit D3/Minerals 600 Mg/800 Units Tab) 1 each PO DAILY [facility] Last Admin: 08/29/21 10:06 Dose: 1 each Risperidone (Risperidone 0.25 Mg Tab) 0.25 mg PO BID [facility] Last Admin: 08/29/21 21:17 Dose: Not Given Trazodone HCl (Trazodone 50 Mg Tab) 75 mg PO QHS [facility] Last Admin: 08/29/21 21:17 Dose: Not Given Results - Results Labs/Vitals: Laboratory Last Values WBC 6.0 K/mm3 (4.5-11.0) 08/08/21 21:18 RBC 3.97 M/mm3 (3.65-5.03) 08/08/21 21:18 Hgb 11.8 gm/dl (10.1-14.3) 08/08/21 21:18 Hct 36.3 % (30.3-42.9) 08/08/21 21:18 MCV 92 fl (79-97) 08/08/21 21:18 MCH 30 pg (28-32) 08/08/21 21:18 MCHC 33 % (30-34) 08/08/21 21:18 RDW 15.2 % (13.2-15.2) 08/08/21 21:18 Plt Count 181 K/mm3 (140-440) 08/08/21 21:18 Lymph % (Auto) 32.9 % (13.4-35.0) 08/08/21 21:18 [place] % (Auto) 8.7 % (0.0-7.3) H 08/08/21 21:18 Eos % (Auto) 3.3 % (0.0-4.3) 08/08/21 21:18 Baso % (Auto) 0.5 % (0.0-1.8) 08/08/21 21:18 Lymph # (Auto) 2.0 K/mm3 (1.2-5.4) 08/08/21 21:18 [place] # (Auto) 0.5 K/mm3 (0.0-0.8) 08/08/21 21:18 Eos # (Auto) 0.2 K/mm3 (0.0-0.4) 08/08/21 21:18 Baso # (Auto) 0.0 K/mm3 (0.0-0.1) 08/08/21 21:18 Seg Neutrophils % 54.6 % (40.0-70.0) 08/08/21 21:18 Seg Neutrophils # 3.3 K/mm3 (1.8-7.7) 08/08/21 21:18 Sodium 140 mmol/L (137-145) 08/08/21 21:18 Potassium 3.8 mmol/L (3.6-5.0) 08/08/21 21:18 Chloride 101.9 mmol/L (98-107) 08/08/21 21:18 Carbon Dioxide 27 mmol/L (22-30) 08/08/21 21:18 Anion Gap 15 mmol/L 08/08/21 21:18 BUN 26 mg/dL (7-17) H 08/08/21 21:18 Creatinine 0.8 mg/dL (0.6-1.2) 08/08/21 21:18 Estimated GFR > 60 ml/min 08/08/21 21:18 BUN/Creatinine Ratio 33 % 08/08/21 21:18 Glucose 115 mg/dL (65-100) H 08/08/21 21:18 POC Glucose 153 mg/dL (70-105) H 08/25/21 19:37 Hemoglobin A1c 5.9 % (4-6) 08/08/21 21:18 Calcium 9.7 mg/dL (8.4-10.2) 08/08/21 21:18 Total Bilirubin 0.20 mg/dL (0.1-1.2) 08/08/21 21:18 AST 22 units/L (5-40) 08/08/21 21:18 ALT 17 units/L (7-56) 08/08/21 21:18 Alkaline Phosphatase 70 units/L (35-129) 08/08/21 21:18 Total Protein 6.9 g/dL (6.3-8.2) 08/08/21 21:18 Albumin 4.3 g/dL (3.9-5) 08/08/21 21:18 Albumin/Globulin Ratio 1.7 % 08/08/21 21:18 Triglycerides 126 mg/dL (2-149) 08/08/21 21:18 Cholesterol 279 mg/dL (50-199) H 08/08/21 21:18 LDL Cholesterol Direct 180 mg/dL (50-130) H 08/08/21 21:18 HDL Cholesterol 81 mg/dL (40-59) H 08/08/21 21:18 Cholesterol/HDL Ratio 3.44 % 08/08/21 21:18 TSH 1.720 mlU/mL (0.270-4.200) 08/08/21 21:18 Last Vital Signs Temp 98.6 F 08/28/21 20:04 Pulse 83 08/29/21 10:06 Resp 16 08/28/21 20:04 BP 136/67 08/29/21 10:06 Pulse Ox 98 08/28/21 20:04
[2021-08-30] MEDS: CALCIUM CARB/VIT D3/MINERALS 600 MG/800 UNITS TAB PO SCH (09:34)
[2021-08-30] MEDS: ASPIRIN 81 MG TAB CHEW PO SCH (09:34)
[2021-08-30] MEDS: amLODIPine 10 MG TAB PO SCH (09:34)
[2021-08-30] MEDS: risperiDONE 0.25 MG TAB PO SCH ×2 (09:35→21:16)
--- NOTE | 2021-08-30 16:34 | Progress Note ---
Assessment and Plan - Patient Problems (1) Vascular dementia with behavioral disturbance Current Visit: Yes Status: Acute Plan to address problem: Verbal prompting, verbal redirection, benzodiazepine therapy as clinically indicated (2) Cerebral atherosclerosis Current Visit: Yes Status: Acute Plan to address problem: Risk factor reduction, antiplatelet therapy as clinically indicated. (3) Hypertension Current Visit: Yes Status: Acute Qualifiers: Hypertension type: primary hypertension Qualified Code(s): I10 - Essential (primary) hypertension Plan to address problem: Monitor blood pressure every shift, continue medical management. (4) Hyperlipidemia Current Visit: Yes Status: Acute Plan to address problem: Low-cholesterol diet, statin therapy, supportive care. (5) Diabetes Current Visit: Yes Status: Acute Plan to address problem: Consistent carbohydrate diet, Accu-Chek, insulin protocol, hypoglycemia protocol. (6) Malnutrition Current Visit: Yes Status: Acute Qualifiers: Protein-calorie malnutrition severity: moderate Plan to address problem: Dietary intake varies based on cognition. Dietary supplementation when awake and alert only, increase protein intake. (7) Psychosis Current Visit: Yes Status: Acute Qualifiers: Schizophrenia type: unspecified Plan to address problem: Continue medical management as per mental health team (8) Debility Current Visit: Yes Status: Acute Plan to address problem: Bed alarm, fall precautions. (9) Dependent edema Current Visit: Yes Status: Acute Plan to address problem: Trace dependent edema. No palpable cords, no discoloration, no physical exam findings consistent with DVT. No unilateral leg swelling. Bilateral lower extremity elevation nightly. (10) Advance care planning Current Visit: Yes Status: Acute Plan to address problem: Disease education conducted, care plan discussed, diagnoses discussed, prognosis discussed, patient is full code. Discussed patient diagnoses, prognosis and care plan with patient granddaughter Felicia Nuñez [phone]. Patient is currently unable to live independently and will require placement. Discussed all likely options. Recommend discharge with hospice care to assisted facility, personal-senior care, or assisted living facility depending on availability and acceptance. 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 +30 minutes. History Interval history: 81 YO Female with Vascular Dementia with Behavioral Disturbance, Cerebral Atherosclerosis, HTN, DM, Malnitrition, MDD, EDWIN admitted to [facility] for psychiatric stabilization. Consult placed by Dr. Hernandez for medical management. Pt seen and evaluated in the recreation room. Pt has diminished cognition and is at baseline level of cognition and function. nursing staff reports that patient complains of leg swelling. Patient seen and evaluated. Patient found to have trace dependent edema.. Hospitalist Physical - Constitutional Vitals: Temp Pulse Resp BP Pulse Ox 98.6 F 83 16 136/67 98 08/28/21 20:04 08/29/21 10:06 08/28/21 20:04 08/29/21 10:06 08/28/21 20:04 General appearance: Present: no acute distress, cachectic - EENT Eyes: Present: PERRL ENT: hearing decreased - Neck Neck: Present: supple - Respiratory Respiratory effort: normal Respiratory: bilateral: CTA - Cardiovascular Rhythm: regular Heart Sounds: Present: S1 & S2 - Extremities Extremities: no ischemia Peripheral Pulses: within normal limits - Abdominal General gastrointestinal: soft, non-tender, non-distended - Integumentary Integumentary: Present: clear, dry - Psychiatric Psychiatric: cooperative - Neurologic Neurologic: CNII-XII intact Results - Labs CBC & Chem 7: 08/08/21 21:18 08/08/21 21:18 Labs: Laboratory Last Values WBC 6.0 K/mm3 (4.5-11.0) 08/08/21 21:18 RBC 3.97 M/mm3 (3.65-5.03) 08/08/21 21:18 Hgb 11.8 gm/dl (10.1-14.3) 08/08/21 21:18 Hct 36.3 % (30.3-42.9) 08/08/21 21:18 MCV 92 fl (79-97) 08/08/21 21:18 MCH 30 pg (28-32) 08/08/21 21:18 MCHC 33 % (30-34) 08/08/21 21:18 RDW 15.2 % (13.2-15.2) 08/08/21 21:18 Plt Count 181 K/mm3 (140-440) 08/08/21 21:18 Lymph % (Auto) 32.9 % (13.4-35.0) 08/08/21 21:18 [place] % (Auto) 8.7 % (0.0-7.3) H 08/08/21 21:18 Eos % (Auto) 3.3 % (0.0-4.3) 08/08/21 21:18 Baso % (Auto) 0.5 % (0.0-1.8) 08/08/21 21:18 Lymph # (Auto) 2.0 K/mm3 (1.2-5.4) 08/08/21 21:18 [place] # (Auto) 0.5 K/mm3 (0.0-0.8) 08/08/21 21:18 Eos # (Auto) 0.2 K/mm3 (0.0-0.4) 08/08/21 21:18 Baso # (Auto) 0.0 K/mm3 (0.0-0.1) 08/08/21 21:18 Seg Neutrophils % 54.6 % (40.0-70.0) 08/08/21 21:18 Seg Neutrophils # 3.3 K/mm3 (1.8-7.7) 08/08/21 21:18 Sodium 140 mmol/L (137-145) 08/08/21 21:18 Potassium 3.8 mmol/L (3.6-5.0) 08/08/21 21:18 Chloride 101.9 mmol/L (98-107) 08/08/21 21:18 Carbon Dioxide 27 mmol/L (22-30) 08/08/21 21:18 Anion Gap 15 mmol/L 08/08/21 21:18 BUN 26 mg/dL (7-17) H 08/08/21 21:18 Creatinine 0.8 mg/dL (0.6-1.2) 08/08/21 21:18 Estimated GFR > 60 ml/min 08/08/21 21:18 BUN/Creatinine Ratio 33 % 08/08/21 21:18 Glucose 115 mg/dL (65-100) H 08/08/21 21:18 POC Glucose 153 mg/dL (70-105) H 08/25/21 19:37 Hemoglobin A1c 5.9 % (4-6) 08/08/21 21:18 Calcium 9.7 mg/dL (8.4-10.2) 08/08/21 21:18 Total Bilirubin 0.20 mg/dL (0.1-1.2) 08/08/21 21:18 AST 22 units/L (5-40) 08/08/21 21:18 ALT 17 units/L (7-56) 08/08/21 21:18 Alkaline Phosphatase 70 units/L (35-129) 08/08/21 21:18 Total Protein 6.9 g/dL (6.3-8.2) 08/08/21 21:18 Albumin 4.3 g/dL (3.9-5) 08/08/21 21:18 Albumin/Globulin Ratio 1.7 % 08/08/21 21:18 Triglycerides 126 mg/dL (2-149) 08/08/21 21:18 Cholesterol 279 mg/dL (50-199) H 08/08/21 21:18 LDL Cholesterol Direct 180 mg/dL (50-130) H 08/08/21 21:18 HDL Cholesterol 81 mg/dL (40-59) H 08/08/21 21:18 Cholesterol/HDL Ratio 3.44 % 08/08/21 21:18 TSH 1.720 mlU/mL (0.270-4.200) 08/08/21 21:18 [place]/IV: Voiding Method Diaper Active Medications - Current Medications Current Medications: Generic Name Dose Route Start Last Admin Trade Name Freq PRN Reason Stop Dose Admin Amlodipine Besylate 10 mg 08/06/21 10:00 08/30/21 09:34 Amlodipine 10 Mg Tab PO Not Given QDAY [facility] Aspirin 81 mg 08/18/21 10:00 08/30/21 09:34 Aspirin 81 Mg Tab Chew PO Not Given QDAY [facility] Atorvastatin Calcium 40 mg 08/06/21 22:00 08/29/21 21:17 Atorvastatin 40 Mg Tab PO Not Given QHS [facility] Melatonin 5 mg 08/11/21 22:00 Melatonin 5 Mg Tab PO QHS PRN Sleep Multivitamins/Minerals 1 each 08/06/21 10:00 08/30/21 09:34 Calcium Carb/Vit D3/Minerals 600 Mg/800 Units Tab PO Not Given DAILY [facility] Risperidone 0.25 mg 08/16/21 10:00 08/30/21 09:35 Risperidone 0.25 Mg Tab PO Not Given BID [facility] Trazodone HCl 75 mg 08/11/21 22:00 08/29/21 21:17 Trazodone 50 Mg Tab PO Not Given QHS [facility] Nutrition/Malnutrition Assess - Dietary Evaluation Nutrition/Malnutrition Findings: Nutrition Notes Start: 08/11/21 12:38 Freq: Status: Active Protocol: Document 08/11/21 12:38 CADENCE (Rec: 08/11/21 12:40 CADENCE [id number]) Nutrition Notes Need for Assessment generated from: LOS Initial or Follow up Brief Note Current Diet Consistent CHO Height 5 ft 2 in Weight 52 kg [place] Body Weight (kg) 50.00 BMI 20.9 Weight Status Underweight Subjective/Other Information Pt screened for LOS. She has consumed 83% of meals since admission. Percent of energy/protein needs met: 100% energy and pro Burn Absent Trauma Absent Current % PO Good (75-100%) Minimum of two criteria No Is patient on ventilator? No Is Patient Ambulatory and/or Out of Bed Yes REE-([place]-St. Jeor-ambulatory/OOB) [ 1219.725 [id number]] Kcal/Kg value to use for calculation 30 Approximate Energy Requirements Using 1560 kcal/Kg Calculation Used for Recommendations Kcal/kg Additional Notes Pro needs 1.2-1.5g/k-78g/ day Fluid needs 1ml/kcal Nutrition Intervention Revisit per MD consult or patient Sign Off request:
[2021-08-30] MEDS: traZODone 50 MG TAB PO SCH (21:16)
--- NOTE | 2021-08-31 08:04 | Progress Note ---
Subjective Date of service: 08/31/21 Principal diagnosis: Delusional Disorder Subjective Comment: The patient was seen today. She is pleasant. She is sitting on side of the bed. The patient is asking about her discharge date. She denies SI/HI or hallucinations of any kind. She is awaiting placement. 08/30 The patient was seen today. She is calm, cooperative and pleasant. She denies SI/HI or hallucinations of any kind. She says she slept okay. 08/29 The patient was seen today. She is lying in bed awake. She is calm and cooperative. She says she doesn't feel like herself this morning. The patient says "I'm just ready to leave here. I've been here too long." I assured the patient that she would discharge once the SW secures a safe place for her to go. She is understanding of this. The patient denies SI/HI or hallucinations of any kind. 08/28 The patient was seen today. She is standing at the sink in her room brushing her teeth. She is slightly irritable and states she is ready to get out of here. She denies SI/HI or hallucinations of any kind. The patient is awaiting placement. 08/27/21: The patient was seen this morning. She is in a better mood. " God is blessing me as he does everyday, I'm in a good mood, spoke with my daughter she is uplifting and reassuring. " She patient denies suicidal/homicidal ideation and denies hallucinations. The patient is clear from psych point of view. 08/26/21: The patient was seen this morning. She is irritable and refusing to answer questions. 08/25/21:The patient was seen at breakfast. She states she is she is doing well. She patient denies suicidal/homicidal ideation and denies hallucinations. The patient is clear from psych point of view. 08/24/21:The patient was seen at breakfast. She states she is she is doing well. She patient denies suicidal/homicidal ideation and denies hallucinations. The patient is clear from psych point of view. 08/23/21:The patient was seen at breakfast. She states she is just waking up " not there yet." She patient denies suicidal/homicidal ideation and denies hallucinations. The patient is clear from psych point of view. 08/22/21: The patient was seen at breakfast. She reports doing well. She states sleep and appetite as good. The patient was heard calling a peer disgusting stating he pulls his pants when he walked behind him. She patient denies suicidal/homicidal ideation and denies hallucinations. The patient is clear from psych point of view. 08/21/21: The patient was seen at breakfast. She reports doing well. She states sleep and appetite as good. The patient denies suicidal/homicidal ideation and denies hallucinations. The patient is clear from psych point of view. 08/20/21: The patient was seen in her room this morning. She reports doing well. She states sleep and appetite as good. The patient denies suicidal/homicidal ideation and denies hallucinations. The patient is clear from psych point of view. 08/19/21: The patient was seen this morning. She is calm, cooperative and reports doing well. She states sleep and appetite as good. The patient denies suicidal/homicidal ideation and denies hallucinations. 08/18/21: The patient was seen at breakfast. She is calm, cooperative and reports doing well. She states sleep and appetite as good. The patient denies suicidal/homicidal ideation and denies hallucinations. 08/17/21:The patient was seen today. She is calm, and cooperative. Her daughter is on the phone. The patient's progress and treatment plan were explained. The patient was explained the importance of complying with her medical regimen. She agrees to take the medication. The SW and nurse are involved as well. The patient denies SI/HI or hallucinations of any kind. 08/16 The patient was seen today. She is calm, and cooperative. She denies hallucinations of any kind. She also denies SI/HI. The patient appears to be at her baseline. Will plan with the social security assessor to discharge the patient to a safe place. 08/15 The patient was seem today. She is calm and cooperative. She denies SI/HI. She also denies hallucinations. The patient does appear to be a little delusional. She tells me something is going on with her eyes. I ask her what was going on. She says "I don't know. Look at them." There is nothing obviously wrong with her eyes. 08/14 The patient was seen today. She is lying in bed. She is awake, and pleasant. She is calm and cooperative. She denies SI/HI or hallucinations of any kind. She is awaiting placement. 08/13 The patient was seen today. She is calm and cooperative. She denies SI/HI or hallucinations of any kind. She says she slept much better last night. 08/12 The patient was seen today. She is calm, and cooperative. She is pleasant. The patient says she slept a little better but didn't feel like she rested well. She denies SI/HI or hallucinations of any kind. The patient says she doesn't know if she wants to take any meds because they make her feel sluggish. I advised the patient that if she wanted to continue to progress and go home, she had to comply with the treatment. She was in agreement, and states she would continue to take them. . 08/11 The patient was seen today. She is calm, cooperative and pleasant. She says she feels okay. She denies SI/HI. She also denies hallucinations. She says she did not sleep well. The patient says she kept waking up throughout the night. 08/10/21: The patient was seen this morning. She states she is doing well. She denies being depressed and no delusions noted. The patient denies any current suicidal/homicidal ideation and denies hallucinations. 08/09/21: The patient was seen at breakfast. She presents in good spirits and reports doing well. She reports sleep as fair. She denies depression and denies any current suicidal/homicidal ideation and denies hallucinations. 08/08/21: The patient was seen eating breakfast. she reports doing well " I would have liked to sleep better, so much interruptions." She denies depression and denies any current suicidal/homicidal ideation and denies hallucinations. 08/07/21:The patient was seen this morning. She is calm. When asking how she is doing, she states " I don't know yet." She reports sleep as restful. She denies depression and denies any current suicidal/homicidal ideation and denies hallucinations. REVIEW OF SYSTEMS Constitutional: Negative for weight loss ENT: Negative for stridor Respiratory: Negative for cough or hemoptysis All other systems reviewed and are negative MENTAL STATUS EXAMINATION General Appearance and Behavior: Age appropriate, good hygiene, wearing appropriate clothes, good eye contact, calm, cooperative Cooperation: Participating/engaged, but Guarded Psychomotor Behavior: Psychomotor normal Mood: good Affect and affective range: congruent with stated mood Thought Process: Goal directed Thought Content: Reality oriented Speech: normal tone and pace Suicidal Ideation: Denies Homicidal Ideation: Denies Hallucinations: Denies Delusions: None Impulse Control: Limited Insight and Judgment: Poor insight and judgment Memory: Poor Attention: Divided Orientation: Alert, oriented Assessment and Plan Delusional Disorder Treatment Plan Patient admitted for inpatient psychiatric evaluation, medication adjustment and close monitoring The patient's behavior, mood, sleep and appetite will be closely monitored. Patient enrolled in individual and group therapeutic sessions and encouraged to attend. Patient provided with a safe and structured environment. Patient's physical health needs will be addressed by the Hospitalist. Hospitalist Consulted Labs including CBC, CMP, Lipid profile and Hemoglobin A1C levels ordered for baseline reference Social Assessment will be completed and the Sustainability Executive Director will work with patient and family to ensure a suitable and safe disposition Medication adjustment will be made as clinically indicated No changes made today Usual Wellness Presybeterian/Preservation: - Start Trazodone 50 mg po QHS & 50 mg po QHS PRN between 10 PM & 2 AM for insomnia - Start Melatonin 5 mg po QHS to promote circadian rhythm The patient agreed on the treatment plan, understood the risk, benefit, alternative treatment, potential consequence of no treatment, and gave informed consent. Estimated days: 4 Post hospital care: primary care provider, psychiatric provider Case staffed with Dr. Fuentes Medications and Allergies Allergies Allergy/AdvReac Type Severity Reaction Status Date / Time codeine AdvReac Intermediate Swelling Verified 08/04/21 18:27 Home Medications Medication Instructions Recorded Confirmed Last Taken Type Aspirin EC [Halfprin EC] 81 mg PO QDAY #30 tablet. 10/20/19 08/06/21 Unknown Rx AtorvaSTATin [Lipitor] 40 mg PO QHS #30 tablet 10/20/19 08/06/21 Unknown Rx Calcium Carbonate/Vitamin D3 1 each PO DAILY #30 tablet 10/20/19 08/06/21 Unknown Rx [Calcium 500 mg-Vit D3 600 Unit] amLODIPine 10 mg PO QDAY #30 tablet 10/20/19 08/06/21 Unknown Rx Active Meds: Active Medications Amlodipine Besylate (Amlodipine 10 Mg Tab) 10 mg PO QDAY NISH Last Admin: 08/30/21 09:34 Dose: Not Given Aspirin (Aspirin 81 Mg Tab Chew) 81 mg PO QDAY [facility] Last Admin: 08/30/21 09:34 Dose: Not Given Atorvastatin Calcium (Atorvastatin 40 Mg Tab) 40 mg PO QHS [facility] Last Admin: 08/30/21 21:16 Dose: Not Given Melatonin (Melatonin 5 Mg Tab) 5 mg PO QHS PRN PRN Reason: Sleep Multivitamins/Minerals (Calcium Carb/Vit D3/Minerals 600 Mg/800 Units Tab) 1 each PO DAILY [facility] Last Admin: 08/30/21 09:34 Dose: Not Given Risperidone (Risperidone 0.25 Mg Tab) 0.25 mg PO BID [facility] Last Admin: 08/30/21 21:16 Dose: Not Given Trazodone HCl (Trazodone 50 Mg Tab) 75 mg PO QHS [facility] Last Admin: 08/30/21 21:16 Dose: Not Given Results - Results Labs/Vitals: Laboratory Last Values WBC 6.0 K/mm3 (4.5-11.0) 08/08/21 21:18 RBC 3.97 M/mm3 (3.65-5.03) 08/08/21 21:18 Hgb 11.8 gm/dl (10.1-14.3) 08/08/21 21:18 Hct 36.3 % (30.3-42.9) 08/08/21 21:18 MCV 92 fl (79-97) 08/08/21 21:18 MCH 30 pg (28-32) 08/08/21 21:18 MCHC 33 % (30-34) 08/08/21 21:18 RDW 15.2 % (13.2-15.2) 08/08/21 21:18 Plt Count 181 K/mm3 (140-440) 08/08/21 21:18 Lymph % (Auto) 32.9 % (13.4-35.0) 08/08/21 21:18 [place] % (Auto) 8.7 % (0.0-7.3) H 08/08/21 21:18 Eos % (Auto) 3.3 % (0.0-4.3) 08/08/21 21:18 Baso % (Auto) 0.5 % (0.0-1.8) 08/08/21 21:18 Lymph # (Auto) 2.0 K/mm3 (1.2-5.4) 08/08/21 21:18 [place] # (Auto) 0.5 K/mm3 (0.0-0.8) 08/08/21 21:18 Eos # (Auto) 0.2 K/mm3 (0.0-0.4) 08/08/21 21:18 Baso # (Auto) 0.0 K/mm3 (0.0-0.1) 08/08/21 21:18 Seg Neutrophils % 54.6 % (40.0-70.0) 08/08/21 21:18 Seg Neutrophils # 3.3 K/mm3 (1.8-7.7) 08/08/21 21:18 Sodium 140 mmol/L (137-145) 08/08/21 21:18 Potassium 3.8 mmol/L (3.6-5.0) 08/08/21 21:18 Chloride 101.9 mmol/L (98-107) 08/08/21 21:18 Carbon Dioxide 27 mmol/L (22-30) 08/08/21 21:18 Anion Gap 15 mmol/L 08/08/21 21:18 BUN 26 mg/dL (7-17) H 08/08/21 21:18 Creatinine 0.8 mg/dL (0.6-1.2) 08/08/21 21:18 Estimated GFR > 60 ml/min 08/08/21 21:18 BUN/Creatinine Ratio 33 % 08/08/21 21:18 Glucose 115 mg/dL (65-100) H 08/08/21 21:18 POC Glucose 153 mg/dL (70-105) H 08/25/21 19:37 Hemoglobin A1c 5.9 % (4-6) 08/08/21 21:18 Calcium 9.7 mg/dL (8.4-10.2) 08/08/21 21:18 Total Bilirubin 0.20 mg/dL (0.1-1.2) 08/08/21 21:18 AST 22 units/L (5-40) 08/08/21 21:18 ALT 17 units/L (7-56) 08/08/21 21:18 Alkaline Phosphatase 70 units/L (35-129) 08/08/21 21:18 Total Protein 6.9 g/dL (6.3-8.2) 08/08/21 21:18 Albumin 4.3 g/dL (3.9-5) 08/08/21 21:18 Albumin/Globulin Ratio 1.7 % 08/08/21 21:18 Triglycerides 126 mg/dL (2-149) 08/08/21 21:18 Cholesterol 279 mg/dL (50-199) H 08/08/21 21:18 LDL Cholesterol Direct 180 mg/dL (50-130) H 08/08/21 21:18 HDL Cholesterol 81 mg/dL (40-59) H 08/08/21 21:18 Cholesterol/HDL Ratio 3.44 % 08/08/21 21:18 TSH 1.720 mlU/mL (0.270-4.200) 08/08/21 21:18 Last Vital Signs Temp 98.8 F 08/30/21 19:32 Pulse 83 08/30/21 19:32 Resp 18 08/30/21 19:32 BP 119/60 08/30/21 19:32 Pulse Ox 95 08/30/21 19:32
[2021-08-31] MEDS: CALCIUM CARB/VIT D3/MINERALS 600 MG/800 UNITS TAB PO SCH (11:00)
[2021-08-31] MEDS: ASPIRIN 81 MG TAB CHEW PO SCH (11:00)
[2021-08-31] MEDS: risperiDONE 0.25 MG TAB PO SCH ×2 (11:00→21:48)
[2021-08-31] MEDS: amLODIPine 10 MG TAB PO SCH (11:48)
--- NOTE | 2021-08-31 20:24 | Progress Note ---
Assessment and Plan - Patient Problems (1) Vascular dementia with behavioral disturbance Current Visit: Yes Status: Acute Plan to address problem: Verbal prompting, verbal redirection, benzodiazepine therapy as clinically indicated (2) Cerebral atherosclerosis Current Visit: Yes Status: Acute Plan to address problem: Risk factor reduction, antiplatelet therapy as clinically indicated. (3) Hypertension Current Visit: Yes Status: Acute Qualifiers: Hypertension type: primary hypertension Qualified Code(s): I10 - Essential (primary) hypertension Plan to address problem: Monitor blood pressure every shift, continue medical management. (4) Hyperlipidemia Current Visit: Yes Status: Acute Plan to address problem: Low-cholesterol diet, statin therapy, supportive care. (5) Diabetes Current Visit: Yes Status: Acute Plan to address problem: Consistent carbohydrate diet, Accu-Chek, insulin protocol, hypoglycemia protocol. (6) Malnutrition Current Visit: Yes Status: Acute Qualifiers: Protein-calorie malnutrition severity: moderate Plan to address problem: Dietary intake varies based on cognition. Dietary supplementation when awake and alert only, increase protein intake. (7) Psychosis Current Visit: Yes Status: Acute Qualifiers: Schizophrenia type: unspecified Plan to address problem: Continue medical management as per mental health team (8) Debility Current Visit: Yes Status: Acute Plan to address problem: Bed alarm, fall precautions. (9) Dependent edema Current Visit: Yes Status: Acute Plan to address problem: Trace dependent edema. No palpable cords, no discoloration, no physical exam findings consistent with DVT. No unilateral leg swelling. Bilateral lower extremity elevation nightly. (10) Advance care planning Current Visit: Yes Status: Acute Plan to address problem: Disease education conducted, care plan discussed, diagnoses discussed, prognosis discussed, patient is full code. Discussed patient diagnoses, prognosis and care plan with patient granddaughter Felicia Nuñez [phone]. Patient is currently unable to live independently and will require placement. Discussed all likely options. Recommend discharge with hospice care to long-term facility, personal-half-way, or assisted living facility depending on availability and acceptance. 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 +30 minutes. History Interval history: 81 YO Female with Vascular Dementia with Behavioral Disturbance, Cerebral Atherosclerosis, HTN, DM, Malnitrition, MDD, EDWIN admitted to [facility] for psychiatric stabilization. Consult placed by Dr. Hernandez for medical management. Pt seen and evaluated in the recreation room. Pt has diminished cognition and is at baseline level of cognition and function. nursing staff reports that patient complains of leg swelling. Patient seen and evaluated. Patient found to have trace dependent edema.. Hospitalist Physical - Constitutional Vitals: Temp Pulse Resp BP Pulse Ox 98.6 F 86 16 133/57 98 08/31/21 09:32 08/31/21 09:32 08/31/21 09:32 08/31/21 09:32 08/31/21 09:32 General appearance: Present: no acute distress, cachectic - EENT Eyes: Present: PERRL ENT: hearing decreased - Neck Neck: Present: supple - Respiratory Respiratory effort: normal Respiratory: bilateral: CTA - Cardiovascular Rhythm: regular Heart Sounds: Present: S1 & S2 - Extremities Extremities: no ischemia Peripheral Pulses: within normal limits - Abdominal General gastrointestinal: soft, non-tender, non-distended - Integumentary Integumentary: Present: clear, dry - Psychiatric Psychiatric: cooperative - Neurologic Neurologic: CNII-XII intact Results - Labs CBC & Chem 7: 08/08/21 21:18 08/08/21 21:18 Labs: Laboratory Last Values WBC 6.0 K/mm3 (4.5-11.0) 08/08/21 21:18 RBC 3.97 M/mm3 (3.65-5.03) 08/08/21 21:18 Hgb 11.8 gm/dl (10.1-14.3) 08/08/21 21:18 Hct 36.3 % (30.3-42.9) 08/08/21 21:18 MCV 92 fl (79-97) 08/08/21 21:18 MCH 30 pg (28-32) 08/08/21 21:18 MCHC 33 % (30-34) 08/08/21 21:18 RDW 15.2 % (13.2-15.2) 08/08/21 21:18 Plt Count 181 K/mm3 (140-440) 08/08/21 21:18 Lymph % (Auto) 32.9 % (13.4-35.0) 08/08/21 21:18 [place] % (Auto) 8.7 % (0.0-7.3) H 08/08/21 21:18 Eos % (Auto) 3.3 % (0.0-4.3) 08/08/21 21:18 Baso % (Auto) 0.5 % (0.0-1.8) 08/08/21 21:18 Lymph # (Auto) 2.0 K/mm3 (1.2-5.4) 08/08/21 21:18 [place] # (Auto) 0.5 K/mm3 (0.0-0.8) 08/08/21 21:18 Eos # (Auto) 0.2 K/mm3 (0.0-0.4) 08/08/21 21:18 Baso # (Auto) 0.0 K/mm3 (0.0-0.1) 08/08/21 21:18 Seg Neutrophils % 54.6 % (40.0-70.0) 08/08/21 21:18 Seg Neutrophils # 3.3 K/mm3 (1.8-7.7) 08/08/21 21:18 Sodium 140 mmol/L (137-145) 08/08/21 21:18 Potassium 3.8 mmol/L (3.6-5.0) 08/08/21 21:18 Chloride 101.9 mmol/L (98-107) 08/08/21 21:18 Carbon Dioxide 27 mmol/L (22-30) 08/08/21 21:18 Anion Gap 15 mmol/L 08/08/21 21:18 BUN 26 mg/dL (7-17) H 08/08/21 21:18 Creatinine 0.8 mg/dL (0.6-1.2) 08/08/21 21:18 Estimated GFR > 60 ml/min 08/08/21 21:18 BUN/Creatinine Ratio 33 % 08/08/21 21:18 Glucose 115 mg/dL (65-100) H 08/08/21 21:18 POC Glucose 153 mg/dL (70-105) H 08/25/21 19:37 Hemoglobin A1c 5.9 % (4-6) 08/08/21 21:18 Calcium 9.7 mg/dL (8.4-10.2) 08/08/21 21:18 Total Bilirubin 0.20 mg/dL (0.1-1.2) 08/08/21 21:18 AST 22 units/L (5-40) 08/08/21 21:18 ALT 17 units/L (7-56) 08/08/21 21:18 Alkaline Phosphatase 70 units/L (35-129) 08/08/21 21:18 Total Protein 6.9 g/dL (6.3-8.2) 08/08/21 21:18 Albumin 4.3 g/dL (3.9-5) 08/08/21 21:18 Albumin/Globulin Ratio 1.7 % 08/08/21 21:18 Triglycerides 126 mg/dL (2-149) 08/08/21 21:18 Cholesterol 279 mg/dL (50-199) H 08/08/21 21:18 LDL Cholesterol Direct 180 mg/dL (50-130) H 08/08/21 21:18 HDL Cholesterol 81 mg/dL (40-59) H 08/08/21 21:18 Cholesterol/HDL Ratio 3.44 % 08/08/21 21:18 TSH 1.720 mlU/mL (0.270-4.200) 08/08/21 21:18 [place]/IV: Voiding Method Toilet Active Medications - Current Medications Current Medications: Generic Name Dose Route Start Last Admin Trade Name Freq PRN Reason Stop Dose Admin Amlodipine Besylate 10 mg 08/06/21 10:00 08/31/21 11:48 Amlodipine 10 Mg Tab PO Not Given QDAY [facility] Aspirin 81 mg 08/18/21 10:00 08/31/21 11:00 Aspirin 81 Mg Tab Chew PO Not Given QDAY [facility] Atorvastatin Calcium 40 mg 08/06/21 22:00 08/30/21 21:16 Atorvastatin 40 Mg Tab PO Not Given QHS [facility] Melatonin 5 mg 08/11/21 22:00 Melatonin 5 Mg Tab PO QHS PRN Sleep Multivitamins/Minerals 1 each 08/06/21 10:00 08/31/21 11:00 Calcium Carb/Vit D3/Minerals 600 Mg/800 Units Tab PO Not Given DAILY [facility] Risperidone 0.25 mg 08/16/21 10:00 08/31/21 11:00 Risperidone 0.25 Mg Tab PO Not Given BID [facility] Trazodone HCl 75 mg 08/11/21 22:00 08/30/21 21:16 Trazodone 50 Mg Tab PO Not Given QHS [facility] Nutrition/Malnutrition Assess - Dietary Evaluation Nutrition/Malnutrition Findings: Nutrition Notes Start: 08/11/21 12:38 Freq: Status: Active Protocol: Document 08/11/21 12:38 CADENCE (Rec: 08/11/21 12:40 CADENCE [id number]) Nutrition Notes Need for Assessment generated from: LOS Initial or Follow up Brief Note Current Diet Consistent CHO Height 5 ft 2 in Weight 52 kg [place] Body Weight (kg) 50.00 BMI 20.9 Weight Status Underweight Subjective/Other Information Pt screened for LOS. She has consumed 83% of meals since admission. Percent of energy/protein needs met: 100% energy and pro Burn Absent Trauma Absent Current % PO Good (75-100%) Minimum of two criteria No Is patient on ventilator? No Is Patient Ambulatory and/or Out of Bed Yes REE-([place]-St. Jeor-ambulatory/OOB) [ 1219.725 [id number]] Kcal/Kg value to use for calculation 30 Approximate Energy Requirements Using 1560 kcal/Kg Calculation Used for Recommendations Kcal/kg Additional Notes Pro needs 1.2-1.5g/k-78g/ day Fluid needs 1ml/kcal Nutrition Intervention Revisit per MD consult or patient Sign Off request:
[2021-08-31] MEDS: traZODone 50 MG TAB PO SCH (21:48)
--- NOTE | 2021-09-01 09:40 | Progress Note ---
Subjective Date of service: 09/01/21 Principal diagnosis: Delusional Disorder Subjective Comment: 09/01/21:The patient was seen today. 08/31:The patient was seen today. She is pleasant. She is sitting on side of the bed. The patient is asking about her discharge date. She denies SI/HI or halluci nations of any kind. She is awaiting placement. 08/30 The patient was seen today. She is calm, cooperative and pleasant. She denies SI/HI or hallucinations of any kind. She says she slept okay. 08/29 The patient was seen today. She is lying in bed awake. She is calm and cooperative. She says she doesn't feel like herself this morning. The patient says "I'm just ready to leave here. I've been here too long." I assured the patient that she would discharge once the SW secures a safe place for her to go. She is understanding of this. The patient denies SI/HI or hallucinations of any kind. 08/28 The patient was seen today. She is standing at the sink in her room brushing her teeth. She is slightly irritable and states she is ready to get out of here. She denies SI/HI or hallucinations of any kind. The patient is awaiting placement. 08/27/21: The patient was seen this morning. She is in a better mood. " God is blessing me as he does everyday, I'm in a good mood, spoke with my daughter she is uplifting and reassuring. " She patient denies suicidal/homicidal ideation and denies hallucinations. The patient is clear from psych point of view. 08/26/21: The patient was seen this morning. She is irritable and refusing to answer questions. 08/25/21:The patient was seen at breakfast. She states she is she is doing well. She patient denies suicidal/homicidal ideation and denies hallucinations. The patient is clear from psych point of view. 08/24/21:The patient was seen at breakfast. She states she is she is doing well. She patient denies suicidal/homicidal ideation and denies hallucinations. The patient is clear from psych point of view. 08/23/21:The patient was seen at breakfast. She states she is just waking up " not there yet." She patient denies suicidal/homicidal ideation and denies hallucinations. The patient is clear from psych point of view. 08/22/21: The patient was seen at breakfast. She reports doing well. She states sleep and appetite as good. The patient was heard calling a peer disgusting stating he pulls his pants when he walked behind him. She patient denies suicidal/homicidal ideation and denies hallucinations. The patient is clear from psych point of view. 08/21/21: The patient was seen at breakfast. She reports doing well. She states sleep and appetite as good. The patient denies suicidal/homicidal ideation and denies hallucinations. The patient is clear from psych point of view. 08/20/21: The patient was seen in her room this morning. She reports doing well. She states sleep and appetite as good. The patient denies suicidal/homicidal ideation and denies hallucinations. The patient is clear from psych point of view. 08/19/21: The patient was seen this morning. She is calm, cooperative and reports doing well. She states sleep and appetite as good. The patient denies suicidal/homicidal ideation and denies hallucinations. 08/18/21: The patient was seen at breakfast. She is calm, cooperative and repor ts doing well. She states sleep and appetite as good. The patient denies suicidal/homicidal ideation and denies hallucinations. 08/17/21:The patient was seen today. She is calm, and cooperative. Her daughter is on the phone. The patient's progress and treatment plan were explained. The patient was explained the importance of complying with her medical regimen. She agrees to take the medication. The SW and nurse are involved as well. The patient denies SI/HI or hallucinations of any kind. 08/16 The patient was seen today. She is calm, and cooperative. She denies hallucinations of any kind. She also denies SI/HI. The patient appears to be at her baseline. Will plan with the social studies department chair to discharge the patient to a safe place. 08/15 The patient was seem today. She is calm and cooperative. She denies SI/HI. She also denies hallucinations. The patient does appear to be a little delusional. She tells me something is going on with her eyes. I ask her what was going on. She says "I don't know. Look at them." There is nothing obviously wrong with her eyes. 08/14 The patient was seen today. She is lying in bed. She is awake, and pleasant. She is calm and cooperative. She denies SI/HI or hallucinations of any kind. She is awaiting placement. 08/13 The patient was seen today. She is calm and cooperative. She denies SI/HI or hallucinations of any kind. She says she slept much better last night. 08/12 The patient was seen today. She is calm, and cooperative. She is pleasant. The patient says she slept a little better but didn't feel like she rested well. She denies SI/HI or hallucinations of any kind. The patient says she doesn't know if she wants to take any meds because they make her feel sluggish. I advised the patient that if she wanted to continue to progress and go home, she had to comply with the treatment. She was in agreement, and states she would continue to take them. . 08/11 The patient was seen today. She is calm, cooperative and pleasant. She says she feels okay. She denies SI/HI. She also denies hallucinations. She says she did not sleep well. The patient says she kept waking up throughout the night. 08/10/21: The patient was seen this morning. She states she is doing well. She denies being depressed and no delusions noted. The patient denies any current suicidal/homicidal ideation and denies hallucinations. 08/09/21: The patient was seen at breakfast. She presents in good spirits and reports doing well. She reports sleep as fair. She denies depression and denies any current suicidal/homicidal ideation and denies hallucinations. 08/08/21: The patient was seen eating breakfast. she reports doing well " I would have liked to sleep better, so much interruptions." She denies depression and denies any current suicidal/homicidal ideation and denies hallucinations. 08/07/21:The patient was seen this morning. She is calm. When asking how she is doing, she states " I don't know yet." She reports sleep as restful. She denies depression and denies any current suicidal/homicidal ideation and denies hallucinations. REVIEW OF SYSTEMS Constitutional: Negative for weight loss ENT: Negative for stridor Respiratory: Negative for cough or hemoptysis All other systems reviewed and are negative MENTAL STATUS EXAMINATION General Appearance and Behavior: Age appropriate, good hygiene, wearing appropriate clothes, good eye contact, calm, cooperative Cooperation: Participating/engaged, but Guarded Psychomotor Behavior: Psychomotor normal Mood: good Affect and affective range: congruent with stated mood Thought Process: Goal directed Thought Content: Reality oriented Speech: normal tone and pace Suicidal Ideation: Denies Homicidal Ideation: Denies Hallucinations: Denies Delusions: None Impulse Control: Limited Insight and Judgment: Poor insight and judgment Memory: Poor Attention: Divided Orientation: Alert, oriented Assessment and Plan Delusional Disorder Treatment Plan Patient admitted for inpatient psychiatric evaluation, medication adjustment and close monitoring The patient's behavior, mood, sleep and appetite will be closely monitored. Patient enrolled in individual and group therapeutic sessions and encouraged to attend. Patient provided with a safe and structured environment. Patient's physical health needs will be addressed by the Hospitalist. Hospitalist Consulted Labs including CBC, CMP, Lipid profile and Hemoglobin A1C levels ordered for baseline reference Social Assessment will be completed and the Non Licensed Nuclear Equipment Operator will work with patient and family to ensure a suitable and safe disposition Medication adjustment will be made as clinically indicated No changes made today Usual Wellness [facility]/Preservation: - Start Trazodone 50 mg po QHS & 50 mg po QHS PRN between 10 PM & 2 AM for insomnia - Start Melatonin 5 mg po QHS to promote circadian rhythm The patient agreed on the treatment plan, understood the risk, benefit, alternative treatment, potential consequence of no treatment, and gave informed consent. Estimated days: 4 Post hospital care: primary care provider, psychiatric provider Case staffed with Dr. Fuentes Medications and Allergies Medications and Allergies Allergies Allergy/AdvReac Type Severity Reaction Status Date / Time codeine AdvReac Intermediate Swelling Verified 08/04/21 18:27 Home Medications Medication Instructions Recorded Confirmed Last Taken Type Aspirin EC [Halfprin EC] 81 mg PO QDAY #30 tablet. 10/20/19 08/06/21 Unknown Rx AtorvaSTATin [Lipitor] 40 mg PO QHS #30 tablet 10/20/19 08/06/21 Unknown Rx Calcium Carbonate/Vitamin D3 1 each PO DAILY #30 tablet 10/20/19 08/06/21 Unknown Rx [Calcium 500 mg-Vit D3 600 Unit] amLODIPine 10 mg PO QDAY #30 tablet 05/19/20 03/06/22 Unknown Rx Active Meds: Active Medications Amlodipine Besylate (Amlodipine 10 Mg Tab) 10 mg PO QDAY [facility] Last Admin: 08/31/21 11:48 Dose: Not Given Aspirin (Aspirin 81 Mg Tab Chew) 81 mg PO QDAY [facility] Last Admin: 08/31/21 11:00 Dose: Not Given Atorvastatin Calcium (Atorvastatin 40 Mg Tab) 40 mg PO QHS [facility] Last Admin: 08/31/21 21:48 Dose: Not Given Melatonin (Melatonin 5 Mg Tab) 5 mg PO QHS PRN PRN Reason: Sleep Multivitamins/Minerals (Calcium Carb/Vit D3/Minerals 600 Mg/800 Units Tab) 1 each PO DAILY [facility] Last Admin: 08/31/21 11:00 Dose: Not Given Risperidone (Risperidone 0.25 Mg Tab) 0.25 mg PO BID [facility] Last Admin: 08/31/21 21:48 Dose: Not Given Trazodone HCl (Trazodone 50 Mg Tab) 75 mg PO QHS [facility] Last Admin: 08/31/21 21:48 Dose: Not Given Results - Results Labs/Vitals: Laboratory Last Values WBC 6.0 K/mm3 (4.5-11.0) 08/08/21 21:18 RBC 3.97 M/mm3 (3.65-5.03) 08/08/21 21:18 Hgb 11.8 gm/dl (10.1-14.3) 08/08/21 21:18 Hct 36.3 % (30.3-42.9) 08/08/21 21:18 MCV 92 fl (79-97) 08/08/21 21:18 MCH 30 pg (28-32) 08/08/21 21:18 MCHC 33 % (30-34) 08/08/21 21:18 RDW 15.2 % (13.2-15.2) 08/08/21 21:18 Plt Count 181 K/mm3 (140-440) 08/08/21 21:18 Lymph % (Auto) 32.9 % (13.4-35.0) 08/08/21 21:18 [place] % (Auto) 8.7 % (0.0-7.3) H 08/08/21 21:18 Eos % (Auto) 3.3 % (0.0-4.3) 08/08/21 21:18 Baso % (Auto) 0.5 % (0.0-1.8) 08/08/21 21:18 Lymph # (Auto) 2.0 K/mm3 (1.2-5.4) 08/08/21 21:18 [place] # (Auto) 0.5 K/mm3 (0.0-0.8) 08/08/21 21:18 Eos # (Auto) 0.2 K/mm3 (0.0-0.4) 08/08/21 21:18 Baso # (Auto) 0.0 K/mm3 (0.0-0.1) 08/08/21 21:18 Seg Neutrophils % 54.6 % (40.0-70.0) 08/08/21 21:18 Seg Neutrophils # 3.3 K/mm3 (1.8-7.7) 08/08/21 21:18 Sodium 140 mmol/L (137-145) 08/08/21 21:18 Potassium 3.8 mmol/L (3.6-5.0) 08/08/21 21:18 Chloride 101.9 mmol/L (98-107) 08/08/21 21:18 Carbon Dioxide 27 mmol/L (22-30) 08/08/21 21:18 Anion Gap 15 mmol/L 08/08/21 21:18 BUN 26 mg/dL (7-17) H 08/08/21 21:18 Creatinine 0.8 mg/dL (0.6-1.2) 08/08/21 21:18 Estimated GFR > 60 ml/min 08/08/21 21:18 BUN/Creatinine Ratio 33 % 08/08/21 21:18 Glucose 115 mg/dL (65-100) H 08/08/21 21:18 POC Glucose 153 mg/dL (70-105) H 08/25/21 19:37 Hemoglobin A1c 5.9 % (4-6) 08/08/21 21:18 Calcium 9.7 mg/dL (8.4-10.2) 08/08/21 21:18 Total Bilirubin 0.20 mg/dL (0.1-1.2) 08/08/21 21:18 AST 22 units/L (5-40) 08/08/21 21:18 ALT 17 units/L (7-56) 08/08/21 21:18 Alkaline Phosphatase 70 units/L (35-129) 08/08/21 21:18 Total Protein 6.9 g/dL (6.3-8.2) 08/08/21 21:18 Albumin 4.3 g/dL (3.9-5) 08/08/21 21:18 Albumin/Globulin Ratio 1.7 % 08/08/21 21:18 Triglycerides 126 mg/dL (2-149) 08/08/21 21:18 Cholesterol 279 mg/dL (50-199) H 08/08/21 21:18 LDL Cholesterol Direct 180 mg/dL (50-130) H 08/08/21 21:18 HDL Cholesterol 81 mg/dL (40-59) H 08/08/21 21:18 Cholesterol/HDL Ratio 3.44 % 08/08/21 21:18 TSH 1.720 mlU/mL (0.270-4.200) 08/08/21 21:18 Last Vital Signs Temp 97.9 F 08/31/21 19:40 Pulse 87 08/31/21 19:40 Resp 17 08/31/21 19:40 BP 126/62 08/31/21 19:40 Pulse Ox 96 08/31/21 19:40
[2021-09-01] MEDS: risperiDONE 0.25 MG TAB PO SCH ×2 (11:00→21:05)
[2021-09-01] MEDS: ASPIRIN 81 MG TAB CHEW PO SCH (11:00)
[2021-09-01] MEDS: CALCIUM CARB/VIT D3/MINERALS 600 MG/800 UNITS TAB PO SCH (11:00)
[2021-09-01] MEDS: amLODIPine 10 MG TAB PO SCH (11:00)
[2021-09-01] MEDS: traZODone 50 MG TAB PO SCH (21:05)
--- NOTE | 2021-09-02 09:06 | Progress Note ---
Subjective Date of service: 09/02/21 Principal diagnosis: Delusional Disorder Subjective Comment: 09/02/21: The patient was seen at breakfast. She states she is doing well. She reports sleep and appetite as good. She denies suicidal/homicidal ideation and denies hallucinations. Awaiting placement. 09/01/21:The patient was seen today. she reports doing well. She denies suicidal/homicidal ideation and denies hallucinations.Awaiting placement. 08/31:The patient was seen today. She is pleasant. She is sitting on side of the bed. The patient is asking about her discharge date. She denies SI/HI or hallucinations of any kind. She is awaiting placement. 08/30 The patient was seen today. She is calm, cooperative and pleasant. She denies SI/HI or hallucinations of any kind. She says she slept okay. 08/29 The patient was seen today. She is lying in bed awake. She is calm and cooperative. She says she doesn't feel like herself this morning. The patient says "I'm just ready to leave here. I've been here too long." I assured the patient that she would discharge once the secures a safe place for her to go. She is understanding of this. The patient denies SI/HI or hallucinations of any kind. 08/28 The patient was seen today. She is standing at the sink in her room brushing her teeth. She is slightly irritable and states she is ready to get out of here. She denies SI/HI or hallucinations of any kind. The patient is awaiting placement. 08/27/21: The patient was seen this morning. She is in a better mood. " God is blessing me as he does everyday, I'm in a good mood, spoke with my daughter she is uplifting and reassuring. " She patient denies suicidal/homicidal ideation and denies hallucinations. The patient is clear from psych point of view. 08/26/21: The patient was seen this morning. She is irritable and refusing to answer questions. 08/25/21:The patient was seen at breakfast. She states she is she is doing well. She patient denies suicidal/homicidal ideation and denies hallucinations. The patient is clear from psych point of view. 08/24/21:The patient was seen at breakfast. She states she is she is doing well. She patient denies suicidal/homicidal ideation and denies hallucinations. The patient is clear from psych point of view. 08/23/21:The patient was seen at breakfast. She states she is just waking up " not there yet." She patient denies suicidal/homicidal ideation and denies hallucinations. The patient is clear from psych point of view. 08/22/21: The patient was seen at breakfast. She reports doing well. She states sleep and appetite as good. The patient was heard calling a peer disgusting stating he pulls his pants when he walked behind him. She patient denies suicidal/homicidal ideation and denies hallucinations. The patient is clear from psych point of view. 08/21/21: The patient was seen at breakfast. She reports doing well. She states sleep and appetite as good. The patient denies suicidal/homicidal ideation and denies hallucinations. The patient is clear from psych point of view. 08/20/21: The patient was seen in her room this morning. She reports doing well. She states sleep and appetite as good. The patient denies suicidal/homicidal ideation and denies hallucinations. The patient is clear from psych point of view. 08/19/21: The patient was seen this morning. She is calm, cooperative and reports doing well. She states sleep and appetite as good. The patient denies suicidal/homicidal ideation and denies hallucinations. 08/18/21: The patient was seen at breakfast. She is calm, cooperative and reports doing well. She states sleep and appetite as good. The patient denies suicidal/homicidal ideation and denies hallucinations. 08/17/21:The patient was seen today. She is calm, and cooperative. Her daughter is on the phone. The patient's progress and treatment plan were explained. The patient was explained the importance of complying with her medical regimen. She agrees to take the medication. The SW and nurse are involved as well. The patient denies SI/HI or hallucinations of any kind. 08/16 The patient was seen today. She is calm, and cooperative. She denies hallucinations of any kind. She also denies SI/HI. The patient appears to be at her baseline. Will plan with the social media marketing specialist to discharge the patient to a safe place. 08/15 The patient was seem today. She is calm and cooperative. She denies SI/HI. She also denies hallucinations. The patient does appear to be a little delusional. She tells me something is going on with her eyes. I ask her what was going on. She says "I don't know. Look at them." There is nothing obviously wrong with her eyes. 08/14 The patient was seen today. She is lying in bed. She is awake, and pleasant. She is calm and cooperative. She denies SI/HI or hallucinations of any kind. She is awaiting placement. 08/13 The patient was seen today. She is calm and cooperative. She denies SI/HI or hallucinations of any kind. She says she slept much better last night. 08/12 The patient was seen today. She is calm, and cooperative. She is pleasant. The patient says she slept a little better but didn't feel like she rested well. She denies SI/HI or hallucinations of any kind. The patient says she doesn't know if she wants to take any meds because they make her feel sluggish. I advised the patient that if she wanted to continue to progress and go home, she had to comply with the treatment. She was in agreement, and states she would continue to take them. . 08/11 The patient was seen today. She is calm, cooperative and pleasant. She says she feels okay. She denies SI/HI. She also denies hallucinations. She says she did not sleep well. The patient says she kept waking up throughout the night. 08/10/21: The patient was seen this morning. She states she is doing well. She denies being depressed and no delusions noted. The patient denies any current suicidal/homicidal ideation and denies hallucinations. 08/09/21: The patient was seen at breakfast. She presents in good spirits and reports doing well. She reports sleep as fair. She denies depression and denies any current suicidal/homicidal ideation and denies hallucinations. 08/08/21: The patient was seen eating breakfast. she reports doing well " I would have liked to sleep better, so much interruptions." She denies depression and denies any current suicidal/homicidal ideation and denies hallucinations. 08/07/21:The patient was seen this morning. She is calm. When asking how she is doing, she states " I don't know yet." She reports sleep as restful. She denies depression and denies any current suicidal/homicidal ideation and denies hallucinations. REVIEW OF SYSTEMS Constitutional: Negative for weight loss ENT: Negative for stridor Respiratory: Negative for cough or hemoptysis All other systems reviewed and are negative MENTAL STATUS EXAMINATION General Appearance and Behavior: Age appropriate, good hygiene, wearing appropriate clothes, good eye contact, calm, cooperative Cooperation: Participating/engaged, but Guarded Psychomotor Behavior: Psychomotor normal Mood: good Affect and affective range: congruent with stated mood Thought Process: Goal directed Thought Content: Reality oriented Speech: normal tone and pace Suicidal Ideation: Denies Homicidal Ideation: Denies Hallucinations: Denies Delusions: None Impulse Control: Limited Insight and Judgment: Poor insight and judgment Memory: Poor Attention: Divided Orientation: Alert, oriented Assessment and Plan Delusional Disorder Treatment Plan Patient admitted for inpatient psychiatric evaluation, medication adjustment and close monitoring The patient's behavior, mood, sleep and appetite will be closely monitored. Patient enrolled in individual and group therapeutic sessions and encouraged to attend. Patient provided with a safe and structured environment. Patient's physical health needs will be addressed by the Hospitalist. Hospitalist Consulted Labs including CBC, CMP, Lipid profile and Hemoglobin A1C levels ordered for baseline reference Social Assessment will be completed and the Assembly Leader will work with patient and family to ensure a suitable and safe disposition Medication adjustment will be made as clinically indicated No changes made today Usual Wellness Anabaptism/Preservation: - Start Trazodone 50 mg po QHS & 50 mg po QHS PRN between 10 PM & 2 AM for insomnia - Start Melatonin 5 mg po QHS to promote circadian rhythm The patient agreed on the treatment plan, understood the risk, benefit, alternative treatment, potential consequence of no treatment, and gave informed consent. Estimated days: 4 Post hospital care: primary care provider, psychiatric provider Case staffed with Dr. Fuentes Medications and Allergies Medications and Allergies Allergies Allergy/AdvReac Type Severity Reaction Status Date / Time codeine AdvReac Intermediate Swelling Verified 08/04/21 18:27 Home Medications Medication Instructions Recorded Confirmed Last Taken Type Aspirin EC [Halfprin EC] 81 mg PO QDAY #30 tablet. 10/20/19 08/06/21 Unknown Rx AtorvaSTATin [Lipitor] 40 mg PO QHS #30 tablet 10/20/19 08/06/21 Unknown Rx Calcium Carbonate/Vitamin D3 1 each PO DAILY #30 tablet 10/20/19 08/06/21 Unknown Rx [Calcium 500 mg-Vit D3 600 Unit] amLODIPine 10 mg PO QDAY #30 tablet 10/20/19 08/06/21 Unknown Rx Active Meds: Active Medications Amlodipine Besylate (Amlodipine 10 Mg Tab) 10 mg PO QDAY [facility] Last Admin: 09/01/21 11:00 Dose: Not Given Aspirin (Aspirin 81 Mg Tab Chew) 81 mg PO QDAY [facility] Last Admin: 09/01/21 11:00 Dose: Not Given Atorvastatin Calcium (Atorvastatin 40 Mg Tab) 40 mg PO QHS [facility] Last Admin: 09/01/21 21:05 Dose: Not Given Melatonin (Melatonin 5 Mg Tab) 5 mg PO QHS PRN PRN Reason: Sleep Multivitamins/Minerals (Calcium Carb/Vit D3/Minerals 600 Mg/800 Units Tab) 1 each PO DAILY [facility] Last Admin: 09/01/21 11:00 Dose: Not Given Risperidone (Risperidone 0.25 Mg Tab) 0.25 mg PO BID [facility] Last Admin: 09/01/21 21:05 Dose: Not Given Trazodone HCl (Trazodone 50 Mg Tab) 75 mg PO QHS [facility] Last Admin: 09/01/21 21:05 Dose: Not Given Results - Results Labs/Vitals: Laboratory Last Values WBC 6.0 K/mm3 (4.5-11.0) 08/08/21 21:18 RBC 3.97 M/mm3 (3.65-5.03) 08/08/21 21:18 Hgb 11.8 gm/dl (10.1-14.3) 08/08/21 21:18 Hct 36.3 % (30.3-42.9) 08/08/21 21:18 MCV 92 fl (79-97) 08/08/21 21:18 MCH 30 pg (28-32) 08/08/21 21:18 MCHC 33 % (30-34) 08/08/21 21:18 RDW 15.2 % (13.2-15.2) 08/08/21 21:18 Plt Count 181 K/mm3 (140-440) 08/08/21 21:18 Lymph % (Auto) 32.9 % (13.4-35.0) 08/08/21 21:18 [place] % (Auto) 8.7 % (0.0-7.3) H 08/08/21 21:18 Eos % (Auto) 3.3 % (0.0-4.3) 08/08/21 21:18 Baso % (Auto) 0.5 % (0.0-1.8) 08/08/21 21:18 Lymph # (Auto) 2.0 K/mm3 (1.2-5.4) 08/08/21 21:18 [place] # (Auto) 0.5 K/mm3 (0.0-0.8) 08/08/21 21:18 Eos # (Auto) 0.2 K/mm3 (0.0-0.4) 08/08/21 21:18 Baso # (Auto) 0.0 K/mm3 (0.0-0.1) 08/08/21 21:18 Seg Neutrophils % 54.6 % (40.0-70.0) 08/08/21 21:18 Seg Neutrophils # 3.3 K/mm3 (1.8-7.7) 08/08/21 21:18 Sodium 140 mmol/L (137-145) 08/08/21 21:18 Potassium 3.8 mmol/L (3.6-5.0) 08/08/21 21:18 Chloride 101.9 mmol/L (98-107) 08/08/21 21:18 Carbon Dioxide 27 mmol/L (22-30) 08/08/21 21:18 Anion Gap 15 mmol/L 08/08/21 21:18 BUN 26 mg/dL (7-17) H 08/08/21 21:18 Creatinine 0.8 mg/dL (0.6-1.2) 08/08/21 21:18 Estimated GFR > 60 ml/min 08/08/21 21:18 BUN/Creatinine Ratio 33 % 08/08/21 21:18 Glucose 115 mg/dL (65-100) H 08/08/21 21:18 POC Glucose 153 mg/dL (70-105) H 08/25/21 19:37 Hemoglobin A1c 5.9 % (4-6) 08/08/21 21:18 Calcium 9.7 mg/dL (8.4-10.2) 08/08/21 21:18 Total Bilirubin 0.20 mg/dL (0.1-1.2) 08/08/21 21:18 AST 22 units/L (5-40) 08/08/21 21:18 ALT 17 units/L (7-56) 08/08/21 21:18 Alkaline Phosphatase 70 units/L (35-129) 08/08/21 21:18 Total Protein 6.9 g/dL (6.3-8.2) 08/08/21 21:18 Albumin 4.3 g/dL (3.9-5) 08/08/21 21:18 Albumin/Globulin Ratio 1.7 % 08/08/21 21:18 Triglycerides 126 mg/dL (2-149) 08/08/21 21:18 Cholesterol 279 mg/dL (50-199) H 08/08/21 21:18 LDL Cholesterol Direct 180 mg/dL (50-130) H 08/08/21 21:18 HDL Cholesterol 81 mg/dL (40-59) H 08/08/21 21:18 Cholesterol/HDL Ratio 3.44 % 08/08/21 21:18 TSH 1.720 mlU/mL (0.270-4.200) 08/08/21 21:18 Last Vital Signs Temp 98.9 F 09/01/21 19:49 Pulse 80 09/01/21 19:49 Resp 17 09/01/21 19:49 BP 146/64 09/01/21 19:49 Pulse Ox 100 09/01/21 19:49
[2021-09-02] MEDS: amLODIPine 10 MG TAB PO SCH (11:26)
[2021-09-02] MEDS: risperiDONE 0.25 MG TAB PO SCH ×2 (11:26→22:00)
[2021-09-02] MEDS: CALCIUM CARB/VIT D3/MINERALS 600 MG/800 UNITS TAB PO SCH (11:26)
[2021-09-02] MEDS: ASPIRIN 81 MG TAB CHEW PO SCH (11:26)
[2021-09-02] MEDS: traZODone 50 MG TAB PO SCH (22:00)
[2021-09-03] MEDS: risperiDONE 0.25 MG TAB PO SCH ×3 (08:37→21:05)
[2021-09-03] MEDS: amLODIPine 10 MG TAB PO SCH ×2 (08:38→10:00)
[2021-09-03] MEDS: CALCIUM CARB/VIT D3/MINERALS 600 MG/800 UNITS TAB PO SCH ×2 (08:38→10:00)
[2021-09-03] MEDS: ASPIRIN 81 MG TAB CHEW PO SCH ×2 (08:38→10:00)
--- NOTE | 2021-09-03 09:32 | Progress Note ---
Subjective Date of service: 09/03/21 Principal diagnosis: Delusional Disorder Subjective Comment: 09/03/21: The patient was seen at breakfast. She is cooperative and pleasant. She reports sleep and appetite as good. She denies suicidal/homicidal ideation and denies hallucinations. Awaiting placement. 09/02/21: The patient was seen at breakfast. She states she is doing well. She reports sleep and appetite as good. She denies suicidal/homicidal ideation and denies hallucinations. Awaiting placement. 09/01/21:The patient was seen today. she reports doing well. She denies suicidal/homicidal ideation and denies hallucinations.Awaiting placement. 08/31:The patient was seen today. She is pleasant. She is sitting on side of the bed. The patient is asking about her discharge date. She denies SI/HI or hallucinations of any kind. She is awaiting placement. 08/30 The patient was seen today. She is calm, cooperative and pleasant. She denies SI/HI or hallucinations of any kind. She says she slept okay. 08/29 The patient was seen today. She is lying in bed awake. She is calm and cooperative. She says she doesn't feel like herself this morning. The patient says "I'm just ready to leave here. I've been here too long." I assured the patient that she would discharge once the secures a safe place for her to go. She is understanding of this. The patient denies SI/HI or hallucinations of any kind. 08/28 The patient was seen today. She is standing at the sink in her room brushing her teeth. She is slightly irritable and states she is ready to get out of here. She denies SI/HI or hallucinations of any kind. The patient is awaiting placement. 08/27/21: The patient was seen this morning. She is in a better mood. " God is blessing me as he does everyday, I'm in a good mood, spoke with my daughter she is uplifting and reassuring. " She patient denies suicidal/homicidal ideation and denies hallucinations. The patient is clear from psych point of view. 08/26/21: The patient was seen this morning. She is irritable and refusing to answer questions. 08/25/21:The patient was seen at breakfast. She states she is she is doing well. She patient denies suicidal/homicidal ideation and denies hallucinations. The patient is clear from psych point of view. 08/24/21:The patient was seen at breakfast. She states she is she is doing well. She patient denies suicidal/homicidal ideation and denies hallucinations. The patient is clear from psych point of view. 08/23/21:The patient was seen at breakfast. She states she is just waking up " not there yet." She patient denies suicidal/homicidal ideation and denies hallucinations. The patient is clear from psych point of view. 08/22/21: The patient was seen at breakfast. She reports doing well. She states sleep and appetite as good. The patient was heard calling a peer disgusting stating he pulls his pants when he walked behind him. She patient denies suicidal/homicidal ideation and denies hallucinations. The patient is clear from psych point of view. 08/21/21: The patient was seen at breakfast. She reports doing well. She states sleep and appetite as good. The patient denies suicidal/homicidal ideation and denies hallucinations. The patient is clear from psych point of view. 08/20/21: The patient was seen in her room this morning. She reports doing well. She states sleep and appetite as good. The patient denies suicidal/homicidal ideation and denies hallucinations. The patient is clear from psych point of view. 08/19/21: The patient was seen this morning. She is calm, cooperative and reports doing well. She states sleep and appetite as good. The patient denies suicidal/homicidal ideation and denies hallucinations. 08/18/21: The patient was seen at breakfast. She is calm, cooperative and reports doing well. She states sleep and appetite as good. The patient denies suicidal/homicidal ideation and denies hallucinations. 08/17/21:The patient was seen today. She is calm, and cooperative. Her daughter is on the phone. The patient's progress and treatment plan were explained. The patient was explained the importance of complying with her medical regimen. She agrees to take the medication. The SW and nurse are involved as well. The patient denies SI/HI or hallucinations of any kind. 08/16 The patient was seen today. She is calm, and cooperative. She denies hallucinations of any kind. She also denies SI/HI. The patient appears to be at her baseline. Will plan with the social work job titles to discharge the patient to a safe place. 08/15 The patient was seem today. She is calm and cooperative. She denies SI/HI. She also denies hallucinations. The patient does appear to be a little delusional. She tells me something is going on with her eyes. I ask her what was going on. She says "I don't know. Look at them." There is nothing obviously wrong with her eyes. 08/14 The patient was seen today. She is lying in bed. She is awake, and pleasant. She is calm and cooperative. She denies SI/HI or hallucinations of any kind. She is awaiting placement. 08/13 The patient was seen today. She is calm and cooperative. She denies SI/HI or hallucinations of any kind. She says she slept much better last night. 08/12 The patient was seen today. She is calm, and cooperative. She is pleasant. The patient says she slept a little better but didn't feel like she rested well. She denies SI/HI or hallucinations of any kind. The patient says she doesn't know if she wants to take any meds because they make her feel sluggish. I advised the patient that if she wanted to continue to progress and go home, she had to comply with the treatment. She was in agreement, and states she would continue to take them. . 08/11 The patient was seen today. She is calm, cooperative and pleasant. She says she feels okay. She denies SI/HI. She also denies hallucinations. She says she did not sleep well. The patient says she kept waking up throughout the night. 08/10/21: The patient was seen this morning. She states she is doing well. She denies being depressed and no delusions noted. The patient denies any current suicidal/homicidal ideation and denies hallucinations. 08/09/21: The patient was seen at breakfast. She presents in good spirits and reports doing well. She reports sleep as fair. She denies depression and denies any current suicidal/homicidal ideation and denies hallucinations. 08/08/21: The patient was seen eating breakfast. she reports doing well " I would have liked to sleep better, so much interruptions." She denies depression and denies any current suicidal/homicidal ideation and denies hallucinations. 08/07/21:The patient was seen this morning. She is calm. When asking how she is doing, she states " I don't know yet." She reports sleep as restful. She denies depression and denies any current suicidal/homicidal ideation and denies hallucinations. REVIEW OF SYSTEMS Constitutional: Negative for weight loss ENT: Negative for stridor Respiratory: Negative for cough or hemoptysis All other systems reviewed and are negative MENTAL STATUS EXAMINATION General Appearance and Behavior: Age appropriate, good hygiene, wearing appropriate clothes, good eye contact, calm, cooperative Cooperation: Participating/engaged, but Guarded Psychomotor Behavior: Psychomotor normal Mood: good Affect and affective range: congruent with stated mood Thought Process: Goal directed Thought Content: Reality oriented Speech: normal tone and pace Suicidal Ideation: Denies Homicidal Ideation: Denies Hallucinations: Denies Delusions: None Impulse Control: Limited Insight and Judgment: Poor insight and judgment Memory: Poor Attention: Divided Orientation: Alert, oriented Assessment and Plan Delusional Disorder Treatment Plan Patient admitted for inpatient psychiatric evaluation, medication adjustment and close monitoring The patient's behavior, mood, sleep and appetite will be closely monitored. Patient enrolled in individual and group therapeutic sessions and encouraged to attend. Patient provided with a safe and structured environment. Patient's physical health needs will be addressed by the Hospitalist. Hospitalist Consulted Labs including CBC, CMP, Lipid profile and Hemoglobin A1C levels ordered for baseline reference Social Assessment will be completed and the [facility] will work with patient and family to ensure a suitable and safe disposition Medication adjustment will be made as clinically indicated No changes made today Usual Wellness Islam/Preservation: - Start Trazodone 50 mg po QHS & 50 mg po QHS PRN between 10 PM & 2 AM for insomnia - Start Melatonin 5 mg po QHS to promote circadian rhythm The patient agreed on the treatment plan, understood the risk, benefit, alternative treatment, potential consequence of no treatment, and gave informed consent. Estimated days: 4 Post hospital care: primary care provider, psychiatric provider Case staffed with Dr. Fuentes Medications and Allergies Medications and Allergies Allergies Allergy/AdvReac Type Severity Reaction Status Date / Time codeine AdvReac Intermediate Swelling Verified 08/04/21 18:27 Home Medications Medication Instructions Recorded Confirmed Last Taken Type Aspirin EC [Halfprin EC] 81 mg PO QDAY #30 tablet. 10/20/19 08/06/21 Unknown Rx AtorvaSTATin [Lipitor] 40 mg PO QHS #30 tablet 10/20/19 08/06/21 Unknown Rx Calcium Carbonate/Vitamin D3 1 each PO DAILY #30 tablet 10/20/19 08/06/21 Unknown Rx [Calcium 500 mg-Vit D3 600 Unit] amLODIPine 10 mg PO QDAY #30 tablet 10/20/19 08/06/21 Unknown Rx Active Meds: Active Medications Amlodipine Besylate (Amlodipine 10 Mg Tab) 10 mg PO QDAY [facility] Last Admin: 09/03/21 08:38 Dose: 10 mg Aspirin (Aspirin 81 Mg Tab Chew) 81 mg PO QDAY [facility] Last Admin: 09/03/21 08:38 Dose: 81 mg Atorvastatin Calcium (Atorvastatin 40 Mg Tab) 40 mg PO QHS [facility] Last Admin: 09/02/21 21:59 Dose: 40 mg Melatonin (Melatonin 5 Mg Tab) 5 mg PO QHS PRN PRN Reason: Sleep Multivitamins/Minerals (Calcium Carb/Vit D3/Minerals 600 Mg/800 Units Tab) 1 each PO DAILY [facility] Last Admin: 09/03/21 08:38 Dose: 1 each Risperidone (Risperidone 0.25 Mg Tab) 0.25 mg PO BID [facility] Last Admin: 09/03/21 08:37 Dose: 0.25 mg Trazodone HCl (Trazodone 50 Mg Tab) 75 mg PO QHS [facility] Last Admin: 09/02/21 22:00 Dose: 75 mg Results - Results Labs/Vitals: Laboratory Last Values WBC 6.0 K/mm3 (4.5-11.0) 08/08/21 21:18 RBC 3.97 M/mm3 (3.65-5.03) 08/08/21 21:18 Hgb 11.8 gm/dl (10.1-14.3) 08/08/21 21:18 Hct 36.3 % (30.3-42.9) 08/08/21 21:18 MCV 92 fl (79-97) 08/08/21 21:18 MCH 30 pg (28-32) 08/08/21 21:18 MCHC 33 % (30-34) 08/08/21 21:18 RDW 15.2 % (13.2-15.2) 03/08/22 21:18 Plt Count 181 K/mm3 (140-440) 08/08/21 21:18 Lymph % (Auto) 32.9 % (13.4-35.0) 08/08/21 21:18 [place] % (Auto) 8.7 % (0.0-7.3) H 08/08/21 21:18 Eos % (Auto) 3.3 % (0.0-4.3) 08/08/21 21:18 Baso % (Auto) 0.5 % (0.0-1.8) 08/08/21 21:18 Lymph # (Auto) 2.0 K/mm3 (1.2-5.4) 08/08/21 21:18 [place] # (Auto) 0.5 K/mm3 (0.0-0.8) 08/08/21 21:18 Eos # (Auto) 0.2 K/mm3 (0.0-0.4) 08/08/21 21:18 Baso # (Auto) 0.0 K/mm3 (0.0-0.1) 08/08/21 21:18 Seg Neutrophils % 54.6 % (40.0-70.0) 08/08/21 21:18 Seg Neutrophils # 3.3 K/mm3 (1.8-7.7) 08/08/21 21:18 Sodium 140 mmol/L (137-145) 08/08/21 21:18 Potassium 3.8 mmol/L (3.6-5.0) 08/08/21 21:18 Chloride 101.9 mmol/L (98-107) 08/08/21 21:18 Carbon Dioxide 27 mmol/L (22-30) 08/08/21 21:18 Anion Gap 15 mmol/L 08/08/21 21:18 BUN 26 mg/dL (7-17) H 08/08/21 21:18 Creatinine 0.8 mg/dL (0.6-1.2) 08/08/21 21:18 Estimated GFR > 60 ml/min 08/08/21 21:18 BUN/Creatinine Ratio 33 % 08/08/21 21:18 Glucose 115 mg/dL (65-100) H 08/08/21 21:18 POC Glucose 153 mg/dL (70-105) H 08/25/21 19:37 Hemoglobin A1c 5.9 % (4-6) 08/08/21 21:18 Calcium 9.7 mg/dL (8.4-10.2) 08/08/21 21:18 Total Bilirubin 0.20 mg/dL (0.1-1.2) 08/08/21 21:18 AST 22 units/L (5-40) 08/08/21 21:18 ALT 17 units/L (7-56) 08/08/21 21:18 Alkaline Phosphatase 70 units/L (35-129) 08/08/21 21:18 Total Protein 6.9 g/dL (6.3-8.2) 08/08/21 21:18 Albumin 4.3 g/dL (3.9-5) 08/08/21 21:18 Albumin/Globulin Ratio 1.7 % 08/08/21 21:18 Triglycerides 126 mg/dL (2-149) 08/08/21 21:18 Cholesterol 279 mg/dL (50-199) H 08/08/21 21:18 LDL Cholesterol Direct 180 mg/dL (50-130) H 08/08/21 21:18 HDL Cholesterol 81 mg/dL (40-59) H 08/08/21 21:18 Cholesterol/HDL Ratio 3.44 % 08/08/21 21:18 TSH 1.720 mlU/mL (0.270-4.200) 08/08/21 21:18 Last Vital Signs Temp 98.8 F 09/02/21 20:12 Pulse 72 09/02/21 20:12 Resp 16 09/02/21 20:12 BP 148/67 09/02/21 20:12 Pulse Ox 98 09/02/21 20:12
--- NOTE | 2021-09-03 12:51 | Progress Note ---
Assessment and Plan - Patient Problems (1) Vascular dementia with behavioral disturbance Current Visit: Yes Status: Acute Plan to address problem: Verbal prompting, verbal redirection, benzodiazepine therapy as clinically indicated (2) Cerebral atherosclerosis Current Visit: Yes Status: Acute Plan to address problem: Risk factor reduction, antiplatelet therapy as clinically indicated. (3) Hypertension Current Visit: Yes Status: Acute Qualifiers: Hypertension type: primary hypertension Qualified Code(s): I10 - Essential (primary) hypertension Plan to address problem: Monitor blood pressure every shift, continue medical management. (4) Hyperlipidemia Current Visit: Yes Status: Acute Plan to address problem: Low-cholesterol diet, statin therapy, supportive care. (5) Diabetes Current Visit: Yes Status: Acute Plan to address problem: Consistent carbohydrate diet, Accu-Chek, insulin protocol, hypoglycemia protocol. (6) Malnutrition Current Visit: Yes Status: Acute Qualifiers: Protein-calorie malnutrition severity: moderate Plan to address problem: Dietary intake varies based on cognition. Dietary supplementation when awake and alert only, increase protein intake. (7) Psychosis Current Visit: Yes Status: Acute Qualifiers: Schizophrenia type: unspecified Plan to address problem: Continue medical management as per mental health team (8) Debility Current Visit: Yes Status: Acute Plan to address problem: Bed alarm, fall precautions. (9) Dependent edema Current Visit: Yes Status: Acute Plan to address problem: Trace dependent edema. No palpable cords, no discoloration, no physical exam findings consistent with DVT. No unilateral leg swelling. Bilateral lower extremity elevation nightly. (10) Advance care planning Current Visit: Yes Status: Acute Plan to address problem: Disease education conducted, care plan discussed, diagnoses discussed, prognosis discussed, patient is full code. Discussed patient diagnoses, prognosis and care plan with patient granddaughter Felicia Nuñez [phone]. Patient is currently unable to live independently and will require placement. Discussed all likely options. Recommend discharge with hospice care to penitentiary facility, personal-alf, or assisted living facility depending on availability and acceptance. 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 +30 minutes. History Interval history: 81 YO Female with Vascular Dementia with Behavioral Disturbance, Cerebral Atherosclerosis, HTN, DM, Malnitrition, MDD, EDWIN admitted to [facility] for psychiatric stabilization. Consult placed by Dr. Hernandez for medical management. Pt seen and evaluated in the recreation room. Pt has diminished cognition and is at baseline level of cognition and function. nursing staff reports that patient complains of leg swelling. Patient seen and evaluated. Patient found to have trace dependent edema.. Hospitalist Physical - Constitutional Vitals: Temp Pulse Resp BP Pulse Ox 98.8 F 72 16 148/67 98 09/02/21 20:12 09/02/21 20:12 09/02/21 20:12 09/02/21 20:12 09/02/21 20:12 General appearance: Present: no acute distress, cachectic - EENT Eyes: Present: PERRL ENT: hearing decreased - Neck Neck: Present: supple - Respiratory Respiratory effort: normal Respiratory: bilateral: CTA - Cardiovascular Rhythm: regular Heart Sounds: Present: S1 & S2 - Extremities Extremities: no ischemia Peripheral Pulses: within normal limits - Abdominal General gastrointestinal: soft, non-tender, non-distended - Integumentary Integumentary: Present: clear, dry - Psychiatric Psychiatric: cooperative - Neurologic Neurologic: CNII-XII intact Results - Labs CBC & Chem 7: 08/08/21 21:18 08/08/21 21:18 Labs: Laboratory Last Values WBC 6.0 K/mm3 (4.5-11.0) 08/08/21 21:18 RBC 3.97 M/mm3 (3.65-5.03) 08/08/21 21:18 Hgb 11.8 gm/dl (10.1-14.3) 08/08/21 21:18 Hct 36.3 % (30.3-42.9) 08/08/21 21:18 MCV 92 fl (79-97) 08/08/21 21:18 MCH 30 pg (28-32) 08/08/21 21:18 MCHC 33 % (30-34) 08/08/21 21:18 RDW 15.2 % (13.2-15.2) 08/08/21 21:18 Plt Count 181 K/mm3 (140-440) 08/08/21 21:18 Lymph % (Auto) 32.9 % (13.4-35.0) 08/08/21 21:18 [place] % (Auto) 8.7 % (0.0-7.3) H 08/08/21 21:18 Eos % (Auto) 3.3 % (0.0-4.3) 08/08/21 21:18 Baso % (Auto) 0.5 % (0.0-1.8) 08/08/21 21:18 Lymph # (Auto) 2.0 K/mm3 (1.2-5.4) 08/08/21 21:18 [place] # (Auto) 0.5 K/mm3 (0.0-0.8) 08/08/21 21:18 Eos # (Auto) 0.2 K/mm3 (0.0-0.4) 08/08/21 21:18 Baso # (Auto) 0.0 K/mm3 (0.0-0.1) 08/08/21 21:18 Seg Neutrophils % 54.6 % (40.0-70.0) 08/08/21 21:18 Seg Neutrophils # 3.3 K/mm3 (1.8-7.7) 08/08/21 21:18 Sodium 140 mmol/L (137-145) 08/08/21 21:18 Potassium 3.8 mmol/L (3.6-5.0) 08/08/21 21:18 Chloride 101.9 mmol/L (98-107) 08/08/21 21:18 Carbon Dioxide 27 mmol/L (22-30) 08/08/21 21:18 Anion Gap 15 mmol/L 08/08/21 21:18 BUN 26 mg/dL (7-17) H 08/08/21 21:18 Creatinine 0.8 mg/dL (0.6-1.2) 08/08/21 21:18 Estimated GFR > 60 ml/min 08/08/21 21:18 BUN/Creatinine Ratio 33 % 08/08/21 21:18 Glucose 115 mg/dL (65-100) H 08/08/21 21:18 POC Glucose 153 mg/dL (70-105) H 08/25/21 19:37 Hemoglobin A1c 5.9 % (4-6) 08/08/21 21:18 Calcium 9.7 mg/dL (8.4-10.2) 08/08/21 21:18 Total Bilirubin 0.20 mg/dL (0.1-1.2) 08/08/21 21:18 AST 22 units/L (5-40) 08/08/21 21:18 ALT 17 units/L (7-56) 08/08/21 21:18 Alkaline Phosphatase 70 units/L (35-129) 08/08/21 21:18 Total Protein 6.9 g/dL (6.3-8.2) 08/08/21 21:18 Albumin 4.3 g/dL (3.9-5) 08/08/21 21:18 Albumin/Globulin Ratio 1.7 % 08/08/21 21:18 Triglycerides 126 mg/dL (2-149) 08/08/21 21:18 Cholesterol 279 mg/dL (50-199) H 08/08/21 21:18 LDL Cholesterol Direct 180 mg/dL (50-130) H 08/08/21 21:18 HDL Cholesterol 81 mg/dL (40-59) H 08/08/21 21:18 Cholesterol/HDL Ratio 3.44 % 08/08/21 21:18 TSH 1.720 mlU/mL (0.270-4.200) 08/08/21 21:18 Olea/IV: Voiding Method Diaper Active Medications - Current Medications Current Medications: Generic Name Dose Route Start Last Admin Trade Name Freq PRN Reason Stop Dose Admin Amlodipine Besylate 10 mg 08/06/21 10:00 09/03/21 10:00 Amlodipine 10 Mg Tab PO Not Given QDAY [facility] Aspirin 81 mg 08/18/21 10:00 09/03/21 10:00 Aspirin 81 Mg Tab Chew PO Not Given QDAY [facility] Atorvastatin Calcium 40 mg 08/06/21 22:00 09/02/21 21:59 Atorvastatin 40 Mg Tab PO 40 mg QHS [facility] Administration Melatonin 5 mg 08/11/21 22:00 Melatonin 5 Mg Tab PO QHS PRN Sleep Multivitamins/Minerals 1 each 08/06/21 10:00 09/03/21 10:00 Calcium Carb/Vit D3/Minerals 600 Mg/800 Units Tab PO Not Given DAILY [facility] Risperidone 0.25 mg 08/16/21 10:00 09/03/21 10:00 Risperidone 0.25 Mg Tab PO Not Given BID [facility] Trazodone HCl 75 mg 08/11/21 22:00 09/02/21 22:00 Trazodone 50 Mg Tab PO 75 mg QHS [facility] Administration Nutrition/Malnutrition Assess - Dietary Evaluation Nutrition/Malnutrition Findings: Nutrition Notes Start: 08/11/21 12:38 Freq: Status: Active Protocol: Document 08/11/21 12:38 CADENCE (Rec: 08/11/21 12:40 CADENCE [id number]) Nutrition Notes Need for Assessment generated from: LOS Initial or Follow up Brief Note Current Diet Consistent CHO Height 5 ft 2 in Weight 52 kg [place] Body Weight (kg) 50.00 BMI 20.9 Weight Status Underweight Subjective/Other Information Pt screened for LOS. She has consumed 83% of meals since admission. Percent of energy/protein needs met: 100% energy and pro Burn Absent Trauma Absent Current % PO Good (75-100%) Minimum of two criteria No Is patient on ventilator? No Is Patient Ambulatory and/or Out of Bed Yes REE-([place] Jeor-ambulatory/OOB) [ 1219.725 [id number]] Kcal/Kg value to use for calculation 30 Approximate Energy Requirements Using 1560 kcal/Kg Calculation Used for Recommendations Kcal/kg Additional Notes Pro needs 1.2-1.5g/k-78g/ day Fluid needs 1ml/kcal Nutrition Intervention Revisit per MD consult or patient Sign Off request:
--- NOTE | 2021-09-03 12:53 | Progress Note ---
Assessment and Plan - Patient Problems (1) Vascular dementia with behavioral disturbance Current Visit: Yes Status: Acute Plan to address problem: Verbal prompting, verbal redirection, benzodiazepine therapy as clinically indicated (2) Cerebral atherosclerosis Current Visit: Yes Status: Acute Plan to address problem: Risk factor reduction, antiplatelet therapy as clinically indicated. (3) Hypertension Current Visit: Yes Status: Acute Qualifiers: Hypertension type: primary hypertension Qualified Code(s): I10 - Essential (primary) hypertension Plan to address problem: Monitor blood pressure every shift, continue medical management. (4) Hyperlipidemia Current Visit: Yes Status: Acute Plan to address problem: Low-cholesterol diet, statin therapy, supportive care. (5) Diabetes Current Visit: Yes Status: Acute Plan to address problem: Consistent carbohydrate diet, Accu-Chek, insulin protocol, hypoglycemia protocol. (6) Malnutrition Current Visit: Yes Status: Acute Qualifiers: Protein-calorie malnutrition severity: moderate Plan to address problem: Dietary intake varies based on cognition. Dietary supplementation when awake and alert only, increase protein intake. (7) Psychosis Current Visit: Yes Status: Acute Qualifiers: Schizophrenia type: unspecified Plan to address problem: Continue medical management as per mental health team (8) Debility Current Visit: Yes Status: Acute Plan to address problem: Bed alarm, fall precautions. (9) Dependent edema Current Visit: Yes Status: Acute Plan to address problem: Trace dependent edema. No palpable cords, no discoloration, no physical exam findings consistent with DVT. No unilateral leg swelling. Bilateral lower extremity elevation nightly. (10) Advance care planning Current Visit: Yes Status: Acute Plan to address problem: Disease education conducted, care plan discussed, diagnoses discussed, prognosis discussed, patient is full code. Discussed patient diagnoses, prognosis and care plan with patient granddaughter Felicia Nuñez [phone]. Patient is currently unable to live independently and will require placement. Discussed all likely options. Recommend discharge with hospice care to halfway facility, personal-[facility], or assisted living facility depending on availability and acceptance. 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 +30 minutes. History Interval history: 81 YO Female with Vascular Dementia with Behavioral Disturbance, Cerebral Atherosclerosis, HTN, DM, Malnitrition, MDD, EDWIN admitted to [facility] for psychiatric stabilization. Consult placed by Dr. Hernandez for medical management. Pt seen and evaluated in the recreation room. Pt has diminished cognition and is at baseline level of cognition and function. No reported nursing events. Hospitalist Physical - Constitutional Vitals: Temp Pulse Resp BP Pulse Ox 98.8 F 72 16 148/67 98 09/02/21 20:12 09/02/21 20:12 09/02/21 20:12 09/02/21 20:12 09/02/21 20:12 General appearance: Present: no acute distress, cachectic - EENT Eyes: Present: PERRL, EOM intact ENT: hearing decreased - Neck Neck: Present: supple - Respiratory Respiratory effort: normal Respiratory: negative: CTA - Cardiovascular Rhythm: regular Heart Sounds: Present: S1 & S2 - Extremities Extremities: no ischemia Peripheral Pulses: within normal limits - Abdominal General gastrointestinal: soft, non-tender, non-distended - Integumentary Integumentary: Present: clear, dry - Psychiatric Psychiatric: cooperative - Neurologic Neurologic: CNII-XII intact Results - Labs CBC & Chem 7: 08/08/21 21:18 08/08/21 21:18 Labs: Laboratory Last Values WBC 6.0 K/mm3 (4.5-11.0) 08/08/21 21:18 RBC 3.97 M/mm3 (3.65-5.03) 08/08/21 21:18 Hgb 11.8 gm/dl (10.1-14.3) 08/08/21 21:18 Hct 36.3 % (30.3-42.9) 08/08/21 21:18 MCV 92 fl (79-97) 08/08/21 21:18 MCH 30 pg (28-32) 08/08/21 21:18 MCHC 33 % (30-34) 08/08/21 21:18 RDW 15.2 % (13.2-15.2) 08/08/21 21:18 Plt Count 181 K/mm3 (140-440) 08/08/21 21:18 Lymph % (Auto) 32.9 % (13.4-35.0) 08/08/21 21:18 [place] % (Auto) 8.7 % (0.0-7.3) H 08/08/21 21:18 Eos % (Auto) 3.3 % (0.0-4.3) 08/08/21 21:18 Baso % (Auto) 0.5 % (0.0-1.8) 08/08/21 21:18 Lymph # (Auto) 2.0 K/mm3 (1.2-5.4) 08/08/21 21:18 [place] # (Auto) 0.5 K/mm3 (0.0-0.8) 08/08/21 21:18 Eos # (Auto) 0.2 K/mm3 (0.0-0.4) 08/08/21 21:18 Baso # (Auto) 0.0 K/mm3 (0.0-0.1) 08/08/21 21:18 Seg Neutrophils % 54.6 % (40.0-70.0) 08/08/21 21:18 Seg Neutrophils # 3.3 K/mm3 (1.8-7.7) 08/08/21 21:18 Sodium 140 mmol/L (137-145) 08/08/21 21:18 Potassium 3.8 mmol/L (3.6-5.0) 08/08/21 21:18 Chloride 101.9 mmol/L (98-107) 08/08/21 21:18 Carbon Dioxide 27 mmol/L (22-30) 08/08/21 21:18 Anion Gap 15 mmol/L 08/08/21 21:18 BUN 26 mg/dL (7-17) H 08/08/21 21:18 Creatinine 0.8 mg/dL (0.6-1.2) 08/08/21 21:18 Estimated GFR > 60 ml/min 08/08/21 21:18 BUN/Creatinine Ratio 33 % 08/08/21 21:18 Glucose 115 mg/dL (65-100) H 08/08/21 21:18 POC Glucose 153 mg/dL (70-105) H 08/25/21 19:37 Hemoglobin A1c 5.9 % (4-6) 08/08/21 21:18 Calcium 9.7 mg/dL (8.4-10.2) 08/08/21 21:18 Total Bilirubin 0.20 mg/dL (0.1-1.2) 08/08/21 21:18 AST 22 units/L (5-40) 08/08/21 21:18 ALT 17 units/L (7-56) 08/08/21 21:18 Alkaline Phosphatase 70 units/L (35-129) 08/08/21 21:18 Total Protein 6.9 g/dL (6.3-8.2) 08/08/21 21:18 Albumin 4.3 g/dL (3.9-5) 08/08/21 21:18 Albumin/Globulin Ratio 1.7 % 08/08/21 21:18 Triglycerides 126 mg/dL (2-149) 08/08/21 21:18 Cholesterol 279 mg/dL (50-199) H 08/08/21 21:18 LDL Cholesterol Direct 180 mg/dL (50-130) H 08/08/21 21:18 HDL Cholesterol 81 mg/dL (40-59) H 08/08/21 21:18 Cholesterol/HDL Ratio 3.44 % 08/08/21 21:18 TSH 1.720 mlU/mL (0.270-4.200) 08/08/21 21:18 [place]/IV: Voiding Method Diaper Active Medications - Current Medications Current Medications: Generic Name Dose Route Start Last Admin Trade Name Freq PRN Reason Stop Dose Admin Amlodipine Besylate 10 mg 08/06/21 10:00 09/03/21 10:00 Amlodipine 10 Mg Tab PO Not Given QDAY COUNTS INCLUDE 234 BEDS AT [facility] Aspirin 81 mg 08/18/21 10:00 09/03/21 10:00 Aspirin 81 Mg Tab Chew PO Not Given QDAY COUNTS INCLUDE 234 BEDS AT THE [facility] Atorvastatin Calcium 40 mg 08/06/21 22:00 09/02/21 21:59 Atorvastatin 40 Mg Tab PO 40 mg QHS COUNTS INCLUDE 234 BEDS AT THE [facility] Administration Melatonin 5 mg 08/11/21 22:00 Melatonin 5 Mg Tab PO QHS PRN Sleep Multivitamins/Minerals 1 each 08/06/21 10:00 09/03/21 10:00 Calcium Carb/Vit D3/Minerals 600 Mg/800 Units Tab PO Not Given DAILY COUNTS INCLUDE 234 BEDS AT THE [facility] Risperidone 0.25 mg 08/16/21 10:00 09/03/21 10:00 Risperidone 0.25 Mg Tab PO Not Given BID COUNTS INCLUDE 234 BEDS AT THE [facility] Trazodone HCl 75 mg 08/11/21 22:00 09/02/21 22:00 Trazodone 50 Mg Tab PO 75 mg QHS COUNTS INCLUDE 234 BEDS AT THE [facility] Administration Nutrition/Malnutrition Assess - Dietary Evaluation Nutrition/Malnutrition Findings: Nutrition Notes Start: 08/11/21 12:38 Freq: Status: Active Protocol: Document 08/11/21 12:38 NHALL (Rec: 08/11/21 12:40 CADENCE [id number]) Nutrition Notes Need for Assessment generated from: LOS Initial or Follow up Brief Note Current Diet Consistent CHO Height 5 ft 2 in Weight 52 kg [place] Body Weight (kg) 50.00 BMI 20.9 Weight Status Underweight Subjective/Other Information Pt screened for LOS. She has consumed 83% of meals since admission. Percent of energy/protein needs met: 100% energy and pro Burn Absent Trauma Absent Current % PO Good (75-100%) Minimum of two criteria No Is patient on ventilator? No Is Patient Ambulatory and/or Out of Bed Yes REE-([place]-St. Jeor-ambulatory/OOB) [ 1219.725 NUTR.MSJOOB] Kcal/Kg value to use for calculation 30 Approximate Energy Requirements Using 1560 kcal/Kg Calculation Used for Recommendations Kcal/kg Additional Notes Pro needs 1.2-1.5g/k-78g/ day Fluid needs 1ml/kcal Nutrition Intervention Revisit per MD consult or patient Sign Off request:
--- NOTE | 2021-09-03 12:54 | Progress Note ---
Assessment and Plan - Patient Problems (1) Vascular dementia with behavioral disturbance Current Visit: Yes Status: Acute Plan to address problem: Verbal prompting, verbal redirection, benzodiazepine therapy as clinically indicated (2) Cerebral atherosclerosis Current Visit: Yes Status: Acute Plan to address problem: Risk factor reduction, antiplatelet therapy as clinically indicated. (3) Hypertension Current Visit: Yes Status: Acute Qualifiers: Hypertension type: primary hypertension Qualified Code(s): I10 - Essential (primary) hypertension Plan to address problem: Monitor blood pressure every shift, continue medical management. (4) Hyperlipidemia Current Visit: Yes Status: Acute Plan to address problem: Low-cholesterol diet, statin therapy, supportive care. (5) Diabetes Current Visit: Yes Status: Acute Plan to address problem: Consistent carbohydrate diet, Accu-Chek, insulin protocol, hypoglycemia protocol. (6) Malnutrition Current Visit: Yes Status: Acute Qualifiers: Protein-calorie malnutrition severity: moderate Plan to address problem: Dietary intake varies based on cognition. Dietary supplementation when awake and alert only, increase protein intake. (7) Psychosis Current Visit: Yes Status: Acute Qualifiers: Schizophrenia type: unspecified Plan to address problem: Continue medical management as per mental health team (8) Debility Current Visit: Yes Status: Acute Plan to address problem: Bed alarm, fall precautions. (9) Dependent edema Current Visit: Yes Status: Acute Plan to address problem: Trace dependent edema. No palpable cords, no discoloration, no physical exam findings consistent with DVT. No unilateral leg swelling. Bilateral lower extremity elevation nightly. (10) Advance care planning Current Visit: Yes Status: Acute Plan to address problem: Disease education conducted, care plan discussed, diagnoses discussed, prognosis discussed, patient is full code. Discussed patient diagnoses, prognosis and care plan with patient granddaughter Felicia Nuñez [phone]. Patient is currently unable to live independently and will require placement. Discussed all likely options. Recommend discharge with hospice care to halfway facility, personal-alf, or assisted living facility depending on availability and acceptance. 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 +30 minutes. History Interval history: 81 YO Female with Vascular Dementia with Behavioral Disturbance, Cerebral Atherosclerosis, HTN, DM, Malnitrition, MDD, EDWIN admitted to [facility] for psychiatric stabilization. Consult placed by Dr. Hernandez for medical management. Pt seen and evaluated in the recreation room. Pt has diminished cognition and is at baseline level of cognition and function. No reported nursing events. Hospitalist Physical - Constitutional Vitals: Temp Pulse Resp BP Pulse Ox 98.8 F 72 16 148/67 98 09/02/21 20:12 09/02/21 20:12 09/02/21 20:12 09/02/21 20:12 09/02/21 20:12 General appearance: Present: no acute distress, cachectic - EENT Eyes: Present: PERRL ENT: hearing decreased - Neck Neck: Present: supple - Respiratory Respiratory effort: normal Respiratory: bilateral: CTA - Cardiovascular Rhythm: regular Heart Sounds: Present: S1 & S2 - Extremities Extremities: no ischemia Peripheral Pulses: within normal limits - Abdominal General gastrointestinal: soft, non-tender, non-distended - Integumentary Integumentary: Present: clear, dry - Psychiatric Psychiatric: cooperative - Neurologic Neurologic: CNII-XII intact Results - Labs CBC & Chem 7: 08/08/21 21:18 08/08/21 21:18 Labs: Laboratory Last Values WBC 6.0 K/mm3 (4.5-11.0) 08/08/21 21:18 RBC 3.97 M/mm3 (3.65-5.03) 08/08/21 21:18 Hgb 11.8 gm/dl (10.1-14.3) 08/08/21 21:18 Hct 36.3 % (30.3-42.9) 08/08/21 21:18 MCV 92 fl (79-97) 08/08/21 21:18 MCH 30 pg (28-32) 08/08/21 21:18 MCHC 33 % (30-34) 08/08/21 21:18 RDW 15.2 % (13.2-15.2) 08/08/21 21:18 Plt Count 181 K/mm3 (140-440) 08/08/21 21:18 Lymph % (Auto) 32.9 % (13.4-35.0) 08/08/21 21:18 [place] % (Auto) 8.7 % (0.0-7.3) H 08/08/21 21:18 Eos % (Auto) 3.3 % (0.0-4.3) 08/08/21 21:18 Baso % (Auto) 0.5 % (0.0-1.8) 08/08/21 21:18 Lymph # (Auto) 2.0 K/mm3 (1.2-5.4) 08/08/21 21:18 [place] # (Auto) 0.5 K/mm3 (0.0-0.8) 08/08/21 21:18 Eos # (Auto) 0.2 K/mm3 (0.0-0.4) 08/08/21 21:18 Baso # (Auto) 0.0 K/mm3 (0.0-0.1) 08/08/21 21:18 Seg Neutrophils % 54.6 % (40.0-70.0) 08/08/21 21:18 Seg Neutrophils # 3.3 K/mm3 (1.8-7.7) 08/08/21 21:18 Sodium 140 mmol/L (137-145) 08/08/21 21:18 Potassium 3.8 mmol/L (3.6-5.0) 08/08/21 21:18 Chloride 101.9 mmol/L (98-107) 08/08/21 21:18 Carbon Dioxide 27 mmol/L (22-30) 08/08/21 21:18 Anion Gap 15 mmol/L 08/08/21 21:18 BUN 26 mg/dL (7-17) H 08/08/21 21:18 Creatinine 0.8 mg/dL (0.6-1.2) 08/08/21 21:18 Estimated GFR > 60 ml/min 08/08/21 21:18 BUN/Creatinine Ratio 33 % 08/08/21 21:18 Glucose 115 mg/dL (65-100) H 08/08/21 21:18 POC Glucose 153 mg/dL (70-105) H 08/25/21 19:37 Hemoglobin A1c 5.9 % (4-6) 08/08/21 21:18 Calcium 9.7 mg/dL (8.4-10.2) 08/08/21 21:18 Total Bilirubin 0.20 mg/dL (0.1-1.2) 08/08/21 21:18 AST 22 units/L (5-40) 08/08/21 21:18 ALT 17 units/L (7-56) 08/08/21 21:18 Alkaline Phosphatase 70 units/L (35-129) 08/08/21 21:18 Total Protein 6.9 g/dL (6.3-8.2) 08/08/21 21:18 Albumin 4.3 g/dL (3.9-5) 08/08/21 21:18 Albumin/Globulin Ratio 1.7 % 08/08/21 21:18 Triglycerides 126 mg/dL (2-149) 08/08/21 21:18 Cholesterol 279 mg/dL (50-199) H 08/08/21 21:18 LDL Cholesterol Direct 180 mg/dL (50-130) H 08/08/21 21:18 HDL Cholesterol 81 mg/dL (40-59) H 08/08/21 21:18 Cholesterol/HDL Ratio 3.44 % 08/08/21 21:18 TSH 1.720 mlU/mL (0.270-4.200) 08/08/21 21:18 Olea/IV: Voiding Method Diaper Active Medications - Current Medications Current Medications: Generic Name Dose Route Start Last Admin Trade Name Freq PRN Reason Stop Dose Admin Amlodipine Besylate 10 mg 08/06/21 10:00 09/03/21 10:00 Amlodipine 10 Mg Tab PO Not Given QDAY [facility] Aspirin 81 mg 08/18/21 10:00 09/03/21 10:00 Aspirin 81 Mg Tab Chew PO Not Given QDAY [facility] Atorvastatin Calcium 40 mg 08/06/21 22:00 09/02/21 21:59 Atorvastatin 40 Mg Tab PO 40 mg QHS [facility] Administration Melatonin 5 mg 08/11/21 22:00 Melatonin 5 Mg Tab PO QHS PRN Sleep Multivitamins/Minerals 1 each 08/06/21 10:00 09/03/21 10:00 Calcium Carb/Vit D3/Minerals 600 Mg/800 Units Tab PO Not Given DAILY [facility] Risperidone 0.25 mg 08/16/21 10:00 09/03/21 10:00 Risperidone 0.25 Mg Tab PO Not Given BID [facility] Trazodone HCl 75 mg 08/11/21 22:00 09/02/21 22:00 Trazodone 50 Mg Tab PO 75 mg QHS [facility] Administration Nutrition/Malnutrition Assess - Dietary Evaluation Nutrition/Malnutrition Findings: Nutrition Notes Start: 08/11/21 12:38 Freq: Status: Active Protocol: Document 08/11/21 12:38 NHALL (Rec: 08/11/21 12:40 CADENCE [id number]) Nutrition Notes Need for Assessment generated from: LOS Initial or Follow up Brief Note Current Diet Consistent CHO Height 5 ft 2 in Weight 52 kg [place] Body Weight (kg) 50.00 BMI 20.9 Weight Status Underweight Subjective/Other Information Pt screened for LOS. She has consumed 83% of meals since admission. Percent of energy/protein needs met: 100% energy and pro Burn Absent Trauma Absent Current % PO Good (75-100%) Minimum of two criteria No Is patient on ventilator? No Is Patient Ambulatory and/or Out of Bed Yes REE-([place]-St. Jeor-ambulatory/OOB) [ 1219.725 NUTR.MSJOOB] Kcal/Kg value to use for calculation 30 Approximate Energy Requirements Using 1560 kcal/Kg Calculation Used for Recommendations Kcal/kg Additional Notes Pro needs 1.2-1.5g/k-78g/ day Fluid needs 1ml/kcal Nutrition Intervention Revisit per MD consult or patient Sign Off request:
[2021-09-03] MEDS: traZODone 50 MG TAB PO SCH (21:04)
--- NOTE | 2021-09-04 07:33 | Progress Note ---
Assessment and Plan Assessment and plan: (1) Vascular dementia with behavioral disturbance Current Visit: Yes Status: Acute Plan to address problem: Verbal prompting, verbal redirection, benzodiazepine therapy as clinically indicated (2) Cerebral atherosclerosis Current Visit: Yes Status: Acute Plan to address problem: Risk factor reduction, antiplatelet therapy as clinically indicated. (3) Hypertension Current Visit: Yes Status: Acute Qualifiers: Hypertension type: primary hypertension Qualified Code(s): I10 - Essential (primary) hypertension Plan to address problem: Monitor blood pressure every shift, continue medical management. (4) Hyperlipidemia Current Visit: Yes Status: Acute Plan to address problem: Low-cholesterol diet, statin therapy, supportive care. (5) Diabetes Current Visit: Yes Status: Acute Plan to address problem: Consistent carbohydrate diet, Accu-Chek, insulin protocol, hypoglycemia protocol. (6) Malnutrition Current Visit: Yes Status: Acute Qualifiers: Protein-calorie malnutrition severity: moderate Plan to address problem: Dietary intake varies based on cognition. Dietary supplementation when awake and alert only, increase protein intake. (7) Psychosis Current Visit: Yes Status: Acute Qualifiers: Schizophrenia type: unspecified Plan to address problem: Continue medical management as per mental health team (8) Debility Current Visit: Yes Status: Acute Plan to address problem: Bed alarm, fall precautions. (9) Dependent edema Current Visit: Yes Status: Acute Plan to address problem: Trace dependent edema. No palpable cords, no discoloration, no physical exam findings consistent with DVT. No unilateral leg swelling. Bilateral lower extremity elevation nightly. (10) Advance care planning Current Visit: Yes Status: Acute Plan to address problem: Disease education conducted, care plan discussed, diagnoses discussed, prognosis discussed, patient is full code. Discussed patient diagnoses, prognosis and care plan with patient granddaughter Felicia Nuñez [phone]. Patient is currently unable to live independently and will require placement. Discussed all likely options. Recommend discharge with hospice care to shelter facility, personal-skilled nursing, or assisted living facility depending on availability and acceptance. 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 +30 minutes. History Interval history: No acute complaints this morning. Patient denies any headache, nausea, vomiting, chest pain. She denies any issues with her appetite and voiding habits. Vital signs and medications were reviewed with both the patient and patient's nurse at bedside. Hospitalist Physical - Physical exam Narrative exam: Physical Exam: VITAL SIGNS: Reviewed. GENERAL: The patient appears normally developed, Vital signs as documented. HEAD: No signs of head trauma. EYES: Pupils are equal. Extraocular motions intact. EARS: Hearing grossly intact. MOUTH: Oropharynx is normal. NECK: No adenopathy, no JVD. CHEST: Chest with clear breath sounds bilaterally. No wheezes, rales, or rhonchi. CARDIAC: Regular rate and rhythm. S1 and S2, without murmurs, gallops, or rubs. VASCULAR: No Edema. Peripheral pulses normal and equal in all extremities. ABDOMEN: Soft, non tender and non distended. No rebound or guarding, and no masses palpated. Bowel Sounds normal. MUSCULOSKELETAL: Good range of motion of all major joints. Extremities without clubbing, cyanosis or edema. Wheelchair-bound NEUROLOGIC EXAM: Alert and oriented x 4. no focal sensory deficits. PSYCHIATRIC: Mood normal. SKIN: detail exam as documented in skin assessment - Constitutional Vitals: Temp Pulse Resp BP Pulse Ox 98.8 F 72 16 148/67 98 09/02/21 20:12 09/02/21 20:12 09/02/21 20:12 09/02/21 20:12 09/02/21 20:12 General appearance: Present: no acute distress, cachectic Results - Labs CBC & Chem 7: 08/08/21 21:18 08/08/21 21:18 Labs: Laboratory Last Values WBC 6.0 K/mm3 (4.5-11.0) 08/08/21 21:18 RBC 3.97 M/mm3 (3.65-5.03) 08/08/21 21:18 Hgb 11.8 gm/dl (10.1-14.3) 08/08/21 21:18 Hct 36.3 % (30.3-42.9) 08/08/21 21:18 MCV 92 fl (79-97) 08/08/21 21:18 MCH 30 pg (28-32) 08/08/21 21:18 MCHC 33 % (30-34) 08/08/21 21:18 RDW 15.2 % (13.2-15.2) 08/08/21 21:18 Plt Count 181 K/mm3 (140-440) 08/08/21 21:18 Lymph % (Auto) 32.9 % (13.4-35.0) 08/08/21 21:18 [place] % (Auto) 8.7 % (0.0-7.3) H 08/08/21 21:18 Eos % (Auto) 3.3 % (0.0-4.3) 08/08/21 21:18 Baso % (Auto) 0.5 % (0.0-1.8) 08/08/21 21:18 Lymph # (Auto) 2.0 K/mm3 (1.2-5.4) 08/08/21 21:18 [place] # (Auto) 0.5 K/mm3 (0.0-0.8) 08/08/21 21:18 Eos # (Auto) 0.2 K/mm3 (0.0-0.4) 08/08/21 21:18 Baso # (Auto) 0.0 K/mm3 (0.0-0.1) 08/08/21 21:18 Seg Neutrophils % 54.6 % (40.0-70.0) 08/08/21 21:18 Seg Neutrophils # 3.3 K/mm3 (1.8-7.7) 08/08/21 21:18 Sodium 140 mmol/L (137-145) 08/08/21 21:18 Potassium 3.8 mmol/L (3.6-5.0) 08/08/21 21:18 Chloride 101.9 mmol/L (98-107) 08/08/21 21:18 Carbon Dioxide 27 mmol/L (22-30) 08/08/21 21:18 Anion Gap 15 mmol/L 08/08/21 21:18 BUN 26 mg/dL (7-17) H 08/08/21 21:18 Creatinine 0.8 mg/dL (0.6-1.2) 08/08/21 21:18 Estimated GFR > 60 ml/min 08/08/21 21:18 BUN/Creatinine Ratio 33 % 08/08/21 21:18 Glucose 115 mg/dL (65-100) H 08/08/21 21:18 POC Glucose 153 mg/dL (70-105) H 08/25/21 19:37 Hemoglobin A1c 5.9 % (4-6) 08/08/21 21:18 Calcium 9.7 mg/dL (8.4-10.2) 08/08/21 21:18 Total Bilirubin 0.20 mg/dL (0.1-1.2) 08/08/21 21:18 AST 22 units/L (5-40) 08/08/21 21:18 ALT 17 units/L (7-56) 08/08/21 21:18 Alkaline Phosphatase 70 units/L (35-129) 08/08/21 21:18 Total Protein 6.9 g/dL (6.3-8.2) 08/08/21 21:18 Albumin 4.3 g/dL (3.9-5) 08/08/21 21:18 Albumin/Globulin Ratio 1.7 % 08/08/21 21:18 Triglycerides 126 mg/dL (2-149) 08/08/21 21:18 Cholesterol 279 mg/dL (50-199) H 08/08/21 21:18 LDL Cholesterol Direct 180 mg/dL (50-130) H 08/08/21 21:18 HDL Cholesterol 81 mg/dL (40-59) H 08/08/21 21:18 Cholesterol/HDL Ratio 3.44 % 08/08/21 21:18 TSH 1.720 mlU/mL (0.270-4.200) 08/08/21 21:18 [place]a/IV: Voiding Method Diaper Active Medications - Current Medications Current Medications: Generic Name Dose Route Start Last Admin Trade Name Freq PRN Reason Stop Dose Admin Amlodipine Besylate 10 mg 08/06/21 10:00 09/03/21 10:00 Amlodipine 10 Mg Tab PO Not Given QDAY [facility] Aspirin 81 mg 08/18/21 10:00 09/03/21 10:00 Aspirin 81 Mg Tab Chew PO Not Given QDAY [facility] Atorvastatin Calcium 40 mg 08/06/21 22:00 09/03/21 21:05 Atorvastatin 40 Mg Tab PO 40 mg QHS [facility] Administration Melatonin 5 mg 08/11/21 22:00 Melatonin 5 Mg Tab PO QHS PRN Sleep Multivitamins/Minerals 1 each 08/06/21 10:00 09/03/21 10:00 Calcium Carb/Vit D3/Minerals 600 Mg/800 Units Tab PO Not Given DAILY [facility] Risperidone 0.25 mg 08/16/21 10:00 09/03/21 21:05 Risperidone 0.25 Mg Tab PO 0.25 mg BID [facility] Administration Trazodone HCl 75 mg 08/11/21 22:00 09/03/21 21:04 Trazodone 50 Mg Tab PO 75 mg QHS [facility] Administration Nutrition/Malnutrition Assess - Dietary Evaluation Nutrition/Malnutrition Findings: Nutrition Notes Start: 08/11/21 12:38 Freq: Status: Active Protocol: Document 08/11/21 12:38 CADENCE (Rec: 08/11/21 12:40 NHAVIS [id number]) Nutrition Notes Need for Assessment generated from: LOS Initial or Follow up Brief Note Current Diet Consistent CHO Height 5 ft 2 in Weight 52 kg [place] Body Weight (kg) 50.00 BMI 20.9 Weight Status Underweight Subjective/Other Information Pt screened for LOS. She has consumed 83% of meals since admission. Percent of energy/protein needs met: 100% energy and pro Burn Absent Trauma Absent Current % PO Good (75-100%) Minimum of two criteria No Is patient on ventilator? No Is Patient Ambulatory and/or Out of Bed Yes REE-([place]-ambulatory/OOB) [ 1219.725 NUTR.MSJOOB] Kcal/Kg value to use for calculation 30 Approximate Energy Requirements Using 1560 kcal/Kg Calculation Used for Recommendations Kcal/kg Additional Notes Pro needs 1.2-1.5g/k-78g/ day Fluid needs 1ml/kcal Nutrition Intervention Revisit per MD consult or patient Sign Off request:
--- NOTE | 2021-09-04 08:37 | Progress Note ---
Subjective Date of service: 09/04/21 Principal diagnosis: Delusional Disorder Subjective Comment: 09/04/21: The patient was seen this morning. She is cooperative and pleasant. She reports sleep and appetite as good. She denies suicidal/homicidal ideation and denies hallucinations. Awaiting placement. 09/03/21: The patient was seen at breakfast. She is cooperative and pleasant. She reports sleep and appetite as good. She denies suicidal/homicidal ideation and denies hallucinations. Awaiting placement. 09/02/21: The patient was seen at breakfast. She states she is doing well. She reports sleep and appetite as good. She denies suicidal/homicidal ideation and denies hallucinations. Awaiting placement. 09/01/21:The patient was seen today. she reports doing well. She denies suicidal/homicidal ideation and denies hallucinations.Awaiting placement. 08/31:The patient was seen today. She is pleasant. She is sitting on side of the bed. The patient is asking about her discharge date. She denies SI/HI or hallucinations of any kind. She is awaiting placement. 08/30 The patient was seen today. She is calm, cooperative and pleasant. She denies SI/HI or hallucinations of any kind. She says she slept okay. 08/29 The patient was seen today. She is lying in bed awake. She is calm and cooperative. She says she doesn't feel like herself this morning. The patient says "I'm just ready to leave here. I've been here too long." I assured the patient that she would discharge once the secures a safe place for her to go. She is understanding of this. The patient denies SI/HI or hallucinations of any kind. 08/28 The patient was seen today. She is standing at the sink in her room brushing her teeth. She is slightly irritable and states she is ready to get out of here. She denies SI/HI or hallucinations of any kind. The patient is awaiting placement. 08/27/21: The patient was seen this morning. She is in a better mood. " God is blessing me as he does everyday, I'm in a good mood, spoke with my daughter she is uplifting and reassuring. " She patient denies suicidal/homicidal ideation and denies hallucinations. The patient is clear from psych point of view. 08/26/21: The patient was seen this morning. She is irritable and refusing to answer questions. 08/25/21:The patient was seen at breakfast. She states she is she is doing well. She patient denies suicidal/homicidal ideation and denies hallucinations. The patient is clear from psych point of view. 08/24/21:The patient was seen at breakfast. She states she is she is doing well. She patient denies suicidal/homicidal ideation and denies hallucinations. The patient is clear from psych point of view. 08/23/21:The patient was seen at breakfast. She states she is just waking up " not there yet." She patient denies suicidal/homicidal ideation and denies hallucinations. The patient is clear from psych point of view. 08/22/21: The patient was seen at breakfast. She reports doing well. She states sleep and appetite as good. The patient was heard calling a peer disgusting stating he pulls his pants when he walked behind him. She patient denies suicidal/homicidal ideation and denies hallucinations. The patient is clear from psych point of view. 08/21/21: The patient was seen at breakfast. She reports doing well. She states sleep and appetite as good. The patient denies suicidal/homicidal ideation and denies hallucinations. The patient is clear from psych point of view. 08/20/21: The patient was seen in her room this morning. She reports doing well. She states sleep and appetite as good. The patient denies suicidal/homicidal id eation and denies hallucinations. The patient is clear from psych point of view. 08/19/21: The patient was seen this morning. She is calm, cooperative and reports doing well. She states sleep and appetite as good. The patient denies suicidal/homicidal ideation and denies hallucinations. 08/18/21: The patient was seen at breakfast. She is calm, cooperative and reports doing well. She states sleep and appetite as good. The patient denies suicidal/homicidal ideation and denies hallucinations. 08/17/21:The patient was seen today. She is calm, and cooperative. Her daughter is on the phone. The patient's progress and treatment plan were explained. The patient was explained the importance of complying with her medical regimen. She agrees to take the medication. The SW and nurse are involved as well. The patient denies SI/HI or hallucinations of any kind. 08/16 The patient was seen today. She is calm, and cooperative. She denies hallucinations of any kind. She also denies SI/HI. The patient appears to be at her baseline. Will plan with the high school social science teacher to discharge the patient to a safe place. 08/15 The patient was seem today. She is calm and cooperative. She denies SI/HI. She also denies hallucinations. The patient does appear to be a little delusiona l. She tells me something is going on with her eyes. I ask her what was going on. She says "I don't know. Look at them." There is nothing obviously wrong with her eyes. 08/14 The patient was seen today. She is lying in bed. She is awake, and pleasant. She is calm and cooperative. She denies SI/HI or hallucinations of any kind. She is awaiting placement. 08/13 The patient was seen today. She is calm and cooperative. She denies SI/HI or hallucinations of any kind. She says she slept much better last night. 08/12 The patient was seen today. She is calm, and cooperative. She is pleasant. The patient says she slept a little better but didn't feel like she rested well. She denies SI/HI or hallucinations of any kind. The patient says she doesn't know if she wants to take any meds because they make her feel sluggish. I advised the patient that if she wanted to continue to progress and go home, she had to comply with the treatment. She was in agreement, and states she would continue to take them. . 08/11 The patient was seen today. She is calm, cooperative and pleasant. She says she feels okay. She denies SI/HI. She also denies hallucinations. She says she did not sleep well. The patient says she kept waking up throughout the night. 08/10/21: The patient was seen this morning. She states she is doing well. She denies being depressed and no delusions noted. The patient denies any current suicidal/homicidal ideation and denies hallucinations. 08/09/21: The patient was seen at breakfast. She presents in good spirits and reports doing well. She reports sleep as fair. She denies depression and denies any current suicidal/homicidal ideation and denies hallucinations. 08/08/21: The patient was seen eating breakfast. she reports doing well " I would have liked to sleep better, so much interruptions." She denies depression and denies any current suicidal/homicidal ideation and denies hallucinations. 08/07/21:The patient was seen this morning. She is calm. When asking how she is doing, she states " I don't know yet." She reports sleep as restful. She denies depression and denies any current suicidal/homicidal ideation and denies hallucinations. REVIEW OF SYSTEMS Constitutional: Negative for weight loss ENT: Negative for stridor Respiratory: Negative for cough or hemoptysis All other systems reviewed and are negative MENTAL STATUS EXAMINATION General Appearance and Behavior: Age appropriate, good hygiene, wearing appropriate clothes, good eye contact, calm, cooperative Cooperation: Participating/engaged, but Guarded Psychomotor Behavior: Psychomotor normal Mood: good Affect and affective range: congruent with stated mood Thought Process: Goal directed Thought Content: Reality oriented Speech: normal tone and pace Suicidal Ideation: Denies Homicidal Ideation: Denies Hallucinations: Denies Delusions: None Impulse Control: Limited Insight and Judgment: Poor insight and judgment Memory: Poor Attention: Divided Orientation: Alert, oriented Assessment and Plan Delusional Disorder Treatment Plan Patient admitted for inpatient psychiatric evaluation, medication adjustment and close monitoring The patient's behavior, mood, sleep and appetite will be closely monitored. Patient enrolled in individual and group therapeutic sessions and encouraged to attend. Patient provided with a safe and structured environment. Patient's physical health needs will be addressed by the Hospitalist. Hospitalist Consulted Labs including CBC, CMP, Lipid profile and Hemoglobin A1C levels ordered for baseline reference Social Assessment will be completed and the Camp Counselor will work with patient and family to ensure a suitable and safe disposition Medication adjustment will be made as clinically indicated No changes made today Usual Wellness Tenriism/Preservation: - Start Trazodone 50 mg po QHS & 50 mg po QHS PRN between 10 PM & 2 AM for insomnia - Start Melatonin 5 mg po QHS to promote circadian rhythm The patient agreed on the treatment plan, understood the risk, benefit, alternative treatment, potential consequence of no treatment, and gave informed consent. Estimated days: 4 Post hospital care: primary care provider, psychiatric provider Case staffed with Dr. Fuentes Medications and Allergies Medications and Allergies Allergies Allergy/AdvReac Type Severity Reaction Status Date / Time codeine AdvReac Intermediate Swelling Verified 08/04/21 18:27 Home Medications Medication Instructions Recorded Confirmed Last Taken Type Aspirin EC [Halfprin EC] 81 mg PO QDAY #30 tablet. 10/20/19 08/06/21 Unknown Rx AtorvaSTATin [Lipitor] 40 mg PO QHS #30 tablet 10/20/19 08/06/21 Unknown Rx Calcium Carbonate/Vitamin D3 1 each PO DAILY #30 tablet 10/20/19 08/06/21 Unknown Rx [Calcium 500 mg-Vit D3 600 Unit] amLODIPine 10 mg PO QDAY #30 tablet 10/20/19 08/06/21 Unknown Rx Active Meds: Active Medications Amlodipine Besylate (Amlodipine 10 Mg Tab) 10 mg PO QDAY [facility] Last Admin: 09/03/21 10:00 Dose: Not Given Aspirin (Aspirin 81 Mg Tab Chew) 81 mg PO QDAY [facility] Last Admin: 09/03/21 10:00 Dose: Not Given Atorvastatin Calcium (Atorvastatin 40 Mg Tab) 40 mg PO QHS [facility] Last Admin: 09/03/21 21:05 Dose: 40 mg Melatonin (Melatonin 5 Mg Tab) 5 mg PO QHS PRN PRN Reason: Sleep Multivitamins/Minerals (Calcium Carb/Vit D3/Minerals 600 Mg/800 Units Tab) 1 each PO DAILY [facility] Last Admin: 09/03/21 10:00 Dose: Not Given Risperidone (Risperidone 0.25 Mg Tab) 0.25 mg PO BID [facility] Last Admin: 09/03/21 21:05 Dose: 0.25 mg Trazodone HCl (Trazodone 50 Mg Tab) 75 mg PO QHS [facility] Last Admin: 09/03/21 21:04 Dose: 75 mg Results - Results Labs/Vitals: Laboratory Last Values WBC 6.0 K/mm3 (4.5-11.0) 08/08/21 21:18 RBC 3.97 M/mm3 (3.65-5.03) 08/08/21 21:18 Hgb 11.8 gm/dl (10.1-14.3) 08/08/21 21:18 Hct 36.3 % (30.3-42.9) 08/08/21 21:18 MCV 92 fl (79-97) 08/08/21 21:18 MCH 30 pg (28-32) 08/08/21 21:18 MCHC 33 % (30-34) 08/08/21 21:18 RDW 15.2 % (13.2-15.2) 08/08/21 21:18 Plt Count 181 K/mm3 (140-440) 08/08/21 21:18 Lymph % (Auto) 32.9 % (13.4-35.0) 08/08/21 21:18 [place] % (Auto) 8.7 % (0.0-7.3) H 08/08/21 21:18 Eos % (Auto) 3.3 % (0.0-4.3) 08/08/21 21:18 Baso % (Auto) 0.5 % (0.0-1.8) 08/08/21 21:18 Lymph # (Auto) 2.0 K/mm3 (1.2-5.4) 08/08/21 21:18 [place] # (Auto) 0.5 K/mm3 (0.0-0.8) 08/08/21 21:18 Eos # (Auto) 0.2 K/mm3 (0.0-0.4) 08/08/21 21:18 Baso # (Auto) 0.0 K/mm3 (0.0-0.1) 08/08/21 21:18 Seg Neutrophils % 54.6 % (40.0-70.0) 08/08/21 21:18 Seg Neutrophils # 3.3 K/mm3 (1.8-7.7) 08/08/21 21:18 Sodium 140 mmol/L (137-145) 08/08/21 21:18 Potassium 3.8 mmol/L (3.6-5.0) 08/08/21 21:18 Chloride 101.9 mmol/L (98-107) 08/08/21 21:18 Carbon Dioxide 27 mmol/L (22-30) 08/08/21 21:18 Anion Gap 15 mmol/L 08/08/21 21:18 BUN 26 mg/dL (7-17) H 08/08/21 21:18 Creatinine 0.8 mg/dL (0.6-1.2) 08/08/21 21:18 Estimated GFR > 60 ml/min 08/08/21 21:18 BUN/Creatinine Ratio 33 % 08/08/21 21:18 Glucose 115 mg/dL (65-100) H 08/08/21 21:18 POC Glucose 153 mg/dL (70-105) H 08/25/21 19:37 Hemoglobin A1c 5.9 % (4-6) 08/08/21 21:18 Calcium 9.7 mg/dL (8.4-10.2) 08/08/21 21:18 Total Bilirubin 0.20 mg/dL (0.1-1.2) 08/08/21 21:18 AST 22 units/L (5-40) 08/08/21 21:18 ALT 17 units/L (7-56) 08/08/21 21:18 Alkaline Phosphatase 70 units/L (35-129) 08/08/21 21:18 Total Protein 6.9 g/dL (6.3-8.2) 08/08/21 21:18 Albumin 4.3 g/dL (3.9-5) 08/08/21 21:18 Albumin/Globulin Ratio 1.7 % 08/08/21 21:18 Triglycerides 126 mg/dL (2-149) 08/08/21 21:18 Cholesterol 279 mg/dL (50-199) H 08/08/21 21:18 LDL Cholesterol Direct 180 mg/dL (50-130) H 08/08/21 21:18 HDL Cholesterol 81 mg/dL (40-59) H 08/08/21 21:18 Cholesterol/HDL Ratio 3.44 % 08/08/21 21:18 TSH 1.720 mlU/mL (0.270-4.200) 08/08/21 21:18 Last Vital Signs Temp 98.8 F 09/02/21 20:12 Pulse 72 09/02/21 20:12 Resp 16 09/02/21 20:12 BP 148/67 09/02/21 20:12 Pulse Ox 98 09/02/21 20:12
[2021-09-04] MEDS: amLODIPine 10 MG TAB PO SCH (10:09)
[2021-09-04] MEDS: risperiDONE 0.25 MG TAB PO SCH ×2 (10:09→21:08)
[2021-09-04] MEDS: ASPIRIN 81 MG TAB CHEW PO SCH (10:09)
[2021-09-04] MEDS: CALCIUM CARB/VIT D3/MINERALS 600 MG/800 UNITS TAB PO SCH (10:10)
[2021-09-04] MEDS: traZODone 50 MG TAB PO SCH (21:07)
--- NOTE | 2021-09-05 08:52 | Progress Note ---
Assessment and Plan Assessment and plan: (1) Vascular dementia with behavioral disturbance Current Visit: Yes Status: Acute Plan to address problem: Verbal prompting, verbal redirection, benzodiazepine therapy as clinically indicated (2) Cerebral atherosclerosis Current Visit: Yes Status: Acute Plan to address problem: Risk factor reduction, antiplatelet therapy as clinically indicated. (3) Hypertension Current Visit: Yes Status: Acute Qualifiers: Hypertension type: primary hypertension Qualified Code(s): I10 - Essential (primary) hypertension Plan to address problem: Monitor blood pressure every shift, continue medical management. (4) Hyperlipidemia Current Visit: Yes Status: Acute Plan to address problem: Low-cholesterol diet, statin therapy, supportive care. (5) Diabetes Current Visit: Yes Status: Acute Plan to address problem: Consistent carbohydrate diet, Accu-Chek, insulin protocol, hypoglycemia protocol. (6) Malnutrition Current Visit: Yes Status: Acute Qualifiers: Protein-calorie malnutrition severity: moderate Plan to address problem: Dietary intake varies based on cognition. Dietary supplementation when awake and alert only, increase protein intake. (7) Psychosis Current Visit: Yes Status: Acute Qualifiers: Schizophrenia type: unspecified Plan to address problem: Continue medical management as per mental health team (8) Debility Current Visit: Yes Status: Acute Plan to address problem: Bed alarm, fall precautions. (9) Dependent edema Current Visit: Yes Status: Acute Plan to address problem: Trace dependent edema. No palpable cords, no discoloration, no physical exam findings consistent with DVT. No unilateral leg swelling. Bilateral lower extremity elevation nightly. (10) Advance care planning Current Visit: Yes Status: Acute Plan to address problem: Disease education conducted, care plan discussed, diagnoses discussed, prognosis discussed, patient is full code. Discussed patient diagnoses, prognosis and care plan with patient granddaughter Felicia Nuñez [phone]. Patient is currently unable to live independently and will require placement. Discussed all likely options. Recommend discharge with hospice care to [facility] facility, [facility] [facility], or assisted living facility depending on availability and acceptance. 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 +30 minutes. History Interval history: No acute complaints this morning. Educated patient on the medications she is receiving for her chronic medical conditions. Patient expressed gratitude and understanding regarding her overall clinical care. Hospitalist Physical - Physical exam Narrative exam: Physical Exam: VITAL SIGNS: Reviewed. GENERAL: The patient appears normally developed, Vital signs as documented. HEAD: No signs of head trauma. EYES: Pupils are equal. Extraocular motions intact. EARS: Hearing grossly intact. MOUTH: Oropharynx is normal. NECK: No adenopathy, no JVD. CHEST: Chest with clear breath sounds bilaterally. No wheezes, rales, or rhonchi. CARDIAC: Regular rate and rhythm. S1 and S2, without murmurs, gallops, or rubs. VASCULAR: No Edema. Peripheral pulses normal and equal in all extremities. ABDOMEN: Soft, non tender and non distended. No rebound or guarding, and no masses palpated. Bowel Sounds normal. MUSCULOSKELETAL: Good range of motion of all major joints. Extremities without clubbing, cyanosis or edema. Wheelchair-bound NEUROLOGIC EXAM: Alert and oriented x 4. no focal sensory deficits. PSYCHIATRIC: Mood normal. SKIN: detail exam as documented in skin assessment - Constitutional Vitals: Temp Pulse Resp BP Pulse Ox 98.4 F 77 20 146/65 97 09/04/21 22:00 09/04/21 22:00 09/04/21 22:00 09/04/21 22:00 09/04/21 22:00 General appearance: Present: no acute distress, cachectic Results - Labs CBC & Chem 7: 08/08/21 21:18 08/08/21 21:18 Labs: Laboratory Last Values WBC 6.0 K/mm3 (4.5-11.0) 08/08/21 21:18 RBC 3.97 M/mm3 (3.65-5.03) 08/08/21 21:18 Hgb 11.8 gm/dl (10.1-14.3) 08/08/21 21:18 Hct 36.3 % (30.3-42.9) 08/08/21 21:18 MCV 92 fl (79-97) 08/08/21 21:18 MCH 30 pg (28-32) 08/08/21 21:18 MCHC 33 % (30-34) 08/08/21 21:18 RDW 15.2 % (13.2-15.2) 08/08/21 21:18 Plt Count 181 K/mm3 (140-440) 08/08/21 21:18 Lymph % (Auto) 32.9 % (13.4-35.0) 08/08/21 21:18 [place] % (Auto) 8.7 % (0.0-7.3) H 08/08/21 21:18 Eos % (Auto) 3.3 % (0.0-4.3) 08/08/21 21:18 Baso % (Auto) 0.5 % (0.0-1.8) 08/08/21 21:18 Lymph # (Auto) 2.0 K/mm3 (1.2-5.4) 08/08/21 21:18 [place] # (Auto) 0.5 K/mm3 (0.0-0.8) 08/08/21 21:18 Eos # (Auto) 0.2 K/mm3 (0.0-0.4) 08/08/21 21:18 Baso # (Auto) 0.0 K/mm3 (0.0-0.1) 08/08/21 21:18 Seg Neutrophils % 54.6 % (40.0-70.0) 08/08/21 21:18 Seg Neutrophils # 3.3 K/mm3 (1.8-7.7) 08/08/21 21:18 Sodium 140 mmol/L (137-145) 08/08/21 21:18 Potassium 3.8 mmol/L (3.6-5.0) 08/08/21 21:18 Chloride 101.9 mmol/L (98-107) 08/08/21 21:18 Carbon Dioxide 27 mmol/L (22-30) 08/08/21 21:18 Anion Gap 15 mmol/L 08/08/21 21:18 BUN 26 mg/dL (7-17) H 08/08/21 21:18 Creatinine 0.8 mg/dL (0.6-1.2) 08/08/21 21:18 Estimated GFR > 60 ml/min 08/08/21 21:18 BUN/Creatinine Ratio 33 % 08/08/21 21:18 Glucose 115 mg/dL (65-100) H 08/08/21 21:18 POC Glucose 153 mg/dL (70-105) H 08/25/21 19:37 Hemoglobin A1c 5.9 % (4-6) 08/08/21 21:18 Calcium 9.7 mg/dL (8.4-10.2) 08/08/21 21:18 Total Bilirubin 0.20 mg/dL (0.1-1.2) 08/08/21 21:18 AST 22 units/L (5-40) 08/08/21 21:18 ALT 17 units/L (7-56) 08/08/21 21:18 Alkaline Phosphatase 70 units/L (35-129) 08/08/21 21:18 Total Protein 6.9 g/dL (6.3-8.2) 08/08/21 21:18 Albumin 4.3 g/dL (3.9-5) 08/08/21 21:18 Albumin/Globulin Ratio 1.7 % 08/08/21 21:18 Triglycerides 126 mg/dL (2-149) 08/08/21 21:18 Cholesterol 279 mg/dL (50-199) H 08/08/21 21:18 LDL Cholesterol Direct 180 mg/dL (50-130) H 08/08/21 21:18 HDL Cholesterol 81 mg/dL (40-59) H 08/08/21 21:18 Cholesterol/HDL Ratio 3.44 % 08/08/21 21:18 TSH 1.720 mlU/mL (0.270-4.200) 08/08/21 21:18 [place]/IV: Voiding Method Toilet Active Medications - Current Medications Current Medications: Generic Name Dose Route Start Last Admin Trade Name Freq PRN Reason Stop Dose Admin Amlodipine Besylate 10 mg 08/06/21 10:00 09/04/21 10:09 Amlodipine 10 Mg Tab PO 10 mg QDAY NISH Administration Aspirin 81 mg 08/18/21 10:00 09/04/21 10:09 Aspirin 81 Mg Tab Chew PO 81 mg QDAY NISH Administration Atorvastatin Calcium 40 mg 08/06/21 22:00 09/04/21 21:08 Atorvastatin 40 Mg Tab PO 40 mg QHS NISH Administration Melatonin 5 mg 08/11/21 22:00 Melatonin 5 Mg Tab PO QHS PRN Sleep Multivitamins/Minerals 1 each 08/06/21 10:00 09/04/21 10:10 Calcium Carb/Vit D3/Minerals 600 Mg/800 Units Tab PO 1 each DAILY NISH Administration Risperidone 0.25 mg 08/16/21 10:00 09/04/21 21:08 Risperidone 0.25 Mg Tab PO 0.25 mg BID NISH Administration Trazodone HCl 75 mg 08/11/21 22:00 09/04/21 21:07 Trazodone 50 Mg Tab PO 75 mg QHS NISH Administration Nutrition/Malnutrition Assess - Dietary Evaluation Nutrition/Malnutrition Findings: Nutrition Notes Start: 08/11/21 12:38 Freq: Status: Active Protocol: Document 08/11/21 12:38 CADENCE (Rec: 08/11/21 12:40 CADENCE [id number]) Nutrition Notes Need for Assessment generated from: LOS Initial or Follow up Brief Note Current Diet Consistent CHO Height 5 ft 2 in Weight 52 kg [place] Body Weight (kg) 50.00 BMI 20.9 Weight Status Underweight Subjective/Other Information Pt screened for LOS. She has consumed 83% of meals since admission. Percent of energy/protein needs met: 100% energy and pro Burn Absent Trauma Absent Current % PO Good (75-100%) Minimum of two criteria No Is patient on ventilator? No Is Patient Ambulatory and/or Out of Bed Yes REE-([place]-St. Jeor-ambulatory/OOB) [ 1219.725 [id number]] Kcal/Kg value to use for calculation 30 Approximate Energy Requirements Using 1560 kcal/Kg Calculation Used for Recommendations Kcal/kg Additional Notes Pro needs 1.2-1.5g/k-78g/ day Fluid needs 1ml/kcal Nutrition Intervention Revisit per MD consult or patient Sign Off request:
--- NOTE | 2021-09-05 09:25 | Progress Note ---
Subjective Date of service: 09/05/21 Principal diagnosis: Delusional Disorder Subjective Comment: 09/05/21:The patient was seen this morning. She states she is doing well. She reports sleep and appetite as good. She denies suicidal/homicidal ideation and denies hallucinations. Awaiting placement. 09/04/21: The patient was seen this morning. She is cooperative and pleasant. She reports sleep and appetite as good. She denies suicidal/homicidal ideation and denies hallucinations. Awaiting placement. 09/03/21: The patient was seen at breakfast. She is cooperative and pleasant. She reports sleep and appetite as good. She denies suicidal/homicidal ideation and denies hallucinations. Awaiting placement. 09/02/21: The patient was seen at breakfast. She states she is doing well. She reports sleep and appetite as good. She denies suicidal/homicidal ideation and denies hallucinations. Awaiting placement. 09/01/21:The patient was seen today. she reports doing well. She denies suicidal/homicidal ideation and denies hallucinations.Awaiting placement. 08/31:The patient was seen today. She is pleasant. She is sitting on side of the bed. The patient is asking about her discharge date. She denies SI/HI or hallucinations of any kind. She is awaiting placement. 08/30 The patient was seen today. She is calm, cooperative and pleasant. She denies SI/HI or hallucinations of any kind. She says she slept okay. 08/29 The patient was seen today. She is lying in bed awake. She is calm and cooperative. She says she doesn't feel like herself this morning. The patient says "I'm just ready to leave here. I've been here too long." I assured the patient that she would discharge once the secures a safe place for her to go. She is understanding of this. The patient denies SI/HI or hallucinations of any kind. 08/28 The patient was seen today. She is standing at the sink in her room brushi ng her teeth. She is slightly irritable and states she is ready to get out of here. She denies SI/HI or hallucinations of any kind. The patient is awaiting placement. 08/27/21: The patient was seen this morning. She is in a better mood. " God is blessing me as he does everyday, I'm in a good mood, spoke with my daughter she is uplifting and reassuring. " She patient denies suicidal/homicidal ideation and denies hallucinations. The patient is clear from psych point of view. 08/26/21: The patient was seen this morning. She is irritable and refusing to answer questions. 08/25/21:The patient was seen at breakfast. She states she is she is doing well. She patient denies suicidal/homicidal ideation and denies hallucinations. The patient is clear from psych point of view. 08/24/21:The patient was seen at breakfast. She states she is she is doing well. She patient denies suicidal/homicidal ideation and denies hallucinations. The patient is clear from psych point of view. 08/23/21:The patient was seen at breakfast. She states she is just waking up " not there yet." She patient denies suicidal/homicidal ideation and denies hallucinations. The patient is clear from psych point of view. 08/22/21: The patient was seen at breakfast. She reports doing well. She states sleep and appetite as good. The patient was heard calling a peer disgusting stating he pulls his pants when he walked behind him. She patient denies suicidal/homicidal ideation and denies hallucinations. The patient is clear from psych point of view. 08/21/21: The patient was seen at breakfast. She reports doing well. She states sleep and appetite as good. The patient denies suicidal/homicidal ideation and denies hallucinations. The patient is clear from psych point of view. 08/20/21: The patient was seen in her room this morning. She reports doing well. She states sleep and appetite as good. The patient denies suicidal/homicidal ideation and denies hallucinations. The patient is clear from psych point of view. 08/19/21: The patient was seen this morning. She is calm, cooperative and reports doing well. She states sleep and appetite as good. The patient denies suicidal/homicidal ideation and denies hallucinations. 08/18/21: The patient was seen at breakfast. She is calm, cooperative and reports doing well. She states sleep and appetite as good. The patient denies suicidal/homicidal ideation and denies hallucinations. 08/17/21:The patient was seen today. She is calm, and cooperative. Her daughter is on the phone. The patient's progress and treatment plan were explained. The patient was explained the importance of complying with her medical regimen. She agrees to take the medication. The SW and nurse are involved as well. The patient denies SI/HI or hallucinations of any kind. 08/16 The patient was seen today. She is calm, and cooperative. She denies hallucinations of any kind. She also denies SI/HI. The patient appears to be at her baseline. Will plan with the dialysis social worker to discharge the patient to a safe place. 08/15 The patient was seem today. She is calm and cooperative. She denies SI/HI. She also denies hallucinations. The patient does appear to be a little delusional. She tells me something is going on with her eyes. I ask her what was going on. She says "I don't know. Look at them." There is nothing obviously wrong with her eyes. 08/14 The patient was seen today. She is lying in bed. She is awake, and pleasant. She is calm and cooperative. She denies SI/HI or hallucinations of any kind. She is awaiting placement. 08/13 The patient was seen today. She is calm and cooperative. She denies SI/HI or hallucinations of any kind. She says she slept much better last night. 08/12 The patient was seen today. She is calm, and cooperative. She is pleasant. The patient says she slept a little better but didn't feel like she rested well. She denies SI/HI or hallucinations of any kind. The patient says she doesn't know if she wants to take any meds because they make her feel sluggish. I advised the patient that if she wanted to continue to progress and go home, she had to comply with the treatment. She was in agreement, and states she would continue to take them. . 08/11 The patient was seen today. She is calm, cooperative and pleasant. She says she feels okay. She denies SI/HI. She also denies hallucinations. She says she did not sleep well. The patient says she kept waking up throughout the night. 08/10/21: The patient was seen this morning. She states she is doing well. She denies being depressed and no delusions noted. The patient denies any current suicidal/homicidal ideation and denies hallucinations. 08/09/21: The patient was seen at breakfast. She presents in good spirits and reports doing well. She reports sleep as fair. She denies depression and denies any current suicidal/homicidal ideation and denies hallucinations. 08/08/21: The patient was seen eating breakfast. she reports doing well " I wou ld have liked to sleep better, so much interruptions." She denies depression and denies any current suicidal/homicidal ideation and denies hallucinations. 08/07/21:The patient was seen this morning. She is calm. When asking how she is doing, she states " I don't know yet." She reports sleep as restful. She denies depression and denies any current suicidal/homicidal ideation and denies hallucinations. REVIEW OF SYSTEMS Constitutional: Negative for weight loss ENT: Negative for stridor Respiratory: Negative for cough or hemoptysis All other systems reviewed and are negative MENTAL STATUS EXAMINATION General Appearance and Behavior: Age appropriate, good hygiene, wearing appropriate clothes, good eye contact, calm, cooperative Cooperation: Participating/engaged, but Guarded Psychomotor Behavior: Psychomotor normal Mood: good Affect and affective range: congruent with stated mood Thought Process: Goal directed Thought Content: Reality oriented Speech: normal tone and pace Suicidal Ideation: Denies Homicidal Ideation: Denies Hallucinations: Denies Delusions: None Impulse Control: Limited Insight and Judgment: Poor insight and judgment Memory: Poor Attention: Divided Orientation: Alert, oriented Assessment and Plan Delusional Disorder Treatment Plan Patient admitted for inpatient psychiatric evaluation, medication adjustment and close monitoring The patient's behavior, mood, sleep and appetite will be closely monitored. Patient enrolled in individual and group therapeutic sessions and encouraged to attend. Patient provided with a safe and structured environment. Patient's physical health needs will be addressed by the Hospitalist. Hospayleen monsivaisist Consulted Labs including CBC, CMP, Lipid profile and Hemoglobin A1C levels ordered for baseline reference Social Assessment will be completed and the Boring Machine Operator Horizontal will work with patient and family to ensure a suitable and safe disposition Medication adjustment will be made as clinically indicated No changes made today Usual Wellness Advent/Preservation: - Start Trazodone 50 mg po QHS & 50 mg po QHS PRN between 10 PM & 2 AM for insomnia - Start Melatonin 5 mg po QHS to promote circadian rhythm The patient agreed on the treatment plan, understood the risk, benefit, alternative treatment, potential consequence of no treatment, and gave informed consent. Estimated days: 4 Post hospital care: primary care provider, psychiatric provider Case staffed with Dr. Fuentes Medications and Allergies Medications and Allergies Allergies Allergy/AdvReac Type Severity Reaction Status Date / Time codeine AdvReac Intermediate Swelling Verified 08/04/21 18:27 Home Medications Medication Instructions Recorded Confirmed Last Taken Type Aspirin EC [Halfprin EC] 81 mg PO QDAY #30 tablet. 10/20/19 08/06/21 Unknown Rx AtorvaSTATin [Lipitor] 40 mg PO QHS #30 tablet 10/20/19 08/06/21 Unknown Rx Calcium Carbonate/Vitamin D3 1 each PO DAILY #30 tablet 10/20/19 08/06/21 Unknown Rx [Calcium 500 mg-Vit D3 600 Unit] amLODIPine 10 mg PO QDAY #30 tablet 10/20/19 08/06/21 Unknown Rx Active Meds: Active Medications Amlodipine Besylate (Amlodipine 10 Mg Tab) 10 mg PO QDAY [facility] Last Admin: 09/04/21 10:09 Dose: 10 mg Aspirin (Aspirin 81 Mg Tab Chew) 81 mg PO QDAY [facility] Last Admin: 09/04/21 10:09 Dose: 81 mg Atorvastatin Calcium (Atorvastatin 40 Mg Tab) 40 mg PO QHS [facility] Last Admin: 09/04/21 21:08 Dose: 40 mg Melatonin (Melatonin 5 Mg Tab) 5 mg PO QHS PRN PRN Reason: Sleep Multivitamins/Minerals (Calcium Carb/Vit D3/Minerals 600 Mg/800 Units Tab) 1 each PO DAILY [facility] Last Admin: 09/04/21 10:10 Dose: 1 each Risperidone (Risperidone 0.25 Mg Tab) 0.25 mg PO BID [facility] Last Admin: 09/04/21 21:08 Dose: 0.25 mg Trazodone HCl (Trazodone 50 Mg Tab) 75 mg PO QHS [facility] Last Admin: 09/04/21 21:07 Dose: 75 mg Results - Results Labs/Vitals: Laboratory Last Values WBC 6.0 K/mm3 (4.5-11.0) 08/08/21 21:18 RBC 3.97 M/mm3 (3.65-5.03) 08/08/21 21:18 Hgb 11.8 gm/dl (10.1-14.3) 08/08/21 21:18 Hct 36.3 % (30.3-42.9) 08/08/21 21:18 MCV 92 fl (79-97) 08/08/21 21:18 MCH 30 pg (28-32) 08/08/21 21:18 MCHC 33 % (30-34) 08/08/21 21:18 RDW 15.2 % (13.2-15.2) 08/08/21 21:18 Plt Count 181 K/mm3 (140-440) 08/08/21 21:18 Lymph % (Auto) 32.9 % (13.4-35.0) 08/08/21 21:18 [place] % (Auto) 8.7 % (0.0-7.3) H 08/08/21 21:18 Eos % (Auto) 3.3 % (0.0-4.3) 08/08/21 21:18 Baso % (Auto) 0.5 % (0.0-1.8) 08/08/21 21:18 Lymph # (Auto) 2.0 K/mm3 (1.2-5.4) 08/08/21 21:18 [place] # (Auto) 0.5 K/mm3 (0.0-0.8) 08/08/21 21:18 Eos # (Auto) 0.2 K/mm3 (0.0-0.4) 08/08/21 21:18 Baso # (Auto) 0.0 K/mm3 (0.0-0.1) 08/08/21 21:18 Seg Neutrophils % 54.6 % (40.0-70.0) 08/08/21 21:18 Seg Neutrophils # 3.3 K/mm3 (1.8-7.7) 08/08/21 21:18 Sodium 140 mmol/L (137-145) 08/08/21 21:18 Potassium 3.8 mmol/L (3.6-5.0) 08/08/21 21:18 Chloride 101.9 mmol/L (98-107) 08/08/21 21:18 Carbon Dioxide 27 mmol/L (22-30) 08/08/21 21:18 Anion Gap 15 mmol/L 08/08/21 21:18 BUN 26 mg/dL (7-17) H 08/08/21 21:18 Creatinine 0.8 mg/dL (0.6-1.2) 08/08/21 21:18 Estimated GFR > 60 ml/min 08/08/21 21:18 BUN/Creatinine Ratio 33 % 08/08/21 21:18 Glucose 115 mg/dL (65-100) H 08/08/21 21:18 POC Glucose 153 mg/dL (70-105) H 08/25/21 19:37 Hemoglobin A1c 5.9 % (4-6) 08/08/21 21:18 Calcium 9.7 mg/dL (8.4-10.2) 08/08/21 21:18 Total Bilirubin 0.20 mg/dL (0.1-1.2) 08/08/21 21:18 AST 22 units/L (5-40) 08/08/21 21:18 ALT 17 units/L (7-56) 08/08/21 21:18 Alkaline Phosphatase 70 units/L (35-129) 08/08/21 21:18 Total Protein 6.9 g/dL (6.3-8.2) 08/08/21 21:18 Albumin 4.3 g/dL (3.9-5) 08/08/21 21:18 Albumin/Globulin Ratio 1.7 % 08/08/21 21:18 Triglycerides 126 mg/dL (2-149) 08/08/21 21:18 Cholesterol 279 mg/dL (50-199) H 08/08/21 21:18 LDL Cholesterol Direct 180 mg/dL (50-130) H 08/08/21 21:18 HDL Cholesterol 81 mg/dL (40-59) H 08/08/21 21:18 Cholesterol/HDL Ratio 3.44 % 08/08/21 21:18 TSH 1.720 mlU/mL (0.270-4.200) 08/08/21 21:18 Last Vital Signs Temp 98.4 F 09/04/21 22:00 Pulse 77 09/04/21 22:00 Resp 20 09/04/21 22:00 BP 146/65 09/04/21 22:00 Pulse Ox 97 09/04/21 22:00
[2021-09-05] MEDS: ASPIRIN 81 MG TAB CHEW PO SCH (09:58)
[2021-09-05] MEDS: CALCIUM CARB/VIT D3/MINERALS 600 MG/800 UNITS TAB PO SCH (09:58)
[2021-09-05] MEDS: amLODIPine 10 MG TAB PO SCH (09:58)
[2021-09-05] MEDS: risperiDONE 0.25 MG TAB PO SCH ×2 (09:58→21:31)
--- NOTE | 2021-09-05 17:03 | XRay Report ---
CHEST 1 VIEW 09/05/2021 2:32 PM INDICATION / CLINICAL INFORMATION: Placement. COMPARISON: 10/16/2019 FINDINGS: SUPPORT DEVICES: None. HEART / MEDIASTINUM: No significant abnormality. LUNGS / PLEURA: No significant pulmonary or pleural abnormality. No pneumothorax. ADDITIONAL FINDINGS: No significant additional findings. IMPRESSION: 1. No acute findings. Signer Name: Kristian Fair MD Signed: 09/05/2021 4:58 PM Workstation Name: [email or web address]
[2021-09-05] MEDS: traZODone 50 MG TAB PO SCH (21:31)
--- NOTE | 2021-09-06 07:55 | Progress Note ---
Assessment and Plan Assessment and plan: (1) Vascular dementia with behavioral disturbance Current Visit: Yes Status: Acute Plan to address problem: Verbal prompting, verbal redirection, benzodiazepine therapy as clinically indicated (2) Cerebral atherosclerosis Current Visit: Yes Status: Acute Plan to address problem: Risk factor reduction, antiplatelet therapy as clinically indicated. (3) Hypertension Current Visit: Yes Status: Acute Qualifiers: Hypertension type: primary hypertension Qualified Code(s): I10 - Essential (primary) hypertension Plan to address problem: Monitor blood pressure every shift, continue medical management. (4) Hyperlipidemia Current Visit: Yes Status: Acute Plan to address problem: Low-cholesterol diet, statin therapy, supportive care. (5) Diabetes Current Visit: Yes Status: Acute Plan to address problem: Consistent carbohydrate diet, Accu-Chek, insulin protocol, hypoglycemia protocol. (6) Malnutrition Current Visit: Yes Status: Acute Qualifiers: Protein-calorie malnutrition severity: moderate Plan to address problem: Dietary intake varies based on cognition. Dietary supplementation when awake and alert only, increase protein intake. (7) Psychosis Current Visit: Yes Status: Acute Qualifiers: Schizophrenia type: unspecified Plan to address problem: Continue medical management as per mental health team (8) Debility Current Visit: Yes Status: Acute Plan to address problem: Bed alarm, fall precautions. (9) Dependent edema Current Visit: Yes Status: Acute Plan to address problem: Trace dependent edema. No palpable cords, no discoloration, no physical exam findings consistent with DVT. No unilateral leg swelling. Bilateral lower extremity elevation nightly. (10) Advance care planning Current Visit: Yes Status: Acute Plan to address problem: Disease education conducted, care plan discussed, diagnoses discussed, prognosis discussed, patient is full code. Discussed patient diagnoses, prognosis and care plan with patient granddaughter Felicia Nuñez [phone]. Patient is currently unable to live independently and will require placement. Discussed all likely options. Recommend discharge with hospice care to [facility], [facility], or assisted living facility depending on availability and acceptance. 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 +30 minutes. History Interval history: No acute complaints. Appropriate during our conversation today Hospitalist Physical - Physical exam Narrative exam: Physical Exam: VITAL SIGNS: Reviewed. GENERAL: The patient appears normally developed, Vital signs as documented. HEAD: No signs of head trauma. EYES: Pupils are equal. Extraocular motions intact. EARS: Hearing grossly intact. MOUTH: Oropharynx is normal. NECK: No adenopathy, no JVD. CHEST: Chest with clear breath sounds bilaterally. No wheezes, rales, or rhonchi. CARDIAC: Regular rate and rhythm. S1 and S2, without murmurs, gallops, or rubs. VASCULAR: No Edema. Peripheral pulses normal and equal in all extremities. ABDOMEN: Soft, non tender and non distended. No rebound or guarding, and no masses palpated. Bowel Sounds normal. MUSCULOSKELETAL: Good range of motion of all major joints. Extremities without clubbing, cyanosis or edema. Wheelchair-bound NEUROLOGIC EXAM: Alert and oriented x 4. no focal sensory deficits. PSYCHIATRIC: Mood normal. SKIN: detail exam as documented in skin assessment - Constitutional Vitals: Temp Pulse Resp BP Pulse Ox 98.8 F 78 20 119/55 96 09/05/21 20:09 09/05/21 20:09 09/05/21 20:09 09/05/21 20:09 09/05/21 20:09 General appearance: Present: no acute distress, cachectic Results - Labs CBC & Chem 7: 08/08/21 21:18 08/08/21 21:18 Labs: Laboratory Last Values WBC 6.0 K/mm3 (4.5-11.0) 08/08/21 21:18 RBC 3.97 M/mm3 (3.65-5.03) 08/08/21 21:18 Hgb 11.8 gm/dl (10.1-14.3) 08/08/21 21:18 Hct 36.3 % (30.3-42.9) 08/08/21 21:18 MCV 92 fl (79-97) 08/08/21 21:18 MCH 30 pg (28-32) 08/08/21 21:18 MCHC 33 % (30-34) 08/08/21 21:18 RDW 15.2 % (13.2-15.2) 08/08/21 21:18 Plt Count 181 K/mm3 (140-440) 08/08/21 21:18 Lymph % (Auto) 32.9 % (13.4-35.0) 08/08/21 21:18 [place] % (Auto) 8.7 % (0.0-7.3) H 08/08/21 21:18 Eos % (Auto) 3.3 % (0.0-4.3) 08/08/21 21:18 Baso % (Auto) 0.5 % (0.0-1.8) 08/08/21 21:18 Lymph # (Auto) 2.0 K/mm3 (1.2-5.4) 08/08/21 21:18 [place] # (Auto) 0.5 K/mm3 (0.0-0.8) 08/08/21 21:18 Eos # (Auto) 0.2 K/mm3 (0.0-0.4) 08/08/21 21:18 Baso # (Auto) 0.0 K/mm3 (0.0-0.1) 08/08/21 21:18 Seg Neutrophils % 54.6 % (40.0-70.0) 08/08/21 21:18 Seg Neutrophils # 3.3 K/mm3 (1.8-7.7) 08/08/21 21:18 Sodium 140 mmol/L (137-145) 08/08/21 21:18 Potassium 3.8 mmol/L (3.6-5.0) 08/08/21 21:18 Chloride 101.9 mmol/L (98-107) 08/08/21 21:18 Carbon Dioxide 27 mmol/L (22-30) 08/08/21 21:18 Anion Gap 15 mmol/L 08/08/21 21:18 BUN 26 mg/dL (7-17) H 08/08/21 21:18 Creatinine 0.8 mg/dL (0.6-1.2) 08/08/21 21:18 Estimated GFR > 60 ml/min 08/08/21 21:18 BUN/Creatinine Ratio 33 % 08/08/21 21:18 Glucose 115 mg/dL (65-100) H 08/08/21 21:18 POC Glucose 153 mg/dL (70-105) H 08/25/21 19:37 Hemoglobin A1c 5.9 % (4-6) 08/08/21 21:18 Calcium 9.7 mg/dL (8.4-10.2) 08/08/21 21:18 Total Bilirubin 0.20 mg/dL (0.1-1.2) 08/08/21 21:18 AST 22 units/L (5-40) 08/08/21 21:18 ALT 17 units/L (7-56) 08/08/21 21:18 Alkaline Phosphatase 70 units/L (35-129) 08/08/21 21:18 Total Protein 6.9 g/dL (6.3-8.2) 08/08/21 21:18 Albumin 4.3 g/dL (3.9-5) 08/08/21 21:18 Albumin/Globulin Ratio 1.7 % 08/08/21 21:18 Triglycerides 126 mg/dL (2-149) 08/08/21 21:18 Cholesterol 279 mg/dL (50-199) H 08/08/21 21:18 LDL Cholesterol Direct 180 mg/dL (50-130) H 08/08/21 21:18 HDL Cholesterol 81 mg/dL (40-59) H 08/08/21 21:18 Cholesterol/HDL Ratio 3.44 % 08/08/21 21:18 TSH 1.720 mlU/mL (0.270-4.200) 08/08/21 21:18 SARS-CoV-2 (PCR) Negative (Negative) 09/05/21 14:45 [place]/IV: Voiding Method Toilet Active Medications - Current Medications Current Medications: Generic Name Dose Route Start Last Admin Trade Name Freq PRN Reason Stop Dose Admin Amlodipine Besylate 10 mg 08/06/21 10:00 09/05/21 09:58 Amlodipine 10 Mg Tab PO Not Given QDAY NISH Aspirin 81 mg 08/18/21 10:00 09/05/21 09:58 Aspirin 81 Mg Tab Chew PO 81 mg QDAY NISH Administration Atorvastatin Calcium 40 mg 08/06/21 22:00 09/05/21 21:31 Atorvastatin 40 Mg Tab PO 40 mg QHS NISH Administration Melatonin 5 mg 08/11/21 22:00 Melatonin 5 Mg Tab PO QHS PRN Sleep Multivitamins/Minerals 1 each 08/06/21 10:00 09/05/21 09:58 Calcium Carb/Vit D3/Minerals 600 Mg/800 Units Tab PO 1 each DAILY NISH Administration Risperidone 0.25 mg 08/16/21 10:00 09/05/21 21:31 Risperidone 0.25 Mg Tab PO 0.25 mg BID NISH Administration Trazodone HCl 75 mg 08/11/21 22:00 09/05/21 21:31 Trazodone 50 Mg Tab PO 75 mg QHS NISH Administration Nutrition/Malnutrition Assess - Dietary Evaluation Nutrition/Malnutrition Findings: Nutrition Notes Start: 08/11/21 12:38 Freq: Status: Active Protocol: Document 08/11/21 12:38 CADENCE (Rec: 08/11/21 12:40 CADENCE [id number]) Nutrition Notes Need for Assessment generated from: LOS Initial or Follow up Brief Note Current Diet Consistent CHO Height 5 ft 2 in Weight 52 kg [place] Body Weight (kg) 50.00 BMI 20.9 Weight Status Underweight Subjective/Other Information Pt screened for LOS. She has consumed 83% of meals since admission. Percent of energy/protein needs met: 100% energy and pro Burn Absent Trauma Absent Current % PO Good (75-100%) Minimum of two criteria No Is patient on ventilator? No Is Patient Ambulatory and/or Out of Bed Yes REE-([facility]-ambulatory/OOB) [ 1219.725 [id number]] Kcal/Kg value to use for calculation 30 Approximate Energy Requirements Using 1560 kcal/Kg Calculation Used for Recommendations Kcal/kg Additional Notes Pro needs 1.2-1.5g/k-78g/ day Fluid needs 1ml/kcal Nutrition Intervention Revisit per MD consult or patient Sign Off request:
--- NOTE | 2021-09-06 09:17 | Discharge Summary ---
Providers - Providers Date of Admission: 08/05/21 23:02 Date of discharge: 09/06/21 Attending physician: MORIAH SANCHEZ MD 08/05/21 22:34 Consult to Physician [CONS] Routine Comment: Consulting Provider: JACINTA LEE Physician Instructions: Please manage existing conditions Reason For Exam: New admission 08/10/21 14:56 Physical Therapy Evaluation and Treat [CONS] Stat Comment: Reason For Exam: assess gait weakness 08/10/21 14:57 Occupational Therapy Evaluate and Treat [CONS] Stat Comment: Reason For Exam: assess ADL limitations 08/22/21 07:26 Consult to Physician [CONS] Stat Comment: Legs swollen non-tender Consulting Provider: SLIM [place] Physician Instructions: Reason For Exam: Swollen Bilateral L.E 09/03/21 06:37 Consult to Physician [CONS] Stat Comment: Consulting Provider: BHARTI VIZCARRA Physician Instructions: Please help see pt AVNI. Thank you. Reason For Exam: Swollen legs, bilateral Primary care physician: SOCORRO HINES Hospitalization Reason for admission: Delusions Admitting Diagnosis: F22 - DELUSIONAL DISORDERS Hospital course: The patient was provided inpatient psychiatric treatment with safe and supportive environment, group/individual therapy, psychiatric medication, medication adjustment, adverse effect monitor, medical evaluation, medical roger atment, social service assessment, social support meeting, placement assessment and psycho-education. The patients mood, cognition, behavior, motivation, compliance to treatment and appreciation on family/social support are improved and stabilized. At the time of discharge, the patient had no suicidal ideas, no homicidal ideas, no aggressive thoughts, no endangering behavior and no debilitating adverse effects. The patient agreed on the treatment plan, understood the risk, benefit, alternative treatment, potential consequence of no treatment, and gave informed consent. Progress Note: 09/05/21:The patient was seen this morning. She states she is doing well. She reports sleep and appetite as good. She denies suicidal/homicidal ideation and denies hallucinations. Awaiting placement. 09/04/21: The patient was seen this morning. She is cooperative and pleasant. She reports sleep and appetite as good. She denies suicidal/homicidal ideation and denies hallucinations. Awaiting placement. 09/03/21: The patient was seen at breakfast. She is cooperative and pleasant. She reports sleep and appetite as good. She denies suicidal/homicidal ideation and denies hallucinations. Awaiting placement. 09/02/21: The patient was seen at breakfast. She states she is doing well. She reports sleep and appetite as good. She denies suicidal/homicidal ideation and denies hallucinations. Awaiting placement. 09/01/21:The patient was seen today. she reports doing well. She denies suicidal/homicidal ideation and denies hallucinations.Awaiting placement. 08/31:The patient was seen today. She is pleasant. She is sitting on side of the bed. The patient is asking about her discharge date. She denies SI/HI or hallucinations of any kind. She is awaiting placement. 08/30 The patient was seen today. She is calm, cooperative and pleasant. She denies SI/HI or hallucinations of any kind. She says she slept okay. 08/29 The patient was seen today. She is lying in bed awake. She is calm and cooperative. She says she doesn't feel like herself this morning. The patient says "I'm just ready to leave here. I've been here too long." I assured the patient that she would discharge once the secures a safe place for her to go. She is understanding of this. The patient denies SI/HI or hallucinations of any kind. 08/28 The patient was seen today. She is standing at the sink in her room brushing her teeth. She is slightly irritable and states she is ready to get out of here. She denies SI/HI or hallucinations of any kind. The patient is awaiting placement. 08/27/21: The patient was seen this morning. She is in a better mood. " God is blessing me as he does everyday, I'm in a good mood, spoke with my daughter she is uplifting and reassuring. " She patient denies suicidal/homicidal ideation and denies hallucinations. The patient is clear from psych point of view. 08/26/21: The patient was seen this morning. She is irritable and refusing to answer questions. 08/25/21:The patient was seen at breakfast. She states she is she is doing well. She patient denies suicidal/homicidal ideation and denies hallucinations. The patient is clear from psych point of view. 08/24/21:The patient was seen at breakfast. She states she is she is doing well. She patient denies suicidal/homicidal ideation and denies hallucinations. The patient is clear from psych point of view. 08/23/21:The patient was seen at breakfast. She states she is just waking up " not there yet." She patient denies suicidal/homicidal ideation and denies hallucinations. The patient is clear from psych point of view. 08/22/21: The patient was seen at breakfast. She reports doing well. She states sleep and appetite as good. The patient was heard calling a peer disgusting stating he pulls his pants when he walked behind him. She patient denies suicidal/homicidal ideation and denies hallucinations. The patient is clear from psych point of view. 08/21/21: The patient was seen at breakfast. She reports doing well. She states sleep and appetite as good. The patient denies suicidal/homicidal ideation and denies hallucinations. The patient is clear from psych point of view. 08/20/21: The patient was seen in her room this morning. She reports doing well. She states sleep and appetite as good. The patient denies suicidal/homicidal ideation and denies hallucinations. The patient is clear from psych point of view. 08/19/21: The patient was seen this morning. She is calm, cooperative and reports doing well. She states sleep and appetite as good. The patient denies suicidal/homicidal ideation and denies hallucinations. 08/18/21: The patient was seen at breakfast. She is calm, cooperative and reports doing well. She states sleep and appetite as good. The patient denies suicidal/homicidal ideation and denies hallucinations. 08/17/21:The patient was seen today. She is calm, and cooperative. Her daughter is on the phone. The patient's progress and treatment plan were explained. The patient was explained the importance of complying with her medical regimen. She agrees to take the medication. The SW and nurse are involved as well. The patient denies SI/HI or hallucinations of any kind. 08/16 The patient was seen today. She is calm, and cooperative. She denies hallucinations of any kind. She also denies SI/HI. The patient appears to be at her baseline. Will plan with the social work specialist to discharge the patient to a safe place. 08/15 The patient was seem today. She is calm and cooperative. She denies SI/HI. She also denies hallucinations. The patient does appear to be a little delusional. She tells me something is going on with her eyes. I ask her what was going on. She says "I don't know. Look at them." There is nothing obviously wrong with her eyes. 08/14 The patient was seen today. She is lying in bed. She is awake, and pleasant. She is calm and cooperative. She denies SI/HI or hallucinations of any kind. She is awaiting placement. 08/13 The patient was seen today. She is calm and cooperative. She denies SI/HI or hallucinations of any kind. She says she slept much better last night. 08/12 The patient was seen today. She is calm, and cooperative. She is pleasant. The patient says she slept a little better but didn't feel like she rested well. She denies SI/HI or hallucinations of any kind. The patient says she doesn't know if she wants to take any meds because they make her feel sluggish. I advised the patient that if she wanted to continue to progress and go home, she had to comply with the treatment. She was in agreement, and states she would continue to take them. . 08/11 The patient was seen today. She is calm, cooperative and pleasant. She says she feels okay. She denies SI/HI. She also denies hallucinations. She says she did not sleep well. The patient says she kept waking up throughout the night. 08/10/21: The patient was seen this morning. She states she is doing well. She denies being depressed and no delusions noted. The patient denies any current suicidal/homicidal ideation and denies hallucinations. 08/09/21: The patient was seen at breakfast. She presents in good spirits and reports doing well. She reports sleep as fair. She denies depression and denies any current suicidal/homicidal ideation and denies hallucinations. 08/08/21: The patient was seen eating breakfast. she reports doing well " I would have liked to sleep better, so much interruptions." She denies depression and denies any current suicidal/homicidal ideation and denies hallucinations. 08/07/21:The patient was seen this morning. She is calm. When asking how she is doing, she states " I don't know yet." She reports sleep as restful. She denies depression and denies any current suicidal/homicidal ideation and denies hallucinations. Disposition: 30 STILL A PATIENT Allergies/Adverse Reactions: Allergies codeine Adverse Reaction (Intermediate, Verified 08/04/21 18:27) Swelling Vital Signs: Last Vital Signs Temp 98.8 F 09/05/21 20:09 Pulse 78 09/05/21 20:09 Resp 20 09/05/21 20:09 BP 119/55 09/05/21 20:09 Pulse Ox 96 09/05/21 20:09 Last Lab: Laboratory Last Values WBC 6.0 K/mm3 (4.5-11.0) 08/08/21 21:18 RBC 3.97 M/mm3 (3.65-5.03) 08/08/21 21:18 Hgb 11.8 gm/dl (10.1-14.3) 08/08/21 21:18 Hct 36.3 % (30.3-42.9) 08/08/21 21:18 MCV 92 fl (79-97) 08/08/21 21:18 MCH 30 pg (28-32) 08/08/21 21:18 MCHC 33 % (30-34) 08/08/21 21:18 RDW 15.2 % (13.2-15.2) 08/08/21 21:18 Plt Count 181 K/mm3 (140-440) 08/08/21 21:18 Lymph % (Auto) 32.9 % (13.4-35.0) 08/08/21 21:18 [place] % (Auto) 8.7 % (0.0-7.3) H 08/08/21 21:18 Eos % (Auto) 3.3 % (0.0-4.3) 08/08/21 21:18 Baso % (Auto) 0.5 % (0.0-1.8) 08/08/21 21:18 Lymph # (Auto) 2.0 K/mm3 (1.2-5.4) 08/08/21 21:18 [place] # (Auto) 0.5 K/mm3 (0.0-0.8) 08/08/21 21:18 Eos # (Auto) 0.2 K/mm3 (0.0-0.4) 08/08/21 21:18 Baso # (Auto) 0.0 K/mm3 (0.0-0.1) 08/08/21 21:18 Seg Neutrophils % 54.6 % (40.0-70.0) 08/08/21 21:18 Seg Neutrophils # 3.3 K/mm3 (1.8-7.7) 08/08/21 21:18 Sodium 140 mmol/L (137-145) 08/08/21 21:18 Potassium 3.8 mmol/L (3.6-5.0) 08/08/21 21:18 Chloride 101.9 mmol/L (98-107) 08/08/21 21:18 Carbon Dioxide 27 mmol/L (22-30) 08/08/21 21:18 Anion Gap 15 mmol/L 08/08/21 21:18 BUN 26 mg/dL (7-17) H 08/08/21 21:18 Creatinine 0.8 mg/dL (0.6-1.2) 08/08/21 21:18 Estimated GFR > 60 ml/min 08/08/21 21:18 BUN/Creatinine Ratio 33 % 08/08/21 21:18 Glucose 115 mg/dL (65-100) H 08/08/21 21:18 POC Glucose 153 mg/dL (70-105) H 08/25/21 19:37 Hemoglobin A1c 5.9 % (4-6) 08/08/21 21:18 Calcium 9.7 mg/dL (8.4-10.2) 08/08/21 21:18 Total Bilirubin 0.20 mg/dL (0.1-1.2) 08/08/21 21:18 AST 22 units/L (5-40) 08/08/21 21:18 ALT 17 units/L (7-56) 08/08/21 21:18 Alkaline Phosphatase 70 units/L (35-129) 08/08/21 21:18 Total Protein 6.9 g/dL (6.3-8.2) 08/08/21 21:18 Albumin 4.3 g/dL (3.9-5) 08/08/21 21:18 Albumin/Globulin Ratio 1.7 % 08/08/21 21:18 Triglycerides 126 mg/dL (2-149) 08/08/21 21:18 Cholesterol 279 mg/dL (50-199) H 08/08/21 21:18 LDL Cholesterol Direct 180 mg/dL (50-130) H 08/08/21 21:18 HDL Cholesterol 81 mg/dL (40-59) H 08/08/21 21:18 Cholesterol/HDL Ratio 3.44 % 08/08/21 21:18 TSH 1.720 mlU/mL (0.270-4.200) 08/08/21 21:18 SARS-CoV-2 (PCR) Negative (Negative) 09/05/21 14:45 Core Measure Documentation - Palliative Care Palliative Care/ Comfort Measures: Not Applicable - Core Measures Any of the following diagnoses?: none - VTE Discharge Requirements Deep Vein Thrombosis/Pulmonary Embolism Present on Admission: No Exam - Constitutional Vitals: Temp Pulse Resp BP Pulse Ox 98.8 F 78 20 119/55 96 09/05/21 20:09 09/05/21 20:09 09/05/21 20:09 09/05/21 20:09 09/05/21 20:09 Plan Activity: advance as tolerated Weight Bearing Status: Weight Bear as Tolerated Diet: regular Durable Medical Equipment Needed Upon Discharge: Wheelchair Care Plan Goals: Maintain good and stable mental health. Plan of Treatment: Plan of Treatment: The patient should be compliant with medications, not to use drugs and not to drink alcohol.The patient understands that if suicidal ideas, homicidal ideas, or any endangering thoughts/behavior arise, they should immediately seek for emergent assistance including but not limited to crisis hot line and emergency room. Follow up with outpatient Psychiatrist and PCP within 7 - 14 days of discharge. Follow up with: SOCORRO HINES MD [Primary Care Provider] - 7 Days Prescriptions: traZODone [Desyrel] 75 mg PO QHS 30 Days #30 tablet risperiDONE [RisperDAL] 0.25 mg PO BID 30 Days #60 tablet
[2021-09-06] MEDS: CALCIUM CARB/VIT D3/MINERALS 600 MG/800 UNITS TAB PO SCH (09:34)
[2021-09-06] MEDS: risperiDONE 0.25 MG TAB PO SCH (09:34)
[2021-09-06] MEDS: ASPIRIN 81 MG TAB CHEW PO SCH (09:34)
[2021-09-06] MEDS: amLODIPine 10 MG TAB PO SCH (09:35)
[2021-09-06 09:36] VITALS: BP 105/45
== END 2021-09-06 15:57 | DRG 885 ==
LOC: 3A 18:56 → UNDOADMIN 18:56 → 5A 23:02
PROVIDERS: ADMIT Psychiatry & Neurology Psychiatry; ATTEND Psychiatry & Neurology Psychiatry
DX: F22 Delusional disorders (principal); F01.51 Vascular dementia, unspecified severity, with behavioral disturbance; E44.0 Moderate protein-calorie malnutrition; F23 Brief psychotic disorder; I10 Essential (primary) hypertension; I67.2 Cerebral atherosclerosis; Z20.822 Contact with and (suspected) exposure to COVID-19; E11.9 Type 2 diabetes mellitus without complications; Z68.21 Body mass index [BMI] 21.0-21.9, adult; F29 Unspecified psychosis not due to a substance or known physiological condition; E78.5 Hyperlipidemia, unspecified; F41.1 Generalized anxiety disorder; R53.81 Other malaise; Z88.6 Allergy status to analgesic agent; F32.9 Major depressive disorder, single episode, unspecified; Z83.3 Family history of diabetes mellitus; Z82.49 Family history of ischemic heart disease and other diseases of the circulatory system; Z88.8 Allergy status to other drugs, medicaments and biological substances
CPT/HCPCS: 36415; 71045; 80048; 80053; 80061; 80076; 80320; 81001; 82150; 82962; 83036; 83690; 84443; 85025; 85610; 99284; G0378; G0480; U0003